=== PATIENT | female | born 1945 | race Caucasian/White ===

== ENCOUNTER 2024-05-01 13:55 | Emergency (ER) | payer MEDICARE, MEDICAID, SELFPAY ==
[2024-05-01 13:56] VITALS: BP 125/74; PULSE 81; RESP 20; TEMP 36.4; O2SAT 95; BMI 34.2
--- NOTE | 2024-05-01 14:13 | EDNOTE_ITS ---
ED SOB =RME/HPI General Chief Complaint: Shortness of Breath/Dyspnea Stated Complaint: SOB Time Seen by Provider: 05/01/24 14:13 Arrival date/time: 05/01/24 13:55 RME / HPI RME / HPI Narrative: This section includes all my notes and documentations, including HPI, PE, and ED course.? Leroy Robertson MD HPI: 79 year old female with history of CVA, VT, s/p aortic valve replacement, AFib, CKD, asthma presents to the ED BIBA from [facility] for evaluation of shortness of breath today. Per medics, [place] staff reported patient was saturating 76%. However, on their arrival patient was 93% on room air and described feeling it was hard to take a deep breath . Additionally reported she has had urinary frequency and dysuria for 4 days and started on antibiotics last night. Took her second dose this morning with no change in symptoms. Denies chest pain or palpitations. Denies fevers, chills, sweats, vomiting, diarrhea, leg pain or leg swelling. No other complaints. ROS: All negative except as documented in HPI. Physical Exam: General:? Alert and oriented.? No acute distress when remaining still.?? Eyes:? Conjunctivae and lids clear.? ENT:? No nasal congestion.? Neck:? Supple.? Heart:? RRR.? Lungs: No respiratory distress. Good air movement with no rhonchi or wheezing or rails. Legs:? No clubbing, cyanosis, edema.? Skin:? Warm and dry.?? Neuro:? Alert and oriented X 3.?? I reviewed all diagnostic test results. My interpretation of the EKG is?sinus rhythm with nonspecific ST?T changes. My interpretation of the chest x-ray is no acute findings. Blood tests remarkable for WBC 11.9. UA showed leukocyte esterase and RBC and WBC and bacteria. At this point, diagnoses include?UTI. Treatment here included?Rocephin and clonidine and Tylenol. She felt much better. Based on my best medical judgment, made decision no further evaluation or treatment indicated at this time.? Patient understands and agrees to the discharge instructions customized and printed, see below. Discharge instructions from Dr. Robertson: 1. After evaluation, you have severe UTI. Fortunately, there is no sepsis. 2. Ceftriaxone (Rocephin) 1 g 2X daily for 7 days to kill the germs causing the infection.? Increase oral fluid to flush it out.? Maintain clear urine.? If dark or yellow, increase oral fluid. 3. See a private doctor on 05/04/2024 for recheck.? Ask to check the final urine culture results from today to make sure Rocephin doesn't need to be changed due to resistance. 4. Seek immediate medical care with worsening, fever, or with any concerns. Leroy Robertson MD Related Data Home Medications ?Medication ?Instructions ?Recorded ?Confirmed lisinopril 10 mg tablet 20 mg PO QDAY HTN #0 tabs 04/02/16 11/18/23 aspirin 81 mg tablet,delayed 1 tab PO QDAY CVA PX 01/01/18 11/18/23 release amiodarone 200 mg tablet 200 mg PO QDAY AFIB 01/01/23 11/18/23 metoprolol succinate 50 mg capsule 25 mg PO QDAY HTN 01/01/23 11/18/23 sprinkle, ext. release 24 hr sucralfate 1 gram tablet 1 g PO BID ANTACID 10/07/23 11/18/23 coQ10 (ubiquinol) 200 mg capsule 400 mg PO QDAY SUPPLEMENT 10/08/23 11/18/23 ferrous sulfate 325 mg (65 mg 325 mg PO QDAY SUPPLEMENT 11/18/23 11/18/23 iron) tablet pantoprazole 40 mg tablet,delayed 40 mg PO QDAY GERD 11/18/23 11/18/23 release (Protonix) Previous Rx's ?Medication ?Instructions ?Recorded furosemide 20 mg tablet 20 mg PO QDAY leg swelling 1 month 11/21/23 #30 tabs ceftriaxone 1 gram solution for 1 g IV BID 7 days #14 ea 05/01/24 injection Allergies Allergy/AdvReac Type Severity Reaction Status Date / Time clindamycin Allergy Intermediate Hives Verified 10/07/23 09:59 latex Allergy Mild hives Verified 10/07/23 09:59 swelling shellfish derived Allergy Abdominal Verified 10/07/23 09:59 Pain codeine AdvReac Mild STOMACH Verified 10/07/23 09:59 UPSET Review of Systems Review of Systems Systems Reviewed: All systems reviewed, normal except as documented Past Medical History Past Medical History NEUROLOGIC: Positive Cerebrovascular Accident CARDIAC: Positive Cardiac Disorders, Cardiac Arrhythmia, Atrial Fibrillation, Coronary Artery Disease, Valvular Heart Disease and Hypertension RESPIRATORY: Positive Asthma and Pneumonia GASTROINTESTINAL: Positive Gastrointestinal Disorders, Hepatitis, Gall Bladder Disease and Gastroesophageal Reflux Disease GENITOURINARY: Positive Genitourinary Disorders and Renal Disease REPRODUCTIVE: Positive Previous Pregnancies MUSCULOSKELETAL: Positive Musculoskeletal Disorders, Arthritis and Degenerative Disk Disease ENT: Positive Cataracts HEMATOLOGIC: Positive Blood Disorders and Anemia OTHER HISTORY: Positive Falls, Chicken Pox, Measles and Mumps Family History FAMILY HISTORY: Positive Family Respiratory Disorders, Family Cardiac Disorders and Family Cancer Surgical History SURGICAL: Positive Valve Replacement, Angiogram, Ear Surgery, Tonsillectomy, Abdominal Surgery, Joint Replacement, Hysterectomy and Tubal Ligation Social History SMOKING STATUS: Never smoker SUBSTANCE USE: does not use ED Exam Narrative Physical exam: As noted in HPI Course Course Course Narrative: chest xray ordered to help determine etiology of shortness of breath. Quality Measures none Orders Category Date Time Status Bedside COVID-19 Antigen Test NOW Care 05/01/24 14:14 Completed Bedside Influenza A&B Antigen Test NOW Care 05/01/24 14:[address] Screening NOW Care 05/01/24 14:15 Completed EKG (ED ONLY) *Do not use* NOW Care 05/01/24 14:15 Completed Saline [Insert IV] NOW Care 05/01/24 14:15 Completed Straight [In and Out Catheter] X1 Care 05/01/24 14:15 Completed EKG (ED Only) Stat Exams 05/01/24 14:15 Draft XR chest 1V portable Stat Exams 05/01/24 14:15 Completed ABG [Arterial Blood Gas] Stat Lab 05/01/24 14:52 Completed BNP [B-Type Natriuretic Peptide] Stat Lab 05/01/24 14:31 Completed Blood Culture (Lab) Stat Lab 05/01/24 14:31 Received CBC Stat Lab 05/01/24 14:31 Completed CMP [Comprehensive Metabolic Panel] Stat Lab 05/01/24 14:31 Completed D-Dimer Stat Lab 05/01/24 14:31 Completed Lactate (Lactic Acid) Stat Lab 05/01/24 14:31 Completed Magnesium Stat Lab 05/01/24 14:31 Completed RSV [Respiratory Syncytial Virus Ag] Stat Lab 05/01/24 14:53 Completed TSH [Thyroid Stimulating Hormone] Stat Lab 05/01/24 14:31 Completed Troponin I Stat Lab 05/01/24 14:31 Completed UA [Urinalysis] Stat Lab 05/01/24 15:44 Completed Acetaminophen Ivpb [Ofirmev Inj] Med 05/01/24 16:25 Discontinued 1,000 mg in 100 ml IV NOW Morphine Inj Med 05/01/24 18:01 Discontinued 4 mg IVP X1 ONE cefTRIAXone/D5w 1gm IV premix [Rocephin/D5w 1gm IV Med 05/01/24 16:18 Discontinued premix] 50 ml IV X1 cloNIDine HCL [Catapres] Med 05/01/24 16:18 Discontinued 0.3 mg PO X1 ONE Vital Signs Vital signs: Vital Signs Temperature 97.5 F 05/01/24 13:56 Pulse Rate 81 05/01/24 13:56 Respiratory Rate 20 05/01/24 13:56 Blood Pressure 125/74 05/01/24 13:56 Pulse Oximetry (%) 95 05/01/24 13:56 Oxygen Delivery Method Room Air 05/01/24 13:56 Pulse ox is 95% on room air which is adequate. Shortness of Breath / Dyspnea MDM Narrative MDM Narrative:: Trish [place] am scribing for and in the presence of Dr. Robertson. Patient data External records reviewed:: [facility] previous records, EMS form and [facility] records (I reviewed [facility]ber[facility] bl[facility] from [facility]) Clinical information provided by:: patient and EMS Social determinants that could affect healthcare access:: housing ([place] resident ) Patient has the following chronic illnesses:: CVA, VT, s/p aortic valve replacement, AFib, CKD, asthma How is presenting disease/condition affected by chronic disease/condition?: exacerbated by Evaluation data The following diagnostics were reviewed and interpreted by me:: lab results, radiology exam(s) and EKG tracing(s) (My interpretation of the EKG is: Atrial fibrillation (90 bpm) with nonspecific ST-T changes. Leroy Robertson MD) Lab and/or radiology exams considered but not ordered:: None Interpretation Summary: UTI Medications / Prescriptions Medications or Prescriptions considered but not ordered:: None Medication administrations:: Medication Administration History Discontinued Medications Clonidine (Clonidine Hcl 0.1 Mg Tablet) 0.3 mg PO X1 ONE Stop: 05/01/24 16:19 Last Admin: 05/01/24 16:54 Dose: Not Given Documented By: OTIS Non-Admin Reason: Cancelled by Provider Ceftriaxone Sodium/Dextrose (Rocephin/D5w 1gm Iv Premix) 50 mls @ 100 mls/hr IV X1 ONE Stop: 05/01/24 16:47 Last Infusion: 05/01/24 17:57 Dose: Infused Documented By: Admin: 05/01/24 17:21 Dose: 100 mls/hr Documented By: OTIS Acetaminophen (Ofirmev Inj) 1,000 mg in 100 mls @ 250 mls/hr IV NOW ONE Stop: 05/01/24 16:48 Last Infusion: 05/01/24 17:20 Dose: Infused Documented By: Admin: 05/01/24 16:55 Dose: 250 mls/hr Documented By: OTIS Morphine Sulfate (Morphine Sulf Inj 10 Mg/Ml Vial) 4 mg IVP X1 ONE Stop: 05/01/24 18:02 Last Admin: 05/01/24 18:08 Dose: 4 mg Documented By: OTIS Rocephin and clonidine and Tylenol Consultations Consultation(s) initiated? (list below): No Diagnosis Shortness of Breath Differential Diagnosis: acute exacerbation of chronic obstructive airways disease, congestive heart failure, community acquired pneumonia, asthma with exacerbation, pulmonary embolism and other (UTI ) Most likely diagnosis given after review of the tests above:: UTI Admission Indicated Admission indicated?: not indicated Explain why admission is indicated or not indicated:: Admission criteria not met Admission Request Was there a request for admission?: No Disposition Plan Disposition Plan: Discharge Discharge Attestation Discharge Attestation: The patient and all family members were given an opportunity to ask questions and understood the discharge instructions. Discharge instructions specifically effects, indications for sooner follow up or return to the emergency department, and the expected course of current diagnosis. Patient condition: Stable Discharge Plan Plan Patient Disposition: Xfer Skilled Nsg Fac (SNF) Prescriptions/Referrals Prescriptions/Med Rec: New ceftriaxone 1 gram recon soln 1 g IV BID 7 Days Qty: 14 0RF No Action lisinopril 10 MG tablet 20 mg PO QDAY Qty: 0 Rx Instructions: HOLD IF SBP<100 OR DBP<60 aspirin 81 mg Tablet,Delayed Release (Dr/Ec) 1 tab PO QDAY Hold Instructions: Resume on 11/10/20. amiodarone 200 mg Tablet 200 mg PO QDAY metoprolol succinate 50 mg Capsule,Sprinkle,Er 24hr 25 mg PO QDAY Rx Instructions: HOLD IF SBP<100 OR DBP<60 sucralfate 1 gram Tablet 1 g PO BID coQ10 (ubiquinol) 200 mg Capsule 400 mg PO QDAY pantoprazole [Protonix] 40 mg tablet,delayed release (DR/EC) 40 mg PO QDAY ferrous sulfate 325 mg (65 mg iron) Tablet 325 mg PO QDAY furosemide 20 mg tablet 20 mg PO QDAY 30 Days Qty: 30 3RF Referrals: Shalom Sheikh MD [Primary Care Provider] - In 1 week Problem List Clinical Impression: UTI (urinary tract infection) Patient/Caregiver Discharge Instructions Discharge Activity: activity as tolerated Education Materials: ED CYSTITIS Female Adult Additional Instructions: Discharge instructions from Dr. Robertson: 1. After evaluation, you have severe UTI. Fortunately, there is no sepsis. 2. Ceftriaxone (Rocephin) 1 g 2X daily for 7 days to kill the germs causing the infection.? Increase oral fluid to flush it out.? Maintain clear urine.? If dark or yellow, increase oral fluid. 3. See a private doctor on 05/04/2024 for recheck.? Ask to check the final urine culture results from today to make sure Rocephin doesn't need to be changed due to resistance. 4. Seek immediate medical care with worsening, fever, or with any concerns. Print Language: [place] Island[place] Stand Alone Forms: [employer] Award Info., Patient Portal Info Letter
--- NOTE | 2024-05-01 14:15 | EKG_ITS ---
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
--- NOTE | 2024-05-01 14:15 | XR_ITS ---
Examination: AP chest single view TECHNIQUE: AP portable upright chest single view Exam date and time: May 01, 2024 1423 hours INDICATIONS: Shortness of breath today. FINDINGS: Normal heart size Aortic cage Mild vascular congestion No lobar pneumonia Suspicious for 8 mm pulmonary nodule right upper lobe IMPRESSION: No lobar pneumonia Recommend AP lordotic chest follow-up to exclude 8 mm pulmonary nodule right upper lobe
[2024-05-01 14:46] LABS: Lactate (Lactic Acid) 1.1 mMol/L (0.4-2.0)
[2024-05-01 14:47] LABS: Basophils % (Auto) 0 % (0-2.5); Eosinophils # (Auto) 0.6 Thou/mm3 (0.0-0.5); Eosinophils % (Auto) 5 % (0-10); Hemoglobin 12.1 g/dL (12.0-16.0); Immature Granulocytes % (Auto) 0 % (0-0); Immature Granulocytes Auto 0.05 Thou/mm3 (0.00-0.00); Lymphocytes # (Auto) 0.4 Thou/mm3 (1.0-4.8); Lymphocytes % (Auto) 4 % (10-50); Mean Corpuscular HGB Conc 31.8 g/dl (31.0-37.0); Mean Corpuscular Hemoglobin 31.8 pg (25.0-35.0); Mean Corpuscular Volume 100 fL (80-100); Monocytes # (Auto) 0.6 Thou/mm3 (0.0-0.8); Monocytes % (Auto) 5 % (0-12); Neutrophils # (Auto) 10.1 Thou/mm3 (1.8-7.7); Neutrophils % (Auto) 86 % (37-80); Nucleated Red Blood Cell % 0 /100 WBC (0); Platelet Count 251 Thou/mm3 (140-440); RDW Standard Deviation 52.9 fL (36.4-46.3); Red Blood Count 3.81 Miln/mm3 (4.00-5.20); White Blood Count 11.9 Thou/mm3 (3.6-11.0)
[2024-05-01 14:56] LABS: Base Excess 4 (-3-3); HCO3 30 mEq/L (20-26); Inspired Oxygen, FIO2 21 %; O2 Saturation 90 % (91-98); PCO2 49 mmHg (32.0-48.0)
[2024-05-01 15:01] LABS: Allen Test Performed/OK; PO2 56 mmHg (83-108); Puncture Site Left Radial
[2024-05-01 15:09] LABS: B-Type Natriuretic Peptide 272 pg/mL (0-100)
[2024-05-01 15:14] LABS: Alanine Aminotransferase 15 U/L (10-49); Albumin, Serum 4.5 gm/dL (3.4-4.8); Albumin/Globulin Ratio 1.6 (1.2-2.2); Alkaline Phosphatase 88 U/L (46-116); Anion Gap 4 (7-16); Aspartate Amino Transferase 19 U/L (0-34); BUN/Creatinine Ratio 22 Ratio (12-20); Bilirubin,Total 1.3 mg/dL (0.3-1.2); Blood Urea Nitrogen 29 mg/dL (9-23); Calcium 9.2 mg/dL (8.3-10.6); Calcium (Corrected) 9.2 mg/dL (8.5-10.1); Carbon Dioxide 31.2 mMol/L (20.0-31.0); Chloride 97 mMol/L (98-107); Creatinine (Component) 1.3 mg/dL (0.6-1.3); Globulin 2.8 gm/dL (2.3-3.5); Glucose 102 mg/dL (74-106); Osmolality,Calculated 270 (275-295); Potassium 4.5 mMol/L (3.4-5.1); Sodium 132 mMol/L (136-145); Thyroid Stimulating Hormone 7.32 uIU/mL (0.55-4.78); Total Protein 7.3 gm/dL (5.7-8.2); Troponin I < 0.020 ng/mL (0.0-0.045); eGFR 42 See Note
[2024-05-01 15:19] LABS: D-Dimer 605 ng/mL (<600)
[2024-05-01 15:49] LABS: Collection Type, Urine Clean Catch
[2024-05-01 15:51] LABS: Respiratory Syncytial Virus Ag Negative (Negative)
[2024-05-01 15:56] LABS: Amorphous Crystals,Urine Present (Absent); Bacteria,Urine 1+; Bilirubin,Urine Negative (Negative); Blood,Urine 2+ (Negative); Color,Urine Yellow (Lt Yel-Yel); Glucose, Urine Negative (Negative); Ketones,Urine Negative (Negative); Leukocyte Esterase,Urine Positive (Negative); Nitrite,Urine Negative (Negative); Protein,Urine 1+ (Neg - Trace); RBC,Urine 59 /hpf (0-3); Specific Gravity,Urine 1.018 (1.001-1.035); Squamous Epithelial Cell,Urine < 1 /hpf (0-5); Urobilinogen,Urine Negative mg/dL (0.0-1.0); WBC,Urine 205 /hpf (0-5)
[2024-05-01 16:08] LABS: Clarity,Urine Hazy (Clear/Hazy)
[2024-05-01 16:15] VITALS: BP 147/79; PULSE 101; RESP 15; TEMP 38.2; O2SAT 93
[2024-05-01] MEDS: ACETAMINOPHEN IVPB 1,000 MG/100 ML VIAL 250 MG IV (16:55)
[2024-05-01] MEDS: cefTRIAXone/D5w 1gm IV premix 50 ML IV (17:21)
--- NOTE | 2024-05-01 17:59 | PC.LAC ---
Patient states pain 8/10. Informed ER provider and received verbal order for 4mg morphine IV
[2024-05-01] MEDS: MORPHINE SULF INJ 10 MG/ML VIAL 4 MG IVP (18:08)
--- NOTE | 2024-05-01 18:16 | PC.CC ---
ASMeenu Alba was consulted by DANNY Del Toro for transportation back to facility-[facility]. ASW, arranged transportation via [employer] for transportation back to [facility]. ASW made contact with [facility] for transportation.
[2024-05-01 18:20] VITALS: BP 119/76; PULSE 98; RESP 20; TEMP 37; O2SAT 93
--- NOTE | 2024-05-01 20:02 | PC.NURSE ---
Contacted [facility] at [facility]. Informed nurse pt will have IV in place for continued IV antibiotics
== END 2024-05-01 20:00 | disposition skilled nursing facility (03) ==
PROVIDERS: Emergency Provider Emergency Medicine; PCP Family Medicine
DX: N39.0 Urinary tract infection, site not specified (principal); R06.02 Shortness of breath; I48.91 Unspecified atrial fibrillation; I25.2 Old myocardial infarction; I12.9 Hypertensive chronic kidney disease with stage 1 through stage 4 chronic kidney disease, or unspecified chronic kidney disease; I25.10 Atherosclerotic heart disease of native coronary artery without angina pectoris; N18.9 Chronic kidney disease, unspecified; Z95.2 Presence of prosthetic heart valve
CPT/HCPCS: 36415; 36600; 71045; 80053; 81001; 82803; 83605; 83735; 83880; 84443; 84484; 85025; 85379; 87040; 87086; 87400; 87634; 87811; 93005; 96365; 96367; 96375; 99284; J0131; J0696; J2270

== ENCOUNTER → 2024-05-15 | Outpatient (CLI) | payer MEDICARE, MEDICAID, SELFPAY ==
--- NOTE | 2024-05-15 13:07 | XR_ITS ---
Examination: Left knee 4 views TECHNIQUE: Standing AP oblique lateral axial left knee 4 views Exam date and time: May 15, 2024 1333 hours INDICATIONS: Knee pain years. FINDINGS: Severe osteopenia Advanced narrowing [id number] lateral joint space Significant osteoarthritis patellofemoral joint Small knee effusion No fracture IMPRESSION: Advanced narrowing [id number] lateral joint space left knee Significant osteoarthritis patellofemoral joint
== END | disposition home or self-care (01) ==
PROVIDERS: PCP Family Medicine; Referring Provider Orthopaedic Surgery; Visit Provider Orthopaedic Surgery
DX: M17.12 Unilateral primary osteoarthritis, left knee (principal); M25.862 Other specified joint disorders, left knee
CPT/HCPCS: 73564

== ENCOUNTER → 2024-06-08 | Outpatient (CLI) | payer MEDICARE, MEDICAID, SELFPAY ==
--- NOTE | 2024-06-08 10:30 | XR_ITS ---
MRI shoulder, left, without contrast. Date and time: June 08, 2024 1230 hours INDICATIONS: Patient fell 2 months ago with injury to the shoulder, shoulder pain Technique: Multiple axial, sagittal and coronal sections of the shoulder have been obtained. Siemens high-resolution 1.5 [place] MRI scanner is utilized. Axial fat-suppressed sections, TR 2350, TE 18 T2-weighted coronal fat-saturated images, TR 3500, TE 7100 T1-weighted coronal images, TR 500, TE 15 T2-weighted sagittal fat-saturated images, TR 3500, TE 57 T1-weighted sagittal sections, TR 504, TE 13. Findings: Suspicious for 15 mm full-thickness tear of the rotator cuff Subscapularis insertion is intact. Subscapularis bursa is small. Long head of the biceps is in the bicipital groove. No definite tear of the biceps superior labral anchor is seen. Retraction of the musculotendinous junction of the rotator cuff is mild. Tendinosis pattern is moderate. Distance between the acromium and humeral head is 6 mm Atrophy of the supraspinatus muscle is significant. Atrophy of the infraspinatus muscle is significant. Sagittal sections demonstrate a horizontal acromion. Acromioclavicular joint demonstrates mild osteoarthritis . Osacromiale is not identified. Labral margins appear intact. Bony glenoid fossa on the sagittal sections does not demonstrate osseous defect. Occult fracture or area of avascular necrosis is not seen. Acromioclavicular joint separation is not visible. Defect in the posterolateral margin of the humeral head is not seen Impression: Recommend this patient return for MR shoulder arthrography followed by post intra-articular contrast images of the shoulder to confirm 20 mm full-thickness rotator cuff tear
== END | disposition home or self-care (01) ==
PROVIDERS: PCP Family Medicine; Referring Provider Orthopaedic Surgery; Visit Provider Orthopaedic Surgery
DX: M75.122 Complete rotator cuff tear or rupture of left shoulder, not specified as traumatic (principal)
CPT/HCPCS: 73221

== ENCOUNTER 2024-06-11 12:39 | Emergency (ER) | payer MEDICARE, MEDICAID, SELFPAY ==
[2024-06-11 12:50] VITALS: BP 98/65; PULSE 97; RESP 18; TEMP 36.7; O2SAT 94
--- NOTE | 2024-06-11 13:02 | XR_ITS ---
Examination: AP chest single view Technique one AP portable upright chest single view Exam date and time: June 11, 2024 1503 hours Comparison May 01, 2024 INDICATIONS: Shortness of breath today. FINDINGS: Mild heart failure Mild enlargement cardiac contour Prosthetic aortic cage Prominent vascular congestion Early septal edema at the lung bases IMPRESSION: Early heart failure
--- NOTE | 2024-06-11 13:02 | EKG_ITS ---
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
[2024-06-11 13:34] LABS: Basophils # (Auto) 0.1 Thou/mm3 (0.0-0.2); Basophils % (Auto) 1 % (0-2.5); Eosinophils # (Auto) 0.1 Thou/mm3 (0.0-0.5); Eosinophils % (Auto) 1 % (0-10); Hematocrit 31.6 % (36.0-46.0); Hemoglobin 9.9 g/dL (12.0-16.0); Immature Granulocytes % (Auto) 0 % (0-0); Immature Granulocytes Auto 0.03 Thou/mm3 (0.00-0.00); Lymphocytes # (Auto) 0.3 Thou/mm3 (1.0-4.8); Lymphocytes % (Auto) 4 % (10-50); Mean Corpuscular HGB Conc 31.3 g/dl (31.0-37.0); Mean Corpuscular Hemoglobin 30.8 pg (25.0-35.0); Mean Corpuscular Volume 98 fL (80-100); Monocytes # (Auto) 0.3 Thou/mm3 (0.0-0.8); Monocytes % (Auto) 3 % (0-12); Neutrophils # (Auto) 7.9 Thou/mm3 (1.8-7.7); Neutrophils % (Auto) 91 % (37-80); Nucleated Red Blood Cell % 0 /100 WBC (0); Platelet Count 253 Thou/mm3 (140-440); RDW Standard Deviation 46.6 fL (36.4-46.3); Red Blood Count 3.21 Miln/mm3 (4.00-5.20); White Blood Count 8.7 Thou/mm3 (3.6-11.0)
[2024-06-11 13:54] LABS: Alanine Aminotransferase 9 U/L (10-49); Albumin, Serum 3.5 gm/dL (3.4-4.8); Albumin/Globulin Ratio 1.2 (1.2-2.2); Alkaline Phosphatase 72 U/L (46-116); Anion Gap 3 (7-16); Aspartate Amino Transferase 20 U/L (0-34); BUN/Creatinine Ratio 14 Ratio (12-20); Blood Urea Nitrogen 17 mg/dL (9-23); Calcium 9.6 mg/dL (8.3-10.6); Carbon Dioxide 33.2 mMol/L (20.0-31.0); Chloride 98 mMol/L (98-107); Creatinine (Component) 1.2 mg/dL (0.6-1.3); Glucose 135 mg/dL (74-106); Osmolality,Calculated 271 (275-295); Potassium 5.4 mMol/L (3.4-5.1); Sodium 134 mMol/L (136-145); Total Protein 6.5 gm/dL (5.7-8.2); Troponin I < 0.020 ng/mL (0.0-0.045); eGFR 46 See Note
[2024-06-11 14:50] VITALS: BP 103/62; PULSE 97; RESP 20; TEMP 37; O2SAT 96
--- NOTE | 2024-06-11 15:06 | PD.EDSOB ---
ED SOB =RME/HPI General Chief Complaint: Shortness of Breath/Dyspnea Stated Complaint: SOB Time Seen by Provider: 06/11/24 12:48 Arrival date/time: 06/11/24 12:39 RME / HPI RME / HPI Narrative: 79 year old female with history of CVA, AFib, s/p aortic valve replacement TAVR, MO, COPD, hypertension, CKD, iron deficient anemia presents to the ED BIBA from [facility] for evaluation of shortness of breath. Per medics, CT staff reported patient has had intermittent episodes of shortness of breath that occur mostly during the night. States she was recently diagnosed with pneumonia by CXR and completed a course of antibiotics. Started on Prednisone today. Per medics, on scene patient was saturating low 90's on 2L nasal cannula. Patient denies any fevers, chills, chest pain, abdominal pain, n/v/d, or urinary symptoms. Related Data Home Medications ?Medication ?Instructions ?Recorded ?Confirmed lisinopril 10 mg tablet 20 mg PO QDAY HTN #0 tabs 04/02/16 11/18/23 aspirin 81 mg tablet,delayed 1 tab PO QDAY CVA PX 01/01/18 11/18/23 release amiodarone 200 mg tablet 200 mg PO QDAY AFIB 01/01/23 11/18/23 metoprolol succinate 50 mg capsule 25 mg PO QDAY HTN 01/01/23 11/18/23 sprinkle, ext. release 24 hr sucralfate 1 gram tablet 1 g PO BID ANTACID 10/07/23 11/18/23 coQ10 (ubiquinol) 200 mg capsule 400 mg PO QDAY SUPPLEMENT 10/08/23 11/18/23 ferrous sulfate 325 mg (65 mg 325 mg PO QDAY SUPPLEMENT 11/18/23 11/18/23 iron) tablet pantoprazole 40 mg tablet,delayed 40 mg PO QDAY GERD 11/18/23 11/18/23 release (Protonix) Previous Rx's ?Medication ?Instructions ?Recorded furosemide 20 mg tablet 20 mg PO QDAY leg swelling 1 month 11/21/23 #30 tabs amoxicillin 875 mg-potassium 1 tab PO BID #14 tabs 06/11/24 clavulanate 125 mg tablet Allergies Allergy/AdvReac Type Severity Reaction Status Date / Time clindamycin Allergy Intermediate Hives Verified 10/07/23 09:59 latex Allergy Mild hives Verified 10/07/23 09:59 swelling shellfish derived Allergy Abdominal Verified 10/07/23 09:59 Pain codeine AdvReac Mild STOMACH Verified 10/07/23 09:59 UPSET Review of Systems Review of Systems Narrative Review of Systems: Gen: No fever, no chills, no weight loss EYES: No discharge, no visual changes, no pain HEENT: No ear pain, no congestion, no sore throat PULM: +shortness of breath, + cough, no congestion CV: No chest pain, no palpitations, no chest tightness GI: No nausea, no vomiting, no diarrhea, no pain, no constipation : No frequency, no urgency,? no dysuria Musc/skel: No joint pain, no back pain Skin: No rash, no ecchymosis, no lesions Psyc: No hallucinations, no depression Heme/Lymph: No easy bleeding or bruising tendencies Neuro: No weakness, no headache Past Medical History Past Medical History NEUROLOGIC: Positive Cerebrovascular Accident CARDIAC: Positive Cardiac Disorders, Cardiac Arrhythmia, Atrial Fibrillation, Coronary Artery Disease, Valvular Heart Disease and Hypertension RESPIRATORY: Positive Asthma, Bronchitis and Pneumonia GASTROINTESTINAL: Positive Gastrointestinal Disorders, Hepatitis, Gall Bladder Disease, Hemorrhoids and Gastroesophageal Reflux Disease GENITOURINARY: Positive Genitourinary Disorders and Renal Disease REPRODUCTIVE: Positive Previous Pregnancies MUSCULOSKELETAL: Positive Musculoskeletal Disorders, Arthritis and Degenerative Disk Disease ENT: Positive Cataracts HEMATOLOGIC: Positive Blood Disorders and Anemia OTHER HISTORY: Positive Falls, Chicken Pox, Measles and Mumps; Negative Organ Transplant Family History FAMILY HISTORY: Positive Family Respiratory Disorders, Family Cardiac Disorders and Family Cancer Surgical History SURGICAL: Positive Valve Replacement, Angiogram, Ear Surgery, Tonsillectomy, Abdominal Surgery, Joint Replacement, Hysterectomy and Tubal Ligation; Negative Organ Transplant Social History SMOKING STATUS: Former smoker SUBSTANCE USE: does not use ED Exam Narrative Physical exam: GENERAL APPEARANCE: AxOx4, no obvious distress, nontoxic appearing HEENT: NC, AT. MMM. EOMI, clear conjunctiva, oropharynx clear. NECK: Supple without lymphadenopathy. No stiffness or restricted ROM. HEART: Normal rate and regular rhythm, normal S1/S1, no m/r/g LUNGS: CTAB, moving air well. No crackles or wheezes are heard. ABDOMEN: Soft, nontender, nondistended with good bowel sounds heard. BACK: No midline C/T/L spine pain or deformity, No CVAT, no obvious deformity. EXTREMITIES: Without cyanosis, clubbing or edema. MUSCULOSKELETAL: FROM of all major joints, no chest tenderness NEUROLOGICAL: Grossly nonfocal. Alert and oriented, moving all 4 extremities. CN not formally tested but appear grossly intact. Skin: Warm and dry without any rash. Course Course Course Narrative: chest xray ordered to help determine etiology of shortness of breath. Quality Measures none Orders Category Date Time Status CT Screening NOW Care 06/11/24 15:57 Completed EKG (ED ONLY) *Do not use* NOW Care 06/11/24 13:[address] angio chest Stat Exams 06/11/24 15:57 Completed EKG (ED Only) Stat Exams 06/11/24 13:02 Draft XR chest 1V Stat Exams 06/11/24 13:02 Completed CBC Stat Lab 06/11/24 13:23 Completed CMP [Comprehensive Metabolic Panel] Stat Lab 06/11/24 13:23 Completed Troponin I Stat Lab 06/11/24 13:23 Completed Urinalysis Stat Lab 06/11/24 19:15 Completed Amoxicillin/Pot Clav 875 [Augmentin 875] Med 06/11/24 20:17 Discontinued 1 tab PO X1 ONE Vital Signs Vital signs: Vital Signs Temperature 98.1 F 06/11/24 12:50 Pulse Rate 97 06/11/24 12:50 Respiratory Rate 18 06/11/24 12:50 Blood Pressure 98/65 06/11/24 12:50 Pulse Oximetry (%) 94 L 06/11/24 12:50 Oxygen Delivery Method Nasal Cannula 06/11/24 12:50 Oxygen Flow Rate 2 06/11/24 12:50 Pulse ox is 94% on 2L nasal cannula which is adequate. Shortness of Breath / Dyspnea MDM Narrative MDM Narrative:: Trish Carolina am scribing for and in the presence of Dr. Melgar. Patient data External records reviewed:: [facility] previous records (I reviewed ED visit on 05/01/2024), EMS form and Group [facility] records (I reviewed medical hx and medication list from [facility] ) Clinical information provided by:: patient and EMS Social determinants that could affect healthcare access:: housing (NH patient ) Patient has the following chronic illnesses:: CVA, AFib, s/p aortic valve replacement TAVR, MO, COPD, hypertension, CKD, iron deficient anemia How is presenting disease/condition affected by chronic disease/condition?: exacerbated by Evaluation data The following diagnostics were reviewed and interpreted by me:: lab results, radiology exam(s) and EKG tracing(s) (Atrial tachycardia, rate 88, no STEMI. ) Lab and/or radiology exams considered but not ordered:: None Interpretation Summary: Ordering Physician: Luis Melgar MD Date of Service: 06/11/24 Procedure(s): XR chest 1V Accession Number(s): [id number] cc: Luis Melgar MD; Marquise Trujillo MD; Shalom Sheikh MD~ Examination: AP chest single view Technique one AP portable upright chest single view Exam date and time: June 11, 2024 1503 hours Comparison May 01, 2024 INDICATIONS: Shortness of breath today. FINDINGS: Mild heart failure Mild enlargement cardiac contour Prosthetic aortic cage Prominent vascular congestion Early septal edema at the lung bases IMPRESSION: Early heart failure Dictated By: Marquise Trujillo MD Signed By: <Electronically signed by Marquise Trujillo MD in OV> 06/11/24 1518 Medications / Prescriptions Medications or Prescriptions considered but not ordered:: None Medication administrations:: Medication Administration History Discontinued Medications Amoxicillin/Clavulanate Potassium (Amoxicillin/Pot Clav 875 Tablet) 1 tab PO X1 ONE Stop: 06/11/24 20:18 Last Admin: 06/11/24 20:53 Dose: 1 tab Documented By: EMILI None Consultations Consultation(s) initiated? (list below): Yes Consultation #1 (Physician, Specialty, Details): I spoke with patients guide Dr. Liz Arita. Time: 18:13 Diagnosis Shortness of Breath Differential Diagnosis: acute exacerbation of chronic obstructive airways disease, congestive heart failure, community acquired pneumonia and asthma with exacerbation Most likely diagnosis given after review of the tests above:: Shortness of breath Admission Indicated Admission indicated?: not indicated Explain why admission is indicated or not indicated:: Patient signed out to Dr. Hoover pending CT angio chest and UA. Admission Request Was there a request for admission?: No Disposition Plan Disposition Plan: other (specify) (Signed out to Dr. Hoover ) Discharge Plan Plan Patient Disposition: HOME (Self Care) Patient condition on transfer: Stable Prescriptions/Referrals Prescriptions/Med Rec: New amoxicillin-pot clavulanate 875-125 mg tablet 1 tab PO BID Qty: 14 0RF No Action lisinopril 10 MG tablet 20 mg PO QDAY Qty: 0 Rx Instructions: HOLD IF SBP<100 OR DBP<60 aspirin 81 mg Tablet,Delayed Release (Dr/Ec) 1 tab PO QDAY Hold Instructions: Resume on 11/10/20. amiodarone 200 mg Tablet 200 mg PO QDAY metoprolol succinate 50 mg Capsule,Sprinkle,Er 24hr 25 mg PO QDAY Rx Instructions: HOLD IF SBP<100 OR DBP<60 sucralfate 1 gram Tablet 1 g PO BID coQ10 (ubiquinol) 200 mg Capsule 400 mg PO QDAY pantoprazole [Protonix] 40 mg tablet,delayed release (DR/EC) 40 mg PO QDAY ferrous sulfate 325 mg (65 mg iron) Tablet 325 mg PO QDAY furosemide 20 mg tablet 20 mg PO QDAY 30 Days Qty: 30 3RF Referrals: Shalom Sheikh MD [Primary Care Provider] - In 1 week Problem List Clinical Impression: Pneumonia, Dysuria Patient/Caregiver Discharge Instructions Education Materials: Dysuria, COPD Meds Additional Instructions: Take the antibiotics as prescribed. Continue your COPD exacerbation medications as per your primary care physician. Please have your primary care physician follow the urine culture results in the next 72 hours. Return to the emergency department for any worsening symptoms, or any other concerns. Print Language: [place] Stand Alone Forms: [employer] Award Info., Patient Portal Info Letter
[2024-06-11 15:41] VITALS: PULSE 91; RESP 18; O2SAT 94; BMI 34.2
--- NOTE | 2024-06-11 15:57 | XR_ITS ---
Examination: CTA chest with intravenous contrast 2-D reconstructions 3-D reconstructions, vascular Date and time of exam: June 11, 2024 1742 hours Comparison November 18, 2023 INDICATIONS: Onset chest pain shortness of breath today CTDI: vol (mGy) 22.1 DLP: (mGycm) 532 Technique: Multiple axial sections of the thorax have been obtained. 3 mm slice thickness, from below the hemidiaphragms to above the apices of the lungs. Mediastinal and lung density settings have been obtained. 2-D sagittal and coronal reconstructions. 3-D angiographic renderings, 3-D volume renderings, 3D post processing, vascular maximum intensity projections obtained. Contrast administered is 100 cc Isovue-370 intravenous Low dose protocols, adjustment MA KV according to patient's size FINDINGS: There is no thoracic aortic aneurysmal dilatation or dissection No pulmonary artery emboli No paratracheal tracheobronchial or bronchopulmonary adenopathy Significant opacity throughout both lungs especially in the upper lobes with subcentimeter noncalcified pulmonary nodules Liver is irregular in contour no visualized liver lesions Absent gallbladder Spleen is not enlarged No pancreatic mass Small retrocardiac gastric hernia Kidneys partially visualized no hydronephrosis Prominent osteopenia. Impression: Negative for pulmonary artery emboli Significant bilateral pneumonia Recommend 6 month follow-up CT chest without contrast to document stability of multiple subcentimeter pulmonary nodules noticed on this study
[2024-06-11 16:54] VITALS: BP 112/72; PULSE 100; RESP 19; TEMP 36.8; O2SAT 92
[2024-06-11 18:19] VITALS: BP 102/83; PULSE 112; RESP 18; TEMP 37; O2SAT 93
[2024-06-11 19:21] LABS: Collection Type, Urine Catheter; Squamous Epithelial Cell,Urine 0 /hpf (0-5)
[2024-06-11 19:37] LABS: Bilirubin,Urine Negative (Negative); Blood,Urine Negative (Negative); Clarity,Urine Clear (Clear/Hazy); Color,Urine Lt-Yellow (Lt Yel-Yel); Glucose, Urine Negative (Negative); Ketones,Urine Negative (Negative); Leukocyte Esterase,Urine Negative (Negative); Nitrite,Urine Negative (Negative); PH,Urine 5.5 (5.0-7.0); Protein,Urine Negative (Neg - Trace); RBC,Urine 1 /hpf (0-3); Specific Gravity,Urine 1.013 (1.001-1.035); Urobilinogen,Urine Negative mg/dL (0.0-1.0); WBC,Urine 2 /hpf (0-5)
--- NOTE | 2024-06-11 19:40 | EDNOTE_ITS ---
Emergency Room Addendum <Shaila Finn - Last Filed: 06/11/24 21:18> Addendum Narrative: 1800: Care assumed from Dr. Melgar, the previous shift emergency physician. Past medical, surgical, social and family history reviewed. Vitals and home medications reviewed. I will assume the care of the patient at this time, pending CTA, U/A, and final disposition. Please refer to the emergency department record for history and examination from initial visit.? Physical exam by me shows patient under no acute distress at this time. Pt is on home o2 at home. 2041: Patient remains clinically stable throughout the emergency department visit. Re-assessment at the time of disposition demonstrates that the patient is in no acute distress. We reviewed all the results, analysis, and treatment plans. Patient is amenable to discharge. Strict return precautions were out lined. Patient was discharged in stable condition. RADIOLOGY Procedure(s): CT angio chest Accession Number(s): [id number] cc: Luis Melgar MD; Marquise Trujillo MD; Shalom Sheikh MD~ Examination: CTA chest with intravenous contrast 2-D reconstructions 3-D reconstructions, vascular Date and time of exam: June 11, 2024 1742 hours Comparison November 18, 2023 INDICATIONS: Onset chest pain shortness of breath today CTDI: vol (mGy) 22.1 DLP: (mGycm) 532 Technique: Multiple axial sections of the thorax have been obtained. 3 mm slice thickness, from below the hemidiaphragms to above the apices of the lungs. Mediastinal and lung density settings have been obtained. 2-D sagittal and coronal reconstructions. 3-D angiographic renderings, 3-D volume renderings, 3D post processing, vascular maximum intensity projections obtained. Contrast administered is 100 cc Isovue-370 intravenous Low dose protocols, adjustment MA KV according to patient's size FINDINGS: There is no thoracic aortic aneurysmal dilatation or dissection No pulmonary artery emboli No paratracheal tracheobronchial or bronchopulmonary adenopathy Significant opacity throughout both lungs especially in the upper lobes with subcentimeter noncalcified pulmonary nodules Liver is irregular in contour no visualized liver lesions Absent gallbladder Spleen is not enlarged No pancreatic mass Small retrocardiac gastric hernia Kidneys partially visualized no hydronephrosis Prominent osteopenia. Impression: Negative for pulmonary artery emboli Significant bilateral pneumonia Recommend 6 month follow-up CT chest without contrast to document stability of multiple subcentimeter pulmonary nodules noticed on this study Dictated By: Marqusie Trujillo MD <Chiquita Hoover MD - Last Filed: 06/11/24 20:08> Addendum Narrative: 1800: Care assumed from Dr. Melgar, the previous shift emergency physician. Past medical, surgical, social and family history reviewed. Vitals and home medications reviewed. I will assume the care of the patient at this time, pending CTA, U/A, and final disposition. Please refer to the emergency department record for history and examination from initial visit.? Physical exam by me shows patient under no acute distress at this time. Pt is on home o2 at home. RADIOLOGY Procedure(s): CT angio chest Accession Number(s): [id number] cc: Luis Melgar MD; Marquise Trujillo MD; Shalom Sheikh MD~ Examination: CTA chest with intravenous contrast 2-D reconstructions 3-D reconstructions, vascular Date and time of exam: June 11, 2024 1742 hours Comparison November 18, 2023 INDICATIONS: Onset chest pain shortness of breath today CTDI: vol (mGy) 22.1 DLP: (mGycm) 532 Technique: Multiple axial sections of the thorax have been obtained. 3 mm slice thickness, from below the hemidiaphragms to above the apices of the lungs. Mediastinal and lung density settings have been obtained. 2-D sagittal and coronal reconstructions. 3-D angiographic renderings, 3-D volume renderings, 3D post processing, vascular maximum intensity projections obtained. Contrast administered is 100 cc Isovue-370 intravenous Low dose protocols, adjustment MA KV according to patient's size FINDINGS: There is no thoracic aortic aneurysmal dilatation or dissection No pulmonary artery emboli No paratracheal tracheobronchial or bronchopulmonary adenopathy Significant opacity throughout both lungs especially in the upper lobes with subcentimeter noncalcified pulmonary nodules Liver is irregular in contour no visualized liver lesions Absent gallbladder Spleen is not enlarged No pancreatic mass Small retrocardiac gastric hernia Kidneys partially visualized no hydronephrosis Prominent osteopenia. Impression: Negative for pulmonary artery emboli Significant bilateral pneumonia Recommend 6 month follow-up CT chest without contrast to document stability of multiple subcentimeter pulmonary nodules noticed on this study Dictated By: Marquise Trujillo MD
[2024-06-11] MEDS: AMOXICILLIN/POT CLAV 875 TABLET 1 TAB PO (20:53)
== END 2024-06-11 21:10 | disposition home or self-care (01) ==
PROVIDERS: Emergency Medicine; Emergency Provider Emergency Medicine; PCP Family Medicine
DX: J44.0 Chronic obstructive pulmonary disease with (acute) lower respiratory infection (principal); J18.9 Pneumonia, unspecified organism; R91.8 Other nonspecific abnormal finding of lung field; I48.92 Unspecified atrial flutter; Z99.81 Dependence on supplemental oxygen; I50.9 Heart failure, unspecified; I13.0 Hypertensive heart and chronic kidney disease with heart failure and stage 1 through stage 4 chronic kidney disease, or unspecified chronic kidney disease; I48.91 Unspecified atrial fibrillation; Z95.2 Presence of prosthetic heart valve; I25.2 Old myocardial infarction; N18.9 Chronic kidney disease, unspecified; Z87.891 Personal history of nicotine dependence; I25.10 Atherosclerotic heart disease of native coronary artery without angina pectoris
CPT/HCPCS: 36415; 71045; 71275; 80053; 81001; 84484; 85025; 93005; 99285; A4649; Q9967; A9270

== ENCOUNTER 2024-07-07 13:22 | Outpatient (AMB) | payer MEDICARE, MEDICAID, SELFPAY ==
[2024-07-07 14:01] VITALS: BP 113/72; PULSE 99; RESP 18; TEMP 36.6; O2SAT 97; BMI 34.7
--- NOTE | 2024-07-07 14:01 | ORTHONT_ITS ---
Vital signs 07/07/24 14:01 Height 1.68 m Height Method Stated Weight 97.976 kg Weight Measurement Method Standing Scale BMI 34.7 BP 113/72 Blood Pressure Source Automatic Cuff Blood Pressure Location Left Upper Arm Position Sitting Respiration 18 Pulse 99 Pulse Source Monitor Temp 97.8 F Temp Source Temporal Artery Scan Pulse Oximetry (%) 97 Oxygen Delivery Method Room Air Nasal Cannula Med/Allergies Allergies & Medications Allergies clindamycin Allergy (Intermediate, Verified 07/07/24 14:02) Hives latex Allergy (Mild, Verified 07/07/24 14:02) hives swelling shellfish derived Allergy (Verified 07/07/24 14:02) Abdominal Pain codeine Adverse Reaction (Mild, Verified 07/07/24 14:02) STOMACH UPSET Medication Reconciliation lisinopril 10 mg tablet 20 mg PO QDAY HTN #0 tabs 04/02/16 [History Confirmed 07/07/24] aspirin 81 mg tablet,delayed release 1 tab PO QDAY CVA PX 01/01/18 [History Confirmed 07/07/24] amiodarone 200 mg tablet 200 mg PO QDAY AFIB 01/01/23 [History Confirmed 07/07/24] metoprolol succinate 50 mg capsule sprinkle, ext. release 24 hr 25 mg PO QDAY HTN 01/01/23 [History Confirmed 07/07/24] sucralfate 1 gram tablet 1 g PO BID ANTACID 10/07/23 [History Confirmed 07/07/24] coQ10 (ubiquinol) 200 mg capsule 400 mg PO QDAY SUPPLEMENT 10/08/23 [History Confirmed 07/07/24] ferrous sulfate 325 mg (65 mg iron) tablet 325 mg PO QDAY SUPPLEMENT 11/18/23 [History Confirmed 07/07/24] pantoprazole 40 mg tablet,delayed release (Protonix) 40 mg PO QDAY GERD 11/18/23 [History Confirmed 07/07/24] furosemide 20 mg tablet 20 mg PO QDAY leg swelling 1 month #30 tabs 11/21/23 [Rx Confirmed 07/07/24] amoxicillin 875 mg-potassium clavulanate 125 mg tablet 1 tab PO BID #14 tabs 06/11/24 [Rx Confirmed 07/07/24] Exam Exam Patient is in no acute distress and is cooperative with the examination today. Breathing is nonlabored. Patient has a normal mood and affect. The patient has a gait that is nonantalgic Bilateral extremities were evaluated and demonstrates sensation intact to light touch. Palpable pedal pulses are present. No significant edema is present. Bilateral hips were examined. The patient has no pain with log roll of the hips. Internal rotation to 30 degrees and external rotation to 30 degrees is painless. Negative FADIR. Right knee was examined today. The right knee is in reasonable alignment. Range of motion from 0-120 degrees. Knee is stable to varus and valgus as well as AP translation with <5mm. Patient has a negative McMurrays. There is no pain with patellofemoral compression and no crepitus noted. The knee is nontender to palpation. Left knee was examined today. The left knee is in Valgus alignment. Range of motion from 0-120 degrees. Knee is stable to varus and valgus as well as AP translation with <5mm. Patient has a negative McMurrays. There is no pain with patellofemoral compression and no crepitus noted. The knee is tender to palpation laterally X-rays demonstrate significant joint space narrowing laterally. There is valgus alignment. She has severe osteopenia. Assessment and Plan Problem List (1) Arthritis of left knee: Status: Acute Plan: Patient is a 71-year-old female with left knee pain and left knee arthritis. She is never any medical issues and is on home oxygen currently. She has a history of prior stroke and is on Eliquis. She is now wheelchair-bound since the stroke in September of last year. I discussed with her that she does have significant osteoporosis on the x-ray. I would get a DEXA scan to see if she needs a bone building medication. She is currently not a candidate but she Was recently hospitalized at her rehab. Will see how she is doing in 2 months. Advanced Care Planning Discussion Advance care planning discussed with:: patient Office Procedures GNS Level of Care Nursing/Assessment Patient Status: Initial/New Patient Nursing Assessment/Reassesment: Medication Reconciliation, Update PMH in EMR and Vital Signs Coordination of Care: Complex Care and Chronic Disease 1-5, Education Complex Pt/Fam, Consent,records obtained, informed consent, 1 Ins Authorization, Lab and Imaging orders, Results/Orders obtained and Staff clarify orders New Patient Charge New Patient Point Assignment: 1124 New Patient Point Charge: FIELD TECH Level 4 ([id number]) MA Intake Visit Data Collection New Patient or Established: New Patient (never been to [facility]) Reason for Visit:: LEFT KNEE OA Seen by Clinical Staff ONLY (RN/MA): No Loading Unit Tool Setter Required: No PCP or OBGYN visit in last 3 months: Yes Hx Now: No Do You Feel Safe at Home: Yes Authorities Contacted: N/A Questionairres Past Medical History Past Medical History Have you ever been diagnosed with any of the following: Neurological Problems Cerebrovascular Accident (CVA): Yes Seizures: No Migraine: No Cardiology Problems Cardiac Arrhythmia: Yes Atrial Fibrillation: Yes Coronary Artery Disease: Yes Hypercholesterolemia: No Congestive Heart Failure: No Valvular Heart Disease: Yes Edema: No Hypertension: Yes Respiratory Problems Chronic Obstructive Pulmonary Disease (COPD): No Asthma: Yes Bronchitis: Yes Pneumonia: Yes Stomache/Intestinal Problems Hepatitis: Yes Gall Bladder Disease: Yes Ulcer: No Colorectal Cancer: No Hemorrhoids: Yes Gastroesophageal Reflux Disease: Yes Genital/Urinary Problems Renal Disease: Yes Reproductive Problems Breast Cancer: No Previous Pregnancies: Yes Musculoskeletal Problems Bone Cancer: No Arthritis: Yes Degenerative Disk Disease: Yes Head,Eye,Nose,Throat Problems Cataracts: Yes Endocrine Problems Diabetes Mellitus Type 1: No Diabetes Mellitus Type 2: No Blood Problems Anemia: Yes Sickle Cell Disease: No Psychologic Problems Depression: No Anxiety: No Other Problems Shingles: No Falls: Yes Blood Transfusions: No Blood Transfusion Reaction: No Anesthesia Reactions: No Organ Transplant: No MRSA: No Chicken Pox: Yes Measles: Yes Mumps: Yes Clostridium Difficile: No Cancer: No Cervical Cancer: No Lung Cancer: No Ovarian Cancer: No Surgical History Valve Replacement: Yes Hysterectomy: Yes Pacemaker: No Subjective Visit Visit for: new patient and knee (LEFT) Immunization / Flu Flu Vaccine in the Last 12 Months: Yes Flu Vaccine Exclusion Criteria: Already Received History of Present Illness Chief complaint: Left knee pain Patient is a 64-year-old male who comes in with history of arthritis and venous ulcers coming to right knee evaluation. Patient has been currently been treated for various ulcers on his lower extremities particularly one that is currently present on his right lower leg. Patient currently has multiple non-healing skin all ulcers to his bilateral lower legs. He currently ambulates with a cane and takes 2 pain medications a day to help. He also elevates his legs for some relief. He denies any stiffness numbness or swelling to his right or left knee. Patient is looking to get knee surgery at some point to his right knee. He is currently retired. Patient has had 2 injections in the past Pain Pain level (0-10): 8 Pain duration: CONSTANT Pain location: inside (medial) Pain quality: dull and aching Associated signs & symptoms: none Ambulatory data Ambulatory device: other (specify) (WHEELCHAIR) Treatments Number of previous injections: 3 Improvement with previous injections: No Number of Physical Therapy sessions: 12 Improvement with PT: No Improvement with NSAIDS: no Review of Systems Review of Systems: All systems negative unless otherwise noted in HPI.
== END 2024-07-07 14:16 | disposition home or self-care (01) ==
PROVIDERS: PCP Family Medicine; Referring Provider Family Medicine; Supervising Provider Orthopaedic Surgery Adult Reconstructive Orthopaedic Surgery; Visit Provider Orthopaedic Surgery Adult Reconstructive Orthopaedic Surgery
DX: M17.12 Unilateral primary osteoarthritis, left knee (principal); M25.562 Pain in left knee; L97.929 Non-pressure chronic ulcer of unspecified part of left lower leg with unspecified severity; L97.919 Non-pressure chronic ulcer of unspecified part of right lower leg with unspecified severity; Z99.81 Dependence on supplemental oxygen; Z86.73 Personal history of transient ischemic attack (TIA), and cerebral infarction without residual deficits; Z99.3 Dependence on wheelchair; M81.0 Age-related osteoporosis without current pathological fracture; I10 Essential (primary) hypertension; I25.10 Atherosclerotic heart disease of native coronary artery without angina pectoris; I48.91 Unspecified atrial fibrillation; K21.9 Gastro-esophageal reflux disease without esophagitis
CPT/HCPCS: 99204; G0463

== ENCOUNTER 2024-07-13 17:12 | Inpatient (IN) | payer MEDICARE, MEDICAID, SELFPAY ==
--- NOTE | 2024-07-13 17:29 | EKG_ITS ---
[facility] Test Date: 2024-07-13 Pat Name: HERNANDO LI Department: Room: - Gender: Female Social Services Assistant: : 1945 Requested By: Mars Andrea Order Number: [id number] Reading MD: Mars Andrea Measurements Intervals [place] Rate: 95 P: TN: QRS: 48 QRSD: 87 T: 54 QT: 325 QTc: 410 Interpretive Statements ATRIAL FIBRILLATION ABNORMAL RHYTHM ECG Compared to ECG 06/11/2024 16:46:42 Atrial flutter no longer present /store/S0/[id number].pdf
--- NOTE | 2024-07-13 17:29 | XR_ITS ---
Examination: CT brain head without contrast. 2-D sagittal coronal reconstructions Date and time of exam:July 13, 2024 1732 hrs. Indications: Stroke alert, onset focal neurologic deficit today with generalized body weakness CTDI: vol (mGy):50.5 DLP: (mGycm):955 Technique: Multiple CT axial sections of the brain have been obtained, 5 mm slice thickness. Contrast has not been administered. 2-D sagittal, coronal reconstructions have been obtained Low dose protocols were performed. One or more of the following dose reduction techniques were used; automated exposure control, adjustment of the mA and/or KV according to patient size, use of iterative reconstruction technique. Findings: No significant ventricular enlargement. Intra-axial or extra-axial hemorrhage density is not seen. No mass effect or midline shift Basal cisterns are not remarkable. Fourth ventricle is midline. Cranial vault intact. Impression: Negative for acute hemorrhage, mass effect or midline shift
--- NOTE | 2024-07-13 17:29 | XR_ITS ---
Examination: CTA carotids with intravenous contrast CTA brain, head with intravenous contrast. 2-D sagittal, coronal reconstructions. 3-D reconstructions. Exam date and time: July 13, 2024 1739 hrs. Indications: Stroke alert today, onset focal neurologic deficit CTDI: vol (mGy) 16.7 DLP: (mGycm) 412 Technique: Multiple CTA axial brain, head carotid images post intravenous contrast injection 75 cc, [id number]. 2-D sagittal, coronal reconstructions. 3-D reconstructions, 3-D post processing including vascular maximum intensity projection images. Low dose protocols were performed. One or more of the following dose reduction techniques were used; automated exposure control, adjustment of the mA and/or KV according to patient size, use of iterative reconstruction technique. Findings: No significant right common carotid carotid bifurcation or internal carotid artery stenoses Heavy calcification left carotid bifurcation, 40-60% stenosis left carotid bifurcation origin left internal carotid artery Dominant left vertebral artery with no critical stenoses No cerebral large vessel arterial occlusions thrombus Impression: 46% stenosis left carotid bifurcation origin left internal carotid artery No cerebral large vessel arterial occlusions or thrombus Recommend PA lateral chest 2 assess significant parenchymal disease in the lung serna
--- NOTE | 2024-07-13 17:30 | EDNOTE_ITS ---
ED General RME/HPI General Chief complaint: Weakness Stated complaint: WEAKNESS Time Seen by Provider: 07/13/24 17:23 Arrival date/time: 07/13/24 17:12 CC: Worsening lower extremity weakness HPI noticed yesterday morning subtle onset the patient notes that she cannot transition herself from wheelchair to bed as she previously could. 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 Patient denies any chest pain shortness of breath difficulty breathing she has no other weaknesses in the upper body. Patient is awake and alert patient is already on Eliquis for A-fib. Patient denies fall since the onset of worsening lower extremity weakness. Related Data Home Medications ?Medication ?Instructions ?Recorded ?Confirmed lisinopril 10 mg tablet 20 mg PO QDAY HTN #0 tabs 07/07/24 aspirin 81 mg tablet,delayed 1 tab PO QDAY CVA PX 12/1807/07/24 release amiodarone 200 mg tablet 200 mg PO QDAY AFIB 01/01/23 07/07/24 metoprolol succinate 50 mg capsule 25 mg PO QDAY HTN 0 01/01/23 07/07/24 sprinkle, ext. release 24 hr sucralfate 1 gram tablet 1 g PO BID ANTACID 10/07/23 07/07/24 coQ10 (ubiquinol) 200 mg capsule 400 mg PO QDAY SUPPLE MENT 10/08/23 07/07/24 ferrous sulfate 325 mg (65 mg 325 mg PO QDAY SUPPLEMEN T 11/18/23 07/07/24 iron) tablet pantoprazole 40 mg tablet,delayed 40 mg PO QDAY GERD 0 11/18/23 07/07/24 release (Protonix) Previous Rx's ?Medication ?Instructions ?Recorded furosemide 20 mg tablet 20 mg PO QDAY leg swelling 1 month 11/21/23 #30 tabs amoxicillin 875 mg-potassium 1 tab PO BID #14 tabs clavulanate 125 mg tablet Allergies Allergy/AdvReac Type Severity Reaction Status Date / Time clindamycin Allergy Intermediate Hives Verified 07/13/24 18:51 latex Allergy Mild hives Verified 07/13/24 18:51 swelling clavulanic acid Allergy Verified 07/13/24 18:51 shellfish derived Allergy Abdominal Verified 07/13/24 18:51 Pain codeine AdvReac Mild STOMACH Verified 07/13/24 18:51 UPSET Review of Systems Review of Systems Narrative Review of Systems: GEN: No fever, no chills, no weight loss EYES: No discharge, no visual changes, no pain HEENT: No ear pain, no congestion, no sore throat PULM: No shortness of breath, no cough, no congestion CV: No chest pain, no dyspnea on exertion, no palpitations GI: No nausea, no vomiting, no diarrhea, no pain, no constipation : No frequency, no urgency, no dysuria MUSC/SKEL: No joint pain, no back pain SKIN: No rash PSYCH: No hallucinations, no depression HEME/LYMPH: No easy bleeding or bruising tendencies NEURO: + Bilateral lower extremity weakness, no headache Past Medical History Past Medical History NEUROLOGIC: Positive Cerebrovascular Accident; Negative Neurological Disorders, Seizures or Migraine CARDIAC: Positive Cardiac Arrhythmia, Atrial Fibrillation, Coronary Artery Disease, Valvular Heart Disease and Hypertension; Negative Cardiac Disorders, Hypercholesterolemia, Congestive Heart Failure or Edema RESPIRATORY: Positive Asthma, Bronchitis and Pneumonia; Negative Chronic Obstructive Pulmonary Disease (COPD) GASTROINTESTINAL: Positive Gastrointestinal Disorders, Hepatitis, Gall Bladder Disease, Hemorrhoids and Gastroesophageal Reflux Disease; Negative Ulcer or Colorectal Cancer GENITOURINARY: Positive Genitourinary Disorders and Renal Disease REPRODUCTIVE: Positive Previous Pregnancies; Negative Breast Cancer MUSCULOSKELETAL: Positive Musculoskeletal Disorders, Arthritis and Degenerative Disk Disease; Negative Bone Cancer ENT: Positive Cataracts ENDOCRINE: Negative Endocrine Disorders, Diabetes Mellitus Type 1 or Diabetes Mellitus Type 2 HEMATOLOGIC: Positive Blood Disorders and Anemia; Negative Sickle Cell Disease PSYCHO/SOCIAL: Negative Depression or Anxiety OTHER HISTORY: Positive Falls, Chicken Pox, Measles and Mumps; Negative Shingles, Blood Transfusions, Blood Transfusion Reaction, Anesthesia Reactions, Organ Transplant, MRSA, Clostridium Difficile, Cancer, Breast Cancer, Cervical Cancer, Colorectal Cancer, Lung Cancer or Ovarian Cancer Family History FAMILY HISTORY: Positive Family Respiratory Disorders, Family Cardiac Disorders and Family Cancer; Negative Family Surgery Surgical History SURGICAL: Positive Valve Replacement, Angiogram, Ear Surgery, Tonsillectomy, Abdominal Surgery, Joint Replacement, Hysterectomy and Tubal Ligation; Negative Cardiac Surgery, Pacemaker, Endocrine Surgery or Organ Transplant Social History SMOKING STATUS: Former smoker SUBSTANCE USE: does not use ED Exam Narrative Physical exam: [General: Obese not in any acute distress Head normocephalic HEENT: Within acceptable limits Neck is supple nontender Chest equal chest rise nontender to palpation Respiratory: Clear to auscultation no wheezes crackles or rubs CV: Rate rhythm is regular no murmurs rubs or clicks Abdomen is distended secondary to body habitus soft nontender no masses positive bowel sounds all 4 quadrants Back: No CVA tenderness no spinous process tenderness from cervical spine thoracic and lumbar spine Skin: Intact no petechiae rash induration ulceration or crepitus Extremities: Lower extremities the patient has increased weakness in the left lower extremity with baseline weakness in the right lower extremity. Able to perform right leg raise unable to perform left leg raise on the bed. Neuro: Awake alert oriented x3 Course Quality Measures none Orders Category Date Time Status Bedside Blood Glucose NOW Care 07/13/24 17:29 Active Broadcast Producer NOW Care 07/13/24 17:29 Active Continuous Pulse Oximetry NOW Care 07/13/24 17:29 Completed EKG (ED ONLY) *Do not use* NOW Care 07/13/24 17:29 Completed In and Out Catheter NEEDED Care 07/13/24 17:29 Active Insert IV NOW Care 07/13/24 17:29 Active NIH Stroke Scale now Care 07/13/24 17:29 Active NPO NOW Care 07/13/24 17:29 Active Nurse Swallow Screen x1 Care 07/13/24 17:29 Active Consult to Neurology / Tele-Neurology Routine Cons 07/13/24 17:[address] angio stroke protocol Stat Exams 07/13/24 17:[address] stroke protocol Stat Exams 07/13/24 17:29 Completed EKG (ED Only) Stat Exams 07/13/24 17:29 Draft CBC Stat Lab 07/13/24 17:40 Completed Comprehensive Metabolic Panel Stat Lab 07/13/24 17:40 Completed Drug Screen,Urine Stat Lab 07/13/24 17:29 Ordered HCG Titer if Positive Stat Lab 07/13/24 17:40 Completed Magnesium Stat Lab 07/13/24 17:40 Completed Partial Thromboplastin Time Stat Lab 07/13/24 17:40 Completed Prothrombin Time with INR Stat Lab 07/13/24 17:40 Completed Troponin I Stat Lab 07/13/24 17:40 Completed Urinalysis Stat Lab 07/13/24 17:29 Ordered Urine Culture Stat Lab 07/13/24 17:29 Ordered Ondansetron Inj [Zofran Inj] Med 07/13/24 17:29 Discontinued 4 mg IV Q4HR PRN Oxygen Delivery NOW RT 07/13/24 17:29 Active Vital Signs Vital signs: Vital Signs Pulse Rate 99 07/13/24 17:34 Respiratory Rate 17 07/13/24 17:34 Pulse Oximetry (%) 94 L 07/13/24 17:34 Oxygen Flow Rate 3 07/13/24 17:34 [facility] Patient data External records reviewed:: [facility] previous records and EMS form Clinical information provided by:: patient and EMS Social determinants that could affect healthcare access:: none Patient has the following chronic illnesses:: A-fib CVA arthritis How is presenting disease/condition affected by chronic disease/condition?: u neffected by Evaluation data The following diagnostics were reviewed and interpreted by me:: lab results, radiology exam(s) and EKG tracing(s) Lab and/or radiology exams considered but not ordered:: EKG performed at 1819 shows ventricular rate of 95 QRS of 87 QTc of 378 this is A-fib. CBC shows no leukocytosis there is an anemia of 8.1 and 27.1 respectively with platelets of 332. Coags within acceptable limits CMP shows an elevated sodium, potassium, chloride, carbon dioxide gap of 2. BUN and creatinine are within acceptable limits. Glucose of 165. No transaminitis or T. bili elevation Troponin is negative CT of the head is interpreted by me and read by radiology as negative for any acute finding CTA of the head shows no LVO as interpreted by the radiologist. Interpretation Summary: Patient's case discussed with the teleneurologist Dr. Frazier who is inclined to have this patient be admitted for stroke workup as the patient has a history of bilateral cerebellar infarcts in September 2023. Patient case discussed with resident for Dr. Jorge, who agrees to except the patient for admission. Medications Medications considered but not ordered:: None Medication administrations:: Medication Administration History Acetaminophen (Acetaminophen 325 Mg Tablet) 650 mg PO Q6H PRN PRN Reason: Pain (1-3) & Fever >101.5 Stop: 08/12/24 19:52 Al Hydrox/Mg Hydrox/Simethicone (Mg Hyd/Al Hyd/Kristofer (Maalox Reg) Susp 30 Ml Udc) 30 ml PO Q6H PRN PRN Reason: Indigestion Stop: 08/12/24 19:52 Albuterol/Ipratropium (Albuterol/Ipratropium (Duoneb) Rt Eva 3 Ml Nebu) 3 ml INH Q4HRRT PRN PRN Reason: SOB/Wheeze Stop: 08/12/24 22:59 Last Admin: 07/14/24 02:05 Dose: 3 ml Documented By: Admin: 07/13/24 20:37 Dose: 3 ml Documented By: ANA LAURA Apixaban (Apixaban 2.5 Mg Tablet) 5 mg PO BID [facility] Stop: 08/12/24 20:59 Last Admin: 07/14/24 10:14 Dose: 5 mg Documented By: Admin: 07/13/24 21:32 Dose: 5 mg Documented By: ELIZA Aspirin (Aspirin Ec 81 Mg Tabec) 81 mg PO QDAY [facility] Stop: 08/13/24 08:59 Last Admin: 07/14/24 10:15 Dose: 81 mg Documented By: UMANG Atorvastatin Calcium (Atorvastatin Calcium 20 Mg Tablet) 40 mg PO HS [facility] Stop: 08/13/24 20:59 Sodium Chloride (Ns) 500 mls @ 75 mls/hr IV .Q6H40M [facility] Stop: 08/12/24 19:59 Last Admin: 07/14/24 04:12 Dose: 75 mls/hr Documented By: Infusion: 07/14/24 04:12 Dose: Infused Documented By: Admin: 07/13/24 21:31 Dose: 75 mls/hr Documented By: ELIZA Metoprolol Succinate (Metoprolol Succinate Xl 25 Mg Tabcr) 25 mg PO QDAY [facility] Stop: 08/13/24 08:59 Last Admin: 07/14/24 10:15 Dose: Not Given Documented By: UMANG Non-Admin Reason: pt refused as bp 101/63 hr 106 Ondansetron HCl (Ondansetron Inj 2 Mg/Ml Inj 2 Ml) 4 mg IV Q6H PRN; Protocol PRN Reason: NAUSEA OR VOMITING Stop: 08/12/24 19:52 Pantoprazole Sodium (Pantoprazole 40 Mg Tablet) 40 mg PO QDAY [facility] Stop: 08/13/24 08:59 Last Admin: 07/14/24 10:15 Dose: 40 mg Documented By: UMANG Sennosides (Senna Tablet) 1 tab PO QDAY [facility]; Protocol Stop: 08/13/24 08:59 Last Admin: 07/14/24 10:14 Dose: 1 tab Documented By: BR Sucralfate (Sucralfate Susp 1 Gm/10 Ml Udc) 1 gm PO BID MONA Stop: 08/12/24 20:59 Last Admin: 07/13/24 22:46 Dose: 1 gm Documented By: [facility] Tramadol HCl (Tramadol Hcl 50 Mg Tablet) 50 mg PO Q6HR PRN PRN Reason: PAIN SCALE 4-10(Mod-Sev Stop: 07/18/24 19:52 Discontinued Medications Ondansetron HCl (Ondansetron Inj 2 Mg/Ml Inj 2 Ml) 4 mg IV Q4HR PRN PRN Reason: NAUSEA OR VOMITING Stop: 08/12/24 17:28 None Consultations Consultation(s) initiated? (list below): Yes Consultation #1 (Physician, Specialty, Details): Teleneurology Time: 18:40 Diagnosis Differential Diagnosis ED Complaint MDM: CVA TIA intracranial hemorrhage Most likely diagnosis given after review of the tests above:: CVA Admission Indicated Admission indicated?: indicated Explain why admission is indicated or not indicated:: Quires further medical Admission Request Was there a request for admission?: No Disposition Plan Disposition Plan: Admit Medical Decision Making Differential Diagnosis Differential Diagnosis: CVA TIA intracranial hemorrhage Lab Data 07/14/24 05:15 07/14/24 05:15 Labs: Lab Results 07/13/24 Range/Units 17:40 WBC 10.2 (3.6-11.0) Thou/mm3 RBC 2.67 L (4.00-5.20) Miln/mm3 Hgb 8.1 L (12.0-16.0) g/dL Hct 27.1 L (36.0-46.0) % MCV 102 H (80-100) fL MCH 30.3 (25.0-35.0) pg MCHC 29.9 L (31.0-37.0) g/dl RDW Std Deviation 54.3 H (36.4-46.3) fL Plt Count 332 D (140-440) Thou/mm3 Neut % (Auto) 86 H (37-80) % Lymph % (Auto) 5 L (10-50) % Dale % (Auto) 5 (0-12) % Eos % (Auto) 0 (0-10) % Baso % (Auto) 0 (0-2.5) % Neut # (Auto) 8.8 H (1.8-7.7) Thou/mm3 Lymph # (Auto) 0.5 L (1.0-4.8) Thou/mm3 Dale # (Auto) 0.5 (0.0-0.8) Thou/mm3 Eos # (Auto) 0.0 (0.0-0.5) Thou/mm3 Baso # (Auto) 0.0 (0.0-0.2) Thou/mm3 Immature Gran # (Auto) 0.41 H (0.00-0.00) Thou/mm3 Absolute Nucleated RBC 0.00 (0.00-0.00) Thou/mm3 Immature Gran % 4 H (0-0) % Nucleated RBC % 0 (0) /100 WBC PT 11.2 (9.0-12.2) Seconds INR 1.0 (0.9-1.3) APTT 24.2 (22.0-36.0) Seconds Sodium 135 L (136-145) mMol/L Potassium 5.4 H (3.4-5.1) mMol/L Chloride 94 L (98-107) mMol/L Carbon Dioxide 38.7 H (20.0-31.0) mMol/L Anion Gap 2 L (7-16) BUN 21 (9-23) mg/dL Creatinine 1.1 (0.6-1.3) mg/dL Estim Creat Clear Calc 54.0 L (>60) mL/min eGFR 51 L (60 - ) See Note BUN/Creatinine Ratio 19 (12-20) Ratio Glucose 165 H (74-106) mg/dL Calculated Osmolality 277 (275-295) Calcium 8.9 (8.3-10.6) mg/dL Corrected Calcium 9.5 (8.5-10.1) mg/dL Magnesium 2.0 (1.6-2.6) mg/dL Total Bilirubin 0.9 (0.3-1.2) mg/dL AST 26 (0-34) U/L ALT 22 (10-49) U/L Alkaline Phosphatase 59 (46-116) U/L Troponin I < 0.002 (0.0-0.045) ng/mL Total Protein 6.4 (5.7-8.2) gm/dL Albumin 3.3 L (3.4-4.8) gm/dL Globulin 3.1 (2.3-3.5) gm/dL Albumin/Globulin Ratio 1.1 L (1.2-2.2) HCG (Qual) Negative Discharge Plan Plan Patient Disposition: Admit Acute Care w/in Hospital Patient condition on transfer: Stable Problem List Clinical Impression: CVA (cerebral vascular accident) PA/BUTTON BROACHER Supervising Physician PA/[employer]TON BROACHER Supervising Physician: Mars Brown ENP
[2024-07-13 17:34] VITALS: PULSE 84; PULSE 99; RESP 17; O2SAT 94; O2SAT 96; BMI 35.9
--- NOTE | 2024-07-13 17:34 | PC.NURSE ---
Pt. here from [facility] seen by Mars WEINBERG in ambulance bay and taken straight to CT via ambulance [facility] for stroke alert. Pt. states she has weakness in her legs she noticed yesterday but states it's defiantly worse today. Pt. states she is usually able to stand and transfer to her wheel chair. Pt. states today she has jello legs. Pt. states she can't move left knee because it's painful. Pt. states she needs a left knee replacement. Pt. states she does have history of CVA. Pt. states she was talking to her PT lady today and would just fall asleep mid sentence. No s/s of distress noted at this time.
--- NOTE | 2024-07-13 17:39 | PC.NURSE ---
Dr. Yossi Frazier on tele monitor talking with pt. and assessing pt.
[2024-07-13 17:48] LABS: Basophils % (Auto) 0 % (0-2.5); Eosinophils % (Auto) 0 % (0-10); Hematocrit 27.1 % (36.0-46.0); Immature Granulocytes % (Auto) 4 % (0-0); Immature Granulocytes Auto 0.41 Thou/mm3 (0.00-0.00); Lymphocytes # (Auto) 0.5 Thou/mm3 (1.0-4.8); Lymphocytes % (Auto) 5 % (10-50); Mean Corpuscular HGB Conc 29.9 g/dl (31.0-37.0); Mean Corpuscular Hemoglobin 30.3 pg (25.0-35.0); Mean Corpuscular Volume 102 fL (80-100); Monocytes # (Auto) 0.5 Thou/mm3 (0.0-0.8); Monocytes % (Auto) 5 % (0-12); Neutrophils # (Auto) 8.8 Thou/mm3 (1.8-7.7); Neutrophils % (Auto) 86 % (37-80); Nucleated Red Blood Cell % 0 /100 WBC (0); Platelet Count 332 Thou/mm3 (140-440); RDW Standard Deviation 54.3 fL (36.4-46.3); Red Blood Count 2.67 Miln/mm3 (4.00-5.20); White Blood Count 10.2 Thou/mm3 (3.6-11.0)
[2024-07-13 17:50] VITALS: BP 118/80; PULSE 99; RESP 17; O2SAT 95
[2024-07-13 18:03] LABS: Partial Thromboplastin Time 24.2 Seconds (22.0-36.0); Prothrombin Time 11.2 Seconds (9.0-12.2)
--- NOTE | 2024-07-13 18:14 | PD.TNEURO ---
Tele Neuro Consultation Consultation Date 07/13/24 Laboratory-Coagulation Panel PT 11.2 Seconds (9.0-12.2) 07/13/24 17:40 INR 1.0 (0.9-1.3) 07/13/24 17:40 APTT 24.2 Seconds (22.0-36.0) 07/13/24 17:40 Consultation Narrative [facility] Tele[facility]urology Consult Services Patient Name:???An Vivar Date of :???1945 Identification Number:??? Date of Service:???07/13/2024 17:35:05 Diagnosis:?M62.81 - Generalized Muscle Weakness Impression: ?79 y/o F with history of prior strokes (bilateral cerebellar) with residual left-sided weakness, afib on Eliquis (last dose taken this morning), asthma, prior TAVR, now presenting to hospital with 48 hours of hypersomnolence and generalized weakness, yesterday and today with increased weakness in legs and difficulty transferring from bed to wheelchair, left leg weaker than right leg. On examination, NIHSS is 5 (incorrect month, inability to raise left leg antigravity although pain-related component as well, mildly reduced sensation over left leg). NCHCT did not show acute abnormalities. She is not thrombolytic candidate since LKN > 4.5 hours and also on Eliquis. CTA head/neck on my review does not show any critical vascular abnormalities, including absence of LVO. ? ?Possibilities may include recurrent stroke, although given some of the more diffuse nature of her symptoms, I also wonder if there could be metabolic or systemic etiology contributing to symptoms, and potentially triggering recrudescence of previous stroke symptoms. ? ?At this time, would recommend admission to hospital to rule out stroke, and further metabolic/infectious work-up. Our recommendations are outlined below. Recommendations: ? Stroke/Telemetry Floor ? Neuro Checks ? Bedside Swallow Eval ? DVT Prophylaxis ? IV Fluids, Normal Saline ? Head of Bed 30 Degrees ? Euglycemia and Avoid Hyperthermia (PRN Acetaminophen) ?-continue Eliquis ?-MRI brain w/o contrast ?-metabolic/infectious work-up Sign Out: ? Discussed with Emergency Department Provider Advanced Imaging:CTA Head and Neck Completed. LVO:No Patient in not a candidate for RANDY Metrics: Last Known Well: Unknown Dispatch Time: 07/13/2024 17:35:05 Arrival Time: 07/13/2024 17:12:00 Initial Response Time: 07/13/2024 17:38:27Symptoms: lethargy, leg weakness. Initial patient interaction: 07/13/2024 17:40:10 NIHSS Assessment Completed: 07/13/2024 17:50:00Patient is not a candidate for Thrombolytic. Thrombolytic Medical Decision: 07/13/2024 17:51:52Patient was not deemed candidate for Thrombolytic because of following reasons: LKW outside 4.5 hr window. . Use of NOAC in last [address] head showed no acute hemorrhage or acute core infarct. I personally Reviewed the CT Head and it Showed no acute intracranial abnormalities Primary Provider Notified of Diagnostic Impression and Management Plan on: 07/13/2024 18:11:05 History of Present Illness:Patient is a 79 year old Female. Patient was brought by EMS for symptoms of lethargy, leg weakness. Patient is able to provide history. She reports feeling weakness in her arms and legs, with shakiness over the past couple of days, and has been hypersomnolent as well. This continued into today, where her legs felt even weaker, particularly her left leg, and was unable to transfer herself from bed to her wheelchair. She has been at rehab center since having had previous stroke with residual left-sided weakness. Came to ER for further evaluation. She is on Eliquis due to history of afib, last dose was taken this morning. ? Past Medical History: ?Atrial Fibrillation ?Coronary Artery Disease ?Stroke ?There is no history of Diabetes Mellitus Other PMH:? prior TAVR; asthma; CKD Medications: Anticoagulant use:??Yes?Eliquis No Antiplatelet use Reviewed EMR for current medications Allergies:? Reviewed Social History: Current Employee : occasional alcohol intake; occasional [employer] Smoking: Former Alcohol Use: Yes Drug Use: Yes Family History: There is no family history of premature cerebrovascular disease pertinent to this consultation ROS : 14 Points Review of Systems was performed and was negative except mentioned in HPI. Past Surgical History: There Is No Surgical History Contributory To Today?s Visit ? Examination: BP(118/80),?Pulse(80), 1A: Level of Consciousness - Alert; keenly responsive?+ 0 1B: Ask Month and Age - 1 Question Right?+ 1 1C: Blink Eyes & Squeeze Hands - Performs Both Tasks?+ 0 2: Test Horizontal Extraocular Movements - Normal?+ 0 3: Test Visual Sadler - No Visual Loss?+ 0 4: Test Facial Palsy (Use Grimace if Obtunded) - Normal symmetry?+ 0 5A: Test Left Arm Motor Drift - No Drift for 10 Seconds?+ 0 5B: Test Right Arm Motor Drift - No Drift for 10 Seconds?+ 0 6A: Test Left Leg Motor Drift - No Effort Against [place]?+ 3 6B: Test Right Leg Motor Drift - No Drift for 5 Seconds?+ 0 7: Test Limb Ataxia (FNF/Heel-Quijano) - No Ataxia?+ 0 8: Test Sensation - Mild-Moderate Loss: Less Sharp/More Dull?+ 1 9: Test Language/Aphasia - Normal; No aphasia?+ 0 10: Test Dysarthria - Normal?+ 0 11: Test Extinction/Inattention - No abnormality?+ 0 NIHSS Score:?5 NIHSS Free Text :?states month is end of July ? ?reduced sensation over left arm compared to right (mild) ? ?weakness of left leg, although also appears pain-related (reports severe pain in her left knee when attempting to raise leg) Pre-Morbid Modified [place] Scale:4 Points = Moderately severe disability; unable to walk and attend to bodily needs without assistance Spoke with :?Mars Brown This consult was conducted in real time using interactive audio and video technology. Patient was informed of the technology being used for this visit and agreed to proceed. Patient located in hospital and provider located at home/office setting. Patient is being evaluated for possible acute neurologic impairment and high probability of imminent or life-threatening deterioration. I spent total of 38 minutes providing care to this patient, including time for face to face visit via telemedicine, review of medical records, imaging studies and discussion of findings with providers, the patient and/or family. Dr Yossi Frazier [facility] For Inpatient follow-up with [facility] physician please call [facility] at . As we are not an outpatient service for any post hospital discharge needs please contact the hospital for assistance. If you have any questions for the [facility] physicians or need to reconsult for clinical or diagnostic changes please contact us via [facility] at . ?
[2024-07-13 18:25] LABS: Hemoglobin 8.1 g/dL (12.0-16.0)
--- NOTE | 2024-07-13 18:35 | PC.NURSE ---
Pt. states 2 nights ago her O2 came off in the middle of the night, pt. states her sats went to 68%, pt. states since then she has just been sleepy. Pt. states she is on 3L NC of O2 at all times. Mars WEINBERG informed. No new orders given.
--- NOTE | 2024-07-13 18:35 | PC.NURSE ---
Pt.'s partner Tisha is bedside.
[2024-07-13 18:39] LABS: Alanine Aminotransferase 22 U/L (10-49); Albumin, Serum 3.3 gm/dL (3.4-4.8); Albumin/Globulin Ratio 1.1 (1.2-2.2); Anion Gap 2 (7-16); Aspartate Amino Transferase 26 U/L (0-34); BUN/Creatinine Ratio 19 Ratio (12-20); Bilirubin,Total 0.9 mg/dL (0.3-1.2); Blood Urea Nitrogen 21 mg/dL (9-23); Calcium 8.9 mg/dL (8.3-10.6); Calcium (Corrected) 9.5 mg/dL (8.5-10.1); Carbon Dioxide 38.7 mMol/L (20.0-31.0); Chloride 94 mMol/L (98-107); Creatinine (Component) 1.1 mg/dL (0.6-1.3); Globulin 3.1 gm/dL (2.3-3.5); Glucose 165 mg/dL (74-106); Osmolality,Calculated 277 (275-295); Potassium 5.4 mMol/L (3.4-5.1); Sodium 135 mMol/L (136-145); Total Protein 6.4 gm/dL (5.7-8.2); Troponin I < 0.002 ng/mL (0.0-0.045); eGFR 51 See Note
[2024-07-13 18:49] LABS: HCG Titer if Positive Negative
[2024-07-13 19:00] VITALS: BP 113/91; PULSE 97; RESP 18; TEMP 37.2; O2SAT 98
--- NOTE | 2024-07-13 19:59 | XR_ITS ---
Examination: AP chest single view Technique one AP portable upright chest single view Exam date and time: July 13, 20242013 hrs. Comparison June 11, 2024 Indications: Shortness of breath today. Findings: Mild heart failure Mild enlargement cardiac contour Prominent central vascular congestion with bilateral septal edema Consider superimposed pneumonia left base Impression: Mild heart failure Suspicious for superimposed pneumonia left base
[2024-07-13 20:12] LABS: Alkaline Phosphatase 59 U/L (46-116)
[2024-07-13] MEDS: ALBUTEROL/IPRATROPIUM (Duoneb) RT SOL 3 ML NEBU INH (20:37)
[2024-07-13 20:38] VITALS: PULSE 98; RESP 20; O2SAT 99
--- NOTE | 2024-07-13 20:39 | ESHP_ITS ---
Documentation for date of: 07/13/24 HPI History of Present Illness Chief complaint: Lower extremity weakness History of present illness: Ms. Vivar is a 79-year-old female with past medical history of asthma (on 3 L at baseline), CVA with left-sided weakness (bilateral cerebellar, September 2023), atrial fibrillation (on Eliquis), CKD stage IIIa and status post aortic valve replacement (2020) who presented to [facility] emergency department via EMS from nursing home facility on 07/13/2024 with a chief complaint of weakness. Patient's friend at bedside who contributed in procuring history, patient reported that since yesterday morning she has been having significant weakness in her lower legs, reported that she cannot transition herself from wheelchair to bed as she previously can, complains of hypersomnolence, generalized weakness and significant weakness in bilateral legs, left leg weakness more pronounced in the right leg. Patient reports being at rehab center since her previous stroke, reports she has been having difficulties participating with physical therapy as well. Patient also reports that she uses oxygen every night at the facility about 3 L, does report history of asthma, reports was recently diagnosed in May for pneumonia and completed therapy outpatient. Patient otherwise denies any chest pain, shortness of breath and headache. ED Course: ED Vitals: Emergency department vitals significant for blood pressure 118/80, pulse 99, respiratory rate 17, temp 99.0, O2 sat 94 on 3 L nasal cannula ED Labs: Emergency department labs significant for RBC 2.67, hemoglobin 8.1 hematocrit 27.1, MCV 102, MCHC 29.9, neutrophil 86%, neutrophil 8.8 sodium 135, potassium 5.4, chloride 94, venous CO2 38.7, GFR 51, glucose 165, albumin 3.3 ED Imaging: Emergency department imaging significant for Head CT significant negative for acute hemorrhage, mass effect or midline shift. Head/neck CTA shows 46% stenosis left carotid bifurcation origin left internal carotid artery disease EKG in ED showed. Atrial fibrillation, rate 95. ED Treatment: Teleneuro consult initiated in the emergency department, per teleneuro possibility of recurrent stroke, there is more diffuse symptoms possible metabolic or systemic etiology. Teleneuro recommended admission for stroke workup. Review of Systems Review of Systems Narrative Review of Systems: ROS: -CONSTITUTIONAL: Denies weight loss, fever and chills. -HEENT: Denies changes in vision and hearing. -RESPIRATORY: Denies SOB and positive for cough. Positive for supplemental oxygen use. -CV: Denies palpitations and Chest Pain. -GI: Denies abdominal pain, nausea, vomiting,constipation and diarrhea. -: Denies dysuria and urinary frequency. -MSK: Denies myalgia and joint pain. -SKIN: Denies rash and pruritus. -NEUROLOGICAL: Denies headache and syncope. Positive for bilateral lower extremity weakness. -PSYCHIATRIC: Denies recent changes in mood. Denies anxiety and depression. Past Medical History Past Medical History Comments PMH COMMENT: PMH: Positive for asthma (on 3 L at baseline), CVA with left-sided weakness (bilateral cerebellar, September 2023), atrial fibrillation (on Eliquis), CKD stage IIIa and status post aortic valve replacement (2020) PSHx: Post aortic valve replacement 2020, right knee joint replacement, angiogram, ear surgery, tonsillectomy, abdominal surgery, hysterectomy and tubal ligation Allergies: Clindamycin (hives) latex (hives, swelling), clavulanic acid, shellfish (abdominal pain) and codeine (upset stomach) Social history: -Smoking: Smoker 1 PPD till 1992 -Alcohol Use: Occasional alcohol use, last use about 3 months ago -Illicit Drug Use: Positive for THC Family History: Positive for COPD in mother, diabetes mellitus in father Exam Vital Signs Temp Pulse Resp BP Pulse Ox O2 Del Method O2 Flow Rate 99.0 F 97 18 113/91 H 98 Nasal Cannula 3 07/13/24 19:00 07/13/24 19:00 07/13/24 19:07/13/24 19:07/13/24 19:07/13/24 19:07/13/24 19:00 Narrative Exam Physical Exam General: Awake and in no acute distress. Conversational and non-toxic appearing. HEENT: Normocephalic, atraumatic, mucous membranes moist. Heart: Regular rate and rhythm, no murmurs. Lungs: Clear to auscultation with no wheezing or crackles. Abdomen: Soft, nondistended, nontender, positive bowel sounds. ?No guarding or rebound tenderness. Neurologic: Alert and oriented x3, unable to lift left leg from bed, able to lift right leg minimally, able to wiggle toes bilaterally, sensation intact in bilateral lower extremities. Strength intact bilateral upper extremities. Extremities: Trace edema bilaterally. Skin: No rash or ecchymoses. Results: Labs 07/13/24 17:40 07/13/24 17:40 Labs: Short CBC 07/13/24 Range/Units 17:40 WBC 10.2 (3.6-11.0) Thou/mm3 Hgb 8.1 L (12.0-16.0) g/dL Hct 27.1 L (36.0-46.0) % Plt Count 332 D (140-440) Thou/mm3 BMP 07/13/24 17:40 Sodium 135 L Potassium 5.4 H Chloride 94 L Carbon Dioxide 38.7 H BUN 21 Creatinine 1.1 Glucose 165 H Calcium 8.9 Cardiac Enzymes 07/13/24 Range/Units 17:40 Troponin I < 0.002 (0.0-0.045) ng/mL Liver Function 07/13/24 Range/Units 17:40 Total Bilirubin 0.9 (0.3-1.2) mg/dL AST 26 (0-34) U/L ALT 22 (10-49) U/L Alkaline Phosphatase 59 (46-116) U/L Albumin 3.3 L (3.4-4.8) gm/dL Quality Measures Quality Measures VTE prophylaxis and stroke Suspected type of Stroke: Unknown at this time Last known well (date): 07/11/24 Last known well (time): 11:00 Tenecteplase given: Reason(s) Tenecteplase not given: Outside the time window and Use of NOAC (eliquis, xarelto, or pradaxa) not given Rehab services: PT evaluation ordered and Speech Language Pathology eval ordered VTE Prophylaxis: pharmaceutical and mechanical Antithrombotic by day 2:: ordered Statin ordered: >75 y/o moderate or high intensity dose Anticoagulation ordered for A-fib or flutter (current or hx): ordered Advance care planning discussed with:: patient Medications Home Medications and Allergies Home Medications ?Medication ?Instructions ?Recorded ?Confirmed ?Type lisinopril 10 mg tablet 20 mg PO QDAY HTN #0 tabs 07/07/24 History aspirin 81 mg tablet,delayed 1 tab PO QDAY CVA PX 12/1807/07/24 History release amiodarone 200 mg tablet 200 mg PO QDAY AFIB 01/01/23 07/07/24 History metoprolol succinate 50 mg capsule 25 mg PO QDAY HTN 0 01/01/23 07/07/24 History sprinkle, ext. release 24 hr sucralfate 1 gram tablet 1 g PO BID ANTACID 10/07/23 07/07/24 History coQ10 (ubiquinol) 200 mg capsule 400 mg PO QDAY SUPPLE MENT 10/08/23 07/07/24 History ferrous sulfate 325 mg (65 mg 325 mg PO QDAY SUPPLEMEN T 11/18/23 07/07/24 History iron) tablet pantoprazole 40 mg tablet,delayed 40 mg PO QDAY GERD 0 11/18/23 07/07/24 History release (Protonix) Allergies Allergy/AdvReac Type Severity Reaction Status Date / Time clindamycin Allergy Intermediate Hives Verified 07/13/24 18:51 latex Allergy Mild hives Verified 07/13/24 18:51 swelling clavulanic acid Allergy Verified 07/13/24 18:51 shellfish derived Allergy Abdominal Verified 07/13/24 18:51 Pain codeine AdvReac Mild STOMACH Verified 07/13/24 18:51 UPSET Visit Medications Acetaminophen (Acetaminophen 325 Mg Tablet) 650 mg PO Q6H PRN PRN Reason: Pain (1-3) & Fever >101.5 Stop: 08/12/24 19:52 Al Hydrox/Mg Hydrox/Simethicone (Mg Hyd/Al Hyd/Kristofer (Maalox Reg) Susp 30 Ml Udc) 30 ml PO Q6H PRN PRN Reason: Indigestion Stop: 08/12/24 19:52 Albuterol/Ipratropium (Albuterol/Ipratropium (Duoneb) Rt Eva 3 Ml Nebu) 3 ml INH Q4HRRT PRN PRN Reason: SOB/Wheeze Stop: 08/12/24 22:59 Last Admin: 07/13/24 20:37 Dose: 3 ml Apixaban (Apixaban 2.5 Mg Tablet) 5 mg PO BID [facility] Stop: 08/12/24 20:59 Aspirin (Aspirin Ec 81 Mg Tabec) 81 mg PO QDAY MONA Stop: 08/13/24 08:59 Sodium Chloride (Ns) 500 mls @ 75 mls/hr IV .Q6H40M [facility] Stop: 08/12/24 19:59 Metoprolol Succinate (Metoprolol Succinate Xl 25 Mg Tabcr) 25 mg PO QDAY [facility] Stop: 08/13/24 08:59 Ondansetron HCl (Ondansetron Inj 2 Mg/Ml Inj 2 Ml) 4 mg IV Q6H PRN; Protocol PRN Reason: NAUSEA OR VOMITING Stop: 08/12/24 19:52 Pantoprazole Sodium (Pantoprazole 40 Mg Tablet) 40 mg PO QDAY [facility] Stop: 08/13/24 08:59 Sennosides (Senna Tablet) 1 tab PO QDAY [facility]; Protocol Stop: 08/13/24 08:59 Sucralfate (Sucralfate Susp 1 Gm/10 Ml Udc) 1 gm PO BID [facility] Stop: 08/12/24 20:59 Tramadol HCl (Tramadol Hcl 50 Mg Tablet) 50 mg PO Q6HR PRN PRN Reason: PAIN SCALE 4-10(Mod-Sev Stop: 07/18/24 19:52 Discontinued Medications Ondansetron HCl (Ondansetron Inj 2 Mg/Ml Inj 2 Ml) 4 mg IV Q4HR PRN PRN Reason: NAUSEA OR VOMITING Stop: 08/12/24 17:28 Assessment & Plan Plan Assessment and Plan: Summary: Ms. Vivar is a 79-year-old female with past medical history of asthma (on 3 L at baseline), CVA with left-sided weakness (bilateral cerebellar, September 2023), atrial fibrillation (on Eliquis), CKD stage IIIa and status post aortic valve replacement (2020) who presented to [facility] emergency department via EMS from nursing home facility on 07/13/2024 with a chief complaint of weakness. Patient admitted for CVA workup. #Bilateral lower extremity weakness, #CVA workup #History of bilateral cerebellar stroke with left-sided weakness Patient presented with 2-day worsening of lower extremity weakness, reports left sided weakness more than right, reports difficulty transitioning from bed to wheelchair, patient currently at nursing home facility reports unable to work with physical therapy. Stroke alert called in ED, teleneuro consulted recommended admission for CVA workup, last known well time more than 4.5 hours also on Eliquis, not a candidate for thrombolytic therapy. Head CT significant negative for acute hemorrhage, mass effect or midline shift. Head/neck CTA shows 46% stenosis left carotid bifurcation origin left internal carotid artery disease Plan: -Aspirin 81 mg daily -Follow MR stroke protocol -Follow echo with bubble study -Neurocheck every 4 hour -N.p.o., pending bedside swallow screen -Head of bed elevated 30 degrees -Neurology consulted, appreciate recommendations -Consider workup with MRI spine if negative for stroke -Resumed Eliquis, history of A-fib -Keep patient euglycemic and euthermic -Follow lipid panel, A1c, free T4, TSH, vitamin B12 and folate levels in a.m. -Referral to speech therapy, physical therapy #Hyperkalemia, mild #Hypochloremic hyponatremia #Chronic kidney disease stage IIIA Baseline GFR range 45-55 per chart review On presentation BUN 21, creatinine 1.1, GFR 51, potassium 5.4 on presentation, sodium 135, chloride 94, glucose 165, osmolality calculated 277 Plan: -500 cc NS, 75 cc/h -Repeat renal panel, will follow potassium. -Avoid nephrotoxic agents -Renally dose medications #Atrial fibrillation, rate controlled #CHF, by personal history #Status post TAVR, 2020 Patient currently reports taking metoprolol succinate 25 mg p.o. daily and Eliquis twice daily, follows with Dr. Trudi Arita outpatient, reported that patient stopped amiodarone on 05 July 2024. ECHO 09/2023: Negative bubble study. No evidence of PFO or ASD. Normal LV size and function. Estimated EF 65-70% ormal RV size and function The arotic valve bioprosthesis gradient 13mmHg, vmax 2m/s. There is trace arotic valve bioprosthesis regurgitiation. Mild MAC. Mild MR, Trace TR EKG 07/13 shows atrial fibrillation, rate 95 Plan: -Pending med reconciliation -Resumed metoprolol succinate -Resumed Eliquis -Denies taking any diuretics currently. -Strict intake and output, daily weight, fluid restriction 1500 cc #Macrocytic anemia Hemoglobin 8.1, hematocrit 27.1, MCV 102, RBC 2.67, MCH 30.3 Plan: -Follow CBC in a.m. -Follow vitamin B12 and folate levels in a.m. #GERD #Gastritis Patient had EGD on 11/20/2023, findings significant for esophagitis, gastritis. Biopsy results negative for H. pylori, benign mucosa with marked edema noted, cannot rule out early gland hyperplasia. Patient on Protonix, famotidine and Carafate Plan: -Protonix daily -Resumed Carafate -Maalox as needed #Asthma, by history Patient reports history of asthma, reports being on 3 L oxygen at baseline Plan: -Follow chest x-ray -Ordered DuoNebs as needed -Supplemental oxygen as needed DVT prophylaxis: Heparin every 12 hours GI prophylaxis: P.o. Protonix Diet: N.p.o., pending swallow eval Lines: Peripheral IV Code status: Full code Case discussed with Attending Dr. Jorge. Claudia Yi PGY1 Disclaimer: This note was dictated by speech recognition. Minor errors in interpreter deaf may be present due to voice recognition software. Attending Provider Attestation/Addendum I attest that I was physically present for the evaluation, physical examination, lab and imaging review of the patient with the residents. I discussed the case with the residents and agree with the findings and plans of care as documented above. Patient is a 79 years old female with past medical history of asthma, CVA with left-sided weakness, A-fib on Eliquis, CKD and status post aortic valve replacement who presented to the ED with complaint of weakness. Patient has been working with physical therapy for her left-sided weakness but since yesterday her weakness has been worsening and she was unable to transfer to her wheelchair and back which prompted her visit to the ED. In the ED, her vitals are stable, saturating well on 3 L nasal cannula. Lab results show hemoglobin 8.1, potassium 5.4, GFR 51. Head CT was obtained which was negative for acute hemorrhage, mass effect or midline shift. Head/neck CTA shows 46% stenosis of left carotid bifurcation. EKG shows A-fib with heart rate of 95. Teleneurology consult was obtained, who recommended admission to rule out CVA, also recommended to investigate for possible metabolic and systemic etiology. On exam, patient does have left-sided lower extremity weakness, rest of the neurological exams were within normal limits. We will admit the patient for management of possible CVA, we will resume her aspirin, statin. We will obtain brain MRI, echocardiography, physical therapy, in-house neurology consult. We will continue her Eliquis for A-fib. We will start gentle IV hydration and recheck her potassium level, if continues to increase or worsen we will treat accordingly. Kamilah Jorge MD
[2024-07-13 21:23] VITALS: PULSE 95; RESP 19; O2SAT 99; BMI 37.1
[2024-07-13] MEDS: SODIUM CHLORIDE 0.9% 1000 ML 500 ML 75 ML IV (21:31)
[2024-07-13] MEDS: APIXABAN 2.5 MG TABLET 5 MG PO (21:32)
[2024-07-13 22:11] VITALS: BP 94/61; PULSE 100; RESP 19; TEMP 36.4; O2SAT 91
[2024-07-13] MEDS: SUCRALFATE SUSP 1 GM/10 ML UDC PO (22:46)
[2024-07-14] VITALS (12 sets, daily range): BP systolic 95–128; BP diastolic 47–69; PULSE 84–108; RESP 15–22; TEMP 36.2–36.6; O2SAT 93–99; BMI 34.4; BMI 13.0
--- NOTE | 2024-07-14 | XR_ITS ---
Examinations: MRI Brain without intravenous contrast. MRA brain without intravenous contrast. MRA carotids without intravenous contrast 3-D vascular reconstructions Date and time of exam: July 14, 2024 0839 hrs. Indication: History stroke, CVA with left-sided body weakness September 2023, bilateral cerebellar infarcts, patient atrial fibrillation anticoagulated status post aortic valve replacement, chief complaint weakness, CT stroke alert July 13, 2024 onset focal neurologic deficit Technique: Multiple axial and sagittal images of the brain have been obtained MRA brain carotid images without contrast obtained, including 3-D postprocessing, vascular maximum intensity projection images Findings: Sellaturcica is not enlarged. The optic chiasm and infundibular stalk are not remarkable. Prepontine and interpeduncular cisterns are not enlarged. No localized enlargement of the medulla or ayesha. Fourth ventricle and cerebellar tonsils normal in position. Subacute hemorrhage is not seen. Fourth ventricle is midline. Mass in the cerebellopontine angle region is not evident. 7th and 8th nerve complexes exhibits symmetry. Globes are symmetrical with no retro-orbital mass. Increased white matter signal moderate Diffusion-weighted images demonstrate no focus restricted diffusion Mass-effect upon the ventricular system is not identified. MRA carotid images degraded by patient motion. MRA brain images no large vessel occlusions Impression: Negative for acute hemorrhage mass effect or midline shift No acute infarct Moderate chronic microvascular white matter change
[2024-07-14 00:44] LABS: Albumin, Serum 3.4 gm/dL (3.4-4.8); Anion Gap 2 (7-16); BUN/Creatinine Ratio 17 Ratio (12-20); Blood Urea Nitrogen 19 mg/dL (9-23); Calcium 9.1 mg/dL (8.3-10.6); Calcium (Corrected) 9.6 mg/dL (8.5-10.1); Carbon Dioxide 38.8 mMol/L (20.0-31.0); Chloride 95 mMol/L (98-107); Creatinine (Component) 1.1 mg/dL (0.6-1.3); Glucose 189 mg/dL (74-106); Osmolality,Calculated 279 (275-295); Phosphorous 2.6 mg/dL (2.4-5.1); Potassium 4.7 mMol/L (3.4-5.1); Sodium 136 mMol/L (136-145); eGFR 51 See Note
[2024-07-14] MEDS: ALBUTEROL/IPRATROPIUM (Duoneb) RT SOL 3 ML NEBU INH ×2 (02:05→15:57)
[2024-07-14] MEDS: SODIUM CHLORIDE 0.9% 1000 ML 500 ML 75 ML IV (04:12)
[2024-07-14 05:39] LABS: Basophils % (Auto) 0 % (0-2.5); Eosinophils # (Auto) 0.1 Thou/mm3 (0.0-0.5); Eosinophils % (Auto) 1 % (0-10); Hematocrit 25.9 % (36.0-46.0); Immature Granulocytes % (Auto) 3 % (0-0); Immature Granulocytes Auto 0.39 Thou/mm3 (0.00-0.00); Lymphocytes # (Auto) 1.4 Thou/mm3 (1.0-4.8); Lymphocytes % (Auto) 12 % (10-50); Mean Corpuscular HGB Conc 30.1 g/dl (31.0-37.0); Mean Corpuscular Hemoglobin 30.2 pg (25.0-35.0); Mean Corpuscular Volume 100 fL (80-100); Monocytes # (Auto) 1.2 Thou/mm3 (0.0-0.8); Monocytes % (Auto) 10 % (0-12); Neutrophils # (Auto) 8.4 Thou/mm3 (1.8-7.7); Neutrophils % (Auto) 73 % (37-80); Nucleated Red Blood Cell % 0 /100 WBC (0); Platelet Count 239 Thou/mm3 (140-440); RDW Standard Deviation 52.3 fL (36.4-46.3); Red Blood Count 2.58 Miln/mm3 (4.00-5.20); White Blood Count 11.6 Thou/mm3 (3.6-11.0)
[2024-07-14 05:46] LABS: Hemoglobin 7.8 g/dL (12.0-16.0)
[2024-07-14 06:07] LABS: Glucose Estimated Average 108 mg/dL (80-131); Hemoglobin A1C 5.4 % Hgb (4.8-6.0)
[2024-07-14 07:16] LABS: Alanine Aminotransferase 19 U/L (10-49); Albumin, Serum 3.1 gm/dL (3.4-4.8); Albumin/Globulin Ratio 1.1 (1.2-2.2); Alkaline Phosphatase 54 U/L (46-116); Anion Gap 3 (7-16); Aspartate Amino Transferase 20 U/L (0-34); BUN/Creatinine Ratio 18 Ratio (12-20); Blood Urea Nitrogen 18 mg/dL (9-23); Calcium 8.8 mg/dL (8.3-10.6); Calcium (Corrected) 9.5 mg/dL (8.5-10.1); Carbon Dioxide > 40.0 mMol/L (20.0-31.0); Cardiac Risk Estimate 2.4 RATIO (3.7-5.6); Chloride 95 mMol/L (98-107); Cholesterol 137 mg/dL (132-200); Estimated Creatinine Clearance 58.2 mL/min (>60); Free T4 (Free Thyroxine) 0.96 ng/dL (0.89-1.76); Globulin 2.8 gm/dL (2.3-3.5); Glucose 108 mg/dL (74-106); HDL Cholesterol 56 mg/dL (40-60); LDL Cholesterol,Calculated 67 mg/dL (0-130); Osmolality,Calculated 278 (275-295); Phosphorous 2.9 mg/dL (2.4-5.1); Potassium 4.4 mMol/L (3.4-5.1); Sodium 138 mMol/L (136-145); Thyroid Stimulating Hormone 3.57 uIU/mL (0.55-4.78); Total Protein 5.9 gm/dL (5.7-8.2); Triglycerides 72 mg/dL (30-150); eGFR 58 See Note
[2024-07-14 07:41] LABS: Folate 9.31 ng/mL (>5.38); Vitamin B12 303 pg/mL (211-911)
--- NOTE | 2024-07-14 07:56 | XR_ITS ---
Examination: Carotid arterial duplex scan, ultrasound. Date and time of exam: July 14, 2024 1227 hrs. Indications: Onset left-sided body weakness beginning 3 days ago, history 2 strokes in September 2023 Technique: Multiple sonographic images have been obtained of the carotid arteries and vertebral arteries, B-mode/grayscale imaging and Doppler spectral analysis and color flow Peak systolic and diastolic velocities have been recorded. Systolic diastolic ratios have been calculated. Findings: Right peak systolic velocities: Distal internal carotid artery peak systolic velocity is 1.5 M/sec Proximal internal carotid artery peak systolic velocity is 1.1 M/sec Carotid bifurcation peak systolic velocity is 1.2 M/sec External carotid artery peak systolic velocity is 0.7 M/sec Vertebral artery flow is antegrade. Left peak systolic velocities: Distal internal carotid artery peak systolic velocity is 1.5 M/sec Proximal internal carotid artery peak systolic velocity is 1.6 M/sec Carotid bifurcation peak systolic velocity is 0.9 M/sec External carotid artery peak systolic velocity is 1.4 M/sec Vertebral artery flow is antegrade Doppler waveform analysis demonstrates no spectral broadening Impression: Right internal carotid artery demonstrates 10-30% stenosis. Left internal carotid artery demonstrates 10-30% stenosis.
--- NOTE | 2024-07-14 08:13 | PC.SS ---
DIRECTOR OF REVENUE conducted bedside contact with the patient conduct initial assessment and to discuss discharge planning.? Patient confirmed demographic information.? Patient is a resident of [facility].? Patient has been residing at facility since .? Patient is bedbound.? Patient utilizes oxygen at the facility.? Patient requires assistance with the completion of ADL?s.? Patient identified partner, Elsy Lewis ; as medical surrogate decision maker.? Patient?s PCP is Dr. Shalom Sheikh.? Patient?s nuclear medicine chief technologist is Dr. Valencia.? Patient does not participate with dialysis.? Discharge plan is for the patient to return to [facility].? Patient will require ambulance transport to [facility].? member services coordinator to assist with securing transportation for the patient.? No discharge needs identified by the patient.? No further intervention required at this time, psychotherapist social worker will be available to address any further concerns.? Next of Kin: Elsy Debbie D/C Plan: SNF
[2024-07-14] MEDS: SENNA TABLET 1 TAB PO (10:14)
[2024-07-14] MEDS: APIXABAN 2.5 MG TABLET 5 MG PO ×2 (10:14→20:30)
[2024-07-14] MEDS: PANTOPRAZOLE 40 MG TABLET PO (10:15)
[2024-07-14] MEDS: ASPIRIN EC 81 MG TABEC PO (10:15)
--- NOTE | 2024-07-14 11:17 | PC.SS ---
Update: MRI and Echo are pending.
[2024-07-14] MEDS: SUCRALFATE SUSP 1 GM/10 ML UDC PO ×2 (12:23→20:30)
--- NOTE | 2024-07-14 14:01 | PD.RESCONSUL ---
HPI Data of Consult Requesting Physician: Washington Trevino MD Admitting Provider: Kamilah Jorge MD Attending Provider: Washington Trevino MD Primary Care Provider: Shalom Sheikh MD Consult Narrative History of present illness: This is a 79-year-old female with past medical history of asthma (on 3 L at baseline), CVA with left-sided weakness (bilateral cerebellar, September 2023), atrial fibrillation (on Eliquis), CKD stage IIIa and status post aortic valve replacement (2020) who presented to the emergency department via EMS from [facility] on 07/13/2024 with a chief complaint of weakness. Patient reported that since two mornings ago she has been having significant weakness in her lower legs, reported that she cannot transition herself from wheelchair to bed as she previously can, complains of sleepyness, generalized weakness and significant weakness in bilateral legs, left leg weakness more pronounced in the right leg. Patient reports being at rehab center since her previous stroke, reports she has been having difficulties participating with physical therapy as well. Neurology consulted for BLE weakness. cc:: cc: Washington Trevino MD Review of Systems Review of Systems Systems Reviewed: All systems reviewed, normal except as documented Exam Vital Signs Temp Pulse Resp BP Pulse Ox O2 Del Method O2 Flow Rate 97.2 F 84 18 108/47 L 99 Nasal Cannula 3 07/14/24 12:00 07/14/24 12:00 07/14/24 12:07/14/24 12:00 07/14/24 12:00 07/14/24 12:00 07/14/24 12:00 Narrative Exam General: A/O x3, no acute distress Eyes: PERRL, EOMI. Anicteric, vision grossly intact. Ears: No ear pain, no ear discharge, Hearing grossly intact. Nose: No nasal discharge. Mouth/Throat: Moist mucous membranes, no redness, no lesions. Neck: Neck supple, non-tender, no cervical lymphadenopathy. Lungs: Clear GRISEL to auscultation and percussion, No accessory muscle use. Cardio: Normal S1/S2, regular rhythm, no murmurs, no JVD Abdomen: Soft, non-tender, no palpable masses, peristalsis present, no guarding or rebound. Extremities: Symmetrical, no significant deformities, no peripheral edema , non-tender, peripheral pulses presents. Skin: No rashes, no lesions, warm to touch. NEURO:? ? MENTAL STATUS:?AAOx3 ? LANG/SPEECH: Fluent, intact naming, repetition & comprehension ? CRANIAL NERVES: ? II: Pupils equal and reactive, no RAPD,?normal visual field and fundus ? III, IV, : EOM intact, no gaze preference or deviation ? V: normal ? VII: no facial asymmetry ? VIII: normal hearing to speech ? MOTOR: 4/5 in LLE, 5/5 RLE ? REFLEXES: 2/4 throughout,?bilateral flexor plantars ? SENSORY: Normal to touch, temperature & pin prick in all extremiteis ? COORD: Normal finger to nose and heel to mace, no tremor, no dysmetria Results Labs 07/14/24 05:15 07/14/24 05:15 Labs: Short CBC 07/13/24 07/14/24 Range/Units 17:40 05:15 WBC 10.2 11.6 H (3.6-11.0) Thou/mm3 Hgb 8.1 L 7.8 L (12.0-16.0) g/dL Hct 27.1 L 25.9 L (36.0-46.0) % Plt Count 332 D 239 D (140-440) Thou/mm3 BMP 07/13/24 07/14/24 07/14/24 17:40 00:15 05:15 Sodium 135 L 136 138 Potassium 5.4 H 4.7 D 4.4 Chloride 94 L 95 L 95 L Carbon Dioxide 38.7 H 38.8 H > 40.0 H BUN 21 19 18 Creatinine 1.1 1.1 1.0 Glucose 165 H 189 H 108 H D Calcium 8.9 9.1 8.8 Cardiac Enzymes 07/13/24 Range/Units 17:40 Troponin I < 0.002 (0.0-0.045) ng/mL Liver Function 07/13/24 07/14/24 07/14/24 Range/Units 17:40 00:15 05:15 Total Bilirubin 0.9 1.0 (0.3-1.2) mg/dL AST 26 20 (0-34) U/L ALT 22 19 (10-49) U/L Alkaline Phosphatase 59 54 (46-116) U/L Albumin 3.3 L 3.4 3.1 L (3.4-4.8) gm/dL Quality Measures Quality Measures none Advance care planning discussed with:: other Medications Home Medications and Allergies Home Medications ?Medication ?Instructions ?Recorded ?Confirmed ?Type lisinopril 10 mg tablet 20 mg PO QDAY HTN #0 tabs 04/02/16 07/07/24 History aspirin 81 mg tablet,delayed 1 tab PO QDAY CVA PX 01/01/18 07/07/24 History release amiodarone 200 mg tablet 200 mg PO QDAY AFIB 01/01/23 07/07/24 History metoprolol succinate 50 mg capsule 25 mg PO QDAY HTN 01/01/23 07/07/24 History sprinkle, ext. release 24 hr sucralfate 1 gram tablet 1 g PO BID ANTACID 10/07/23 07/07/24 History coQ10 (ubiquinol) 200 mg capsule 400 mg PO QDAY SUPPLEMENT 10/08/23 07/07/24 History ferrous sulfate 325 mg (65 mg 325 mg PO QDAY SUPPLEMENT 11/18/23 07/07/24 History iron) tablet pantoprazole 40 mg tablet,delayed 40 mg PO QDAY GERD 11/18/23 07/07/24 History release (Protonix) Allergies Allergy/AdvReac Type Severity Reaction Status Date / Time clindamycin Allergy Intermediate Hives Verified 07/13/24 18:51 latex Allergy Mild hives Verified 07/13/24 18:51 swelling clavulanic acid Allergy Verified 07/13/24 18:51 shellfish derived Allergy Abdominal Verified 07/13/24 18:51 Pain codeine AdvReac Mild STOMACH Verified 07/13/24 18:51 UPSET Visit Medications Acetaminophen (Acetaminophen 325 Mg Tablet) 650 mg PO Q6H PRN PRN Reason: Pain (1-3) & Fever >101.5 Stop: 08/12/24 19:52 Al Hydrox/Mg Hydrox/Simethicone (Mg Hyd/Al Hyd/Kristofer (Maalox Reg) Susp 30 Ml Udc) 30 ml PO Q6H PRN PRN Reason: Indigestion Stop: 08/12/24 19:52 Albuterol/Ipratropium (Albuterol/Ipratropium (Duoneb) Rt Eva 3 Ml Nebu) 3 ml INH Q4HRRT PRN PRN Reason: SOB/Wheeze Stop: 08/12/24 22:59 Last Admin: 07/14/24 02:05 Dose: 3 ml Apixaban (Apixaban 2.5 Mg Tablet) 5 mg PO BID [facility] Stop: 08/12/24 20:59 Last Admin: 07/14/24 10:14 Dose: 5 mg Aspirin (Aspirin Ec 81 Mg Tabec) 81 mg PO QDAY [facility] Stop: 08/13/24 08:59 Last Admin: 07/14/24 10:15 Dose: 81 mg Atorvastatin Calcium (Atorvastatin Calcium 20 Mg Tablet) 40 mg PO HS [facility], [facility]1983 Stop: 08/13/24 20:59 Sodium Chloride (Ns) 500 mls @ 75 mls/hr IV .Q6H40M [facility], [facility] Stop: 08/12/24 19:59 Last Admin: 07/14/24 04:12 Dose: 75 mls/hr Metoprolol Succinate (Metoprolol Succinate Xl 25 Mg Tabcr) 25 mg PO QDAY [facility] Stop: 08/13/24 08:59 Last Admin: 07/14/24 10:15 Dose: Not Given Ondansetron HCl (Ondansetron Inj 2 Mg/Ml Inj 2 Ml) 4 mg IV Q6H PRN; Protocol PRN Reason: NAUSEA OR VOMITING Stop: 08/12/24 19:52 Pantoprazole Sodium (Pantoprazole 40 Mg Tablet) 40 mg PO QDAY [facility] Stop: 08/13/24 08:59 Last Admin: 07/14/24 10:15 Dose: 40 mg Sennosides (Senna Tablet) 1 tab PO QDAY [facility]; Protocol Stop: 08/13/24 08:59 Last Admin: 07/14/24 10:14 Dose: 1 tab Sucralfate (Sucralfate Susp 1 Gm/10 Ml Udc) 1 gm PO BID [facility] Stop: 08/12/24 20:59 Last Admin: 07/14/24 12:23 Dose: 1 gm Tramadol HCl (Tramadol Hcl 50 Mg Tablet) 50 mg PO Q6HR PRN PRN Reason: PAIN SCALE 4-10(Mod-Sev Stop: 07/18/24 19:52 Discontinued Medications Ondansetron HCl (Ondansetron Inj 2 Mg/Ml Inj 2 Ml) 4 mg IV Q4HR PRN PRN Reason: NAUSEA OR VOMITING Stop: 08/12/24 17:28 Assessment & Plan Plan #Bilateral lower extremity weakness #History of bilateral cerebellar stroke with left-sided weakness Assessment: Patient presented with 2-day worsening of lower extremity weakness, reports left sided weakness more than right, reports difficulty transitioning from bed to wheelchair, patient currently at residential facility reports unable to work with physical therapy. Stroke alert called in ED, teleneuro consulted recommended admission for CVA workup, last known well time more than 4.5 hours also on Eliquis, not a candidate for thrombolytic therapy. Head CT significant negative for acute hemorrhage, mass effect or midline shift. Head/neck CTA shows 46% stenosis left carotid bifurcation origin left internal carotid artery disease MR brain w w/o con was negative. B12 was low. Recommendations: -Cont Aspirin 81 mg daily -start B12 1000 mcg daily -pending echo with bubble study -N.p.o., pending bedside swallow screen -Resumed Eliquis, history of A-fib - Patient's care was discussed with my attending physician, Dr. Robby Zarco MD Internal Medicine PGY-3 Attending Provider Attestation/Addendum I have reviewed the patient's chart and agreed with resident's findings, assessment and plan of care. Noted that the MRI brain is negative for acute infarction but showed an old infarction in both cerebellar hemisphere. Advised her to take vitamin B12 daily. If the weakness persists, she would need EMG nerve conduction study as an outpatient.
[2024-07-14] MEDS: SODIUM CHLORIDE 0.9% 500 ML 500 ML 75 ML IV ×2 (14:11→20:31)
--- NOTE | 2024-07-14 14:48 | ESPR_ITS ---
<Statement entered by Silvia Felix MD - 07/14/24 15:12> I discussed with and supervised my co-resident involved in the care of this patient. I agree with the assessment and plan as documented above. Patient seen and examined at bedside. Patient admitted for bilateral lower extremity weakness and acute stroke rule out. MRI did not show stroke. Per patient and partner at bedside, patient had episode of hypoxia and almost falling asleep at SNF. Patient may benefit from outpatient sleep study. Will continue aspirin, statin, eliquis, and follow up neuro reccs. Anticipate discharge back to SNF within 24-48 hours. Silvia Felix MD PGY-3 Documentation for date of: 07/14/24 Subjective Subjective Interval history: Patient was seen at bedside this morning. No overnight events. Patient stated that she had been having more somnolence throughout the day and that she was having more respiratory issues during the night where she desaturated into the low 70s and high 60s. Patient stated that she is also a little bit weaker than she was before, but there is no focal neurological deficit and she has bilateral lower weakness. She did mention that she dozed off even when speaking to somebody in the middle of the conversation and she fell asleep for a few minutes. She also mention that she did notice some more significant tremors in her upper extremities, but that she has not had loss of conscious at all. She also denied having any chest pain prior to the episodes of somnolence or having any irregular heartbeat prior to these episodes. Patient's imaging was negative for stroke including the brain MRI and head CT and head CTA. Will keep patient overnight. No other complaints at this time. Exam Vital Signs Temp Pulse Resp BP Pulse Ox O2 Del Method O2 Flow Rate 97.2 F 84 18 108/47 L 99 Nasal Cannula 3 07/14/24 12:00 07/14/24 12:00 07/14/24 12:00 07/14/24 12:00 07/14/24 12:00 07/14/24 12:07/14/24 12:00 Narrative Exam General: A/O x3, no acute distress Eyes: PERRL, EOMI. Anicteric, vision grossly intact. Ears: No ear pain, no ear discharge, Hearing grossly intact. Nose: No nasal discharge. Mouth/Throat: Moist mucous membranes, no redness, no lesions. Neck: Neck supple, non-tender, no cervical lymphadenopathy. Lungs: Clear GRISEL to auscultation and percussion, No accessory muscle use. Cardio: Normal S1/S2, regular rhythm, no murmurs, no JVD Abdomen: Soft, non-tender, no palpable masses, peristalsis present, no guarding or rebound. Extremities: Symmetrical, no significant deformities, no peripheral edema , non-tender, peripheral pulses presents. Skin: No rashes, no lesions, warm to touch. Neuro: Some decreased strength in L UE and L LE compared to the right. No other focal neurological deficit appreciated. Psych: Cooperative, appropriate mood and effect. Objective Labs 07/14/24 05:15 07/14/24 05:15 Labs: Laboratory Results - last 24 hr 07/13/24 07/14/24 07/14/24 17:40 00:15 05:15 WBC 10.2 11.6 H RBC 2.67 L 2.58 L Hgb 8.1 L 7.8 L Hct 27.1 L 25.9 L MCV 102 H 100 MCH 30.3 30.2 MCHC 29.9 L 30.1 L RDW Std Deviation 54.3 H 52.3 H Plt Count 332 D 239 D Neut % (Auto) 86 H 73 Lymph % (Auto) 5 L 12 [place] % (Auto) 5 10 Eos % (Auto) 0 1 Baso % (Auto) 0 0 Neut # (Auto) 8.8 H 8.4 H Lymph # (Auto) 0.5 L 1.4 [place] # (Auto) 0.5 1.2 H Eos # (Auto) 0.0 0.1 Baso # (Auto) 0.0 0.0 Immature Gran # (Auto) 0.41 H 0.39 H Absolute Nucleated RBC 0.00 0.00 Immature Gran % 4 H 3 H Nucleated RBC % 0 0 PT 11.2 INR 1.0 APTT 24.2 Sodium 135 L 136 138 Potassium 5.4 H 4.7 D 4.4 Chloride 94 L 95 L 95 L Carbon Dioxide 38.7 H 38.8 H > 40.0 H Anion Gap 2 L 2 L 3 L BUN 21 19 18 Creatinine 1.1 1.1 1.0 Estim Creat Clear Calc 54.0 L 55.0 L 58.2 L eGFR 51 L 51 L 58 L BUN/Creatinine Ratio 19 17 18 Glucose 165 H [address] H [address] Glu mg/dL 108 Hemoglobin A1c 5.4 Calculated Osmolality 277 279 278 Calcium 8.9 9.1 8.8 Corrected Calcium 9.5 9.6 9.5 Phosphorus 2.6 2.9 Magnesium 2.0 2.0 Total Bilirubin 0.9 1.0 AST 26 20 ALT 22 19 Alkaline Phosphatase 59 54 Troponin I < 0.002 Total Protein 6.4 5.9 Albumin 3.3 L 3.4 3.1 L Globulin 3.1 2.8 Albumin/Globulin Ratio 1.1 L 1.1 L Triglycerides 72 Cholesterol 137 LDL Cholesterol, Calc 67 HDL Cholesterol 56 Cholesterol/HDL Ratio 2.4 L Vitamin B12 303 Folate 9.31 TSH 3.57 Free T4 0.96 HCG (Qual) Negative Quality Measures Quality Measures none Advance care planning discussed with:: patient and significant other Assessment & Plan Assessment Current Active Medications: Generic Name Dose Route Start Last Admin Trade Name Freq PRN Reason Stop Dose Admin Acetaminophen 650 mg 07/13/24 19:53 Acetaminophen 325 Mg Tablet PO 08/12/24 19:52 Q6H PRN Pain (1-3) & Fever >101.5 Al Hydrox/Mg Hydrox/Simethicone 30 ml 07/13/24 19:53 Mg Hyd/Al Hyd/Kristofer (Maalox Reg) Susp 30 Ml Udc PO 08/12/24 19:52 Q6H PRN Indigestion Albuterol/Ipratropium 3 ml 07/13/24 19:53 07/14/24 02:05 Albuterol/Ipratropium (Duoneb) Rt Eva 3 Ml Nebu INH 08/12/24 22:59 3 ml Q4HRRT PRN Administration SOB/Wheeze Apixaban 5 mg 07/13/24 21:00 07/14/24 10:14 Apixaban 2.5 Mg Tablet PO 08/12/24 20:59 5 mg BID MONA Administration Aspirin 81 mg 07/14/24 09:00 07/14/24 10:15 Aspirin Ec 81 Mg Tabec PO 08/13/24 08:59 81 mg QDAY MONA Administration Atorvastatin Calcium 40 mg 07/14/24 21:00 Atorvastatin Calcium 20 Mg Tablet PO 08/13/24 20:59 HS MONA Sodium Chloride 500 mls @ 75 mls/hr 07/14/24 14:08 07/14/24 14:11 Ns IV 08/12/24 19:59 75 mls/hr .Q6H40M MONA Administration Metoprolol Succinate 25 mg 07/14/24 09:00 07/14/24 10:15 Metoprolol Succinate Xl 25 Mg Tabcr PO 08/13/24 08:59 Not Given QDAY MONA Ondansetron HCl 4 mg 07/13/24 19:53 Ondansetron Inj 2 Mg/Ml Inj 2 Ml IV 08/12/24 19:52 Q6H PRN NAUSEA OR VOMITING Protocol Pantoprazole Sodium 40 mg 07/14/24 09:00 07/14/24 10:15 Pantoprazole 40 Mg Tablet PO 08/13/24 08:59 40 mg QDAY MONA Administration Sennosides 1 tab 07/14/24 09:00 07/14/24 10:14 Senna Tablet PO 08/13/24 08:59 1 tab QDAY MONA Administration Protocol Sucralfate 1 gm 07/13/24 21:00 07/14/24 12:23 Sucralfate Susp 1 Gm/10 Ml Udc PO 08/12/24 20:59 1 gm BID MONA Administration Tramadol HCl 50 mg 07/13/24 19:53 Tramadol Hcl 50 Mg Tablet PO 07/18/24 19:52 Q6HR PRN PAIN SCALE 4-10(Mod-Sev Plan 79-year-old female with past medical history of asthma (on 3 L at baseline on at night), 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 #Acute encephalopathy #Hypersomnolence #Bilateral lower extremity weakness #CVA ruled out #Hx of bilateral cerebellar stroke with residual left-sided weakness ?Patient came in with complaints of bilateral lower extremity weakness. ? On further history taking patient stated that she has been more somnolent and has been falling asleep while maintaining conversation with her significant other. ? Patient states that she has been having episodes where she had desaturation to the low 70s high 60s during the night. ? DDx could include hypercapnia versus hypoxia causing patient's hypersomnolence and acute encephalopathy versus possible sleep apnea causing the patient to be hypersomnolent ? Head CT unremarkable ? Head/neck CTA only showed stenosis of left internal carotid artery ? Brain MRI with MRA did not show any acute infarct or hemorrhage. Plan: ?Will continue with aspirin and statin for now ?Pending echo ? Will continue with neurochecks for now ?Patient may benefit from outpatient sleep study ? Neurology consulted, pursue recommendations #Hx of atrial fibrillation #Hx of aortic stenosis s/p TAVR, 2020 ?[id number] score of 6 points indicating 9.7% risk of stroke per year ?HAS-BLED score of 4 points indicating high risk for major bleeding ? Will continue patient on Eliquis and metoprolol for now #Metabolic alkalosis ? Patient's bicarb was more than 40 ? Patient's bicarb has been chronically elevated since 09/2023 ? Patient could be compensating for some respiratory acidosis Plan: ? Will recommend outpatient sleep study for possible sleep apnea causing respiratory acidosis #Leukocytosis ? Most likely reactive as patient has not had any fevers #Hyperkalemia, resolved ?Patient's potassium initially was 5.4 ? Potassium today was 4.4 #Hx of GERD #Hx of gastritis #Hx of asthma Will continue Protonix as well as Carafate and DuoNebs. Disposition: Patient admitted to telemetry. Diet: Cardiac GI prophylaxis: Protonix DVT prophylaxis: Eliquis Code: Full code Case disclosed with Attending Dr. Begum and My senior Dr. Felix PGY3. Demetris Gan PGY1
--- NOTE | 2024-07-14 17:09 | PC.SS ---
Rounding Note: Neurology consult pending. Plan is to d/c patient tomorrow to SNF.
--- NOTE | 2024-07-14 20:04 | ECHO_ITS ---
Transthoracic Echo Report Ht (in): 68 Wt (lb): 227 Exam Location: Echo Lab Status: Inpatient [place] Weaver: MARCIA Johnson^^^^ Indications: Procedure Performed: BP: 108 / 47 HR: 94 Technical Quality: Technically difficult study MEASUREMENTS (Male / Female) Normal Values 2D ECHO LV Diastolic Diameter PLAX 4.5 cm 4.2 - 5.9 / 3.9 - 5.3 cm LV Systolic Diameter PLAX 3.1 cm IVS Diastolic Thickness 1.3 cm 0.6 - 1.0 / 0.6 - 0.9 cm LVPW Diastolic Thickness 1.0 cm 0.6 - 1.0 / 0.6 - 0.9 cm LV Relative Wall Thickness 0.5 LVOT Diameter 1.9 cm Aortic Root Diameter 2.7 cm LA Systolic Diameter LX 5.3 cm 3.0 - 4.0 / 2.7 - 3.8 cm LV Ejection Fraction MOD 4C 58.8 % LV Cardiac Index MOD 4C 3346.9 cm?/min?m? LV Ejection Fraction 4C AL 58.4 % LV Cardiac Index 4C AL 3353.3 cm?/min?m? DOPPLER AV Peak Velocity 125.0 cm/s AV Peak Gradient 6.3 mmHg AV Mean Gradient 4.0 mmHg AV Velocity Time Integral 23.3 cm LVOT Peak Velocity 97.9 cm/s LVOT Peak Gradient 3.8 mmHg LVOT Velocity Time Integral 23.6 cm LVOT Cardiac Index 2782.0 cm?/min?m? AV Area Cont Eq vti 2.9 cm? AV Area Cont Eq pk 2.2 cm? MV Peak Velocity 162.5 cm/s MV Peak Gradient 10.6 mmHg MV Mean Velocity 104.4 cm/s MV Mean Gradient 5.0 mmHg MV Area PHT 2.4 cm? MR Peak Velocity 495.0 cm/s MR Peak Gradient 98.0 mmHg Mitral E Point Velocity 138.0 cm/s Mitral A Point Velocity 96.7 cm/s Mitral E to A Ratio 1.4 LV E' Lateral Velocity 6.9 cm/s Mitral E to LV E' Lateral Ratio 20.1 LV E' Septal Velocity 7.6 cm/s Mitral E to LV E' Septal Ratio 18.1 TR Peak Velocity 253.7 cm/s TR Peak Gradient 25.7 mmHg PV Peak Velocity 68.9 cm/s PV Peak Gradient 1.9 mmHg RVOT Peak Velocity 48.8 cm/s FINDINGS Left Ventricle Normal left ventricular size, wall thickness, systolic function with no obvious regional wall motion abnormalities. There is grade III diastolic dysfunction of the left ventricle (restrictive filling pattern). The left ventricular ejection fraction is normal, estimated at 55-60%. Right Ventricle The right ventricle is normal in size and systolic function. The estimated right ventricular systolic pressure, 30 mmHg. Left Atrium The left atrium is normal by two-dimensional, color flow and Doppler imaging with no structural abnormalities, no thrombus formation present. Right Atrium The right atrium is normal by two-dimensional imaging, color flow and Doppler imaging with no structural abnormalities, no thrombus formation present. Atrial Septum The interatrial septum is normal to color flow Doppler and agitated saline imaging. Aorta The aorta is normal by two-dimensional, color flow and Doppler interrogation. Mitral Valve Severe mitral annular calcification. Calcification of the mitral valve leaflets. Mild mitral regurgitation. Aortic Valve Aortic valve sclerosis. Tricuspid Valve There is mild tricuspid valve regurgitation. Pulmonic Valve Trivial pulmonic valve regurgitation. Vessels The pulmonary artery appears normal. The inferior vena cava pulmonary and hepatic veins appear normal. Pericardium The pericardium is normal by two-dimensional imaging. There is no significant pericardial effusion. CONCLUSIONS indication: CVA workup w bubble study Normal LV size and function. Estimated EF around 60 to 65%. Mild LVH. Diastolic dysfunction present but cannot grade because of the atrial fibrillation. RV and RA not visualized well. Probable normal RV function. Bubble study nondiagnostic and consider MARBIN if high index of clinical suspicion. Normally functioning bioprosthetic arctic valve. IAS is normal to color flow Doppler and agitated saline imaging. Moderate to severe MAC with thickening, calcification of the mitral leaflets and mild MR Rosendo Kilgore (Electronically Signed) Final Date: 14 July 2024 17:24
[2024-07-14] MEDS: ATORVASTATIN CALCIUM 20 MG TABLET 40 MG PO (20:31)
[2024-07-15] VITALS (10 sets, daily range): BP systolic 106–129; BP diastolic 49–74; PULSE 82–104; RESP 16–22; TEMP 36.1–36.6; O2SAT 94–100; BMI 36.1; BMI 13.0
[2024-07-15] MEDS: MELATONIN 3 MG TABLET 6 MG PO (00:02)
[2024-07-15] MEDS: ALPRazoLAM 0.25 MG TABLET PO (00:02)
[2024-07-15] MEDS: ALBUTEROL/IPRATROPIUM (Duoneb) RT SOL 3 ML NEBU INH ×2 (00:32→11:29)
[2024-07-15] MEDS: SODIUM CHLORIDE 0.9% 500 ML 500 ML 75 ML IV (04:03)
[2024-07-15 05:55] LABS: Basophils # (Auto) 0.1 Thou/mm3 (0.0-0.2); Basophils % (Auto) 1 % (0-2.5); Eosinophils # (Auto) 0.8 Thou/mm3 (0.0-0.5); Eosinophils % (Auto) 7 % (0-10); Hematocrit 24.5 % (36.0-46.0); Immature Granulocytes % (Auto) 4 % (0-0); Immature Granulocytes Auto 0.51 Thou/mm3 (0.00-0.00); Lymphocytes % (Auto) 16 % (10-50); Mean Corpuscular HGB Conc 29.8 g/dl (31.0-37.0); Mean Corpuscular Hemoglobin 31.1 pg (25.0-35.0); Mean Corpuscular Volume 104 fL (80-100); Monocytes # (Auto) 1.2 Thou/mm3 (0.0-0.8); Monocytes % (Auto) 10 % (0-12); Neutrophils % (Auto) 63 % (37-80); Nucleated Red Blood Cell % 0 /100 WBC (0); Platelet Count 252 Thou/mm3 (140-440); RDW Standard Deviation 57.8 fL (36.4-46.3); Red Blood Count 2.35 Miln/mm3 (4.00-5.20); White Blood Count 12.6 Thou/mm3 (3.6-11.0)
[2024-07-15 06:04] LABS: Hemoglobin 7.3 g/dL (12.0-16.0)
[2024-07-15 06:23] LABS: Alanine Aminotransferase 21 U/L (10-49); Albumin, Serum 2.9 gm/dL (3.4-4.8); Alkaline Phosphatase 51 U/L (46-116); Anion Gap 2 (7-16); Aspartate Amino Transferase 22 U/L (0-34); BUN/Creatinine Ratio 17 Ratio (12-20); Bilirubin,Total 0.9 mg/dL (0.3-1.2); Blood Urea Nitrogen 17 mg/dL (9-23); Calcium 8.7 mg/dL (8.3-10.6); Calcium (Corrected) 9.6 mg/dL (8.5-10.1); Carbon Dioxide 39.1 mMol/L (20.0-31.0); Chloride 99 mMol/L (98-107); Estimated Creatinine Clearance 59.6 mL/min (>60); Globulin 2.8 gm/dL (2.3-3.5); Glucose 98 mg/dL (74-106); Magnesium 1.9 mg/dL (1.6-2.6); Osmolality,Calculated 280 (275-295); Phosphorous 3.5 mg/dL (2.4-5.1); Potassium 4.8 mMol/L (3.4-5.1); Sodium 140 mMol/L (136-145); Total Protein 5.7 gm/dL (5.7-8.2); eGFR 58 See Note
[2024-07-15] MEDS: APIXABAN 2.5 MG TABLET 5 MG PO (09:09)
[2024-07-15] MEDS: SUCRALFATE SUSP 1 GM/10 ML UDC PO (09:09)
[2024-07-15] MEDS: METOPROLOL SUCCINATE XL 25 MG TABCR PO (09:09)
[2024-07-15] MEDS: SENNA TABLET 1 TAB PO (09:12)
[2024-07-15] MEDS: ASPIRIN EC 81 MG TABEC PO (09:12)
[2024-07-15] MEDS: PANTOPRAZOLE 40 MG TABLET PO (09:13)
--- NOTE | 2024-07-15 11:28 | PD.RESDS ---
Planned Discharge Date 07/15/24 DS: Providers Provider Date of admission: 07/13/24 19:53 Primary care physician: Shalom Sheikh MD Admitting Provider: Kamilah Jorge MD Attending Provider on Admission: Callum Begum MD Consults: 07/13/24 17:29 Consult to Neurology / Tele-Neurology Routine Comment: Consulting Provider: [facility] 07/13/24 19:59 Consult to Neurology / Tele-Neurology Routine Comment: CVA Workup Consulting Provider: Franklyn Bustamante Referral Physical Therapy Routine Comment: Physician Instructions: Referral Speech Therapy Routine Comment: Attending Provider on DC: Callum Begum MD Discharging Provider: Callum Begum MD DS: Diagnosis Problem List Completed Was Problem List Reviewed/Reconciled?: Yes Hospital Course Hospital Course Hospital course: 79-year-old female with past medical history of asthma (on 3 L at baseline on at night), 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 In the ER patient came in with complaints of weakness. Stroke alert was called patient had a head CT which was unremarkable, had an neck CTA which showed some left carotid stenosis, but upon ultrasound of the carotid there was only 10 to 30% stenosis of bilateral carotid arteries. Patient's brain MRI did not show any acute infarct and only showed chronic microvascular changes. Teleneurology was consulted initially in the ED and stated the patient should be admitted and worked up for possible metabolic versus infectious disease and to follow-up with her MRI/MRA. Further history was taken on the next day after admission patient stated that she had been falling asleep during conversations, but she denied having any loss of consciousness. She mentioned that she also had low oxygen throughout the 90s when she sometimes woke up and she was found to have low oxygen in the low 70s to high 60s. Throughout the hospital stay patient continued to saturate well at her baseline with more energy and not somnolent. Neurology in house saw the patient and stated the patient needed an outpatient EMG. At this time patient did not have any new infarct and was stable enough to be discharged back to a fdc facility. Discharge plan: Please follow-up with your primary care physician within 1 week upon discharge Please follow-up with neurologist Dr Bustamante in 1 to 2 weeks after discharge Please follow-up with your catering administrative assistant within 1 to 2 weeks after discharge to discuss medications for A-fib as well as blood pressure medications Recommend following up with your primary care physician for the possibility of sleep study as an outpatient to look for sleep apnea or other sleep disorders Recommend getting an outpatient EMG with neurologist. We have restart your Eliquis 5 mg twice daily We have held your Lasix and lisinopril at this time given that your blood pressure has been under control, please follow-up with your catering administrative assistant and primary care physician for the possibility of continuing or discontinuing these. Please continue taking all home medications as prescribed Please come back to the ER if symptoms persist or worsen Problem List: #Acute encephalopathy #Hypersomnolence #Bilateral lower extremity weakness #CVA ruled out #Hx of bilateral cerebellar stroke with residual left-sided weakness #Hx of atrial fibrillation #Hx of aortic stenosis s/p TAVR, 2020 #Metabolic alkalosis #Leukocytosis #Hyperkalemia, resolved #Hx of GERD #Hx of gastritis #Hx of asthma Case disclosed with Attending Dr. Begum and My senior Dr. Felix PGY3. Demetris Gan PGY1 Status at Discharge Overall status at discharge: patient is progressing back to baseline Time Spent with Patient Time attestation: Total time spent providing and/or coordinating discharge services:>35 min Exam Vital Signs Temp Pulse Resp BP Pulse Ox O2 Del Method O2 Flow Rate 97.1 F 82 17 116/63 99 Nasal Cannula 3 07/15/24 07:57 07/15/24 09:09 07/15/24 07:57 07/15/24 09:09 07/15/24 07:57 07/15/24 07:57 07/15/24 07:57 Narrative Exam General: A/O x3, no acute distress Eyes: PERRL, EOMI. Anicteric, vision grossly intact. Ears: No ear pain, no ear discharge, Hearing grossly intact. Nose: No nasal discharge. Mouth/Throat: Moist mucous membranes, no redness, no lesions. Neck: Neck supple, non-tender, no cervical lymphadenopathy. Lungs: Clear GRISEL to auscultation and percussion, No accessory muscle use. Cardio: Normal S1/S2, irregular rhythm, no murmurs, no JVD Abdomen: Soft, non-tender, no palpable masses, peristalsis present, no guarding or rebound. Extremities: Symmetrical, no significant deformities, no peripheral edema , non-tender, peripheral pulses presents. Skin: No rashes, no lesions, warm to touch. Neuro: Some decreased strength in L UE and L LE compared to the right. No other focal neurological deficit appreciated. Psych: Cooperative, appropriate mood and effect. Discharge Plan Plan Patient Disposition: Xfer Skilled Nsg Fac (SNF) Patient condition on transfer: Stable Care Plan Goals: Please follow-up with your primary care physician within 1 week upon discharge Please follow-up with neurologist Dr Bustamante in 1 to 2 weeks after discharge Please follow-up with your catering administrative assistant within 1 to 2 weeks after discharge to discuss medications for A-fib as well as blood pressure medications Recommend following up with your primary care physician for the possibility of sleep study as an outpatient to look for sleep apnea or other sleep disorders Recommend getting an outpatient EMG with neurologist. We have restart your Eliquis 5 mg twice daily We have held your Lasix and lisinopril at this time given that your blood pressure has been under control, please follow-up with your catering administrative assistant and primary care physician for the possibility of continuing or discontinuing these. Please continue taking all home medications as prescribed Please come back to the ER if symptoms persist or worsen Prescriptions/Referrals Prescriptions/Med Rec: New apixaban 5 mg tablet 5 mg PO BID 30 Days Qty: 60 0RF Continued aspirin 81 mg Tablet,Delayed Release (Dr/Ec) 1 tab PO QDAY amiodarone 200 mg Tablet 200 mg PO QDAY metoprolol succinate 50 mg Capsule,Sprinkle,Er 24hr 25 mg PO QDAY Rx Instructions: HOLD IF SBP<100 OR DBP<60 sucralfate 1 gram Tablet 1 g PO BID coQ10 (ubiquinol) 200 mg Capsule 400 mg PO QDAY pantoprazole [Protonix] 40 mg tablet,delayed release (DR/EC) 40 mg PO QDAY ferrous sulfate 325 mg (65 mg iron) Tablet 325 mg PO QDAY Held lisinopril 10 MG tablet 20 mg PO QDAY Qty: 0 Hold Instructions: Resume on 07/22/24. Hold until you see your primary care physician to discuss the need for this medication since your blood pressure has been well under control Rx Instructions: HOLD IF SBP<100 OR DBP<60 furosemide 20 mg tablet 20 mg PO QDAY 30 Days Qty: 30 3RF Hold Instructions: Resume on 07/22/24. Hold until you see your primary care physician to discuss the need for this medication since your blood pressure has been well under control and you do not seem fluid overloaded Discontinued amoxicillin-pot clavulanate 875-125 mg tablet 1 tab PO BID Qty: 14 0RF Referrals: Shalom Sheikh MD [Primary Care Provider] - Patient/Caregiver Discharge Instructions Other Discharge Activity Instructions:: Please follow-up with your primary care physician within 1 week upon discharge Please follow-up with neurologist Dr Bustamante in 1 to 2 weeks after discharge Please follow-up with your catering administrative assistant within 1 to 2 weeks after discharge to discuss medications for A-fib as well as blood pressure medications Recommend following up with your primary care physician for the possibility of sleep study as an outpatient to look for sleep apnea or other sleep disorders Recommend getting an outpatient EMG with neurologist. We have restart your Eliquis 5 mg twice daily We have held your Lasix and lisinopril at this time given that your blood pressure has been under control, please follow-up with your catering administrative assistant and primary care physician for the possibility of continuing or discontinuing these. Please continue taking all home medications as prescribed Please come back to the ER if symptoms persist or worsen Education Materials: AFL/Afib, What Is a TIA? Print Language: [place] Stand Alone Forms: [facility] Award Info., Patient Portal Info Letter Discharge Order Discharge Orders: Discharge (Routine); Ordered 07/15/24 Ordered By: Demetris Gan Quality Discharge Quality Measures VTE prophylaxis
--- NOTE | 2024-07-15 12:08 | PC.SS ---
Ambulance transport scheduled for 02:00 pm today with [facility] Confirmation #[id number]. Preferred transport [facility]. Awaiting response. Bedside nurse notified.
--- NOTE | 2024-07-15 12:09 | PC.SS ---
Updated clinicals submitted to [facility] via [facility].
--- NOTE | 2024-07-15 13:18 | PC.SS ---
Ambulance transport scheduled for 05:00 pm today. SNF, bedside nurse and patient updated.
[2024-07-15] MEDS: guaiFENesin/DM TABLET 1 EACH PO (14:35)
--- NOTE | 2024-07-15 14:36 | PC.SS ---
Rounding Note: Plan is to discharge patient to SNF today.
--- NOTE | 2024-07-15 15:02 | PC.SS ---
Ambulance transport has been moved back to 06:30 pm. SNF, bedside nurse and patient notified.
--- NOTE | 2024-07-15 16:09 | PD.RESPRO ---
Documentation for date of: 07/15/24 Subjective Subjective Interval history: Patient seen and examined in tele. Patient is doing well, continues to have LLE weakness. Will de DC to SNF. Exam Vital Signs Temp Pulse Resp BP Pulse Ox O2 Del Method O2 Flow Rate 97.4 F 86 17 107/62 99 Nasal Cannula 2 07/15/24 12:00 07/15/24 12:00 07/15/24 12:00 07/15/24 12:00 07/15/24 12:00 07/15/24 12:00 07/15/24 12:00 Narrative Exam Constitutional: AOx3, able to speak full sentences HEENT: NC/AT, PERRLA, oral mucosa moist, neck supple CVS: RRR, S1-S2 present, no murmurs RESP: CTAB GI: non distended, non tender to palpation, NBS MSK: decrease ROM of LLE, no peripheral edema, peripheral pulses present Skin: warm and dry, no rashes Neuro: second watch sergeant II-XII grossly intact. Sensation grossly intact. LLE 2/5 strength, RLE 5/5 Objective Labs 07/15/24 04:59 07/15/24 04:59 Labs: Laboratory Results - last 24 hr 07/15/24 04:59 WBC 12.6 H RBC 2.35 L Hgb 7.3 L Hct 24.5 L MCV 104 H MCH 31.1 MCHC 29.8 L RDW Std Deviation 57.8 H Plt Count 252 Neut % (Auto) 63 Lymph % (Auto) 16 [place] % (Auto) 10 Eos % (Auto) 7 Baso % (Auto) 1 Neut # (Auto) 8.0 H Lymph # (Auto) 2.0 [place] # (Auto) 1.2 H Eos # (Auto) 0.8 H Baso # (Auto) 0.1 Immature Gran # (Auto) 0.51 H Absolute Nucleated RBC 0.00 Immature Gran % 4 H Nucleated RBC % 0 Sodium 140 Potassium 4.8 Chloride 99 Carbon Dioxide 39.1 H Anion Gap 2 L BUN 17 Creatinine 1.0 Estim Creat Clear Calc 59.6 L eGFR 58 L BUN/Creatinine Ratio 17 Glucose 98 Calculated Osmolality 280 Calcium 8.7 Corrected Calcium 9.6 Phosphorus 3.5 Magnesium 1.9 Total Bilirubin 0.9 AST 22 ALT 21 Alkaline Phosphatase 51 Total Protein 5.7 Albumin 2.9 L Globulin 2.8 Albumin/Globulin Ratio 1.0 L Quality Measures Quality Measures VTE prophylaxis Advance care planning discussed with:: other Assessment & Plan Assessment Current Active Medications: Generic Name Dose Route Start Last Admin Trade Name Freq PRN Reason Stop Dose Admin Acetaminophen 650 mg 07/13/24 19:53 Acetaminophen 325 Mg Tablet PO 08/12/24 19:52 Q6H PRN Pain (1-3) & Fever >101.5 Al Hydrox/Mg Hydrox/Simethicone 30 ml 07/13/24 19:53 Mg Hyd/Al Hyd/Kristofer (Maalox Reg) Susp 30 Ml Udc PO 08/12/24 19:52 Q6H PRN Indigestion Albuterol/Ipratropium 3 ml 07/13/24 19:53 07/15/24 11:29 Albuterol/Ipratropium (Duoneb) Rt Eva 3 Ml Nebu INH 08/12/24 22:59 3 ml Q4HRRT PRN Administration SOB/Wheeze Apixaban 5 mg 07/13/24 21:00 07/15/24 09:09 Apixaban 2.5 Mg Tablet PO 08/12/24 20:59 5 mg BID MONA Administration Aspirin 81 mg 07/14/24 09:00 07/15/24 09:12 Aspirin Ec 81 Mg Tabec PO 08/13/24 08:59 81 mg QDAY MONA Administration Atorvastatin Calcium 40 mg 07/14/24 21:00 07/14/24 20:31 Atorvastatin Calcium 20 Mg Tablet PO 08/13/24 20:59 40 mg HS MONA Administration Sodium Chloride 500 mls @ 75 mls/hr 07/14/24 14:08 07/15/24 04:03 Ns IV 08/12/24 19:59 75 mls/hr .[id number] MONA Administration Metoprolol Succinate 25 mg 07/14/24 09:00 07/15/24 09:09 Metoprolol Succinate Xl 25 Mg Tabcr PO 08/13/24 08:59 25 mg QDAY MONA Administration Ondansetron HCl 4 mg 07/13/24 19:53 Ondansetron Inj 2 Mg/Ml Inj 2 Ml IV 08/12/24 19:52 Q6H PRN NAUSEA OR VOMITING Protocol Pantoprazole Sodium 40 mg 07/14/24 09:00 07/15/24 09:13 Pantoprazole 40 Mg Tablet PO 08/13/24 08:59 40 mg QDAY MONA Administration Sennosides 1 tab 07/14/24 09:00 07/15/24 09:12 Senna Tablet PO 08/13/24 08:59 1 tab QDAY MONA Administration Protocol Sucralfate 1 gm 07/15/24 17:00 Sucralfate Susp 1 Gm/10 Ml Udc PO 08/12/24 20:59 BIDAC MONA Tramadol HCl 50 mg 07/15/24 13:16 Tramadol Hcl 50 Mg Tablet PO 07/18/24 19:52 Q6HR PRN PAIN SCALE 4-10(Mod-Sev Plan #Bilateral lower extremity weakness #History of bilateral cerebellar stroke with left-sided weakness Assessment: Patient presented with 2-day worsening of lower extremity weakness, reports left sided weakness more than right, reports difficulty transitioning from bed to wheelchair, patient currently at senior living facility reports unable to work with physical therapy. Stroke alert called in ED, teleneuro consulted recommended admission for CVA workup, last known well time more than 4.5 hours also on Eliquis, not a candidate for thrombolytic therapy. Head CT significant negative for acute hemorrhage, mass effect or midline shift. Head/neck CTA shows 46% stenosis left carotid bifurcation origin left internal carotid artery disease MR brain w w/o con was negative. B12 was low. Echo was reviewed, showed EF 60% negative bubble study Recommendations: -Cont Aspirin 81 mg daily -start B12 1000 mcg daily -Resumed Eliquis, history of A-fib -EMG in the outpatient setting. - Patient's care was discussed with my attending physician, Dr. Robby Zarco MD Internal Medicine PGY-3
== END 2024-07-15 18:11 | disposition skilled nursing facility (03) | DRG 948 ==
LOC: SERX 19:44 → SERHOLD 20:13 → S2NX 22:03
PROVIDERS: Registered Nurse General Practice; Admitting Provider Student in an Organized Health Care Education/Training Program; Emergency Provider Emergency Medicine; PCP Family Medicine; Visit Provider Internal Medicine
DX: R53.1 Weakness (principal); I69.354 Hemiplegia and hemiparesis following cerebral infarction affecting left non-dominant side; G93.40 Encephalopathy, unspecified; E87.1 Hypo-osmolality and hyponatremia; I13.0 Hypertensive heart and chronic kidney disease with heart failure and stage 1 through stage 4 chronic kidney disease, or unspecified chronic kidney disease; E87.3 Alkalosis; I48.91 Unspecified atrial fibrillation; J45.909 Unspecified asthma, uncomplicated; N18.31 Chronic kidney disease, stage 3a; E87.5 Hyperkalemia; D53.9 Nutritional anemia, unspecified; I50.9 Heart failure, unspecified; K21.00 Gastro-esophageal reflux disease with esophagitis, without bleeding; K29.70 Gastritis, unspecified, without bleeding; R09.02 Hypoxemia; E87.8 Other disorders of electrolyte and fluid balance, not elsewhere classified; D72.829 Elevated white blood cell count, unspecified; I65.23 Occlusion and stenosis of bilateral carotid arteries; G47.10 Hypersomnia, unspecified; Z79.01 Long term (current) use of anticoagulants; Z95.2 Presence of prosthetic heart valve; Z99.81 Dependence on supplemental oxygen; Z90.710 Acquired absence of both cervix and uterus; Z96.651 Presence of right artificial knee joint; Z87.891 Personal history of nicotine dependence; Z88.1 Allergy status to other antibiotic agents; Z79.82 Long term (current) use of aspirin; Z79.899 Other long term (current) drug therapy
CPT/HCPCS: 36415; 70450; 70496; 70498; 70544; 71045; 80053; 80061; 80069; 80307; 81001; 82607; 82746; 83036; 83735; 84100; 84439; 84443; 84484; 84703; 85025; 85610; 85730; 87081; 87086; 92610; 93306; 93880; 94640; 94664; 97162; A4649; A9270; J7030; J7040; Q9967

== ENCOUNTER 2024-07-20 07:16 | Inpatient (IN) | payer MEDICARE, MEDICAID, SELFPAY ==
[2024-07-20] VITALS (14 sets, daily range): BP systolic 92–135; BP diastolic 55–80; PULSE 87–114; RESP 16–85; TEMP 36.3–37; O2SAT 93–100; BMI 33.4
--- NOTE | 2024-07-20 07:33 | XR_ITS ---
Examination: AP chest single view Technique one AP portable upright chest single view Exam date and time: July 20, 2024 0804 hours Comparison July 13, 2024 INDICATIONS: Shortness of breath today. FINDINGS: Mild heart failure Mild enlargement cardiac contour prominent vascular congestion including central vascular engorgement Extensive bilateral lung opacity IMPRESSION: Mild heart failure Extensive bilateral lung opacity, differential would include pneumonia, please see the CT chest report June 11, 2024
--- NOTE | 2024-07-20 07:39 | EKG_ITS ---
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
--- NOTE | 2024-07-20 07:39 | PD.EDADULT ---
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 She reports her breathing started worsening yesterday, she received breathing treatment at [facility] with mild improvement. Today morning she woke up short of breath, her oxygen saturation was low and EMS was called. She denies any chest pain, fever, chills, runny nose. She reports she has worsening thick mucus secretion over the last 1-2 years. The mucus is green-massey, non-smelly, denies any blood. She report history of asthma and needs home oxygen only at night when she sleeps. Related Data Home Medications ?Medication ?Instructions ?Recorded ?Confirmed lisinopril 10 mg tablet 20 mg PO QDAY HTN #0 tabs 04/02/16 07/20/24 Held on 07/15/24. Instructions: Resume on 07/22/24. Hold until you see your primary care physician to discuss the need for this medication since your blood pressure has been well under control metoprolol succinate 50 mg capsule 25 mg PO QDAY HTN 01/01/23 07/20/24 sprinkle, ext. release 24 hr sucralfate 1 gram tablet 1 g PO BID ANTACID 10/07/23 07/20/24 coQ10 (ubiquinol) 200 mg capsule 400 mg PO QDAY SUPPLEMENT 10/08/23 07/20/24 ferrous sulfate 325 mg (65 mg 325 mg PO BID SUPPLEMENT 11/18/23 07/20/24 iron) tablet pantoprazole 40 mg tablet,delayed 40 mg PO QDAY GERD 11/18/23 07/20/24 release (Protonix) acetaminophen 325 mg tablet 650 mg PO Q6H PRN mild pain (scale 07/20/24 07/20/24 score 1-4) bisacodyl 10 mg rectal suppository 10 mg VA .Every 72 hrs PRN 07/20/24 07/20/24 (Laxative (bisacodyl)) constipation calcium carbonate 1,000 mg PO QID PRN Acid Reflux 07/20/24 07/20/24 fexofenadine 180 mg tablet 180 mg PO Q24H PRN allergies 07/20/24 07/20/24 ipratropium 0.5 mg-albuterol 3 mg 3 ml inhalation TID SOB 07/20/24 07/20/24 (2.5 mg base)/3 mL nebulization soln magnesium hydroxide 400 mg/5 mL 30 ml PO .Every 72 Hrs PRN 07/20/24 07/20/24 oral suspension (Milk of Magnesia) constipation melatonin 3 mg tablet 3 mg PO HS PRN insomnia 07/20/24 07/20/24 midodrine 10 mg tablet 10 mg PO BID 07/20/24 07/20/24 sodium phosphates 19 gram-7 118 ml VA .Every 72 HRS PRN 07/20/24 07/20/24 gram/118 mL enema (Fleet Enema) constipation tramadol 50 mg tablet 50 mg PO Q6H PRN pain 07/20/24 07/20/24 Previous Rx's ?Medication ?Instructions ?Recorded furosemide 20 mg tablet 20 mg PO QDAY leg swelling 1 month 11/21/23 Held on 07/15/24. #30 tabs Instructions: Resume on 07/22/24. Hold until you see your primary care physician to discuss the need for this medication since your blood pressure has been well under control and you do not seem fluid overloaded apixaban 5 mg tablet 5 mg PO BID 30 days #60 tabs 07/15/24 Allergies Allergy/AdvReac Type Severity Reaction Status Date / Time clindamycin Allergy Intermediate Hives Verified 07/13/24 18:51 latex Allergy Mild hives Verified 07/13/24 18:51 swelling clavulanic acid Allergy Verified 07/13/24 18:51 shellfish derived Allergy Abdominal Verified 07/13/24 18:51 Pain codeine AdvReac Mild STOMACH Verified 07/13/24 18:51 UPSET Review of Systems Review of Systems Systems Reviewed: All systems reviewed, normal except as documented ED Exam Narrative Physical exam: Gen: Well-developed and well-nourished female. HEENT: NCAT, PERRLA, EOMI, MMM, anicteric conjunctivae. CVS: normal S1 and S2. RRR. Systolic murmur over mitral area. Resp: expiratory wheezing B/L. No rhonchi, rales, crackles. Abd: soft, obese, non-tender, non-distended. BS+ in all 4 quadrants. MSK: Good ROM in BUE & BLE. No rash. Non-pitting edema BLE. Neuro: CN II-XII grossly intact. Strength 5/5 in BUE & BLE. Alert and oriented x3. Psych: appropriate mood and affect. Course Quality Measures none Orders Category Date Time Status Bedside COVID-19 Antigen Test NOW Care 07/20/24 10:11 Completed Bedside Influenza A&B Antigen Test NOW Care 07/20/24 10:11 Completed COVID-19 Screening Questionnaire NOW Care 07/20/24 11:23 Completed Decision to Admit X1 Care 07/20/24 11:23 Completed Insert IV NOW Care 07/20/24 08:54 Completed CXRP [XR chest 1V portable] Stat Exams 07/20/24 07:33 Completed Blood Culture (Lab) Stat Lab 07/20/24 08:40 Completed CBC Stat Lab 07/20/24 08:19 Completed CMP [Comprehensive Metabolic Panel] Stat Lab 07/20/24 08:19 Completed Lactic Acid [Lactate (Lactic Acid)] Stat Lab 07/20/24 08:40 Completed Magnesium Stat Lab 07/20/24 08:19 Completed Phosphorous Stat Lab 07/20/24 08:19 Completed Procalcitonin Stat Lab 07/20/24 08:19 Completed RSV [Respiratory Syncytial Virus Ag] Stat Lab 07/20/24 11:08 Completed Urinalysis Stat Lab 07/20/24 16:00 Completed ALBUTEROL RT 0.5ml [Proventil Rt 0.5ml] Med 07/20/24 07:50 Discontinued 10 mg INH X1 ONE ALBUTEROL RT 0.5ml [Proventil Rt 0.5ml] Med 07/20/24 07:32 Discontinued 2.5 mg INH X1 ONE Azithromycin Inj [Zithromax Inj] 500 mg Med 07/20/24 08:21 Discontinued Sodium Chloride 0.9% 250 ml [Ns] 250 ml IV X1 Cefepime Inj [Maxipime Inj] 2 gm Med 07/20/24 08:26 Discontinued SODIUM CHLORIDE 0.9% (Popper) [Ns 0.9% (P)] 50 ml IV X1 Ipratropium [place] Rt Eva [Atrovent Rt Eva] Med 07/20/24 07:50 Discontinued 1 mg INH X1 ONE Sodium Chloride 0.9% 250 ml [Ns] 250 ml Med 07/20/24 09:10 Discontinued IV 999 mls/hr Sodium Chloride Rt Eva 0.9% [NS Rt Eva 0.9%] Med 07/20/24 07:32 Discontinued 3 ml INH PRN PRN Sodium Chloride Rt Eva 0.9% [NS Rt Eva 0.9%] Med 07/20/24 07:50 Discontinued 3 ml INH PRN PRN cefTRIAXone [Rocephin] 2 gm Med 07/20/24 08:21 Discontinued SODIUM CHLORIDE 0.9% (Popper) [Ns 0.9% (P)] 50 ml IV X1 predniSONE Med 07/20/24 07:50 Discontinued 40 mg PO X1 ONE EKG (RT) Stat RT 07/20/24 07:39 Draft Oxygen Delivery NOW RT 07/20/24 10:14 Completed Vital Signs Vital signs: Vital Signs Temperature 98.6 F 07/20/24 07:29 Pulse Rate 106 H 07/20/24 07:29 Respiratory Rate 19 07/20/24 07:29 Blood Pressure 135/68 H 07/20/24 07:29 Pulse Oximetry (%) 100 07/20/24 07:29 Oxygen Delivery Method Oxy Mask 07/20/24 07:29 Oxygen Flow Rate 15 07/20/24 07:[address] [facility] Patient data External records reviewed:: [facility] previous records and EMS form Clinical information provided by:: patient Social determinants that could affect healthcare access:: none Patient has the following chronic illnesses:: asthma How is presenting disease/condition affected by chronic disease/condition?: exacerbated by Evaluation data The following diagnostics were reviewed and interpreted by me:: lab results, radiology exam(s) and EKG tracing(s) Lab and/or radiology exams considered but not ordered:: CT chest Interpretation Summary: Findings consistent with pneumonia, might be HAP. Afib. Medications Medications considered but not ordered:: none Medication administrations:: Medication Administration History Discontinued Medications Acetaminophen (Acetaminophen 325 Mg Tablet) 650 mg PO Q6H PRN PRN Reason: Pain 1-3 and/or Fever >100.1 Stop: 08/19/24 11:57 Acetaminophen (Acetaminophen Eva 325 Mg/10 Ml Udc) 650 mg NG Q6H PRN PRN Reason: Pain 1-3 and/or Fever >100.1 Stop: 08/19/24 11:57 Albuterol (Albuterol Rt 2.5 Mg/0.5 Ml Nebu) 2.5 mg INH X1 ONE Stop: 07/20/24 07:33 Last Admin: 07/20/24 07:43 Dose: Not Given Documented By: TEJINDER Non-Admin Reason: Cancelled by Provider Albuterol (Albuterol Rt 2.5 Mg/0.5 Ml Nebu) 10 mg INH X1 ONE Stop: 07/20/24 07:51 Last Admin: 07/20/24 08:11 Dose: 10 mg Documented By: BERNARD Albuterol (Albuterol Rt 2.5 Mg/0.5 Ml Nebu) 15 mg INH X1 ONE Stop: 07/23/24 13:12 Last Admin: 07/23/24 13:28 Dose: 15 mg Documented By: BERNARD Apixaban (Apixaban 2.5 Mg Tablet) 5 mg PO BID [facility] Stop: 08/19/24 20:59 Last Admin: 07/22/24 08:45 Dose: 5 mg Documented By: Admin: 07/21/24 20:51 Dose: 5 mg Documented By: Admin: 07/21/24 09:54 Dose: 5 mg Documented By: Admin: 07/20/24 21:14 Dose: 5 mg Documented By: TERESA Apixaban (Apixaban 2.5 Mg Tablet) 5 mg NG BID [facility] Stop: 08/21/24 20:59 Last Admin: 07/26/24 09:34 Dose: Not Given Documented By: LAURO Non-Admin Reason: Held per MD Giron Admin: 07/25/24 21:30 Dose: 5 mg Documented By: Admin: 07/25/24 08:46 Dose: 5 mg Documented By: Admin: 07/24/24 21:23 Dose: 5 mg Documented By: Admin: 07/24/24 09:20 Dose: 5 mg Documented By: Admin: 07/23/24 21:00 Dose: 5 mg Documented By: Admin: 07/23/24 09:41 Dose: 5 mg Documented By: Admin: 07/22/24 21:35 Dose: 5 mg Documented By: AC Artificial Tears (Artificial Tears 225 Drop/15 Ml Btl) 1 drop BOTH EYES Q4HR PRN PRN Reason: Dry eyes Stop: 08/29/24 14:32 Benzonatate (Benzonatate 100 Mg Capsule) 100 mg PO BID PRN; Protocol PRN Reason: COUGH Stop: 08/19/24 20:59 Last Admin: 07/20/24 21:14 Dose: 100 mg Documented By: TERESA Benzonatate (Benzonatate 100 Mg Capsule) 100 mg NG BID PRN; Protocol PRN Reason: COUGH Stop: 08/19/24 20:59 Dextrose (Dextrose 50%-Water Inj 50 Ml Syringe) 50 ml IV X1 ONE Stop: 07/21/24 17:03 Last Admin: 07/21/24 17:34 Dose: 50 ml Documented By: CYNTHIA Dextrose (Dextrose 50%-Water Inj 50 Ml Syringe) 25 ml IV Q15MIN PRN PRN Reason: BG 50-70 responsive npo pt Stop: 08/23/24 09:02 Dextrose (Dextrose 50%-Water Inj 50 Ml Syringe) 50 ml IV Q15MIN PRN PRN Reason: BG <50 OR BG <70 & pt unresponsive Stop: 08/23/24 09:02 Etomidate (Etomidate Inj 2 Mg/Ml Vial 10 Ml) 20 mg IVP X1 ONE Stop: 07/22/24 16:54 Last Admin: 07/22/24 17:09 Dose: 20 mg Documented By: KYRA Furosemide (Furosemide Inj 10 Mg/Ml 4ml Vial) 40 mg IVP QDAY MONA Stop: 08/21/24 10:44 Last Admin: 07/26/24 09:36 Dose: Not Given Documented By: LAURO Non-Admin Reason: Cancelled by Provider Admin: 07/23/24 09:42 Dose: 40 mg Documented By: Admin: 07/22/24 10:59 Dose: 40 mg Documented By: MEREDITH Furosemide (Furosemide Inj 10 Mg/Ml 4ml Vial) 40 mg IVP X1 ONE Stop: 07/28/24 08:42 Last Admin: 07/28/24 12:08 Dose: Not Given Documented By: LAURO Non-Admin Reason: Cancelled by Provider Furosemide (Furosemide Inj 10 Mg/Ml 4ml Vial) 80 mg IVP X1 ONE Stop: 07/28/24 08:47 Last Admin: 07/28/24 08:53 Dose: 80 mg Documented By: KR Furosemide (Furosemide Inj 10 Mg/Ml 4ml Vial) 80 mg IVP X1 ONE Stop: 07/29/24 09:42 Last Admin: 07/29/24 09:55 Dose: 80 mg Documented By: ER Furosemide (Furosemide Inj 10 Mg/Ml 4ml Vial) 80 mg IVP X1 ONE Stop: 07/30/24 09:45 Last Admin: 07/30/24 10:22 Dose: 80 mg Documented By: GE Glucagon (Glucagon Inj 1 Mg Vial) 1 mg IM Q15MIN PRN PRN Reason: BG <70, and no IV access Heparin Sodium (Porcine) (Heparin Sod Inj 5000 Unit/Ml Vial) 5,000 unit SC Q12HR MONA Stop: 08/03/24 20:59 Ceftriaxone Sodium 2 gm/ (Sodium Chloride) 50 mls @ 100 mls/hr IV X1 ONE Stop: 07/20/24 08:50 Last Admin: 07/20/24 08:29 Dose: Not Given Documented By: TEJINDER Non-Admin Reason: Cancelled by Provider Azithromycin 500 mg/ Sodium (Chloride) 250 mls @ 250 mls/hr IV X1 ONE Stop: 07/20/24 09:20 Last Admin: 07/20/24 08:28 Dose: Not Given Documented By: TEJINDER Non-Admin Reason: Cancelled by Provider Cefepime HCl 2 gm/ Sodium (Chloride) 50 mls @ 100 mls/hr IV X1 ONE Stop: 07/20/24 08:55 Last Infusion: 07/20/24 09:31 Dose: Infused Documented By: Admin: 07/20/24 08:56 Dose: 100 mls/hr Documented By: TEJINDER Sodium Chloride (Ns) 250 mls @ 999 mls/hr IV .Q16M ONE Stop: 07/20/24 09:25 Last Infusion: 07/20/24 10:01 Dose: Infused Documented By: Admin: 07/20/24 09:36 Dose: 999 mls/hr Documented By: TEJINDER Cefepime HCl 2 gm/ Sodium (Chloride) 50 mls @ 100 mls/hr IV Q12HR MONA Stop: 07/27/24 20:59 Last Admin: 07/26/24 20:13 Dose: 100 mls/hr Documented By: Infusion: 07/26/24 10:22 Dose: Infused Documented By: Admin: 07/26/24 09:52 Dose: 100 mls/hr Documented By: Infusion: 07/25/24 22:00 Dose: Infused Documented By: Admin: 07/25/24 21:30 Dose: 100 mls/hr Documented By: Infusion: 07/25/24 09:16 Dose: Infused Documented By: Admin: 07/25/24 08:46 Dose: 100 mls/hr Documented By: Infusion: 07/25/24 08:46 Dose: Infused Documented By: Admin: 07/24/24 21:22 Dose: 100 mls/hr Documented By: Infusion: 07/24/24 09:50 Dose: Infused Documented By: Admin: 07/24/24 09:20 Dose: 100 mls/hr Documented By: Infusion: 07/23/24 21:30 Dose: Infused Documented By: Admin: 07/23/24 21:00 Dose: 100 mls/hr Documented By: Infusion: 07/23/24 10:11 Dose: Infused Documented By: Admin: 07/23/24 09:41 Dose: 100 mls/hr Documented By: Infusion: 07/22/24 22:00 Dose: Infused Documented By: Admin: 07/22/24 21:30 Dose: 100 mls/hr Documented By: Infusion: 07/22/24 09:15 Dose: Infused Documented By: Admin: 07/22/24 08:45 Dose: 100 mls/hr Documented By: Infusion: 07/21/24 21:21 Dose: Infused Documented By: Admin: 07/21/24 20:51 Dose: 100 mls/hr Documented By: Infusion: 07/21/24 10:28 Dose: Infused Documented By: Admin: 07/21/24 09:58 Dose: 100 mls/hr Documented By: Infusion: 07/20/24 21:45 Dose: Infused Documented By: Admin: 07/20/24 21:15 Dose: 100 mls/hr Documented By: CTF Magnesium Sulfate (Magnesium Sulfate Ivpb) 50 mls @ 150 mls/hr IV X1 ONE Stop: 07/21/24 19:49 Last Admin: 07/21/24 19:35 Dose: 150 mls/hr Documented By: [facility] Norepinephrine/Dextrose (Levophed In D5w 8mg/250ml) 8 mg in 250 mls @ 10.418 mls/hr IV .Q24H PRN; Protocol PRN Reason: PER PROTOCOL Stop: 08/21/24 16:55 Last Titration: 07/30/24 14:59 Dose: 0 mcg/kg/min, 0 mls/hr Documented By: Titration: 07/30/24 14:30 Dose: 0.09 mcg/kg/min, 18.753 mls/hr Documented By: Titration: 07/30/24 14:21 Dose: 0.11 mcg/kg/min, 22.921 mls/hr Documented By: Titration: 07/30/24 14:15 Dose: 0.13 mcg/kg/min, 27.088 mls/hr Documented By: Titration: 07/30/24 14:05 Dose: 0.15 mcg/kg/min, 31.255 mls/hr Documented By: Titration: 07/30/24 14:00 Dose: 0.17 mcg/kg/min, 35.423 mls/hr Documented By: Titration: 07/30/24 13:00 Dose: 0.17 mcg/kg/min, 35.423 mls/hr Documented By: Titration: 07/30/24 12:00 Dose: 0.17 mcg/kg/min, 35.423 mls/hr Documented By: Admin: 07/30/24 11:02 Dose: 0.17 mcg/kg/min, 35.423 mls/hr Documented By: Titration: 07/30/24 11:00 Dose: Infused Documented By: Titration: 07/30/24 10:00 Dose: 0.17 mcg/kg/min, 35.423 mls/hr Documented By: Titration: 07/30/24 09:41 Dose: 0.17 mcg/kg/min, 35.423 mls/hr Documented By: Titration: 07/30/24 09:00 Dose: 0.19 mcg/kg/min, 39.59 mls/hr Documented By: Titration: 07/30/24 08:48 Dose: 0.19 mcg/kg/min, 39.59 mls/hr Documented By: Titration: 07/30/24 08:30 Dose: 0.17 mcg/kg/min, 35.423 mls/hr Documented By: Titration: 07/30/24 08:00 Dose: 0.15 mcg/kg/min, 31.255 mls/hr Documented By: Titration: 07/30/24 07:00 Dose: 0.15 mcg/kg/min, 31.255 mls/hr Documented By: Titration: 07/30/24 06:00 Dose: 0.15 mcg/kg/min, 31.255 mls/hr Documented By: Titration: 07/30/24 05:10 Dose: 0.15 mcg/kg/min, 31.255 mls/hr Documented By: Titration: 07/30/24 05:00 Dose: 0.13 mcg/kg/min, 27.088 mls/hr Documented By: Titration: 07/30/24 04:55 Dose: 0.11 mcg/kg/min, 22.921 mls/hr Documented By: Titration: 07/30/24 04:50 Dose: 0.09 mcg/kg/min, 18.753 mls/hr Documented By: Titration: 07/30/24 04:45 Dose: 0.07 mcg/kg/min, 14.586 mls/hr Documented By: Titration: 07/30/24 04:00 Dose: 0.05 mcg/kg/min, 10.418 mls/hr Documented By: Titration: 07/30/24 03:00 Dose: 0.05 mcg/kg/min, 10.418 mls/hr Documented By: Titration: 07/30/24 02:30 Dose: 0.03 mcg/kg/min, 6.251 mls/hr Documented By: Titration: 07/30/24 02:00 Dose: 0.05 mcg/kg/min, 10.418 mls/hr Documented By: Titration: 07/30/24 01:00 Dose: 0.05 mcg/kg/min, 10.418 mls/hr Documented By: Titration: 07/30/24 00:45 Dose: 0.03 mcg/kg/min, 6.251 mls/hr Documented By: Titration: 07/30/24 00:00 Dose: 0.01 mcg/kg/min, 2.084 mls/hr Documented By: Titration: 07/29/24 23:00 Dose: 0.01 mcg/kg/min, 2.084 mls/hr Documented By: Titration: 07/29/24 22:00 Dose: 0.01 mcg/kg/min, 2.084 mls/hr Documented By: Titration: 07/29/24 21:00 Dose: 0.01 mcg/kg/min, 2.084 mls/hr Documented By: Titration: 07/29/24 20:00 Dose: 0.01 mcg/kg/min, 2.084 mls/hr Documented By: Titration: 07/29/24 19:00 Dose: 0.01 mcg/kg/min, 2.084 mls/hr Documented By: Titration: 07/29/24 18:00 Dose: 0.01 mcg/kg/min, 2.084 mls/hr Documented By: Titration: 07/29/24 17:00 Dose: 0.03 mcg/kg/min, 6.251 mls/hr Documented By: Titration: 07/29/24 16:00 Dose: 0.03 mcg/kg/min, 6.251 mls/hr Documented By: Admin: 07/29/24 15:10 Dose: 0.05 mcg/kg/min, 10.418 mls/hr Documented By: Titration: 07/29/24 15:10 Dose: Infused Documented By: Titration: 07/29/24 15:00 Dose: 0.05 mcg/kg/min, 10.418 mls/hr Documented By: Titration: 07/29/24 14:00 Dose: 0.05 mcg/kg/min, 10.418 mls/hr Documented By: Titration: 07/29/24 13:55 Dose: 0.05 mcg/kg/min, 10.418 mls/hr Documented By: Titration: 07/29/24 13:45 Dose: 0 mcg/kg/min, 0 mls/hr Documented By: Titration: 07/29/24 13:15 Dose: 0.01 mcg/kg/min, 2.084 mls/hr Documented By: Titration: 07/29/24 13:01 Dose: 0.03 mcg/kg/min, 6.251 mls/hr Documented By: Titration: 07/29/24 12:00 Dose: 0.03 mcg/kg/min, 6.251 mls/hr Documented By: Titration: 07/29/24 11:00 Dose: 0.05 mcg/kg/min, 10.418 mls/hr Documented By: Titration: 07/29/24 10:00 Dose: 0.03 mcg/kg/min, 6.251 mls/hr Documented By: Titration: 07/29/24 09:00 Dose: 0.05 mcg/kg/min, 10.418 mls/hr Documented By: Titration: 07/29/24 08:00 Dose: 0.05 mcg/kg/min, 10.418 mls/hr Documented By: Titration: 07/29/24 07:00 Dose: 0.05 mcg/kg/min, 10.418 mls/hr Documented By: Titration: 07/29/24 06:00 Dose: 0.05 mcg/kg/min, 10.418 mls/hr Documented By: Titration: 07/29/24 05:00 Dose: 0.05 mcg/kg/min, 10.418 mls/hr Documented By: Titration: 07/29/24 04:00 Dose: 0.05 mcg/kg/min, 10.418 mls/hr Documented By: Titration: 07/29/24 03:00 Dose: 0.05 mcg/kg/min, 10.418 mls/hr Documented By: Titration: 07/29/24 02:30 Dose: 0.05 mcg/kg/min, 10.418 mls/hr Documented By: Titration: 07/28/24 07:00 Dose: 0 mcg/kg/min, 0 mls/hr Documented By: Titration: 07/28/24 06:00 Dose: 0.01 mcg/kg/min, 2.084 mls/hr Documented By: Titration: 07/28/24 05:00 Dose: 0.01 mcg/kg/min, 2.084 mls/hr Documented By: Titration: 07/28/24 04:00 Dose: 0.01 mcg/kg/min, 2.084 mls/hr Documented By: Titration: 07/28/24 03:00 Dose: 0.01 mcg/kg/min, 2.084 mls/hr Documented By: Titration: 07/28/24 02:00 Dose: 0.01 mcg/kg/min, 2.084 mls/hr Documented By: Titration: 07/28/24 01:30 Dose: 0.01 mcg/kg/min, 2.084 mls/hr Documented By: Titration: 07/28/24 00:45 Dose: 0 mcg/kg/min, 0 mls/hr Documented By: Titration: 07/28/24 00:00 Dose: 0.01 mcg/kg/min, 2.084 mls/hr Documented By: Titration: 07/27/24 23:45 Dose: 0.01 mcg/kg/min, 2.084 mls/hr Documented By: Titration: 07/27/24 23:00 Dose: 0.03 mcg/kg/min, 6.251 mls/hr Documented By: Titration: 07/27/24 22:00 Dose: 0.03 mcg/kg/min, 6.251 mls/hr Documented By: Titration: 07/27/24 21:00 Dose: 0.03 mcg/kg/min, 6.251 mls/hr Documented By: Titration: 07/27/24 20:00 Dose: 0.03 mcg/kg/min, 6.251 mls/hr Documented By: Titration: 07/27/24 19:15 Dose: 0.03 mcg/kg/min, 6.251 mls/hr Documented By: Titration: 07/27/24 19:00 Dose: 0.05 mcg/kg/min, 10.418 mls/hr Documented By: Titration: 07/27/24 18:32 Dose: 0.05 mcg/kg/min, 10.418 mls/hr Documented By: Titration: 07/27/24 17:00 Dose: 0.07 mcg/kg/min, 14.586 mls/hr Documented By: Titration: 07/27/24 16:00 Dose: 0.07 mcg/kg/min, 14.586 mls/hr Documented By: Titration: 07/27/24 15:00 Dose: 0.07 mcg/kg/min, 14.586 mls/hr Documented By: Admin: 07/27/24 14:02 Dose: 0.07 mcg/kg/min, 14.586 mls/hr Documented By: Titration: 07/27/24 14:02 Dose: Infused Documented By: Titration: 07/27/24 14:00 Dose: 0.07 mcg/kg/min, 14.586 mls/hr Documented By: Titration: 07/27/24 13:00 Dose: 0.07 mcg/kg/min, 14.586 mls/hr Documented By: Titration: 07/27/24 12:00 Dose: 0.07 mcg/kg/min, 14.586 mls/hr Documented By: Titration: 07/27/24 11:00 Dose: 0.07 mcg/kg/min, 14.586 mls/hr Documented By: Titration: 07/27/24 10:00 Dose: 0.07 mcg/kg/min, 14.586 mls/hr Documented By: Titration: 07/27/24 09:00 Dose: 0.07 mcg/kg/min, 14.586 mls/hr Documented By: Titration: 07/27/24 08:00 Dose: 0.09 mcg/kg/min, 18.753 mls/hr Documented By: Titration: 07/27/24 07:00 Dose: 0.09 mcg/kg/min, 18.753 mls/hr Documented By: Titration: 07/27/24 06:00 Dose: 0.09 mcg/kg/min, 18.753 mls/hr Documented By: Titration: 07/27/24 05:00 Dose: 0.09 mcg/kg/min, 18.753 mls/hr Documented By: Titration: 07/27/24 04:30 Dose: 0.09 mcg/kg/min, 18.753 mls/hr Documented By: Titration: 07/27/24 04:00 Dose: 0.07 mcg/kg/min, 14.586 mls/hr Documented By: Titration: 07/27/24 03:45 Dose: 0.09 mcg/kg/min, 18.753 mls/hr Documented By: Titration: 07/27/24 03:00 Dose: 0.07 mcg/kg/min, 14.586 mls/hr Documented By: Titration: 07/27/24 02:00 Dose: 0.07 mcg/kg/min, 14.586 mls/hr Documented By: Titration: 07/27/24 01:15 Dose: 0.07 mcg/kg/min, 14.586 mls/hr Documented By: Titration: 07/27/24 01:00 Dose: 0.09 mcg/kg/min, 18.753 mls/hr Documented By: Titration: 07/27/24 00:30 Dose: 0.09 mcg/kg/min, 18.753 mls/hr Documented By: Titration: 07/27/24 00:00 Dose: 0.11 mcg/kg/min, 22.921 mls/hr Documented By: Admin: 07/26/24 23:36 Dose: 0.11 mcg/kg/min, 22.921 mls/hr Documented By: Titration: 07/26/24 23:36 Dose: Infused Documented By: Titration: 07/26/24 23:00 Dose: Infused Documented By: Titration: 07/26/24 22:00 Dose: 0.11 mcg/kg/min, 22.921 mls/hr Documented By: Titration: 07/26/24 21:45 Dose: 0.11 mcg/kg/min, 22.921 mls/hr Documented By: Titration: 07/26/24 21:30 Dose: 0.09 mcg/kg/min, 18.753 mls/hr Documented By: Titration: 07/26/24 21:00 Dose: 0.07 mcg/kg/min, 14.586 mls/hr Documented By: Titration: 07/26/24 20:30 Dose: 0.07 mcg/kg/min, 14.586 mls/hr Documented By: Titration: 07/26/24 20:00 Dose: 0.05 mcg/kg/min, 10.418 mls/hr Documented By: Titration: 07/26/24 19:00 Dose: 0.05 mcg/kg/min, 10.418 mls/hr Documented By: Titration: 07/26/24 18:30 Dose: 0.05 mcg/kg/min, 10.418 mls/hr Documented By: Titration: 07/26/24 18:15 Dose: 0.03 mcg/kg/min, 6.251 mls/hr Documented By: Titration: 07/26/24 18:00 Dose: 0.01 mcg/kg/min, 2.084 mls/hr Documented By: Titration: 07/26/24 17:00 Dose: 0.01 mcg/kg/min, 2.084 mls/hr Documented By: Titration: 07/26/24 16:00 Dose: 0.01 mcg/kg/min, 2.084 mls/hr Documented By: Titration: 07/26/24 15:00 Dose: 0.01 mcg/kg/min, 2.084 mls/hr Documented By: Titration: 07/26/24 14:00 Dose: 0.03 mcg/kg/min, 6.251 mls/hr Documented By: Titration: 07/26/24 13:00 Dose: 0.05 mcg/kg/min, 10.418 mls/hr Documented By: Titration: 07/26/24 12:00 Dose: 0.05 mcg/kg/min, 10.418 mls/hr Documented By: Titration: 07/26/24 11:00 Dose: 0.07 mcg/kg/min, 14.586 mls/hr Documented By: Titration: 07/26/24 10:00 Dose: 0.09 mcg/kg/min, 18.753 mls/hr Documented By: Titration: 07/26/24 09:00 Dose: 0.09 mcg/kg/min, 18.753 mls/hr Documented By: Titration: 07/26/24 08:00 Dose: 0.09 mcg/kg/min, 18.753 mls/hr Documented By: Titration: 07/26/24 07:00 Dose: 0.09 mcg/kg/min, 18.753 mls/hr Documented By: Titration: 07/26/24 06:00 Dose: 0.09 mcg/kg/min, 18.753 mls/hr Documented By: Titration: 07/26/24 05:35 Dose: 0.09 mcg/kg/min, 18.753 mls/hr Documented By: BB Co-signed By: WB Titration: 07/26/24 05:00 Dose: 0.11 mcg/kg/min, 22.921 mls/hr Documented By: BB Co-signed By: WB Titration: 07/26/24 04:00 Dose: 0.11 mcg/kg/min, 22.921 mls/hr Documented By: BB Co-signed By: WB Admin: 07/26/24 03:29 Dose: 0.11 mcg/kg/min, 22.921 mls/hr Documented By: Titration: 07/26/24 03:29 Dose: Infused Documented By: Titration: 07/26/24 03:00 Dose: 0.13 mcg/kg/min, 27.088 mls/hr Documented By: Titration: 07/26/24 01:00 Dose: 0.13 mcg/kg/min, 27.088 mls/hr Documented By: Titration: 07/26/24 00:00 Dose: 0.13 mcg/kg/min, 27.088 mls/hr Documented By: Titration: 07/25/24 23:00 Dose: 0.13 mcg/kg/min, 27.088 mls/hr Documented By: Titration: 07/25/24 22:00 Dose: 0.13 mcg/kg/min, 27.088 mls/hr Documented By: Titration: 07/25/24 21:00 Dose: 0.13 mcg/kg/min, 27.088 mls/hr Documented By: Titration: 07/25/24 20:00 Dose: 0.13 mcg/kg/min, 27.088 mls/hr Documented By: Titration: 07/25/24 19:00 Dose: 0.13 mcg/kg/min, 27.088 mls/hr Documented By: Titration: 07/25/24 18:00 Dose: 0.13 mcg/kg/min, 27.088 mls/hr Documented By: Admin: 07/25/24 17:50 Dose: 0.13 mcg/kg/min, 27.088 mls/hr Documented By: Titration: 07/25/24 17:50 Dose: Infused Documented By: Titration: 07/25/24 17:00 Dose: 0.15 mcg/kg/min, 31.255 mls/hr Documented By: Titration: 07/25/24 16:00 Dose: 0.15 mcg/kg/min, 31.255 mls/hr Documented By: Titration: 07/25/24 15:00 Dose: 0.15 mcg/kg/min, 31.255 mls/hr Documented By: Titration: 07/25/24 14:00 Dose: 0.15 mcg/kg/min, 31.255 mls/hr Documented By: Titration: 07/25/24 13:02 Dose: 0.13 mcg/kg/min, 27.088 mls/hr Documented By: Titration: 07/25/24 13:00 Dose: 0.11 mcg/kg/min, 22.921 mls/hr Documented By: Titration: 07/25/24 12:25 Dose: 0.11 mcg/kg/min, 22.921 mls/hr Documented By: Titration: 07/25/24 12:00 Dose: 0.09 mcg/kg/min, 18.753 mls/hr Documented By: Titration: 07/25/24 11:00 Dose: 0.09 mcg/kg/min, 18.753 mls/hr Documented By: Titration: 07/25/24 10:00 Dose: 0.09 mcg/kg/min, 18.753 mls/hr Documented By: Titration: 07/25/24 09:00 Dose: 0.09 mcg/kg/min, 18.753 mls/hr Documented By: Titration: 07/25/24 08:00 Dose: 0.09 mcg/kg/min, 18.753 mls/hr Documented By: Titration: 07/25/24 07:00 Dose: 0.09 mcg/kg/min, 18.753 mls/hr Documented By: Admin: 07/25/24 06:58 Dose: 0.09 mcg/kg/min, 18.753 mls/hr Documented By: Titration: 07/25/24 06:58 Dose: Infused Documented By: Titration: 07/25/24 06:00 Dose: Infused Documented By: Titration: 07/25/24 05:00 Dose: 0.09 mcg/kg/min, 18.753 mls/hr Documented By: Titration: 07/25/24 04:00 Dose: 0.09 mcg/kg/min, 18.753 mls/hr Documented By: Titration: 07/25/24 03:00 Dose: 0.11 mcg/kg/min, 22.921 mls/hr Documented By: Titration: 07/25/24 02:00 Dose: 0.11 mcg/kg/min, 22.921 mls/hr Documented By: Titration: 07/25/24 01:00 Dose: 0.11 mcg/kg/min, 22.921 mls/hr Documented By: Titration: 07/25/24 00:00 Dose: 0.11 mcg/kg/min, 22.921 mls/hr Documented By: Titration: 07/24/24 23:00 Dose: 0.11 mcg/kg/min, 22.921 mls/hr Documented By: Titration: 07/24/24 22:00 Dose: 0.11 mcg/kg/min, 22.921 mls/hr Documented By: Titration: 07/24/24 21:00 Dose: 0.11 mcg/kg/min, 22.921 mls/hr Documented By: Titration: 07/24/24 20:00 Dose: 0.11 mcg/kg/min, 22.921 mls/hr Documented By: Titration: 07/24/24 19:00 Dose: 0.11 mcg/kg/min, 22.921 mls/hr Documented By: Admin: 07/24/24 18:35 Dose: 0.11 mcg/kg/min, 22.921 mls/hr Documented By: Titration: 07/24/24 18:35 Dose: Infused Documented By: Titration: 07/24/24 18:00 Dose: 0.11 mcg/kg/min, 22.921 mls/hr Documented By: Titration: 07/24/24 17:00 Dose: 0.11 mcg/kg/min, 22.921 mls/hr Documented By: Titration: 07/24/24 16:00 Dose: 0.11 mcg/kg/min, 22.921 mls/hr Documented By: Titration: 07/24/24 15:30 Dose: 0.11 mcg/kg/min, 22.921 mls/hr Documented By: Titration: 07/24/24 15:00 Dose: 0.09 mcg/kg/min, 18.753 mls/hr Documented By: Titration: 07/24/24 14:00 Dose: 0.11 mcg/kg/min, 22.921 mls/hr Documented By: Titration: 07/24/24 13:00 Dose: 0.11 mcg/kg/min, 22.921 mls/hr Documented By: Titration: 07/24/24 12:00 Dose: 0.11 mcg/kg/min, 22.921 mls/hr Documented By: Titration: 07/24/24 11:45 Dose: 0.11 mcg/kg/min, 22.921 mls/hr Documented By: Titration: 07/24/24 11:00 Dose: 0.13 mcg/kg/min, 27.088 mls/hr Documented By: Titration: 07/24/24 10:48 Dose: 0.13 mcg/kg/min, 27.088 mls/hr Documented By: Admin: 07/24/24 10:37 Dose: 0.15 mcg/kg/min, 31.255 mls/hr Documented By: Titration: 07/24/24 10:30 Dose: Infused Documented By: Titration: 07/24/24 10:15 Dose: 0.19 mcg/kg/min, 39.59 mls/hr Documented By: Titration: 07/24/24 10:00 Dose: 0.21 mcg/kg/min, 43.757 mls/hr Documented By: Titration: 07/24/24 09:16 Dose: 0.23 mcg/kg/min, 47.925 mls/hr Documented By: Titration: 07/24/24 09:00 Dose: 0.21 mcg/kg/min, 43.757 mls/hr Documented By: Titration: 07/24/24 08:00 Dose: 0.21 mcg/kg/min, 43.757 mls/hr Documented By: Titration: 07/24/24 07:00 Dose: 0.21 mcg/kg/min, 43.757 mls/hr Documented By: Titration: 07/24/24 06:50 Dose: 0.21 mcg/kg/min, 43.757 mls/hr Documented By: Titration: 07/24/24 06:45 Dose: 0.19 mcg/kg/min, 39.59 mls/hr Documented By: Titration: 07/24/24 06:00 Dose: 0.17 mcg/kg/min, 35.423 mls/hr Documented By: Titration: 07/24/24 05:00 Dose: 0.15 mcg/kg/min, 31.255 mls/hr Documented By: Admin: 07/24/24 04:00 Dose: 0.13 mcg/kg/min, 27.088 mls/hr Documented By: Titration: 07/24/24 04:00 Dose: Infused Documented By: Titration: 07/24/24 03:00 Dose: 0.15 mcg/kg/min, 31.255 mls/hr Documented By: Titration: 07/24/24 02:00 Dose: 0.15 mcg/kg/min, 31.255 mls/hr Documented By: Titration: 07/24/24 01:00 Dose: 0.15 mcg/kg/min, 31.255 mls/hr Documented By: Titration: 07/24/24 00:00 Dose: 0.15 mcg/kg/min, 31.255 mls/hr Documented By: Titration: 07/23/24 23:00 Dose: 0.15 mcg/kg/min, 31.255 mls/hr Documented By: Titration: 07/23/24 22:00 Dose: 0.15 mcg/kg/min, 31.255 mls/hr Documented By: Titration: 07/23/24 21:00 Dose: 0.15 mcg/kg/min, 31.255 mls/hr Documented By: Titration: 07/23/24 20:00 Dose: 0.15 mcg/kg/min, 31.255 mls/hr Documented By: Admin: 07/23/24 19:15 Dose: 0.15 mcg/kg/min, 31.255 mls/hr Documented By: Titration: 07/23/24 19:00 Dose: Infused Documented By: Titration: 07/23/24 18:00 Dose: 0.15 mcg/kg/min, 31.255 mls/hr Documented By: Titration: 07/23/24 17:00 Dose: 0.15 mcg/kg/min, 31.255 mls/hr Documented By: Titration: 07/23/24 16:00 Dose: 0.15 mcg/kg/min, 31.255 mls/hr Documented By: Titration: 07/23/24 15:00 Dose: 0.15 mcg/kg/min, 31.255 mls/hr Documented By: Titration: 07/23/24 14:00 Dose: 0.15 mcg/kg/min, 31.255 mls/hr Documented By: Titration: 07/23/24 13:00 Dose: 0.15 mcg/kg/min, 31.255 mls/hr Documented By: Titration: 07/23/24 12:09 Dose: 0.15 mcg/kg/min, 31.255 mls/hr Documented By: Titration: 07/23/24 12:00 Dose: 0.09 mcg/kg/min, 18.753 mls/hr Documented By: Titration: 07/23/24 11:50 Dose: 0.09 mcg/kg/min, 18.753 mls/hr Documented By: Titration: 07/23/24 11:00 Dose: 0.07 mcg/kg/min, 14.586 mls/hr Documented By: Titration: 07/23/24 10:00 Dose: 0.07 mcg/kg/min, 14.586 mls/hr Documented By: Titration: 07/23/24 09:55 Dose: 0.07 mcg/kg/min, 14.586 mls/hr Documented By: Admin: 07/23/24 09:36 Dose: 0.05 mcg/kg/min, 10.418 mls/hr Documented By: Titration: 07/23/24 09:36 Dose: Infused Documented By: Titration: 07/23/24 09:26 Dose: 0.05 mcg/kg/min, 10.418 mls/hr Documented By: Titration: 07/23/24 09:00 Dose: 0.07 mcg/kg/min, 14.586 mls/hr Documented By: Titration: 07/23/24 08:00 Dose: 0.07 mcg/kg/min, 14.586 mls/hr Documented By: Titration: 07/23/24 07:00 Dose: 0.07 mcg/kg/min, 14.586 mls/hr Documented By: Titration: 07/23/24 06:45 Dose: 0.07 mcg/kg/min, 14.586 mls/hr Documented By: Titration: 07/23/24 06:00 Dose: 0.07 mcg/kg/min, 14.586 mls/hr Documented By: Titration: 07/23/24 05:00 Dose: 0.07 mcg/kg/min, 14.586 mls/hr Documented By: Titration: 07/23/24 04:00 Dose: 0.07 mcg/kg/min, 14.586 mls/hr Documented By: Titration: 07/23/24 03:00 Dose: 0.07 mcg/kg/min, 14.586 mls/hr Documented By: Titration: 07/23/24 02:00 Dose: 0.07 mcg/kg/min, 14.586 mls/hr Documented By: Titration: 07/23/24 01:00 Dose: 0.07 mcg/kg/min, 14.586 mls/hr Documented By: Titration: 07/23/24 00:00 Dose: 0.07 mcg/kg/min, 14.586 mls/hr Documented By: Titration: 07/22/24 23:00 Dose: 0.07 mcg/kg/min, 14.586 mls/hr Documented By: Titration: 07/22/24 22:00 Dose: 0.07 mcg/kg/min, 14.586 mls/hr Documented By: Titration: 07/22/24 21:15 Dose: 0.07 mcg/kg/min, 14.586 mls/hr Documented By: Titration: 07/22/24 21:00 Dose: 0.09 mcg/kg/min, 18.753 mls/hr Documented By: Titration: 07/22/24 20:00 Dose: 0.09 mcg/kg/min, 18.753 mls/hr Documented By: Titration: 07/22/24 19:39 Dose: 0.09 mcg/kg/min, 18.753 mls/hr Documented By: Titration: 07/22/24 19:31 Dose: 0.07 mcg/kg/min, 14.586 mls/hr Documented By: Titration: 07/22/24 19:15 Dose: 0.05 mcg/kg/min, 10.418 mls/hr Documented By: Titration: 07/22/24 19:00 Dose: 0 mcg/kg/min, 0 mls/hr Documented By: Titration: 07/22/24 18:30 Dose: 0 mcg/kg/min, 0 mls/hr Documented By: Titration: 07/22/24 18:00 Dose: 0.01 mcg/kg/min, 2.084 mls/hr Documented By: Titration: 07/22/24 17:33 Dose: 0.03 mcg/kg/min, 6.251 mls/hr Documented By: Admin: 07/22/24 17:16 Dose: 0.05 mcg/kg/min, 10.418 mls/hr Documented By: ZP Fentanyl Citrate (Sublimaze Inj 2,500 Mcg/250 Ml Bag) 2,500 mcg in 250 mls @ 2.5 mls/hr IV .Q24H PRN; Protocol PRN Reason: PER PROTOCOL Stop: 07/27/24 16:55 Last Titration: 07/25/24 11:40 Dose: 0 mcg/hr, 0 mls/hr Documented By: Titration: 07/25/24 11:00 Dose: 100 mcg/hr, 10 mls/hr Documented By: Titration: 07/25/24 10:00 Dose: 150 mcg/hr, 15 mls/hr Documented By: Titration: 07/25/24 09:00 Dose: 200 mcg/hr, 20 mls/hr Documented By: Admin: 07/25/24 08:58 Dose: 250 mcg/hr, 25 mls/hr Documented By: KR Co-signed By: ER Titration: 07/25/24 08:58 Dose: Infused Documented By: LAURO Co-signed By: ER Titration: 07/25/24 08:00 Dose: 250 mcg/hr, 25 mls/hr Documented By: Titration: 07/25/24 07:00 Dose: 250 mcg/hr, 25 mls/hr Documented By: Titration: 07/25/24 05:00 Dose: 250 mcg/hr, 25 mls/hr Documented By: Titration: 07/25/24 04:00 Dose: 250 mcg/hr, 25 mls/hr Documented By: Titration: 07/25/24 03:00 Dose: 250 mcg/hr, 25 mls/hr Documented By: Titration: 07/25/24 02:00 Dose: 250 mcg/hr, 25 mls/hr Documented By: Titration: 07/25/24 01:00 Dose: 250 mcg/hr, 25 mls/hr Documented By: Titration: 07/25/24 00:00 Dose: 250 mcg/hr, 25 mls/hr Documented By: Titration: 07/24/24 23:00 Dose: 250 mcg/hr, 25 mls/hr Documented By: Admin: 07/24/24 22:50 Dose: 250 mcg/hr, 25 mls/hr Documented By: BB Co-signed By: WB Titration: 07/24/24 22:50 Dose: Infused Documented By: BB Co-signed By: WB Titration: 07/24/24 22:00 Dose: 250 mcg/hr, 25 mls/hr Documented By: KEVIN Co-signed By: WB Titration: 07/24/24 21:00 Dose: 250 mcg/hr, 25 mls/hr Documented By: BB Co-signed By: WB Titration: 07/24/24 20:00 Dose: 250 mcg/hr, 25 mls/hr Documented By: BB Co-signed By: WB Titration: 07/24/24 19:00 Dose: 250 mcg/hr, 25 mls/hr Documented By: BB Co-signed By: WB Titration: 07/24/24 18:00 Dose: 250 mcg/hr, 25 mls/hr Documented By: Titration: 07/24/24 17:00 Dose: 250 mcg/hr, 25 mls/hr Documented By: Titration: 07/24/24 16:00 Dose: 250 mcg/hr, 25 mls/hr Documented By: Titration: 07/24/24 15:00 Dose: 250 mcg/hr, 25 mls/hr Documented By: Titration: 07/24/24 14:00 Dose: 250 mcg/hr, 25 mls/hr Documented By: Titration: 07/24/24 13:00 Dose: 250 mcg/hr, 25 mls/hr Documented By: Admin: 07/24/24 12:43 Dose: 250 mcg/hr, 25 mls/hr Documented By: MR Co-signed By: HR Titration: 07/24/24 11:00 Dose: Infused Documented By: Titration: 07/24/24 10:00 Dose: 250 mcg/hr, 25 mls/hr Documented By: Titration: 07/24/24 09:00 Dose: 250 mcg/hr, 25 mls/hr Documented By: Titration: 07/24/24 08:00 Dose: 250 mcg/hr, 25 mls/hr Documented By: Titration: 07/24/24 07:00 Dose: 250 mcg/hr, 25 mls/hr Documented By: Titration: 07/24/24 06:45 Dose: 250 mcg/hr, 25 mls/hr Documented By: Titration: 07/24/24 06:30 Dose: 250 mcg/hr, 25 mls/hr Documented By: Titration: 07/24/24 06:00 Dose: 200 mcg/hr, 20 mls/hr Documented By: Titration: 07/24/24 05:00 Dose: 200 mcg/hr, 20 mls/hr Documented By: Titration: 07/24/24 04:00 Dose: 200 mcg/hr, 20 mls/hr Documented By: Titration: 07/24/24 03:00 Dose: 200 mcg/hr, 20 mls/hr Documented By: Titration: 07/24/24 02:00 Dose: 200 mcg/hr, 20 mls/hr Documented By: Titration: 07/24/24 01:00 Dose: 250 mcg/hr, 25 mls/hr Documented By: Titration: 07/24/24 00:00 Dose: 250 mcg/hr, 25 mls/hr Documented By: Admin: 07/23/24 23:54 Dose: 250 mcg/hr, 25 mls/hr Documented By: CLT Co-signed By: AC Titration: 07/23/24 23:54 Dose: Infused Documented By: CLT Co-signed By: AC Titration: 07/23/24 23:00 Dose: Infused Documented By: CLT Co-signed By: AC Titration: 07/23/24 22:00 Dose: 250 mcg/hr, 25 mls/hr Documented By: CLT Co-signed By: AC Titration: 07/23/24 21:00 Dose: 250 mcg/hr, 25 mls/hr Documented By: CLT Co-signed By: AC Titration: 07/23/24 20:00 Dose: 250 mcg/hr, 25 mls/hr Documented By: CLT Co-signed By: AC Titration: 07/23/24 19:00 Dose: 250 mcg/hr, 25 mls/hr Documented By: Titration: 07/23/24 18:00 Dose: 250 mcg/hr, 25 mls/hr Documented By: Titration: 07/23/24 17:00 Dose: 250 mcg/hr, 25 mls/hr Documented By: Titration: 07/23/24 16:00 Dose: 250 mcg/hr, 25 mls/hr Documented By: Titration: 07/23/24 15:00 Dose: 250 mcg/hr, 25 mls/hr Documented By: Titration: 07/23/24 14:00 Dose: 250 mcg/hr, 25 mls/hr Documented By: Titration: 07/23/24 13:00 Dose: 250 mcg/hr, 25 mls/hr Documented By: Admin: 07/23/24 12:55 Dose: 250 mcg/hr, 25 mls/hr Documented By: BM Co-signed By: MR Titration: 07/23/24 12:55 Dose: Infused Documented By: BM Co-signed By: MR Titration: 07/23/24 12:09 Dose: 250 mcg/hr, 25 mls/hr Documented By: Titration: 07/23/24 12:00 Dose: 125 mcg/hr, 12.5 mls/hr Documented By: Titration: 07/23/24 11:00 Dose: 125 mcg/hr, 12.5 mls/hr Documented By: Titration: 07/23/24 10:00 Dose: 125 mcg/hr, 12.5 mls/hr Documented By: Titration: 07/23/24 09:00 Dose: 125 mcg/hr, 12.5 mls/hr Documented By: Titration: 07/23/24 08:00 Dose: 125 mcg/hr, 12.5 mls/hr Documented By: Titration: 07/23/24 07:00 Dose: 125 mcg/hr, 12.5 mls/hr Documented By: Titration: 07/23/24 06:45 Dose: 125 mcg/hr, 12.5 mls/hr Documented By: Titration: 07/23/24 06:30 Dose: 125 mcg/hr, 12.5 mls/hr Documented By: Titration: 07/23/24 06:00 Dose: 75 mcg/hr, 7.5 mls/hr Documented By: Titration: 07/23/24 05:00 Dose: 125 mcg/hr, 12.5 mls/hr Documented By: Titration: 07/23/24 04:00 Dose: 125 mcg/hr, 12.5 mls/hr Documented By: Titration: 07/23/24 03:00 Dose: 125 mcg/hr, 12.5 mls/hr Documented By: Titration: 07/23/24 02:00 Dose: 125 mcg/hr, 12.5 mls/hr Documented By: Titration: 07/23/24 01:00 Dose: 175 mcg/hr, 17.5 mls/hr Documented By: Titration: 07/23/24 00:00 Dose: 225 mcg/hr, 22.5 mls/hr Documented By: Titration: 07/22/24 23:00 Dose: 175 mcg/hr, 17.5 mls/hr Documented By: Titration: 07/22/24 22:00 Dose: 125 mcg/hr, 12.5 mls/hr Documented By: Titration: 07/22/24 21:00 Dose: 75 mcg/hr, 7.5 mls/hr Documented By: Titration: 07/22/24 20:00 Dose: 75 mcg/hr, 7.5 mls/hr Documented By: Titration: 07/22/24 18:00 Dose: 75 mcg/hr, 7.5 mls/hr Documented By: Admin: 07/22/24 17:13 Dose: 25 mcg/hr, 2.5 mls/hr Documented By: KYRA Co-signed By: AG Propofol (Diprivan Ivpb) Confirm Administered Dose 1,000 mg in 100 mls @ ud IV .STK-MED ONE Stop: 07/22/24 17:49 Last Admin: 07/22/24 18:39 Dose: Not Given Documented By: THEODORE Non-Admin Reason: Override Medication Propofol (Diprivan Ivpb) 1,000 mg in 100 mls @ 3.334 mls/hr IV .Q24H PRN; Protocol PRN Reason: PER PROTOCOL Stop: 08/21/24 18:14 Last Titration: 07/25/24 11:40 Dose: Infused Documented By: Titration: 07/25/24 11:30 Dose: Infused Documented By: Titration: 07/25/24 11:00 Dose: Infused Documented By: Titration: 07/25/24 10:30 Dose: 15 mcg/kg/min, 10.002 mls/hr Documented By: Titration: 07/25/24 10:10 Dose: 20 mcg/kg/min, 13.336 mls/hr Documented By: Titration: 07/25/24 10:05 Dose: 25 mcg/kg/min, 16.67 mls/hr Documented By: Titration: 07/25/24 10:00 Dose: 30 mcg/kg/min, 20.003 mls/hr Documented By: Titration: 07/25/24 09:00 Dose: 30 mcg/kg/min, 20.003 mls/hr Documented By: Titration: 07/25/24 08:00 Dose: 30 mcg/kg/min, 20.003 mls/hr Documented By: Titration: 07/25/24 07:00 Dose: 30 mcg/kg/min, 20.003 mls/hr Documented By: Admin: 07/25/24 05:24 Dose: 30 mcg/kg/min, 20.003 mls/hr Documented By: KEVIN Co-signed By: Titration: 07/25/24 05:24 Dose: Infused Documented By: KEVIN Co-signed By: Titration: 07/25/24 05:00 Dose: 30 mcg/kg/min, 20.003 mls/hr Documented By: KEVIN Co-signed By: Titration: 07/25/24 04:00 Dose: 30 mcg/kg/min, 20.003 mls/hr Documented By: KEVIN Co-signed By: Titration: 07/25/24 03:00 Dose: 30 mcg/kg/min, 20.003 mls/hr Documented By: KEVIN Co-signed By: Titration: 07/25/24 02:00 Dose: 30 mcg/kg/min, 20.003 mls/hr Documented By: Titration: 07/25/24 01:00 Dose: 30 mcg/kg/min, 20.003 mls/hr Documented By: Admin: 07/25/24 00:09 Dose: 30 mcg/kg/min, 20.003 mls/hr Documented By: BB Co-signed By: AD Titration: 07/25/24 00:09 Dose: Infused Documented By: BB Co-signed By: AD Titration: 07/24/24 23:00 Dose: 30 mcg/kg/min, 20.003 mls/hr Documented By: BB Co-signed By: AD Titration: 07/24/24 22:00 Dose: 30 mcg/kg/min, 20.003 mls/hr Documented By: BB Co-signed By: AD Titration: 07/24/24 21:00 Dose: 30 mcg/kg/min, 20.003 mls/hr Documented By: BB Co-signed By: AD Titration: 07/24/24 20:00 Dose: 30 mcg/kg/min, 20.003 mls/hr Documented By: KEVIN Co-signed By: AD Titration: 07/24/24 19:00 Dose: 30 mcg/kg/min, 20.003 mls/hr Documented By: BB Co-signed By: AD Admin: 07/24/24 18:37 Dose: 30 mcg/kg/min, 20.003 mls/hr Documented By: MR Co-signed By: DA Titration: 07/24/24 18:34 Dose: Infused Documented By: MR Co-signed By: DA Titration: 07/24/24 18:00 Dose: 30 mcg/kg/min, 20.003 mls/hr Documented By: Titration: 07/24/24 17:00 Dose: 30 mcg/kg/min, 20.003 mls/hr Documented By: Titration: 07/24/24 16:00 Dose: 30 mcg/kg/min, 20.003 mls/hr Documented By: Titration: 07/24/24 15:00 Dose: 30 mcg/kg/min, 20.003 mls/hr Documented By: Titration: 07/24/24 14:00 Dose: 30 mcg/kg/min, 20.003 mls/hr Documented By: Admin: 07/24/24 13:34 Dose: 30 mcg/kg/min, 20.003 mls/hr Documented By: MR Co-signed By: HR Titration: 07/24/24 13:34 Dose: Infused Documented By: MR Co-signed By: HR Titration: 07/24/24 13:00 Dose: 30 mcg/kg/min, 20.003 mls/hr Documented By: Titration: 07/24/24 12:00 Dose: 30 mcg/kg/min, 20.003 mls/hr Documented By: Titration: 07/24/24 11:00 Dose: 30 mcg/kg/min, 20.003 mls/hr Documented By: Titration: 07/24/24 10:00 Dose: 30 mcg/kg/min, 20.003 mls/hr Documented By: Titration: 07/24/24 09:00 Dose: 30 mcg/kg/min, 20.003 mls/hr Documented By: Admin: 07/24/24 08:44 Dose: 30 mcg/kg/min, 20.003 mls/hr Documented By: MR Co-signed By: kirill Titration: 07/24/24 08:44 Dose: Infused Documented By: MR Co-signed By: kirill Titration: 07/24/24 08:00 Dose: 30 mcg/kg/min, 20.003 mls/hr Documented By: Titration: 07/24/24 07:00 Dose: 30 mcg/kg/min, 20.003 mls/hr Documented By: Titration: 07/24/24 06:50 Dose: 25 mcg/kg/min, 16.67 mls/hr Documented By: Titration: 07/24/24 06:45 Dose: 20 mcg/kg/min, 13.336 mls/hr Documented By: Titration: 07/24/24 06:30 Dose: 15 mcg/kg/min, 10.002 mls/hr Documented By: Titration: 07/24/24 06:00 Dose: 10 mcg/kg/min, 6.668 mls/hr Documented By: Titration: 07/24/24 05:00 Dose: 10 mcg/kg/min, 6.668 mls/hr Documented By: Titration: 07/24/24 04:00 Dose: 15 mcg/kg/min, 10.002 mls/hr Documented By: Titration: 07/24/24 03:00 Dose: 15 mcg/kg/min, 10.002 mls/hr Documented By: Titration: 07/24/24 02:00 Dose: 15 mcg/kg/min, 10.002 mls/hr Documented By: Admin: 07/24/24 01:00 Dose: 20 mcg/kg/min, 13.336 mls/hr Documented By: AC Co-signed By: TEIXEIRA Titration: 07/24/24 01:00 Dose: Infused Documented By: AC Co-signed By: TEIXEIRA Titration: 07/24/24 00:00 Dose: 20 mcg/kg/min, 13.336 mls/hr Documented By: Titration: 07/23/24 23:00 Dose: 20 mcg/kg/min, 13.336 mls/hr Documented By: Titration: 07/23/24 22:00 Dose: 20 mcg/kg/min, 13.336 mls/hr Documented By: Titration: 07/23/24 21:00 Dose: 30 mcg/kg/min, 20.003 mls/hr Documented By: Titration: 07/23/24 20:00 Dose: 30 mcg/kg/min, 20.003 mls/hr Documented By: Admin: 07/23/24 19:00 Dose: 30 mcg/kg/min, 20.003 mls/hr Documented By: MR Co-signed By: AC Titration: 07/23/24 18:00 Dose: Infused Documented By: Titration: 07/23/24 17:00 Dose: 30 mcg/kg/min, 20.003 mls/hr Documented By: Titration: 07/23/24 16:00 Dose: 30 mcg/kg/min, 20.003 mls/hr Documented By: Titration: 07/23/24 15:00 Dose: 30 mcg/kg/min, 20.003 mls/hr Documented By: Titration: 07/23/24 14:00 Dose: 30 mcg/kg/min, 20.003 mls/hr Documented By: Titration: 07/23/24 13:00 Dose: 30 mcg/kg/min, 20.003 mls/hr Documented By: Admin: 07/23/24 12:54 Dose: 30 mcg/kg/min, 20.003 mls/hr Documented By: BM Co-signed By: MR Titration: 07/23/24 12:54 Dose: Infused Documented By: BM Co-signed By: MR Titration: 07/23/24 12:09 Dose: 30 mcg/kg/min, 20.003 mls/hr Documented By: Titration: 07/23/24 12:00 Dose: 20 mcg/kg/min, 13.336 mls/hr Documented By: Titration: 07/23/24 11:00 Dose: 20 mcg/kg/min, 13.336 mls/hr Documented By: Titration: 07/23/24 10:00 Dose: 20 mcg/kg/min, 13.336 mls/hr Documented By: Titration: 07/23/24 09:00 Dose: 20 mcg/kg/min, 13.336 mls/hr Documented By: Titration: 07/23/24 08:00 Dose: 20 mcg/kg/min, 13.336 mls/hr Documented By: Titration: 07/23/24 07:00 Dose: 20 mcg/kg/min, 13.336 mls/hr Documented By: Titration: 07/23/24 06:45 Dose: 20 mcg/kg/min, 13.336 mls/hr Documented By: Titration: 07/23/24 06:30 Dose: 20 mcg/kg/min, 13.336 mls/hr Documented By: Admin: 07/23/24 06:30 Dose: 15 mcg/kg/min, 10.002 mls/hr Documented By: AC Co-signed By: MR Titration: 07/23/24 06:30 Dose: Infused Documented By: AC Co-signed By: MR Titration: 07/23/24 06:00 Dose: 15 mcg/kg/min, 10.002 mls/hr Documented By: Titration: 07/23/24 05:00 Dose: 20 mcg/kg/min, 13.336 mls/hr Documented By: Titration: 07/23/24 04:00 Dose: 25 mcg/kg/min, 16.67 mls/hr Documented By: Titration: 07/23/24 03:00 Dose: 20 mcg/kg/min, 13.336 mls/hr Documented By: Titration: 07/23/24 02:30 Dose: 25 mcg/kg/min, 16.67 mls/hr Documented By: Titration: 07/23/24 02:00 Dose: 30 mcg/kg/min, 20.003 mls/hr Documented By: Admin: 07/23/24 01:10 Dose: 35 mcg/kg/min, 23.337 mls/hr Documented By: JUAQUIN Co-signed By: ANDREY Titration: 07/23/24 01:00 Dose: Infused Documented By: JUAQUIN Co-signed By: ANDREY Titration: 07/23/24 01:00 Dose: 40 mcg/kg/min, 26.671 mls/hr Documented By: Titration: 07/23/24 00:00 Dose: 40 mcg/kg/min, 26.671 mls/hr Documented By: Titration: 07/22/24 23:00 Dose: 20 mcg/kg/min, 13.336 mls/hr Documented By: Titration: 07/22/24 22:00 Dose: 20 mcg/kg/min, 13.336 mls/hr Documented By: Titration: 07/22/24 20:00 Dose: 15 mcg/kg/min, 10.002 mls/hr Documented By: Titration: 07/22/24 19:39 Dose: 15 mcg/kg/min, 10.002 mls/hr Documented By: Titration: 07/22/24 19:00 Dose: 10 mcg/kg/min, 6.668 mls/hr Documented By: Admin: 07/22/24 18:00 Dose: 5 mcg/kg/min, 3.334 mls/hr Documented By: KYRA Co-signed By: HUNTER Azithromycin 500 mg/ Sodium (Chloride) 250 mls @ 250 mls/hr IV X1 ONE Stop: 07/22/24 19:24 Last Admin: 07/22/24 19:15 Dose: 250 mls/hr Documented By: JUAQUIN Azithromycin 250 mg/ Sodium (Chloride) 250 mls @ 250 mls/hr IV QDAY MONA Stop: 07/27/24 08:59 Last Admin: 07/23/24 10:09 Dose: 250 mls/hr Documented By: MEREDITH Comments: late, pharmacy just brought med Magnesium Sulfate (Magnesium Sulfate Ivpb) 2 gm in 50 mls @ 25 mls/hr IV X1 ONE Stop: 07/23/24 15:02 Last Admin: 07/23/24 13:41 Dose: 25 mls/hr Documented By: MEREDITH Azithromycin 500 mg/ Sodium (Chloride) 250 mls @ 250 mls/hr IV QDAY MONA Stop: 07/31/24 08:59 Last Admin: 07/27/24 08:58 Dose: 250 mls/hr Documented By: Infusion: 07/26/24 10:52 Dose: Infused Documented By: Admin: 07/26/24 09:52 Dose: 250 mls/hr Documented By: Infusion: 07/25/24 11:21 Dose: Infused Documented By: Admin: 07/25/24 10:21 Dose: 250 mls/hr Documented By: Infusion: 07/24/24 10:01 Dose: Infused Documented By: Admin: 07/24/24 09:01 Dose: 250 mls/hr Documented By: Vasopressin/Sodium Chloride (Vasostrict/Ns Ivpb) 20 unit in 100 mls @ 9 mls/hr IV .Q11H7M PRN; Protocol PRN Reason: PER PROTOCOL Stop: 08/23/24 09:04 Last Titration: 07/26/24 18:00 Dose: Infused Documented By: Admin: 07/26/24 06:33 Dose: 0.03 unit/min, 9 mls/hr Documented By: Titration: 07/26/24 06:33 Dose: Infused Documented By: Admin: 07/25/24 17:50 Dose: 0.03 unit/min, 9 mls/hr Documented By: Titration: 07/25/24 17:50 Dose: Infused Documented By: Admin: 07/25/24 05:50 Dose: 0.03 unit/min, 9 mls/hr Documented By: Titration: 07/25/24 05:43 Dose: Infused Documented By: Admin: 07/24/24 18:36 Dose: 0.03 unit/min, 9 mls/hr Documented By: Titration: 07/24/24 18:36 Dose: Infused Documented By: Admin: 07/24/24 09:20 Dose: 0.03 unit/min, 9 mls/hr Documented By: MR Dexmedetomidine/Sodium Chloride (Precedex Ivpb) Confirm Administered Dose 200 mcg in 50 mls @ ud IV .STK-MED ONE Stop: 07/25/24 11:45 Last Admin: 07/25/24 12:56 Dose: Not Given Documented By: LAURO Non-Admin Reason: Override Medication Dexmedetomidine/Sodium Chloride (Precedex Ivpb) 200 mcg in 50 mls @ 11.213 mls/hr IV .Q4H28M PRN; Protocol PRN Reason: Per PROTOCOL Stop: 08/24/24 11:54 Last Titration: 07/27/24 05:00 Dose: 0 mcg/kg/hr, 0 mls/hr Documented By: Titration: 07/27/24 04:00 Dose: 0.2 mcg/kg/hr, 5.607 mls/hr Documented By: Titration: 07/27/24 03:00 Dose: 0.2 mcg/kg/hr, 5.607 mls/hr Documented By: Admin: 07/27/24 02:29 Dose: 0.2 mcg/kg/hr, 5.607 mls/hr Documented By: CLT Co-signed By: AC Titration: 07/27/24 02:29 Dose: Infused Documented By: CLT Co-signed By: AC Titration: 07/27/24 02:00 Dose: 0.2 mcg/kg/hr, 5.607 mls/hr Documented By: CLT Co-signed By: AC Titration: 07/27/24 01:00 Dose: 0.2 mcg/kg/hr, 5.607 mls/hr Documented By: CLT Co-signed By: AC Titration: 07/27/24 00:00 Dose: 0.2 mcg/kg/hr, 5.607 mls/hr Documented By: CLT Co-signed By: AC Titration: 07/26/24 23:00 Dose: 0.2 mcg/kg/hr, 5.607 mls/hr Documented By: CLT Co-signed By: AC Titration: 07/26/24 22:00 Dose: 0.2 mcg/kg/hr, 5.607 mls/hr Documented By: CLT Co-signed By: AC Admin: 07/26/24 21:33 Dose: 0.2 mcg/kg/hr, 5.607 mls/hr Documented By: CLT Co-signed By: ANDREY Titration: 07/26/24 21:33 Dose: Infused Documented By: CLT Co-signed By: ANDREY Titration: 07/26/24 10:00 Dose: 0 mcg/kg/hr, 0 mls/hr Documented By: Titration: 07/26/24 09:00 Dose: 0.2 mcg/kg/hr, 5.607 mls/hr Documented By: Admin: 07/26/24 08:30 Dose: 0.4 mcg/kg/hr, 11.213 mls/hr Documented By: Titration: 07/26/24 08:00 Dose: Infused Documented By: Titration: 07/26/24 07:00 Dose: 0.8 mcg/kg/hr, 22.426 mls/hr Documented By: Titration: 07/26/24 06:00 Dose: 0.8 mcg/kg/hr, 22.426 mls/hr Documented By: Admin: 07/26/24 05:34 Dose: 0.8 mcg/kg/hr, 22.426 mls/hr Documented By: Titration: 07/26/24 05:34 Dose: Infused Documented By: Titration: 07/26/24 05:00 Dose: 0.6 mcg/kg/hr, 16.82 mls/hr Documented By: Titration: 07/26/24 04:00 Dose: 0.6 mcg/kg/hr, 16.82 mls/hr Documented By: Admin: 07/26/24 03:15 Dose: 0.6 mcg/kg/hr, 16.82 mls/hr Documented By: KEVIN Co-signed By: TRELL Titration: 07/26/24 03:15 Dose: Infused Documented By: KEVIN Co-signed By: TRELL Titration: 07/26/24 03:00 Dose: 0.6 mcg/kg/hr, 16.82 mls/hr Documented By: Titration: 07/26/24 01:00 Dose: 0.6 mcg/kg/hr, 16.82 mls/hr Documented By: Titration: 07/26/24 00:00 Dose: 0.6 mcg/kg/hr, 16.82 mls/hr Documented By: Admin: 07/25/24 23:34 Dose: 0.6 mcg/kg/hr, 16.82 mls/hr Documented By: KEVIN Co-signed By: Titration: 07/25/24 23:34 Dose: Infused Documented By: KEVIN Co-signed By: Titration: 07/25/24 23:00 Dose: 0.6 mcg/kg/hr, 16.82 mls/hr Documented By: KEVIN Co-signed By: Titration: 07/25/24 22:00 Dose: 0.6 mcg/kg/hr, 16.82 mls/hr Documented By: KEVIN Co-signed By: Admin: 07/25/24 21:05 Dose: 0.6 mcg/kg/hr, 16.82 mls/hr Documented By: KEVIN Co-signed By: AD Titration: 07/25/24 21:05 Dose: Infused Documented By: KEVIN Co-signed By: AD Titration: 07/25/24 21:00 Dose: Infused Documented By: KEVIN Co-signed By: AD Titration: 07/25/24 20:00 Dose: 0.6 mcg/kg/hr, 16.82 mls/hr Documented By: BB Co-signed By: AD Titration: 07/25/24 19:00 Dose: 0.6 mcg/kg/hr, 16.82 mls/hr Documented By: KEVIN Co-signed By: AD Titration: 07/25/24 18:00 Dose: 0.4 mcg/kg/hr, 11.213 mls/hr Documented By: Titration: 07/25/24 17:15 Dose: 0.4 mcg/kg/hr, 11.213 mls/hr Documented By: Titration: 07/25/24 15:40 Dose: 0 mcg/kg/hr, 0 mls/hr Documented By: Titration: 07/25/24 15:00 Dose: 0.4 mcg/kg/hr, 11.213 mls/hr Documented By: Admin: 07/25/24 14:28 Dose: 0.4 mcg/kg/hr, 11.213 mls/hr Documented By: LAURO Co-signed By: ER Titration: 07/25/24 14:28 Dose: Infused Documented By: LAURO Co-signed By: ER Titration: 07/25/24 14:00 Dose: 0.4 mcg/kg/hr, 11.213 mls/hr Documented By: Titration: 07/25/24 13:00 Dose: 0.4 mcg/kg/hr, 11.213 mls/hr Documented By: Titration: 07/25/24 12:00 Dose: 0.4 mcg/kg/hr, 11.213 mls/hr Documented By: Admin: 07/25/24 11:54 Dose: 0.4 mcg/kg/hr, 11.213 mls/hr Documented By: LAURO Co-signed By: MEIR Acetazolamide Sodium 500 mg/ (Sodium Chloride) 50 mls @ 100 mls/hr IV X1 ONE Stop: 07/25/24 13:28 Last Admin: 07/25/24 13:04 Dose: 100 mls/hr Documented By: LAURO Acetazolamide Sodium 500 mg/ (Sodium Chloride) 50 mls @ 100 mls/hr IV X1 ONE Stop: 07/25/24 20:29 Acetazolamide Sodium 500 mg/ (Sodium Chloride) 50 mls @ 100 mls/hr IV X1 ONE Stop: 07/25/24 17:59 Last Admin: 07/25/24 18:14 Dose: 100 mls/hr Documented By: LAURO Potassium Phosphate (Pot Phos 15 Mmol In Ns 250 Ml) 15 mmol in 250 mls @ 62.5 mls/hr IV X1 ONE Stop: 07/27/24 13:08 Last Admin: 07/27/24 09:59 Dose: 62.5 mls/hr Documented By: LAURO Potassium Phosphate 22.5 mmol/ (Sodium Chloride) 507.5 mls @ 82.778 mls/hr IV X1 ONE Stop: 07/29/24 15:07 Last Admin: 07/29/24 09:51 Dose: 82.778 mls/hr Documented By: ER Potassium Chloride (Kcl Ivpb) 20 meq in 100 mls @ 50 mls/hr IV Q2H MONA Stop: 07/29/24 13:35 Last Admin: 07/29/24 12:15 Dose: 50 mls/hr Documented By: Infusion: 07/29/24 11:56 Dose: Infused Documented By: Admin: 07/29/24 09:56 Dose: 50 mls/hr Documented By: ER Albumin Human (Albuminar-25 Ivpb) 12.5 gm in 50 mls @ 50 mls/hr IV X1 ONE Stop: 07/29/24 10:40 Last Admin: 07/29/24 09:55 Dose: 50 mls/hr Documented By: ER Albumin Human (Albuminar-25 Ivpb) 12.5 gm in 50 mls @ 50 mls/hr IV X1 ONE Stop: 07/30/24 10:43 Last Admin: 07/30/24 10:10 Dose: 50 mls/hr Documented By: GE Acetazolamide Sodium 500 mg/ (Sodium Chloride) 50 mls @ 100 mls/hr IV X1 ONE Stop: 07/30/24 10:16 Last Admin: 07/30/24 10:11 Dose: 100 mls/hr Documented By: GE Potassium Chloride (Kcl Ivpb) 20 meq in 100 mls @ 50 mls/hr IV Q2H [facility]A Stop: 07/30/24 17:08 Morphine Sulfate (Morphine Sulfate Iv Drip 100mg/100ml) 100 mls @ 1 mls/hr IV .Q24H PRN; Protocol PRN Reason: PAIN (COMFORT CARE) Stop: 08/04/24 14:32 Last Titration: 07/30/24 15:42 Dose: 0 mg/hr, 0 mls/hr Documented By: GUNNAR Co-signed By: KYRA Admin: 07/30/24 14:59 Dose: 1 mg/hr, 1 mls/hr Documented By: GUNNAR Co-signed By: HUNTER Insulin Glargine (Insulin Glargine (Lantus) 5 Unit/0.05 Ml (Per 5 Units)) 5 unit SC X1 ONE Stop: 07/24/24 09:03 Last Admin: 07/24/24 09:41 Dose: 5 unit Documented By: MR Co-signed By: kirill Insulin Glargine (Insulin Glargine (Lantus) 5 Unit/0.05 Ml (Per 5 Units)) 5 unit SC HS MONA Stop: 08/23/24 20:59 Last Admin: 07/29/24 21:45 Dose: 5 unit Documented By: ANDREY Co-signed By: JOSE Admin: 07/28/24 20:57 Dose: 5 unit Documented By: SVEN Co-signed By: ANTHONY Admin: 07/27/24 20:10 Dose: 5 unit Documented By: CLCyndi Co-signed By: AD Admin: 07/26/24 20:14 Dose: 5 unit Documented By: CLT Co-signed By: JUAQUIN Admin: 07/25/24 21:30 Dose: 5 unit Documented By: KEVIN Co-signed By: Admin: 07/24/24 21:30 Dose: 5 unit Documented By: KEVIN Co-signed By: Insulin Human Lispro (Insulin Lispro (Admelog) 1 Unit/0.01 Ml Unit) 0 unit SC Q6HR MONA; Protocol Stop: 08/23/24 11:59 Last Admin: 07/30/24 05:59 Dose: Not Given Documented By: GG Non-Admin Reason: Per Protocol Admin: 07/30/24 00:00 Dose: Not Given Documented By: RH Non-Admin Reason: Per Protocol Admin: 07/29/24 17:33 Dose: Not Given Documented By: ER Non-Admin Reason: bs 136 Admin: 07/29/24 13:55 Dose: Not Given Documented By: ER Non-Admin Reason: bs 130 Admin: 07/29/24 05:52 Dose: 1 unit Documented By: CLT Co-signed By: MILIND Admin: 07/29/24 00:00 Dose: Not Given Documented By: CLT Non-Admin Reason: Per Protocol Admin: 07/28/24 18:34 Dose: Not Given Documented By: KR Non-Admin Reason: Per Protocol Admin: 07/28/24 12:08 Dose: Not Given Documented By: KR Non-Admin Reason: Per Protocol Admin: 07/28/24 06:52 Dose: Not Given Documented By: CLT Non-Admin Reason: Per Protocol Admin: 07/27/24 23:13 Dose: Not Given Documented By: CLT Non-Admin Reason: Per Protocol Admin: 07/27/24 18:32 Dose: Not Given Documented By: KR Non-Admin Reason: Per Protocol Admin: 07/27/24 13:18 Dose: Not Given Documented By: KR Non-Admin Reason: Per Protocol Admin: 07/27/24 06:29 Dose: Not Given Documented By: CLT Non-Admin Reason: Per Protocol Admin: 07/27/24 00:27 Dose: Not Given Documented By: CLT Non-Admin Reason: Per Protocol Admin: 07/26/24 17:58 Dose: Not Given Documented By: KR Non-Admin Reason: Per Protocol Admin: 07/26/24 11:55 Dose: Not Given Documented By: KR Non-Admin Reason: Per Protocol Admin: 07/26/24 06:37 Dose: Not Given Documented By: KEVIN Non-Admin Reason: Glucose, LOW Admin: 07/26/24 00:30 Dose: Not Given Documented By: KEVIN Non-Admin Reason: Glucose, LOW Admin: 07/25/24 18:13 Dose: 1 unit Documented By: LAURO Co-signed By: kirill Admin: 07/25/24 12:56 Dose: Not Given Documented By: LAURO Non-Admin Reason: NPO Admin: 07/25/24 05:07 Dose: Not Given Documented By: KEVIN Non-Admin Reason: Glucose, LOW Admin: 07/25/24 00:30 Dose: Not Given Documented By: KEVIN Non-Admin Reason: NPO Admin: 07/24/24 17:38 Dose: 1 unit Documented By: Co-signed By: THEODORE(2) Admin: 07/24/24 12:32 Dose: 1 unit Documented By: LIZ Co-signed By: ER Insulin Human Regular (Insulin Hum Regular 1 Unit/0.01 Ml (Per Unit)) 5 unit IV X1 ONE Stop: 07/21/24 17:03 Last Admin: 07/21/24 17:33 Dose: 5 unit Documented By: CYNTHIA Co-signed By: MISAEL Comments: Hyperkalemia protocol Ipratropium [place] (Ipratropium Rt 0.5 Mg/ 2.5 Ml Nebu) 1 mg INH X1 ONE Stop: 07/20/24 07:51 Last Admin: 07/20/24 08:11 Dose: 1 mg Documented By: BERNARD Ipratropium [place] (Ipratropium Rt 0.5 Mg/ 2.5 Ml Nebu) 1 mg INH X1 ONE Stop: 07/21/24 03:37 Last Admin: 07/21/24 03:55 Dose: 1 mg Documented By: CARLI Ipratropium [place] (Ipratropium [place] Hfa 12.9 Gm Inh) 2 puff INH Q8HRRT [facility] Stop: 08/20/24 10:44 Ipratropium [place] (Ipratropium Rt 0.5 Mg/ 2.5 Ml Nebu) 0.5 mg INH Q8HRRT [facility] Stop: 08/20/24 14:59 Ipratropium [place] (Ipratropium Rt 0.5 Mg/ 2.5 Ml Nebu) 0.5 mg INH Q2HR PRN PRN Reason: SHORTNESS OF BREATH Stop: 08/20/24 10:38 Ipratropium [place] (Ipratropium Rt 0.5 Mg/ 2.5 Ml Nebu) 0.5 mg INH BIDRT PRN; Protocol PRN Reason: Shortness of breath and wheezing Stop: 08/20/24 18:59 Last Admin: 07/23/24 13:10 Dose: 0.5 mg Documented By: Admin: 07/21/24 11:29 Dose: 0.5 mg Documented By: ANEL Ipratropium [place] (Ipratropium Rt 0.5 Mg/ 2.5 Ml Nebu) 0.5 mg INH Q4HRRT [facility] Stop: 08/20/24 14:59 Last Admin: 07/30/24 10:55 Dose: 0.5 mg Documented By: Admin: 07/30/24 06:44 Dose: 0.5 mg Documented By: Admin: 07/30/24 02:33 Dose: 0.5 mg Documented By: CARLI(2) Admin: 07/29/24 22:58 Dose: 0.5 mg Documented By: CARLI(2) Admin: 07/29/24 18:48 Dose: 0.5 mg Documented By: CARLI(2) Admin: 07/29/24 14:29 Dose: 0.5 mg Documented By: Admin: 07/29/24 10:44 Dose: 0.5 mg Documented By: Admin: 07/29/24 06:17 Dose: 0.5 mg Documented By: Admin: 07/29/24 02:48 Dose: 0.5 mg Documented By: CARLI(2) Admin: 07/28/24 23:01 Dose: 0.5 mg Documented By: CARLI(2) Admin: 07/28/24 19:03 Dose: 0.5 mg Documented By: CARLI(2) Admin: 07/28/24 14:27 Dose: 0.5 mg Documented By: Admin: 07/28/24 10:23 Dose: 0.5 mg Documented By: Admin: 07/28/24 06:40 Dose: 0.5 mg Documented By: Admin: 07/28/24 02:26 Dose: 0.5 mg Documented By: Admin: 07/27/24 22:36 Dose: 0.5 mg Documented By: Admin: 07/27/24 18:51 Dose: 0.5 mg Documented By: Admin: 07/27/24 14:54 Dose: 0.5 mg Documented By: Admin: 07/27/24 10:25 Dose: 0.5 mg Documented By: Admin: 07/27/24 06:23 Dose: 0.5 mg Documented By: Admin: 07/27/24 02:41 Dose: 0.5 mg Documented By: Admin: 07/26/24 22:55 Dose: 0.5 mg Documented By: Admin: 07/26/24 18:45 Dose: 0.5 mg Documented By: Admin: 07/26/24 14:19 Dose: 0.5 mg Documented By: Admin: 07/26/24 10:07 Dose: 0.5 mg Documented By: Admin: 07/26/24 06:22 Dose: 0.5 mg Documented By: Admin: 07/26/24 03:18 Dose: 0.5 mg Documented By: Admin: 07/25/24 22:15 Dose: 0.5 mg Documented By: Admin: 07/25/24 18:28 Dose: 0.5 mg Documented By: Admin: 07/25/24 14:36 Dose: 0.5 mg Documented By: Admin: 07/25/24 11:19 Dose: Not Given Documented By: LAURO Non-Admin Reason: previous shift Admin: 07/25/24 10:40 Dose: 0.5 mg Documented By: Admin: 07/25/24 06:26 Dose: 0.5 mg Documented By: Admin: 07/24/24 22:50 Dose: 0.5 mg Documented By: Admin: 07/24/24 18:10 Dose: 0.5 mg Documented By: Admin: 07/24/24 15:06 Dose: 0.5 mg Documented By: Admin: 07/24/24 10:05 Dose: 0.5 mg Documented By: Admin: 07/24/24 06:26 Dose: 0.5 mg Documented By: Admin: 07/24/24 03:30 Dose: 0.5 mg Documented By: Admin: 07/23/24 23:20 Dose: 0.5 mg Documented By: Admin: 07/23/24 18:45 Dose: 0.5 mg Documented By: Admin: 07/23/24 14:40 Dose: Not Given Documented By: BERNARD Non-Admin Reason: Other, see note Admin: 07/23/24 14:27 Dose: Not Given Documented By: BERNARD Non-Admin Reason: Duplicate Medication on eMAR Admin: 07/23/24 06:55 Dose: 0.5 mg Documented By: Admin: 07/23/24 02:38 Dose: 0.5 mg Documented By: Admin: 07/22/24 23:26 Dose: Not Given Documented By: DB Non-Admin Reason: Other, see note Comments: Pt in procedure Admin: 07/22/24 19:46 Dose: 0.5 mg Documented By: Admin: 07/22/24 14:47 Dose: 0.5 mg Documented By: Admin: 07/22/24 10:05 Dose: 0.5 mg Documented By: Admin: 07/22/24 06:17 Dose: 0.5 mg Documented By: Admin: 07/22/24 03:05 Dose: 0.5 mg Documented By: Admin: 07/21/24 22:11 Dose: 0.5 mg Documented By: Admin: 07/21/24 18:38 Dose: 0.5 mg Documented By: Admin: 07/21/24 15:13 Dose: 0.5 mg Documented By: ANEL Levalbuterol HCl (Levalbuterol Rt 0.63 Mg/3 Ml Nebu) 0.63 mg INH Q8HR PRN PRN Reason: WHEEZING Stop: 08/19/24 11:57 Last Admin: 07/21/24 07:13 Dose: 0.63 mg Documented By: Admin: 07/20/24 21:02 Dose: 0.63 mg Documented By: CARLI Levalbuterol HCl (Levalbuterol Rt 1.25 Mg/0.5 Ml Nebu) 1.25 mg INH X1 ONE Stop: 07/21/24 03:37 Last Admin: 07/21/24 03:55 Dose: 1.25 mg Documented By: CARLI Levalbuterol HCl (Levalbuterol Rt 0.63 Mg/3 Ml Nebu) 0.63 mg INH Q8HR [facility] Stop: 08/20/24 13:59 Levalbuterol HCl (Levalbuterol Rt 1.25 Mg/0.5 Ml Nebu) 1.25 mg INH BIDRT PRN; Protocol PRN Reason: Shortness of breath or wheezing Stop: 08/20/24 18:59 Last Admin: 07/23/24 13:10 Dose: 1.25 mg Documented By: Admin: 07/21/24 11:30 Dose: 1.25 mg Documented By: ANEL Levalbuterol HCl (Levalbuterol Rt 0.63 Mg/3 Ml Nebu) 0.63 mg INH Q4HRRT [facility] Stop: 08/20/24 14:59 Last Admin: 07/30/24 10:55 Dose: 0.63 mg Documented By: Admin: 07/30/24 06:43 Dose: 0.63 mg Documented By: Admin: 07/30/24 02:33 Dose: 0.63 mg Documented By: CARLI(2) Admin: 07/29/24 22:58 Dose: 0.63 mg Documented By: CARLI(2) Admin: 07/29/24 18:48 Dose: 0.63 mg Documented By: CARLI(2) Admin: 07/29/24 14:29 Dose: 0.63 mg Documented By: Admin: 07/29/24 10:44 Dose: 0.63 mg Documented By: Admin: 07/29/24 06:16 Dose: 0.63 mg Documented By: Admin: 07/29/24 02:48 Dose: 0.63 mg Documented By: CARLI(2) Admin: 07/28/24 23:01 Dose: 0.63 mg Documented By: CARLI(2) Admin: 07/28/24 19:04 Dose: 0.63 mg Documented By: CARLI(2) Admin: 07/28/24 14:26 Dose: 0.63 mg Documented By: Admin: 07/28/24 10:23 Dose: 0.63 mg Documented By: Admin: 07/28/24 06:40 Dose: 0.63 mg Documented By: Admin: 07/28/24 02:25 Dose: 0.63 mg Documented By: Admin: 07/27/24 22:36 Dose: 0.63 mg Documented By: Admin: 07/27/24 18:51 Dose: 0.63 mg Documented By: Admin: 07/27/24 14:54 Dose: 0.63 mg Documented By: Admin: 07/27/24 10:25 Dose: 0.63 mg Documented By: Admin: 07/27/24 06:23 Dose: 0.63 mg Documented By: Admin: 07/27/24 02:41 Dose: 0.63 mg Documented By: Admin: 07/26/24 22:54 Dose: 0.63 mg Documented By: Admin: 07/26/24 18:45 Dose: 0.63 mg Documented By: Admin: 07/26/24 14:19 Dose: 0.63 mg Documented By: Admin: 07/26/24 10:06 Dose: 0.63 mg Documented By: Admin: 07/26/24 06:22 Dose: 0.63 mg Documented By: Admin: 07/26/24 03:18 Dose: 0.63 mg Documented By: Admin: 07/25/24 22:15 Dose: 0.63 mg Documented By: Admin: 07/25/24 18:28 Dose: 0.63 mg Documented By: Admin: 07/25/24 14:36 Dose: 0.63 mg Documented By: Admin: 07/25/24 11:18 Dose: Not Given Documented By: KR Non-Admin Reason: Previous shift Admin: 07/25/24 10:40 Dose: 0.63 mg Documented By: Admin: 07/25/24 06:27 Dose: 0.63 mg Documented By: Admin: 07/24/24 22:50 Dose: 0.63 mg Documented By: Admin: 07/24/24 18:10 Dose: 0.63 mg Documented By: Admin: 07/24/24 15:06 Dose: 0.63 mg Documented By: Admin: 07/24/24 10:05 Dose: 0.63 mg Documented By: Admin: 07/24/24 06:26 Dose: 0.63 mg Documented By: Admin: 07/24/24 03:30 Dose: 0.63 mg Documented By: Admin: 07/23/24 23:20 Dose: 0.63 mg Documented By: Admin: 07/23/24 18:45 Dose: 0.63 mg Documented By: Admin: 07/23/24 14:27 Dose: Not Given Documented By: JV Non-Admin Reason: Duplicate Medication on eMAR Admin: 07/23/24 11:19 Dose: 0.63 mg Documented By: Admin: 07/23/24 06:52 Dose: 0.63 mg Documented By: Admin: 07/23/24 02:38 Dose: 0.63 mg Documented By: Admin: 07/22/24 23:26 Dose: Not Given Documented By: DB Non-Admin Reason: Other, see note Comments: Pt in procedure Admin: 07/22/24 19:46 Dose: 0.63 mg Documented By: Admin: 07/22/24 14:47 Dose: 0.63 mg Documented By: Admin: 07/22/24 10:05 Dose: 0.63 mg Documented By: Admin: 07/22/24 06:17 Dose: 0.63 mg Documented By: Admin: 07/22/24 03:05 Dose: 0.63 mg Documented By: Admin: 07/21/24 22:12 Dose: 0.63 mg Documented By: Admin: 07/21/24 18:38 Dose: 0.63 mg Documented By: Admin: 07/21/24 15:12 Dose: 0.63 mg Documented By: ANEL Lorazepam (Lorazepam 2 Mg/Ml Vial) 2 mg IVP X1 PRN PRN Reason: ANXIETY Stop: 08/04/24 14:32 Last Admin: 07/30/24 15:08 Dose: 2 mg Documented By: GUNNAR Lorazepam (Lorazepam 2 Mg/Ml Vial) 1 mg IVP Q6HR PRN PRN Reason: ANXIETY Stop: 08/04/24 14:32 Lorazepam (Lorazepam 2 Mg/Ml Vial) 1 mg IVP Q30MIN PRN PRN Reason: ANXIETY Stop: 08/04/24 14:32 Magnesium Hydroxide (Milk Of Magnesia Susp 30 Ml Udc) 30 ml PO X1 ONE; Protocol Stop: 07/29/24 09:36 Last Admin: 07/29/24 09:55 Dose: 30 ml Documented By: ER Methylprednisolone Sodium Succinate (Methylprednisolone Sod Succ 40 Mg Vial) 40 mg IVP Q8HR [facility] Stop: 07/28/24 15:29 Last Admin: 07/21/24 15:50 Dose: 40 mg Documented By: XIONM Methylprednisolone Sodium Succinate (Methylprednisolone Sod Succ 40 Mg Vial) 60 mg IVP Q8HR [facility] Stop: 07/28/24 21:59 Last Admin: 07/22/24 05:18 Dose: 60 mg Documented By: Admin: 07/21/24 21:04 Dose: 60 mg Documented By: ANDRE Methylprednisolone Sodium Succinate (Methylprednisolone Sod Succ 40 Mg Vial) 40 mg IVP Q8HR [facility] Stop: 07/29/24 13:59 Last Admin: 07/22/24 13:33 Dose: 40 mg Documented By: MEREDITH Metoprolol Succinate (Metoprolol Succinate Xl 25 Mg Tabcr) 25 mg PO QDAY [facility] Stop: 08/20/24 08:59 Last Admin: 07/22/24 08:44 Dose: 25 mg Documented By: Admin: 07/21/24 10:00 Dose: 25 mg Documented By: MISAEL Metoprolol Succinate (Metoprolol Succinate Xl 25 Mg Tabcr) 25 mg NG QDAY [facility] Stop: 08/20/24 08:59 Last Admin: 07/23/24 09:43 Dose: Not Given Documented By: MEREDITH Non-Admin Reason: Cancelled by Provider Metoprolol Tartrate (Metoprolol Tartrate Inj 1 Mg/Ml Amp 5 Ml) 5 mg IVP X1 ONE Stop: 07/28/24 13:21 Last Admin: 07/28/24 18:34 Dose: Not Given Documented By: LAURO Non-Admin Reason: Pt heart rate back down Metoprolol Tartrate (Metoprolol Tartrate Inj 1 Mg/Ml Amp 5 Ml) 5 mg IVP X1 ONE Stop: 07/30/24 09:44 Last Admin: 07/30/24 10:20 Dose: 5 mg Documented By: GUNNAR Midazolam HCl (Midazolam Inj 1 Mg/Ml Vial 2 Ml) 2 mg IV X1 ONE Stop: 07/22/24 16:57 Last Admin: 07/22/24 17:09 Dose: 2 mg Documented By: KYRA Midazolam HCl (Midazolam Inj 1 Mg/Ml Vial 2 Ml) Confirm Administered Dose 2 mg .ROUTE .STK-MED ONE Stop: 07/22/24 16:54 Last Admin: 07/22/24 18:14 Dose: Not Given Documented By: ZJhonny Non-Admin Reason: STOCK MED. Midazolam HCl (Midazolam Inj 1 Mg/Ml Vial 2 Ml) Confirm Administered Dose 2 mg .ROUTE .STK-MED ONE Stop: 07/22/24 17:33 Last Admin: 07/22/24 18:14 Dose: Not Given Documented By: ZP Non-Admin Reason: STOCK MED. Midazolam HCl (Midazolam Inj 1 Mg/Ml Vial 2 Ml) 2 mg IV X1 ONE Stop: 07/22/24 17:43 Last Admin: 07/22/24 17:42 Dose: 2 mg Documented By: KYRA Morphine Sulfate (Morphine Sulf Inj 10 Mg/Ml Vial) 4 mg IVP Q4H PRN PRN Reason: PAIN SCALE 4-10(Mod-Sev Stop: 08/04/24 14:32 Last Admin: 07/30/24 14:59 Dose: 4 mg Documented By: GUNNAR Morphine Sulfate (Morphine Sulf Inj 10 Mg/Ml Vial) 4 mg IVP Q15MIN PRN PRN Reason: PAIN SCALE 4-10(Mod-Sev Stop: 08/04/24 15:05 Last Admin: 07/30/24 15:37 Dose: 4 mg Documented By: Admin: 07/30/24 15:21 Dose: 4 mg Documented By: GUNNAR Ondansetron HCl (Ondansetron Inj 2 Mg/Ml Inj 2 Ml) 4 mg IV Q6H PRN; Protocol PRN Reason: NAUSEA OR VOMITING Stop: 08/19/24 11:57 Last Admin: 07/30/24 10:58 Dose: 4 mg Documented By: Admin: 07/30/24 03:58 Dose: 4 mg Documented By: JOSE Ondansetron HCl (Ondansetron Odt 4 Mg Tabrap) 4 mg PO Q6HR PRN PRN Reason: nausea Stop: 08/29/24 14:32 Pantoprazole Sodium (Pantoprazole Inj 40 Mg Vial) 40 mg IVP QDAY [facility] Stop: 08/22/24 09:44 Last Admin: 07/30/24 08:43 Dose: 40 mg Documented By: Admin: 07/29/24 09:52 Dose: 40 mg Documented By: Admin: 07/28/24 08:53 Dose: 40 mg Documented By: Admin: 07/27/24 08:57 Dose: 40 mg Documented By: Admin: 07/26/24 09:52 Dose: 40 mg Documented By: Admin: 07/25/24 08:46 Dose: 40 mg Documented By: Admin: 07/24/24 09:20 Dose: 40 mg Documented By: Admin: 07/23/24 09:45 Dose: 40 mg Documented By: MEREDITH Potassium Chloride (Potassium Chloride 10% 20 Meq/15 Ml Udc) 40 meq GT X1 ONE Stop: 07/27/24 07:35 Last Admin: 07/27/24 08:57 Dose: 40 meq Documented By: LAURO Potassium Chloride (Potassium Chloride 10% 20 Meq/15 Ml Udc) 20 meq GT X1 ONE Stop: 07/27/24 09:46 Last Admin: 07/27/24 09:59 Dose: 20 meq Documented By: LAURO Prednisone (Prednisone 20 Mg Tablet) 40 mg PO X1 ONE Stop: 07/20/24 07:51 Last Admin: 07/20/24 07:58 Dose: 40 mg Documented By: TEJINDER Prednisone (Prednisone 20 Mg Tablet) 20 mg PO QDAY MONA Stop: 08/20/24 12:14 Last Admin: 07/21/24 14:25 Dose: 20 mg Documented By: CYNTHIA Rocuronium [place] (Rocuronium Inj 10 Mg/Ml Vial 10 Ml) 100 mg IVP X1 ONE Stop: 07/22/24 16:54 Last Admin: 07/22/24 17:10 Dose: 100 mg Documented By: KYRA Co-signed By: HUNTER Rocuronium [place] (Rocuronium Inj 10 Mg/Ml Vial 10 Ml) Confirm Administered Dose 100 mg .ROUTE .STK-MED ONE Stop: 07/23/24 12:06 Last Admin: 07/23/24 13:13 Dose: Not Given Documented By: MEREDITH Non-Admin Reason: stk med Rocuronium [place] (Rocuronium Inj 10 Mg/Ml Vial 10 Ml) 100 mg IVP X1 ONE Stop: 07/23/24 12:06 Last Admin: 07/23/24 12:15 Dose: 100 mg Documented By: MEREDITH Co-signed By: Comments: Per MD Giron at bedside, pt fighting ventilator Rocuronium [place] (Rocuronium Inj 10 Mg/Ml Vial 10 Ml) 50 mg IVP X1 ONE Stop: 07/23/24 14:58 Last Admin: 07/23/24 15:25 Dose: 50 mg Documented By: MEREDITH Co-signed By: Fluticasone/Salmeterol (Fluticasone/Salmeterol 100/50 14 Dose Inh) 1 puff INH BID MONA Stop: 08/21/24 20:59 Last Admin: 07/24/24 09:51 Dose: Not Given Documented By: NONA Non-Admin Reason: Other, see note Comments: pt intubated/sedated Admin: 07/24/24 04:22 Dose: Not Given Documented By: JUAQUIN Non-Admin Reason: Discontinued Admin: 07/23/24 09:49 Dose: Not Given Documented By: MEREDITH Non-Admin Reason: Pt intubated and sedated Admin: 07/22/24 23:24 Dose: Not Given Documented By: MM Non-Admin Reason: Other, see note Comments: pt intubated, unable to actuate DPI Scopolamine (Scopolamine 1 Mg Tdsy) 1 mg TOP Q3D MONA Stop: 08/29/24 14:44 Last Admin: 07/30/24 14:59 Dose: 1 mg Documented By: GUNNAR Sennosides (Senna Tablet) 1 tab PO QDAY MONA; Protocol Stop: 08/20/24 08:59 Last Admin: 07/30/24 09:44 Dose: Not Given Documented By: GUNNAR Non-Admin Reason: NPO Admin: 07/29/24 09:52 Dose: 1 tab Documented By: Admin: 07/28/24 08:52 Dose: 1 tab Documented By: Admin: 07/27/24 08:57 Dose: 1 tab Documented By: Admin: 07/26/24 09:52 Dose: 1 tab Documented By: Admin: 07/25/24 08:46 Dose: 1 tab Documented By: Admin: 07/24/24 09:53 Dose: 1 tab Documented By: Admin: 07/23/24 09:42 Dose: 1 tab Documented By: Admin: 07/22/24 08:45 Dose: 1 tab Documented By: Admin: 07/21/24 09:56 Dose: 1 tab Documented By: TM Sodium Chloride (Sodium Chloride Rt Eva 0.9% 3 Ml Nebu) 3 ml INH PRN PRN PRN Reason: SOLN Stop: 08/19/24 07:31 Sodium Chloride (Sodium Chloride Rt Eva 0.9% 3 Ml Nebu) 3 ml INH PRN PRN PRN Reason: SOLN Stop: 08/19/24 07:49 Last Admin: 07/21/24 07:13 Dose: 3 ml Documented By: Admin: 07/20/24 08:12 Dose: 3 ml Documented By: BERNARD Sodium Chloride (Sodium Chloride Rt 10% 15 Ml Nebu) 5 ml INH PRN PRN PRN Reason: sputum Stop: 08/19/24 12:02 Sodium Chloride (Sodium Chloride Rt Eva 0.9% 3 Ml Nebu) 3 ml INH PRN PRN PRN Reason: SOLN Stop: 08/20/24 03:35 Sodium Chloride (Sodium Chloride Rt 10% 15 Ml Nebu) 5 ml INH X1 ONE Stop: 07/22/24 18:14 Last Admin: 07/22/24 18:15 Dose: Not Given Documented By: ZP Non-Admin Reason: Contraindicated Sodium Chloride (Sodium Chloride Rt 10% 15 Ml Nebu) 5 ml INH X1 ONE Stop: 07/22/24 18:23 Last Admin: 07/22/24 21:16 Dose: Not Given Documented By: AC Non-Admin Reason: Discontinued Sodium Chloride (Sodium Chloride Rt Eva 0.9% 3 Ml Nebu) 3 ml INH PRN PRN PRN Reason: SOLN Stop: 08/22/24 13:10 Sucralfate (Sucralfate 1 Gm Tablet) 1 gm PO BID [facility] Stop: 08/19/24 20:59 Last Admin: 07/23/24 00:25 Dose: 1 gm Documented By: Admin: 07/22/24 08:44 Dose: 1 gm Documented By: Admin: 07/21/24 20:51 Dose: 1 gm Documented By: Admin: 07/21/24 09:55 Dose: 1 gm Documented By: Admin: 07/20/24 21:14 Dose: 1 gm Documented By: CTF Sucralfate (Sucralfate Susp 1 Gm/10 Ml Udc) 1 gm NG BID [facility] Stop: 08/19/24 20:59 Last Admin: 07/30/24 09:44 Dose: Not Given Documented By: GE Non-Admin Reason: NPO Admin: 07/30/24 02:13 Dose: Not Given Documented By: RH Non-Admin Reason: NPO Comments: Admin: 07/29/24 09:51 Dose: 1 gm Documented By: Admin: 07/28/24 20:57 Dose: 1 gm Documented By: Admin: 07/28/24 08:52 Dose: 1 gm Documented By: Admin: 07/27/24 20:05 Dose: 1 gm Documented By: Admin: 07/27/24 08:57 Dose: 1 gm Documented By: Admin: 07/26/24 20:13 Dose: 1 gm Documented By: Admin: 07/26/24 09:52 Dose: 1 gm Documented By: Admin: 07/25/24 21:30 Dose: 1 gm Documented By: Admin: 07/25/24 08:46 Dose: 1 gm Documented By: Admin: 07/24/24 21:23 Dose: 1 gm Documented By: Admin: 07/24/24 09:37 Dose: 1 gm Documented By: Admin: 07/23/24 21:15 Dose: 1 gm Documented By: Admin: 07/23/24 09:42 Dose: 1 gm Documented By: MEREDITH Cefepime 2 g IV. Albuterol and ipratropium breathing treatment. Prednisone 40 mg PO. NS 250cc. Consultations Consultation(s) initiated? (list below): No Diagnosis Differential Diagnosis ED Complaint MDM: CAP, HAP, aspiration PNA, asthma exacerbation, bronchiectasis Most likely diagnosis given after review of the tests above:: Pneumonia, possibly HAP. Admission Indicated Admission indicated?: indicated Explain why admission is indicated or not indicated:: Patient meets criteria for admission per CURB-65. Admission Request Was there a request for admission?: Yes Admission Attestation Admission request attestation: Discussed case with [] from Hospitalist service regarding admission. Discussed patients ED course, exam findings, labs, and radiology results. The Hospitalist [agrees,declines] to accept the patient for admission. Disposition Plan Disposition Plan: Admit Medical Decision Making MDM Narrative MDM Narrative: Patient was recently treated for pneumonia and completed course of antibiotics. Her oxygen demand was normal at that time. She is now back with worsened bilateral infiltrates infiltrates and worsened oxygen demand, now on 4L NC. Her normal oxygen regimen is 3L NC overnight only. Differential Diagnosis Differential Diagnosis: CAP, HAP, aspiration PNA, asthma exacerbation, bronchiectasis Lab Data 07/30/24 04:50 07/30/24 04:50 Labs: Lab Results 07/20/24 07/20/24 07/20/24 Range/Units 08:19 08:40 11:08 WBC 15.7 H (3.6-11.0) Thou/mm3 RBC 2.46 L (4.00-5.20) Miln/mm3 Hgb 7.5 L (12.0-16.0) g/dL Hct 26.0 L (36.0-46.0) % MCV 106 H (80-100) fL MCH 30.5 (25.0-35.0) pg MCHC 28.8 L (31.0-37.0) g/dl RDW Std Deviation 59.4 H (36.4-46.3) fL Plt Count 229 (140-440) Thou/mm3 Neut % (Auto) 82 H (37-80) % Lymph % (Auto) 4 L (10-50) % [place] % (Auto) 8 (0-12) % Eos % (Auto) 4 (0-10) % Baso % (Auto) 0 (0-2.5) % Neut # (Auto) 12.9 H (1.8-7.7) Thou/mm3 Lymph # (Auto) 0.6 L (1.0-4.8) Thou/mm3 [place] # (Auto) 1.3 H (0.0-0.8) Thou/mm3 Eos # (Auto) 0.7 H (0.0-0.5) Thou/mm3 Baso # (Auto) 0.1 (0.0-0.2) Thou/mm3 Immature Gran # (Auto) 0.21 H (0.00-0.00) Thou/mm3 Absolute Nucleated RBC 0.00 (0.00-0.00) Thou/mm3 Immature Gran % 1 H (0-0) % Nucleated RBC % 0 (0) /100 WBC Sodium 136 (136-145) mMol/L Potassium 4.8 (3.4-5.1) mMol/L Chloride 94 L (98-107) mMol/L Carbon Dioxide 39.7 H (20.0-31.0) mMol/L Anion Gap 2 L (7-16) BUN 21 (9-23) mg/dL Creatinine 1.1 (0.6-1.3) mg/dL Estim Creat Clear Calc 52.1 L (>60) mL/min eGFR 51 L (60 - ) See Note BUN/Creatinine Ratio 19 (12-20) Ratio Glucose 148 H (74-106) mg/dL Calculated Osmolality 277 (275-295) Lactic Acid 0.6 (0.4-2.0) mMol/L Calcium 9.1 (8.3-10.6) mg/dL Corrected Calcium 9.4 (8.5-10.1) mg/dL Phosphorus 4.9 (2.4-5.1) mg/dL Magnesium 2.0 (1.6-2.6) mg/dL Total Bilirubin 1.4 H (0.3-1.2) mg/dL AST 26 (0-34) U/L ALT 20 (10-49) U/L Alkaline Phosphatase 60 (46-116) U/L Total Protein 6.4 (5.7-8.2) gm/dL Albumin 3.6 (3.4-4.8) gm/dL Globulin 2.8 (2.3-3.5) gm/dL Albumin/Globulin Ratio 1.3 (1.2-2.2) Procalcitonin 0.22 (0.0-0.49) ng/ml RSV Rapid Negative (Negative) Discharge Plan Plan Patient Disposition: Admit Acute Care w/in Hospital Problem List Clinical Impression: Pneumonia MD Attestation MD Attestation The patient was seen by the PGY-2. I, the supervising physician, also encountered and examined the patient while remaining present during the entire ER visit, available for consultation as needed. I agree with the plan and documentation.
[2024-07-20] MEDS: predniSONE 20 MG TABLET 40 MG PO (07:58)
[2024-07-20] MEDS: IPRATROPIUM RT 0.5 MG/ 2.5 ML NEBU 1 MG INH (08:11)
[2024-07-20] MEDS: ALBUTEROL RT 2.5 MG/0.5 ML NEBU 10 MG INH (08:11)
[2024-07-20] MEDS: SODIUM CHLORIDE RT SOL 0.9% 3 ML NEBU INH (08:12)
[2024-07-20 08:30] LABS: Basophils # (Auto) 0.1 Thou/mm3 (0.0-0.2); Basophils % (Auto) 0 % (0-2.5); Eosinophils # (Auto) 0.7 Thou/mm3 (0.0-0.5); Eosinophils % (Auto) 4 % (0-10); Immature Granulocytes % (Auto) 1 % (0-0); Immature Granulocytes Auto 0.21 Thou/mm3 (0.00-0.00); Lymphocytes # (Auto) 0.6 Thou/mm3 (1.0-4.8); Lymphocytes % (Auto) 4 % (10-50); Mean Corpuscular HGB Conc 28.8 g/dl (31.0-37.0); Mean Corpuscular Hemoglobin 30.5 pg (25.0-35.0); Mean Corpuscular Volume 106 fL (80-100); Monocytes # (Auto) 1.3 Thou/mm3 (0.0-0.8); Monocytes % (Auto) 8 % (0-12); Neutrophils # (Auto) 12.9 Thou/mm3 (1.8-7.7); Neutrophils % (Auto) 82 % (37-80); Nucleated Red Blood Cell % 0 /100 WBC (0); Platelet Count 229 Thou/mm3 (140-440); RDW Standard Deviation 59.4 fL (36.4-46.3); Red Blood Count 2.46 Miln/mm3 (4.00-5.20); White Blood Count 15.7 Thou/mm3 (3.6-11.0)
[2024-07-20 08:38] LABS: Hemoglobin 7.5 g/dL (12.0-16.0)
[2024-07-20 08:56] LABS: Carbon Dioxide 39.7 mMol/L (20.0-31.0); Chloride 94 mMol/L (98-107); Potassium 4.8 mMol/L (3.4-5.1); Sodium 136 mMol/L (136-145)
[2024-07-20] MEDS: CEFEPIME INJ 2 GM in SODIUM CHLORIDE 0.9% (Popper) 50 ML IV ×2 (08:56→21:15)
[2024-07-20 08:57] LABS: Alanine Aminotransferase 20 U/L (10-49); Albumin, Serum 3.6 gm/dL (3.4-4.8); Albumin/Globulin Ratio 1.3 (1.2-2.2); Alkaline Phosphatase 60 U/L (46-116); Anion Gap 2 (7-16); Aspartate Amino Transferase 26 U/L (0-34); BUN/Creatinine Ratio 19 Ratio (12-20); Bilirubin,Total 1.4 mg/dL (0.3-1.2); Blood Urea Nitrogen 21 mg/dL (9-23); Calcium 9.1 mg/dL (8.3-10.6); Calcium (Corrected) 9.4 mg/dL (8.5-10.1); Creatinine (Component) 1.1 mg/dL (0.6-1.3); Estimated Creatinine Clearance 52.1 mL/min (>60); Globulin 2.8 gm/dL (2.3-3.5); Glucose 148 mg/dL (74-106); Osmolality,Calculated 277 (275-295); Phosphorous 4.9 mg/dL (2.4-5.1); Procalcitonin 0.22 ng/ml (0.0-0.49); Total Protein 6.4 gm/dL (5.7-8.2); eGFR 51 See Note
[2024-07-20 09:00] LABS: Lactate (Lactic Acid) 0.6 mMol/L (0.4-2.0)
[2024-07-20] MEDS: SODIUM CHLORIDE 0.9% 250 ML 250 ML 999 ML IV (09:36)
[2024-07-20 12:07] LABS: Respiratory Syncytial Virus Ag Negative (Negative)
--- NOTE | 2024-07-20 13:37 | ESHP_ITS ---
<Statement entered by Otilia Pradhna MD - 07/20/24 17:01> Patient was seen and examined by me personally. I have directly supervised and reviewed the above documentation by the team resident and agree with its findings with any exceptions or additional findings as below. Plan of care was discussed with the attending, Dr. Trevino. 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 Patient states that she was told she had asthma years ago and remembers completing pulmonary testing but was not told of any diagnosis of COPD in the past. She reports remote smoking history but quit 30 years ago. Patient denied fevers. On ED evaluation was found to have leukocytosis of 15.7, tachycardia to 100s, and chest x-ray showed mild heart failure pattern with extensive bilateral lung opacities that are new since X-ray from previous admission. She was saturating 93% on 4L O2 which is above her baseline. Patient will be admitted for acute hypoxic respiratory failure secondary to community acquired versus healthcare associated pneumonia, will start IV cefepime for Pseudomonal coverage and nebulizing treatments. On reviewing the patient's past X-rays and chest CTs, it appears the patient has some level of chronic interstitial lung disease, however patient reports she has not been to see a refractory technician yet and was currently trying to obtain a referral with her PCP. Otilia Pradhan, PGY-2 Documentation for date of: 07/20/24 HPI History of Present Illness Chief complaint: Shortness of breath History of present illness: 79-year-old female with past medical history of asthma (on 3 L at baseline), CVA with left-sided weakness (bilateral cerebellar, September 2023), atrial fibrillation (on Eliquis), CKD stage IIIa and status post aortic valve replacement (2020) who presented to the emergency department via EMS from long term facility on 07/20/2024 with a chief complaint of worsening shortness of breath. Patient's partner at bedside who contributed in procuring history, patient reported that for about 3 days she has been having worsening shortness of breath and difficulty breathing. Patient reports being at rehab center since her previous stroke, reports she has been having difficulties participating with physical therapy as well. Patient also reports that she uses oxygen every night at the facility about 3 L, but that she has required increased oxygenation needs especially during the day. Patient was recently discharged from the hospital on 07/15 for stroke rule out; moreover, MRI brain did not show any acute infarct at that time. Patient's Augmentin was stopped at that time as she was saturating within her baseline and was not symptomatic. Past medical history: asthma (on 3 L at baseline), CVA with left-sided weakness (bilateral cerebellar, September 2023), atrial fibrillation (on Eliquis), CKD stage IIIa and status post aortic valve replacement (2020) Past surgical history: Post aortic valve replacement 2020, right knee joint replacement, angiogram, ear surgery, tonsillectomy, abdominal surgery, hysterectomy and tubal ligation Allergies: Clindamycin (hives) latex (hives, swelling), clavulanic acid, shellfish (abdominal pain) and codeine (upset stomach) Medications: Pending med rec Family History: Positive for COPD in mother, diabetes mellitus in father Social history: Smoking: Smoker 1 PPD till 1992, occasional alcohol use, positive THC use in the past. ROS: All 12 systems assessed and the patient denies unless otherwise stated in HPI In the ED, patient presented with blood pressure 135/68, heart rate 106, respiratory rate 19, afebrile but in acute hypoxic respiratory failure requiring 15 L of oxy mask. Pertinent lab findings include WBC of 15.7, hemoglobin 7.5 with MCV of 106, platelet 229, sodium 136, potassium 4.8, creatinine 1.1, lactic acid 0.6, magnesium 2.0, Pro-Ajay 0.22, COVID and influenza negative, RSV negative. Chest x-ray showed mild heart failure pattern with extensive bilateral lung opacities, EKG showed atrial fibrillation. Patient will be admitted for treatment of community-acquired pneumonia with IV antibiotics we will monitor for any acute changes. Exam Vital Signs Temp Pulse Resp BP Pulse Ox O2 Del Method O2 Flow Rate 98.0 F 96 16 103/56 L 97 Nasal Cannula 4 07/20/24 11:07/20/24 11:07/20/24 11:07/20/24 11:00 07/20/24 11:00 07/20/24 11:00 07/20/24 11:00 Narrative Exam Physical Exam: GENERAL: Awake, answering questions appropriately, appears stated age, obese HEENT: NC/AT. Moist mucosa. PERRLA/EOMI. CARDIO: Heart RRR, no obvious murmurs, no JVD. PULM: No coughing but appears visibly short of breath with 4-5 L of nasal cannula oxygen. Reduced respiratory effort, no wheeze/rales/rhonchi auscultated GI: Abdomen soft, NT/ND, +BS. SKIN/MSK/EXT: Nonpitting edema noted on bilateral lower extremities up to ankles. No wounds/discoloration/rashes/amputations. +Pedal pulses present B/L. NEURO: Oriented x3, no focal neurologic deficits noted. Results: Labs 07/21/24 04:50 07/21/24 04:50 Labs: Short CBC 07/20/24 Range/Units 08:19 WBC 15.7 H (3.6-11.0) Thou/mm3 Hgb 7.5 L (12.0-16.0) g/dL Hct 26.0 L (36.0-46.0) % Plt Count 229 (140-440) Thou/mm3 BMP 07/20/24 08:19 Sodium 136 Potassium 4.8 Chloride 94 L Carbon Dioxide 39.7 H BUN 21 Creatinine 1.1 Glucose 148 H Calcium 9.1 Liver Function 07/20/24 Range/Units 08:19 Total Bilirubin 1.4 H (0.3-1.2) mg/dL AST 26 (0-34) U/L ALT 20 (10-49) U/L Alkaline Phosphatase 60 (46-116) U/L Albumin 3.6 (3.4-4.8) gm/dL Quality Measures Quality Measures VTE prophylaxis Advance care planning discussed with:: patient and spouse Medications Home Medications and Allergies Home Medications ?Medication ?Instructions ?Recorded ?Confirmed ?Type lisinopril 10 mg tablet 20 mg PO QDAY HTN #0 tabs 07/20/24 History Held on 07/15/24. Instructions: Resume on 07/22/24. Hold until you see your primary care physician to discuss the need for this medication since your blood pressure has been well under control metoprolol succinate 50 mg capsule 25 mg PO QDAY HTN 0 01/01/23 07/20/24 History sprinkle, ext. release 24 hr sucralfate 1 gram tablet 1 g PO BID ANTACID 10/07/23 07/20/24 History coQ10 (ubiquinol) 200 mg capsule 400 mg PO QDAY SUPPLE MENT 10/08/23 07/20/24 History ferrous sulfate 325 mg (65 mg 325 mg PO BID SUPPLEMENT 11/18/23 07/20/24 History iron) tablet pantoprazole 40 mg tablet,delayed 40 mg PO QDAY GERD 0 11/18/23 07/20/24 History release (Protonix) acetaminophen 325 mg tablet 650 mg PO Q6H PRN mild arnel n (scale 07/20/24 07/20/24 History score 1-4) bisacodyl 10 mg rectal suppository 10 mg OH .Every 72 hrs PRN 07/20/24 07/20/24 History (Laxative (bisacodyl)) constipation calcium carbonate 1,000 mg PO QID PRN Acid Ref lux 07/20/24 07/20/24 History fexofenadine 180 mg tablet 180 mg PO Q24H PRN allergie s 07/20/24 07/20/24 History ipratropium 0.5 mg-albuterol 3 mg 3 ml inhalation TID SOB 07/20/24 07/20/24 History (2.5 mg base)/3 mL nebulization soln magnesium hydroxide 400 mg/5 mL 30 ml PO .Every 72 Hrs PRN 07/20/24 07/20/24 History oral suspension (Milk of Magnesia) constipation melatonin 3 mg tablet 3 mg PO HS PRN insomnia 0308/1107/20/24 History midodrine 10 mg tablet 10 mg PO BID 07/20/24 History sodium phosphates 19 gram-7 118 ml OH .Every 72 HRS OH N 07/20/24 07/20/24 History gram/118 mL enema (Fleet Enema) constipation tramadol 50 mg tablet 50 mg PO Q6H PRN pain 07/20/24 History Allergies Allergy/AdvReac Type Severity Reaction Status Date / Time clindamycin Allergy Intermediate Hives Verified 07/13/24 18:51 latex Allergy Mild hives Verified 07/13/24 18:51 swelling clavulanic acid Allergy Verified 07/13/24 18:51 shellfish derived Allergy Abdominal Verified 07/13/24 18:51 Pain codeine AdvReac Mild STOMACH Verified 07/13/24 18:51 UPSET Visit Medications Acetaminophen (Acetaminophen 325 Mg Tablet) 650 mg PO Q6H PRN PRN Reason: Pain 1-3 and/or Fever >100.1 Stop: 08/19/24 11:57 Heparin Sodium (Porcine) (Heparin Sod Inj 5000 Unit/Ml Vial) 5,000 unit SC Q12HR MONA Stop: 08/03/24 20:59 Cefepime HCl 2 gm/ Sodium (Chloride) 50 mls @ 100 mls/hr IV Q12HR MONA Stop: 07/27/24 20:59 Levalbuterol HCl (Levalbuterol Rt 0.63 Mg/3 Ml Nebu) 0.63 mg INH Q8HR PRN PRN Reason: WHEEZING Stop: 08/19/24 11:57 Ondansetron HCl (Ondansetron Inj 2 Mg/Ml Inj 2 Ml) 4 mg IV Q6H PRN; Protocol PRN Reason: NAUSEA OR VOMITING Stop: 08/19/24 11:57 Sennosides (Senna Tablet) 1 tab PO QDAY MONA; Protocol Stop: 08/20/24 08:59 Sodium Chloride (Sodium Chloride Rt Eva 0.9% 3 Ml Nebu) 3 ml INH PRN PRN PRN Reason: SOLN Stop: 08/19/24 07:49 Last Admin: 07/20/24 08:12 Dose: 3 ml Sodium Chloride (Sodium Chloride Rt 10% 15 Ml Nebu) 5 ml INH PRN PRN PRN Reason: sputum Stop: 08/19/24 12:02 Discontinued Medications Albuterol (Albuterol Rt 2.5 Mg/0.5 Ml Nebu) 2.5 mg INH X1 ONE Stop: 07/20/24 07:33 Last Admin: 07/20/24 07:43 Dose: Not Given Albuterol (Albuterol Rt 2.5 Mg/0.5 Ml Nebu) 10 mg INH X1 ONE Stop: 07/20/24 07:51 Last Admin: 07/20/24 08:11 Dose: 10 mg Ceftriaxone Sodium 2 gm/ (Sodium Chloride) 50 mls @ 100 mls/hr IV X1 ONE Stop: 07/20/24 08:50 Last Admin: 07/20/24 08:29 Dose: Not Given Azithromycin 500 mg/ Sodium (Chloride) 250 mls @ 250 mls/hr IV X1 ONE Stop: 07/20/24 09:20 Last Admin: 07/20/24 08:28 Dose: Not Given Cefepime HCl 2 gm/ Sodium (Chloride) 50 mls @ 100 mls/hr IV X1 ONE Stop: 07/20/24 08:55 Last Infusion: 07/20/24 09:31 Dose: Infused Sodium Chloride (Ns) 250 mls @ 999 mls/hr IV .Q16M ONE Stop: 07/20/24 09:25 Last Infusion: 07/20/24 10:01 Dose: Infused Ipratropium [place] (Ipratropium Rt 0.5 Mg/ 2.5 Ml Nebu) 1 mg INH X1 ONE Stop: 07/20/24 07:51 Last Admin: 07/20/24 08:11 Dose: 1 mg Prednisone (Prednisone 20 Mg Tablet) 40 mg PO X1 ONE Stop: 07/20/24 07:51 Last Admin: 07/20/24 07:58 Dose: 40 mg Sodium Chloride (Sodium Chloride Rt Eva 0.9% 3 Ml Nebu) 3 ml INH PRN PRN PRN Reason: SOLN Stop: 08/19/24 07:31 Assessment & Plan Plan 79-year-old female with past medical history of asthma (on 3 L at baseline), CVA with left-sided weakness (bilateral cerebellar, September 2023), atrial fibrillation (on Eliquis), CKD stage IIIa and status post aortic valve replacement (2020) who presented to the emergency department via EMS from long term facility on 07/20/2024 with a chief complaint of worsening shortness of breath will be admitted for treatment of community-acquired pneumonia with IV antibiotics we will monitor for any acute changes. #Community-acquired pneumonia #Asthma #Leukocytosis Patient is presenting with worsening shortness of breath, dyspnea. Patient uses 2 L of oxygen at night, but is unsure exactly why she does. She has not been able to follow-up with the refractory technician outpatient but states that she has been on oxygen for several years now. In the ED, patient required 10 L of oxy mask oxygen supplementation but was eventually weaned down to 4 to 5 L Patient also received albuterol and ipratropium breathing treatments in the ED which helped symptomatically Was admitted to the hospital few weeks ago for stroke r/o; which was ruled out Plan: Will cover for pseudomonas and start Cefepime 2g q12h Sputum cultures pending Blood cultures pending Levalbuterol breathing treatment as needed Oxygen supplementation Refer to pulmonology outpatient for PFTs Spoke with Dr. Lizarraga (patient's physician at the SNF) - requesting workup for increased oxygen needs #Atrial fibrillation, rate controlled #CHF, by personal history #Status post TAVR, 2020 EKG today shows atrial fibrillation but rate controlled Plan: Daily weight Strict I/Os Fluid restriction of 1800ml daily Tele admit Continue home Eliquis dose and metoprolol succinate 25mg daily #Chronic kidney disease stage IIIA Baseline Cr ranging from 1.0 to 1.2 Currently presenting with Cr of 1.1 Plan: Avoid nephrotoxic agents Renally dose medications Renal diet Monitor electrolytes with morning labs #Macrocytic anemia No signs of acute bleeding, MCV is elevated at 106 Patient has low B12 last time it was checked; 303 on 07/14/24 Given 1000mg of B12 on last admission Plan: B12 stores take months to improve and reflect with increase in Hgb levels Will monitor with morning labs #GERD #Gastritis #Bilateral lower extremity weakness #History of bilateral cerebellar stroke with left-sided weakness Chronic medical conditions not pertinent to current admission PT ordered for re-entry to SNF when ready for discharge Hospital Management: Lines: PIV Diet: Cardiac Bowel: Senna GI prophylaxis: Not needed DVT prophylaxis: Subq heparin Dispo: IV abx for CAP, pending sputum cultures and monitoring morning labs for response Code: Full Patient seen and examined with attending Dr. Trevino and senior resident Dr. Carolynn Peng, PGY-1 Attending Provider Attestation/Addendum I have examined the patient, reviewed labs and imaging findings, discussed the case with the resident(s), and reviewed entered orders. I agree with the plan of care as outlined in this note. Dr. Belinda MD
[2024-07-20 16:41] LABS: Collection Type, Urine Clean Catch; RBC,Urine 0 /hpf (0-3); Squamous Epithelial Cell,Urine 0 /hpf (0-5); WBC,Urine 0 /hpf (0-5)
--- NOTE | 2024-07-20 16:53 | PC.NURSE ---
Pt states she has spoken to [facility] facility Doctor and would like our Hospitalist to give the MD a call so that they may coordinate care. Dr. Peng made aware of patient message and was provided with contact information for [facility]/Dr. Lizarraga .
[2024-07-20 17:26] LABS: Bilirubin,Urine Negative (Negative); Blood,Urine Negative (Negative); Clarity,Urine Turbid (Clear/Hazy); Color,Urine Yellow (Lt Yel-Yel); Glucose, Urine Negative (Negative); Ketones,Urine Negative (Negative); Leukocyte Esterase,Urine Positive (Negative); Nitrite,Urine Positive (Negative); PH,Urine 5.5 (5.0-7.0); Protein,Urine 1+ (Neg - Trace); Specific Gravity,Urine 1.039 (1.001-1.035); Urobilinogen,Urine Negative mg/dL (0.0-1.0)
[2024-07-20] MEDS: LEVALBUTEROL RT 0.63 MG/3 ML NEBU INH (21:02)
[2024-07-20] MEDS: APIXABAN 2.5 MG TABLET 5 MG PO (21:14)
[2024-07-20] MEDS: SUCRALFATE 1 GM TABLET PO (21:14)
[2024-07-20] MEDS: BENZONATATE 100 MG CAPSULE PO (21:14)
[2024-07-21] VITALS (17 sets, daily range): BP systolic 100–142; BP diastolic 64–94; PULSE 89–119; RESP 16–33; TEMP 36.1–37.4; O2SAT 90–100; BMI 38.0
--- NOTE | 2024-07-21 03:35 | PC.NURSE ---
seen and examined by Dr. Mora.
[2024-07-21] MEDS: LEVALBUTEROL RT 1.25 MG/0.5 ML NEBU INH ×2 (03:55→11:30)
[2024-07-21] MEDS: IPRATROPIUM RT 0.5 MG/ 2.5 ML NEBU 1 MG INH (03:55)
--- NOTE | 2024-07-21 04:36 | PC.NURSE ---
88% O2 sat on 3L/min/nc, pt asleep- Increased to 4L/min/nc.
[2024-07-21 05:44] LABS: Basophils % (Auto) 0 % (0-2.5); Eosinophils % (Auto) 0 % (0-10); Hematocrit 25.1 % (36.0-46.0); Immature Granulocytes % (Auto) 1 % (0-0); Immature Granulocytes Auto 0.15 Thou/mm3 (0.00-0.00); Lymphocytes # (Auto) 0.4 Thou/mm3 (1.0-4.8); Lymphocytes % (Auto) 3 % (10-50); Mean Corpuscular HGB Conc 29.5 g/dl (31.0-37.0); Mean Corpuscular Hemoglobin 30.7 pg (25.0-35.0); Mean Corpuscular Volume 104 fL (80-100); Monocytes # (Auto) 0.9 Thou/mm3 (0.0-0.8); Monocytes % (Auto) 7 % (0-12); Neutrophils # (Auto) 11.8 Thou/mm3 (1.8-7.7); Neutrophils % (Auto) 88 % (37-80); Nucleated Red Blood Cell % 0 /100 WBC (0); Platelet Count 221 Thou/mm3 (140-440); RDW Standard Deviation 59.7 fL (36.4-46.3); Red Blood Count 2.41 Miln/mm3 (4.00-5.20); White Blood Count 13.3 Thou/mm3 (3.6-11.0)
[2024-07-21 06:12] LABS: Hemoglobin 7.4 g/dL (12.0-16.0)
[2024-07-21 06:28] LABS: Alanine Aminotransferase 20 U/L (10-49); Albumin, Serum 3.5 gm/dL (3.4-4.8); Albumin/Globulin Ratio 1.3 (1.2-2.2); Alkaline Phosphatase 56 U/L (46-116); Anion Gap 4 (7-16); Aspartate Amino Transferase 28 U/L (0-34); BUN/Creatinine Ratio 20 Ratio (12-20); Bilirubin,Total 1.2 mg/dL (0.3-1.2); Blood Urea Nitrogen 22 mg/dL (9-23); Calcium 8.9 mg/dL (8.3-10.6); Calcium (Corrected) 9.3 mg/dL (8.5-10.1); Carbon Dioxide 38.2 mMol/L (20.0-31.0); Chloride 95 mMol/L (98-107); Creatinine (Component) 1.1 mg/dL (0.6-1.3); Estimated Creatinine Clearance 55.7 mL/min (>60); Globulin 2.8 gm/dL (2.3-3.5); Glucose 145 mg/dL (74-106); Magnesium 2.2 mg/dL (1.6-2.6); Osmolality,Calculated 280 (275-295); Phosphorous 4.7 mg/dL (2.4-5.1); Potassium 5.3 mMol/L (3.4-5.1); Sodium 137 mMol/L (136-145); Total Protein 6.3 gm/dL (5.7-8.2); eGFR 51 See Note
[2024-07-21] MEDS: LEVALBUTEROL RT 0.63 MG/3 ML NEBU INH ×4 (07:13→22:12)
[2024-07-21] MEDS: SODIUM CHLORIDE RT SOL 0.9% 3 ML NEBU INH (07:13)
[2024-07-21] MEDS: APIXABAN 2.5 MG TABLET 5 MG PO ×2 (09:54→20:51)
[2024-07-21] MEDS: SUCRALFATE 1 GM TABLET PO ×2 (09:55→20:51)
[2024-07-21] MEDS: SENNA TABLET 1 TAB PO (09:56)
[2024-07-21] MEDS: CEFEPIME INJ 2 GM in SODIUM CHLORIDE 0.9% (Popper) 50 ML IV ×2 (09:58→20:51)
[2024-07-21] MEDS: METOPROLOL SUCCINATE XL 25 MG TABCR PO (10:00)
--- NOTE | 2024-07-21 10:00 | PC.NURSE ---
Contacted Dr. Peng regarding Metoprolol order, BP 101/67, HR 104. Per MD quinonez to administer medication. Medication administered.
[2024-07-21] MEDS: IPRATROPIUM RT 0.5 MG/ 2.5 ML NEBU INH ×4 (11:29→22:11)
--- NOTE | 2024-07-21 12:27 | ESPR_ITS ---
<Statement entered by Otilia Pradhan MD - 07/21/24 22:58> Patient was seen and examined by me personally. I have directly supervised and reviewed documentation by the team resident and agree with its findings with any exceptions or additional findings as below. Plan of care was discussed with the attending, Dr. Trevino. Overnight, it was reported that the patient had significant wheezing and shortness of breath requiring additional nebulizing treatments. She was seen this morning saturating in the 90s on 4-5L O2, but with tachypnea and mild wheezing. Levalbuterol and ipratropium were changed to q4h scheduled. Patient was given 40 mg PO prednisone. We consulted pulmonology given the patient's past chest CT findings (most recently in May 2024) showing significant interstitial density and bilateral pulmonary nodules and the setting of acute on chronic respiratory failure requiring supplemental oxygen. Blood cultures are negative at 24 hours, sputum gram stain shows 1+ gram positive cocci, culture pending, and MRSA screen was negative. Cocci IgM is negative this admission. Patient developed increased O2 requirements and appeared more drowsy toward the afternoon, ABG was ordered and showed respiratory acidosis with hypercapnia, CO2 of 102. Therefore decision was made to start the patient on BiPAP. Steroids were changed to Solu-Medrol 60 mg q8h. IV cefepime 2 g q12h will be continued. Repeat ABGs ordered. Night team updated on the patient's status and will continue to follow closely, low threshold for intubation should the patient decompensate. Otilia Pradhan, PGY-2 Documentation for date of: 07/21/24 Subjective Subjective Interval history: 07/21/2024: No acute overnight events to report. Patient seen and assessed in hospital bed continues to be on supplemental oxygenation with 5 L nasal cannula but saturating well above 90. Patient's blood cultures show no growth within 24 hours; however, sputum cultures and cocci IgM are still pending. Continuing to treat the patient with breathing treatments, IV solumedrol and broad-spectrum antibiotics with Pseudomonas coverage; moreover, will acquire recommendations and expertise from coding coordinator regarding the patient's prior CT chest findings. Patient will require repeat CT imaging to assess for the subcentimeter pulmonary nodules which were seen in May 2024. Patient was also hyperkalemic on morning labs; moreover, will follow-up with afternoon labs to assess. Exam Vital Signs Temp Pulse Resp BP Pulse Ox O2 Del Method O2 Flow Rate 97.0 F 102 H 25 H 101/67 99 Nasal Cannula 5 07/21/24 08:00 07/21/24 11:32 07/21/24 11:32 07/21/24 10:00 07/21/24 11:32 07/21/24 08:00 07/21/24 11:32 Narrative Exam Physical Exam: GENERAL: Awake, answering questions appropriately, appears stated age, obese HEENT: NC/AT. Moist mucosa. PERRLA/EOMI. CARDIO: Heart RRR, no obvious murmurs, no JVD. PULM: No coughing but appears visibly short of breath with 4-5 L of nasal cannula oxygen. Reduced respiratory effort, no wheeze/rales/rhonchi auscultated GI: Abdomen soft, NT/ND, +BS. SKIN/MSK/EXT: Nonpitting edema noted on bilateral lower extremities up to ankles. No wounds/discoloration/rashes/amputations. +Pedal pulses present B/L. NEURO: Oriented x3, no focal neurologic deficits noted. Objective Labs 07/21/24 04:50 07/21/24 15:30 Labs: Laboratory Results - last 24 hr 07/20/24 07/21/24 16:00 04:50 WBC 13.3 H RBC 2.41 L Hgb 7.4 L Hct 25.1 L MCV 104 H MCH 30.7 MCHC 29.5 L RDW Std Deviation 59.7 H Plt Count 221 Neut % (Auto) 88 H Lymph % (Auto) 3 L Kent % (Auto) 7 Eos % (Auto) 0 Baso % (Auto) 0 Neut # (Auto) 11.8 H Lymph # (Auto) 0.4 L Kent # (Auto) 0.9 H Eos # (Auto) 0.0 Baso # (Auto) 0.0 Immature Gran # (Auto) 0.15 H Absolute Nucleated RBC 0.00 Immature Gran % 1 H Nucleated RBC % 0 Sodium 137 Potassium 5.3 H D Chloride 95 L Carbon Dioxide 38.2 H Anion Gap 4 L BUN 22 Creatinine 1.1 Estim Creat Clear Calc 55.7 L eGFR 51 L BUN/Creatinine Ratio 20 Glucose 145 H Calculated Osmolality 280 Calcium 8.9 Corrected Calcium 9.3 Phosphorus 4.7 Magnesium 2.2 Total Bilirubin 1.2 AST 28 ALT 20 Alkaline Phosphatase 56 Total Protein 6.3 Albumin 3.5 Globulin 2.8 Albumin/Globulin Ratio 1.3 Ur Collection Type Clean Catch Urine Color Yellow Urine Clarity Turbid A Urine pH 5.5 Ur Specific Guy 1.039 H Urine Protein 1+ A Urine Glucose (UA) Negative Urine Ketones Negative Urine Blood Negative Urine Nitrite Positive Urine Bilirubin Negative Urine Urobilinogen (Auto) Negative Ur Leukocyte Esterase Positive Urine RBC 0 Urine WBC 0 Ur Squamous Epith Cells 0 Urine Bacteria None Quality Measures Quality Measures VTE prophylaxis Advance care planning discussed with:: patient and spouse Assessment & Plan Assessment Current Active Medications: Generic Name Dose Route Start Last Admin Trade Name Freq PRN Reason Stop Dose Admin Acetaminophen 650 mg 07/20/24 11:58 Acetaminophen 325 Mg Tablet PO 08/19/24 11:57 Q6H PRN Pain 1-3 and/or Fever >100.1 Apixaban 5 mg 07/20/24 21:00 07/21/24 09:54 Apixaban 2.5 Mg Tablet PO 08/19/24 20:59 5 mg BID MONA Administration Benzonatate 100 mg 07/20/24 20:52 07/20/24 21:14 Benzonatate 100 Mg Capsule PO 08/19/24 20:59 100 mg BID PRN Administration COUGH Protocol Cefepime HCl 2 gm/ Sodium 50 mls @ 100 mls/hr 07/20/24 21:00 07/21/24 09:58 Chloride IV 07/27/24 20:59 100 mls/hr Q12HR MONA Administration Ipratropium Elgin 0.5 mg 07/21/24 10:43 07/21/24 11:29 Ipratropium Rt 0.5 Mg/ 2.5 Ml Nebu INH 08/20/24 18:59 0.5 mg BIDRT PRN Administration Shortness of breath and wheezing Protocol Ipratropium Elgin 0.5 mg 07/21/24 15:00 Ipratropium Rt 0.5 Mg/ 2.5 Ml Nebu INH 08/20/24 14:59 Q4HRRT MONA Levalbuterol HCl 1.25 mg 07/21/24 10:39 07/21/24 11:30 Levalbuterol Rt 1.25 Mg/0.5 Ml Nebu INH 08/20/24 18:59 1.25 mg BIDRT PRN Administration Shortness of breath or wheezing Protocol Levalbuterol HCl 0.63 mg 07/21/24 15:00 Levalbuterol Rt 0.63 Mg/3 Ml Nebu INH 08/20/24 14:59 Q4HRRT MONA Metoprolol Succinate 25 mg 07/21/24 09:00 07/21/24 10:00 Metoprolol Succinate Xl 25 Mg Tabcr PO 08/20/24 08:59 25 mg QDAY MONA Administration Ondansetron HCl 4 mg 07/20/24 11:58 Ondansetron Inj 2 Mg/Ml Inj 2 Ml IV 08/19/24 11:57 Q6H PRN NAUSEA OR VOMITING Protocol Prednisone 20 mg 07/21/24 12:15 Prednisone 20 Mg Tablet PO 08/20/24 12:14 QDAY MONA Sennosides 1 tab 07/21/24 09:00 07/21/24 09:56 Senna Tablet PO 08/20/24 08:59 1 tab QDAY MONA Administration Protocol Sodium Chloride 5 ml 07/20/24 12:03 Sodium Chloride Rt 10% 15 Ml Nebu INH 08/19/24 12:02 PRN PRN sputum Sodium Chloride 3 ml 07/21/24 10:39 Sodium Chloride Rt Eav 0.9% 3 Ml Nebu INH 08/20/24 10:38 PRN PRN SOLN Sucralfate 1 gm 07/20/24 21:00 07/21/24 09:55 Sucralfate 1 Gm Tablet PO 08/19/24 20:59 1 gm BID MONA Administration Plan 79-year-old female with past medical history of asthma (on 3 L at baseline), CVA with left-sided weakness (bilateral cerebellar, September 2023), atrial fibrillation (on Eliquis), CKD stage IIIa and status post aortic valve replacement (2020) who presented to the emergency department [facility] on 07[facility]24 with a chief complaint of worsening shortness of breath will be admitted for treatment of community-acquired pneumonia with IV antibiotics we will monitor for any acute changes. #Community-acquired pneumonia #Asthma #Leukocytosis Patient is presenting with worsening shortness of breath, dyspnea. Patient uses 2 L of oxygen at night, but is unsure exactly why she does. She has not been able to follow-up with the coding coordinator outpatient but states that she has been on oxygen for several years now. In the ED, patient required 10 L of oxy mask oxygen supplementation but was eventually weaned down to 4 to 5 L Patient also received albuterol and ipratropium breathing treatments in the ED which helped symptomatically Spoke with Dr. Lizarraga (patient's physician at the SNF) - requesting workup for increased oxygen needs Was admitted to the hospital few weeks ago for stroke r/o; which was ruled out Blood cultures no growth within 24 hours Plan: ICU wet process miller head/coding coordinator will follow the patient; appreciate recommendations Continue cefepime 2g q12h Sputum cultures pending Levalbuterol breathing treatment as needed IV solumedrol 40mg q8h Oxygen supplementation Refer to pulmonology outpatient for PFTs #Atrial fibrillation, rate controlled #CHF, by personal history #Status post TAVR, 2020 EKG today shows atrial fibrillation but rate controlled Plan: Daily weight Strict I/Os Fluid restriction of 1800ml daily Tele admit Continue home Eliquis dose and metoprolol succinate 25mg daily #Chronic kidney disease stage IIIA #Hyperkalemia Baseline Cr ranging from 1.0 to 1.2 Currently presenting with Cr of 1.1 Potassium of 5.3, increased from 4.8 Plan: Repeat potassium level at 3 PM Avoid nephrotoxic agents Renally dose medications Renal diet Monitor electrolytes with morning labs #Macrocytic anemia No signs of acute bleeding, MCV is elevated at 106 Patient has low B12 last time it was checked; 303 on 07/14/24 Given 1000mg of B12 on last admission Plan: B12 stores take months to improve and reflect with increase in Hgb levels Will monitor with morning labs #GERD #Gastritis #Bilateral lower extremity weakness #History of bilateral cerebellar stroke with left-sided weakness Chronic medical conditions not pertinent to current admission PT ordered for re-entry to SNF when ready for discharge Hospital Management: Lines: PIV Diet: Cardiac, fluid restriction 1800 mL Bowel: Senna GI prophylaxis: Not needed DVT prophylaxis: Subq heparin Dispo: IV abx for CAP, pending sputum cultures and monitoring morning labs for response Code: Full Patient seen and examined with attending Dr. Trevino and senior resident Dr. Carolynn Peng, PGY-1 Attending Provider Attestation/Addendum I have examined the patient, reviewed labs and imaging findings, discussed the case with the resident(s), and reviewed entered orders. I agree with the plan of care as outlined in this note, with these additional summaries/recommendations: Patient seen at bedside. No acute overnight events. Today patient continues to endorse shortness of breath, productive cough, and significant sputum production. Patient has acute on chronic hypoxic respiratory failure. Chest x- ray on admission showed extensive bilateral lung opacities suggestive of pneumonia. We will continue IV antibiotics. Sputum culture pending. Blood cultures on admission show no growth at 24. Patient also receiving treatment for asthma/COPD exacerbation. She has never completed formal pulmonary lung function test although significant wheezing present. Will continue breathing treatments, steroids, and antibiotics. In-house pulmonology to evaluate. Previous imaging on 06/11/2024 revealed multiple subcentimeter pulmonary nodules and patient will need repeat imaging in an additional 2 months and if increased in size would benefit from biopsy. Patient has chronic atrial fibrillation and we will continue home Eliquis and metoprolol. Patient and partner updated on the plan and in agreement. Repeat hematology and chemistry panel in AM. Dr. Belinda MD
--- NOTE | 2024-07-21 12:42 | PC.SS ---
Addendum entered by Yduy Blue 07/21/24 12:46: Brandy at [facility] states they will accept pt back with or without PT. Original Note: spoke to Brandy at [facility] who states pt does not require PT evaluation to return to their facility. Brandy from [facility] explained pt participated in PT at their facility.
[2024-07-21 13:15] LABS: Cocci Serology, IgM Negative (Negative)
--- NOTE | 2024-07-21 14:21 | PC.PT ---
PT eval only. Patient has not stood or ambulated in multiple weeks. Patient appears to be at her baseline. RN made aware.
[2024-07-21] MEDS: predniSONE 20 MG TABLET PO (14:25)
--- NOTE | 2024-07-21 15:41 | PC.NURSE ---
Verified with [facility] pharmacist administration of solumedrol related to administration of prednisone at 1430. Per pharmacist okay to administer solumedrol close in duration to prednisone.
[2024-07-21 15:53] LABS: Base Excess 12 (-3-3); HCO3 42 mEq/L (20-26); Inspired O2, VO2 Liters 5 L/min; Inspired Oxygen, FIO2 21 %; O2 Saturation 91 % (91-98); PCO2 102 mmHg (32.0-48.0); PO2 66 mmHg (83-108); pH, Arterial 7.22 (7.35-7.45)
[2024-07-21 15:56] LABS: Allen Test Performed/OK; Puncture Site Right Radial
[2024-07-21 16:03] LABS: Potassium 5.3 mMol/L (3.4-5.1)
[2024-07-21] MEDS: INSULIN HUM REGULAR 1 UNIT/0.01 ML (PER UNIT) 5 UNIT IV (17:33)
[2024-07-21] MEDS: DEXTROSE 50%-WATER INJ 50 ML SYRINGE IV (17:34)
[2024-07-21 19:02] LABS: Base Excess 10 (-3-3); HCO3 41 mEq/L (20-26); Inspired Oxygen, FIO2 50 %; O2 Saturation 89 % (91-98); PCO2 106 mmHg (32.0-48.0); PO2 63 mmHg (83-108)
[2024-07-21 19:03] LABS: Allen Test Performed/OK; Puncture Site Left Radial
[2024-07-21 19:05] LABS: pH, Arterial 7.19 (7.35-7.45)
[2024-07-21] MEDS: Magnesium Sulfate 2 GM Ivpb 50 ML IV (19:35)
[2024-07-21 21:13] LABS: Base Excess 12 (-3-3); HCO3 40 mEq/L (20-26); Inspired Oxygen, FIO2 40 %; O2 Saturation 97 % (91-98); PCO2 85 mmHg (32.0-48.0); PO2 80 mmHg (83-108); pH, Arterial 7.29 (7.35-7.45)
[2024-07-21 21:15] LABS: Allen Test Performed/OK; Puncture Site Left Radial
--- NOTE | 2024-07-21 22:28 | PD.PUCONS ---
HPI Pulmonology Consult Data of Consult Requesting Physician: Washington Trevino MD Primary Care Provider: Shalom Sheikh MD Consult Narrative History of present illness: Patient is a 79 year old female with PMH significant for atrial fibrillation, asthma, TAVR, and multiple CVAs who presented from SNF with increased dyspnea and wheezing. Patient with remote pulmonary function testing though no childhood history of asthma. Worked originally for [employer] in [place] before moving to [facility] where she worked in the [employer] industry prior to halfway. Now in halfway lives in [facility]. No known mold exposure, relatively newer home. 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 No drug use, supplement use. No chronic medications in past, now on amiodarone. No significant history of autoimmune disease. Patient with no family history of lung disease except COPD, smoker parents. Patient with remote history of smoking, bu 30 pack years. Patient with increasing respiratory issues after strokes. No swallowing issues and no speech therapy of note. Patient's friend however does report a voice change as well. Patient with no recent sick contacts. Prior pneumonia in November 2023 and May 2024. NO prior pseudomonas history , MRSA positive in the past, now negative. Patient started on BD therapy and antibiotics now. Consulted for concern for ILD at this time. cc:: cc: Washington Trevino MD Review of Systems Review of Systems Narrative Review of Systems: Review of symptoms completed. Pertinent findings included in HPI above. Past Medical History Past Medical History Comments PMH COMMENT: PMHx, PSHx, SocHx, and Family Hx completed with pertinent findings included in HPI above. Meds Home Medications and Allergies Home Medications ?Medication ?Instructions ?Recorded ?Confirmed ?Type lisinopril 10 mg tablet 20 mg PO QDAY HTN #0 tabs 04/02/16 07/20/24 History Held on 07/15/24. Instructions: Resume on 07/22/24. Hold until you see your primary care physician to discuss the need for this medication since your blood pressure has been well under control metoprolol succinate 50 mg capsule 25 mg PO QDAY HTN 01/01/23 07/20/24 History sprinkle, ext. release 24 hr sucralfate 1 gram tablet 1 g PO BID ANTACID 10/07/23 07/20/24 History coQ10 (ubiquinol) 200 mg capsule 400 mg PO QDAY SUPPLEMENT 10/08/23 07/20/24 History ferrous sulfate 325 mg (65 mg 325 mg PO BID SUPPLEMENT 11/18/23 07/20/24 History iron) tablet pantoprazole 40 mg tablet,delayed 40 mg PO QDAY GERD 11/18/23 07/20/24 History release (Protonix) acetaminophen 325 mg tablet 650 mg PO Q6H PRN mild pain (scale 07/20/24 07/20/24 History score 1-4) bisacodyl 10 mg rectal suppository 10 mg IN .Every 72 hrs PRN 07/20/24 07/20/24 History (Laxative (bisacodyl)) constipation calcium carbonate 1,000 mg PO QID PRN Acid Reflux 07/20/24 07/20/24 History fexofenadine 180 mg tablet 180 mg PO Q24H PRN allergies 07/20/24 07/20/24 History ipratropium 0.5 mg-albuterol 3 mg 3 ml inhalation TID SOB 07/20/24 07/20/24 History (2.5 mg base)/3 mL nebulization soln magnesium hydroxide 400 mg/5 mL 30 ml PO .Every 72 Hrs PRN 07/20/24 07/20/24 History oral suspension (Milk of Magnesia) constipation melatonin 3 mg tablet 3 mg PO HS PRN insomnia 07/20/24 07/20/24 History midodrine 10 mg tablet 10 mg PO BID 07/20/24 07/20/24 History sodium phosphates 19 gram-7 118 ml IN .Every 72 HRS PRN 07/20/24 07/20/24 History gram/118 mL enema (Fleet Enema) constipation tramadol 50 mg tablet 50 mg PO Q6H PRN pain 07/20/24 07/20/24 History Allergies Allergy/AdvReac Type Severity Reaction Status Date / Time clindamycin Allergy Intermediate Hives Verified 07/13/24 18:51 latex Allergy Mild hives Verified 07/13/24 18:51 swelling clavulanic acid Allergy Verified 07/13/24 18:51 shellfish derived Allergy Abdominal Verified 07/13/24 18:51 Pain codeine AdvReac Mild STOMACH Verified 07/13/24 18:51 UPSET Exam Vital Signs Temp Pulse Resp BP Pulse Ox O2 Del Method O2 Flow Rate 99.3 F 106 H 28 H 110/80 100 BiPAP 5 07/21/24 20:00 07/21/24 22:12 07/21/24 22:12 07/21/24 20:00 07/21/24 22:12 07/21/24 20:00 07/21/24 20:00 FiO2 40 07/21/24 22:12 Narrative Exam GEN: Increased work of breathing HEENT: moist mucus membranes Neck: No JVD or HJR Chest: normal excursion bilaterally CVS: S1/S2+ RRR Pulm: extensive wheezing, no stridor Abd: soft, NT, ND, BS+ Ext: mild tremor while on albuterol Neuro: left sided known deficits Psych: appropriate mood and affect Physical Exam Completion Physical Exam Complete?: Yes Results - Sales Service Representative Labs 07/22/24 04:57 07/22/24 04:57 Labs: Short CBC 07/21/24 Range/Units 04:50 WBC 13.3 H (3.6-11.0) Thou/mm3 Hgb 7.4 L (12.0-16.0) g/dL Hct 25.1 L (36.0-46.0) % Plt Count 221 (140-440) Thou/mm3 BMP 07/21/24 07/21/24 04:50 15:30 Sodium 137 Potassium 5.3 H D 5.3 H Chloride 95 L Carbon Dioxide 38.2 H BUN 22 Creatinine 1.1 Glucose 145 H Calcium 8.9 Liver Function 07/21/24 Range/Units 04:50 Total Bilirubin 1.2 (0.3-1.2) mg/dL AST 28 (0-34) U/L ALT 20 (10-49) U/L Alkaline Phosphatase 56 (46-116) U/L Albumin 3.5 (3.4-4.8) gm/dL ABG Interpretation ABG results: 07/21/24 07/21/24 07/21/24 15:47 18:41 21:07 ABG pH 7.22 L 7.19 L* 7.29 L D ABG pCO2 102 H* 106 H* 85 H* D ABG pO2 66 L 63 L 80 L ABG HCO3 42 H 41 H 40 H ABG O2 Saturation 91 89 L 97 ABG Base Excess 12 H 10 H 12 H Assessment & Plan Additional Plan Additional Plan: Patient is a 79 year old female with significant history of cardiovascular disease including CVA, atrial fibrillation, and TAVR. She has had course further complicated by diagnosis of asthma and recurrent pulmonary infection requiring ED visit or hospitalization. Now with chest xray consistent with multifocal pneumonia or fluid overload. She has significant wheezing with airway disease. This could be related to asthma but need for chronic oxygen seems very unlikely. COPD also possible given smoking history but no exacerbation history and infiltrate son CT not consistent with this. Favor combination of diastolic heart failure and potential excessive dynamic airway collapse. Would also exclude presence of vocal cord dysfunction as alternate etiology. She bush shave an enlarged PA on CT but no evidence of of RV dysfunction on most recent Echo. ABG done today shows significant acute on chronic C2 retention, HCO3 on admission significantly elevated to 38.2, consistent with pCO2 in mid 70s. Also unlikely to occur in asthma. We should try to obtain prior PFT results. Patient with obesity and this could present with the mosaicism seen on her CT, notably the PM of trachea is bowing in suggesting air trapping with expiration. This an be seen as well with tracheomalacia/ excessive dynamic airway collapse though this will need to be diagnosed by bronchoscpy with >50% collapse during spontaneous ventilation. She is not a candidate for bronchoscopy at this time given superimposed acute process such as infection. Treatment course with antibiotics and optimize fluid status. I will continue to follow along with you. Provider Notation Provider Notation: Although this document has been carefully reviewed, there may still be some phonetic and other typographical errors. These errors are purely grammatical due to imperfections in the software program and should not be construed in any way to compromise the substance of the patient's medical care during this visit. Thank you for the opportunity and privilege in assisting you with this patient's care and management.
[2024-07-22] VITALS (67 sets, daily range): BP systolic 58–150; BP diastolic 34–91; PULSE 62–130; RESP 0–34; TEMP 35.8–36.7; O2SAT 88–100; BMI 37.2; BMI 37.1
[2024-07-22] MEDS: IPRATROPIUM RT 0.5 MG/ 2.5 ML NEBU INH ×5 (03:05→19:46)
[2024-07-22] MEDS: LEVALBUTEROL RT 0.63 MG/3 ML NEBU INH ×5 (03:05→19:46)
--- NOTE | 2024-07-22 03:09 | PC.NURSE ---
[facility] downtime started from 0200 till 0303.
[2024-07-22 05:16] LABS: Base Excess 13 (-3-3); HCO3 42 mEq/L (20-26); Inspired Oxygen, FIO2 40 %; O2 Saturation 94 % (91-98); PCO2 90 mmHg (32.0-48.0); PO2 70 mmHg (83-108); pH, Arterial 7.28 (7.35-7.45)
[2024-07-22 05:19] LABS: Allen Test Performed/OK; Puncture Site Right Radial
[2024-07-22 05:25] LABS: Basophils % (Auto) 0 % (0-2.5); Eosinophils % (Auto) 0 % (0-10); Hematocrit 24.5 % (36.0-46.0); Immature Granulocytes % (Auto) 1 % (0-0); Lymphocytes # (Auto) 0.2 Thou/mm3 (1.0-4.8); Lymphocytes % (Auto) 1 % (10-50); Mean Corpuscular HGB Conc 29.4 g/dl (31.0-37.0); Mean Corpuscular Hemoglobin 30.3 pg (25.0-35.0); Mean Corpuscular Volume 103 fL (80-100); Monocytes # (Auto) 0.4 Thou/mm3 (0.0-0.8); Monocytes % (Auto) 2 % (0-12); Neutrophils # (Auto) 15.5 Thou/mm3 (1.8-7.7); Neutrophils % (Auto) 96 % (37-80); Nucleated Red Blood Cell % 0 /100 WBC (0); Platelet Count 205 Thou/mm3 (140-440); RDW Standard Deviation 59.2 fL (36.4-46.3); Red Blood Count 2.38 Miln/mm3 (4.00-5.20); White Blood Count 16.1 Thou/mm3 (3.6-11.0)
[2024-07-22 05:30] LABS: Hemoglobin 7.2 g/dL (12.0-16.0)
[2024-07-22 06:00] LABS: Alanine Aminotransferase 22 U/L (10-49); Albumin, Serum 3.4 gm/dL (3.4-4.8); Albumin/Globulin Ratio 1.2 (1.2-2.2); Alkaline Phosphatase 55 U/L (46-116); Anion Gap 5 (7-16); Aspartate Amino Transferase 34 U/L (0-34); BUN/Creatinine Ratio 23 Ratio (12-20); Bilirubin,Total 1.4 mg/dL (0.3-1.2); Blood Urea Nitrogen 21 mg/dL (9-23); Calcium 8.9 mg/dL (8.3-10.6); Calcium (Corrected) 9.4 mg/dL (8.5-10.1); Carbon Dioxide 36.1 mMol/L (20.0-31.0); Chloride 94 mMol/L (98-107); Creatinine (Component) 0.9 mg/dL (0.6-1.3); Estimated Creatinine Clearance 67.3 mL/min (>60); Globulin 2.8 gm/dL (2.3-3.5); Glucose 145 mg/dL (74-106); Osmolality,Calculated 276 (275-295); Sodium 135 mMol/L (136-145); Total Protein 6.2 gm/dL (5.7-8.2); eGFR > 60 See Note
[2024-07-22] MEDS: SUCRALFATE 1 GM TABLET PO (08:44)
[2024-07-22] MEDS: METOPROLOL SUCCINATE XL 25 MG TABCR PO (08:44)
[2024-07-22] MEDS: CEFEPIME INJ 2 GM in SODIUM CHLORIDE 0.9% (Popper) 50 ML IV ×2 (08:45→21:30)
[2024-07-22] MEDS: APIXABAN 2.5 MG TABLET 5 MG PO (08:45)
[2024-07-22] MEDS: SENNA TABLET 1 TAB PO (08:45)
--- NOTE | 2024-07-22 09:01 | PC.SS ---
Late note 07-22-24: SS met with patient and her significant other regarding patient's d/c plan.? Pt is alert/oriented.? Pt was admitted for Pneumonia CAP SX HCAP.? ?Pt confirmed demographic and contact information is correct on facesheet.? Pt is from [facility].? Pt transfers with assistance from bed to wheelchair.? Pt requires assistance with all ADLs.? Pt named her significant other, Elsy Lewis medical decision maker if she is unable.? SS provided pt with d/c options to home or return to [facility].? Patient?s choice is to return to [facility].? Pt states not diabetic and is not on dialysis.? Pt is on 5 liters of O2.? Pt states she utilizes 3 liters of O2 at [facility].?? D/C plan:? Return to [facility] Next of Kin:? ?Elsy Lewis, significant other, phone# [phone] PCP:? Dr. Shalom Sheikh Address:? Correct on facesheet
--- NOTE | 2024-07-22 09:48 | ESPR_ITS ---
<Statement entered by Otilia Pradhan MD - 07/22/24 23:05> Patient was seen and examined by me personally. I have directly supervised and reviewed documentation by the team resident and agree with its findings with any exceptions or additional findings as below. Plan of care was discussed with the attending, Dr. Trevino. Patient seen at bedside this AM, appeared improved as compared with yesterday in alertness and mentation. She has remained on BiPAP although had breaks for breakfast and lunch during which she was switched to nasal cannula 5L saturating 95%. Solu-Medrol dose was changed from 60 to 40 mg q8h. Advair was added to regimen. Added Lasix 40 mg qday given possible superimposed diastolic heart failure. Discussed patient with commercial intelligence manager Dr. Giron who felt that patient likely has obesity-related air trapping, dynamic airway collapse. Upon improvement and discharge she should eventually follow up with a high-resolution expiratory CT. Patient had a rapid response called around 4:15 pm during which she was found lethargic and barely responsive to sternal rub. Patient had been fidgeting with mask earlier, and about 5 minutes prior patient had a desaturation event during which the hosing disconnected from the BiPAP mask and she desaturated to the 50s. She was awake at that time, but declined in mentation later therefore rapid was called. Dr. Giron assessed patient at bedside and decision was made to upgrade to ICU level care and intubate the patient. Patient's partner was updated via phone by Dr. Peng. Otilia Pradhan, PGY-2 Documentation for date of: 07/22/24 Subjective Subjective Interval history: 07/22/2024: Overnight, the patient's ABGs did slightly improve with pCO2 downtrending initially but then going back up. Night team initiated 2 g of IV magnesium but the patient was not always on the BiPAP overnight. This morning, patient seen and assessed in hospital bed appears to be in less respiratory distress states that at this time; moreover, she is transitioning to nasal cannula while consuming diet. Per pulmonology consultation, the patient has dynamic airway collapse and/or tracheomalacia as noted based on prior CT findings. Patient can benefit greatly from CPAP/BiPAP at night, LABA/LAMA inhaler and ultimately improving BMI. As result, started the patient on Advair (inhaler available at this time) and will do serial ABGs while the patient wears BiPAP overnight. Exam Vital Signs Temp Pulse Resp BP Pulse Ox O2 Del Method O2 Flow Rate 96.9 F 101 H 20 118/71 98 BiPAP 5 07/22/24 08:00 07/22/24 08:44 07/22/24 08:00 07/22/24 08:44 07/22/24 08:00 07/22/24 08:00 07/22/24 08:00 FiO2 45 07/22/24 08:00 Narrative Exam Physical Exam: GENERAL: Awake, answering questions appropriately, appears stated age, obese HEENT: NC/AT. Moist mucosa. PERRLA/EOMI. CARDIO: Heart RRR, no obvious murmurs, no JVD. PULM: No coughing but appears mildly short of breath with BiPAP. Reduced respiratory effort, no wheeze/rales/rhonchi auscultated GI: Abdomen soft, NT/ND, +BS. SKIN/MSK/EXT: Nonpitting edema noted on bilateral lower extremities up to ankles. No wounds/discoloration/rashes/amputations. +Pedal pulses present B/L. NEURO: Oriented x3, no focal neurologic deficits noted. Objective Labs 07/23/24 04:35 07/23/24 04:35 Labs: Laboratory Results - last 24 hr 07/21/24 07/21/24 07/21/24 04:50 15:30 15:47 WBC RBC Hgb Hct MCV MCH MCHC RDW Std Deviation Plt Count Neut % (Auto) Lymph % (Auto) [place] % (Auto) Eos % (Auto) Baso % (Auto) Neut # (Auto) Lymph # (Auto) [place] # (Auto) Eos # (Auto) Baso # (Auto) Immature Gran # (Auto) Absolute Nucleated RBC Immature Gran % Nucleated RBC % Puncture Site Right Radial ABG pH 7.22 L ABG pCO2 102 H* ABG pO2 66 L ABG HCO3 42 H ABG O2 Saturation 91 ABG Base Excess 12 H Oxygen Liter Flow 5 FiO2 21 Sodium Potassium 5.3 H Chloride Carbon Dioxide Anion Gap BUN Creatinine Estim Creat Clear Calc eGFR BUN/Creatinine Ratio Glucose Calculated Osmolality Calcium Corrected Calcium Total Bilirubin AST ALT Alkaline Phosphatase Total Protein Albumin Globulin Albumin/Globulin Ratio Coccidioides IgM Ab Negative 07/21/24 07/21/2425 18:41 21:07 04:57 WBC 16.1 H RBC 2.38 L Hgb 7.2 L Hct 24.5 L MCV 103 H MCH 30.3 MCHC 29.4 L RDW Std Deviation 59.2 H Plt Count 205 Neut % (Auto) 96 H Lymph % (Auto) 1 L [place] % (Auto) 2 Eos % (Auto) 0 Baso % (Auto) 0 Neut # (Auto) 15.5 H Lymph # (Auto) 0.2 L [place] # (Auto) 0.4 Eos # (Auto) 0.0 Baso # (Auto) 0.0 Immature Gran # (Auto) 0.10 H Absolute Nucleated RBC 0.00 Immature Gran % 1 H Nucleated RBC % 0 Puncture Site Left Radial Left Radial ABG pH 7.19 L* 7.29 L D ABG pCO2 106 H* 85 H* D ABG pO2 63 L 80 L ABG HCO3 41 H 40 H ABG O2 Saturation 89 L 97 ABG Base Excess 10 H 12 H Oxygen Liter Flow FiO2 50 40 Sodium 135 L Potassium 5.0 Chloride 94 L Carbon Dioxide 36.1 H Anion Gap 5 L BUN 21 Creatinine 0.9 Estim Creat Clear Calc 67.3 eGFR > 60 BUN/Creatinine Ratio 23 H Glucose 145 H Calculated Osmolality 276 Calcium 8.9 Corrected Calcium 9.4 Total Bilirubin 1.4 H AST 34 ALT 22 Alkaline Phosphatase 55 Total Protein 6.2 Albumin 3.4 Globulin 2.8 Albumin/Globulin Ratio 1.2 Coccidioides IgM Ab 07/22/24 05:17 WBC RBC Hgb Hct MCV MCH MCHC RDW Std Deviation Plt Count Neut % (Auto) Lymph % (Auto) [place] % (Auto) Eos % (Auto) Baso % (Auto) Neut # (Auto) Lymph # (Auto) [place] # (Auto) Eos # (Auto) Baso # (Auto) Immature Gran # (Auto) Absolute Nucleated RBC Immature Gran % Nucleated RBC % Puncture Site Right Radial ABG pH 7.28 L ABG pCO2 90 H* ABG pO2 70 L ABG HCO3 42 H ABG O2 Saturation 94 ABG Base Excess 13 H Oxygen Liter Flow FiO2 40 Sodium Potassium Chloride Carbon Dioxide Anion Gap BUN Creatinine Estim Creat Clear Calc eGFR BUN/Creatinine Ratio Glucose Calculated Osmolality Calcium Corrected Calcium Total Bilirubin AST ALT Alkaline Phosphatase Total Protein Albumin Globulin Albumin/Globulin Ratio Coccidioides IgM Ab ABG Interpretation ABG results: 07/21/24 07/21/24 07/21/24 15:47 18:41 21:07 ABG pH 7.22 L 7.19 L* 7.29 L D ABG pCO2 102 H* 106 H* 85 H* D ABG pO2 66 L 63 L 80 L ABG HCO3 42 H 41 H 40 H ABG O2 Saturation 91 89 L 97 ABG Base Excess 12 H 10 H 12 H 07/22/24 05:17 ABG pH 7.28 L ABG pCO2 90 H* ABG pO2 70 L ABG HCO3 42 H ABG O2 Saturation 94 ABG Base Excess 13 H Quality Measures Quality Measures VTE prophylaxis Advance care planning discussed with:: patient and spouse Assessment & Plan Assessment Current Active Medications: Generic Name Dose Route Start Last Admin Trade Name Freq PRN Reason Stop Dose Admin Acetaminophen 650 mg 07/20/24 11:58 Acetaminophen 325 Mg Tablet PO 08/19/24 11:57 Q6H PRN Pain 1-3 and/or Fever >100.1 Apixaban 5 mg 07/20/24 21:00 07/22/24 08:45 Apixaban 2.5 Mg Tablet PO 08/19/24 20:59 5 mg BID MONA Administration Benzonatate 100 mg 07/20/24 20:52 07/20/24 21:14 Benzonatate 100 Mg Capsule PO 08/19/24 20:59 100 mg BID PRN Administration COUGH Protocol Cefepime HCl 2 gm/ Sodium 50 mls @ 100 mls/hr 07/20/24 21:00 07/22/24 08:45 Chloride IV 07/27/24 20:59 100 mls/hr Q12HR MONA Administration Ipratropium [place] 0.5 mg 07/21/24 10:43 07/21/24 11:29 Ipratropium Rt 0.5 Mg/ 2.5 Ml Nebu INH 08/20/24 18:59 0.5 mg BIDRT PRN Administration Shortness of breath and wheezing Protocol Ipratropium [place] 0.5 mg 07/21/24 15:00 07/22/24 06:17 Ipratropium Rt 0.5 Mg/ 2.5 Ml Nebu INH 08/20/24 14:59 0.5 mg Q4HRRT MONA Administration Levalbuterol HCl 1.25 mg 07/21/24 10:39 07/21/24 11:30 Levalbuterol Rt 1.25 Mg/0.5 Ml Nebu INH 08/20/24 18:59 1.25 mg BIDRT PRN Administration Shortness of breath or wheezing Protocol Levalbuterol HCl 0.63 mg 07/21/24 15:00 07/22/24 06:17 Levalbuterol Rt 0.63 Mg/3 Ml Nebu INH 08/20/24 14:59 0.63 mg Q4HRRT MONA Administration Methylprednisolone Sodium Succinate 60 mg 07/21/24 22:00 07/22/24 05:18 Methylprednisolone Sod Succ 40 Mg Vial IVP 07/28/24 21:59 60 mg Q8HR MONA Administration Metoprolol Succinate 25 mg 07/21/24 09:00 07/22/24 08:44 Metoprolol Succinate Xl 25 Mg Tabcr PO 08/20/24 08:59 25 mg QDAY MONA Administration Ondansetron HCl 4 mg 07/20/24 11:58 Ondansetron Inj 2 Mg/Ml Inj 2 Ml IV 08/19/24 11:57 Q6H PRN NAUSEA OR VOMITING Protocol Sennosides 1 tab 07/21/24 09:00 07/22/24 08:45 Senna Tablet PO 08/20/24 08:59 1 tab QDAY MONA Administration Protocol Sodium Chloride 5 ml 07/20/24 12:03 Sodium Chloride Rt 10% 15 Ml [facility] INH 08/19/24 12:02 PRN PRN sputum Sodium Chloride 3 ml 07/21/24 10:39 Sodium Chloride Rt Eva 0.9% 3 Ml [facility] INH 08/20/24 10:38 PRN PRN SOLN Sucralfate 1 gm 07/20/24 21:00 07/22/24 08:44 Sucralfate 1 Gm Tablet PO 08/19/24 20:59 1 gm BID MONA Administration Plan 79-year-old female with past medical history of asthma (on 3 L at baseline), CVA with left-sided weakness (bilateral cerebellar, September 2023), atrial fibrillation (on Eliquis), CKD stage IIIa and status post aortic valve replacement (2020) who [facility] to the emergency department [facility] with a chief complaint of worsening shortness of breath will be admitted for treatment of community-acquired pneumonia with IV antibiotics we will monitor for any acute changes. #Acute on chronic hypercapnic respiratory failure #Community-acquired pneumonia #Pulmonary Collapse #Possible tracheomalacia #Leukocytosis Patient is presenting with worsening shortness of breath, dyspnea. Patient uses 2 L of oxygen at night, but is unsure exactly why she does. She has not been able to follow-up with the commercial intelligence manager outpatient but states that she has been on oxygen for several years now. In the ED, patient required 10 L of oxy mask oxygen supplementation but was eventually weaned down to 4 to 5 L Patient also received albuterol and ipratropium breathing treatments in the ED which helped symptomatically Spoke with Dr. Lizarraga (patient's physician at the SNF) - requesting workup for increased oxygen needs Was admitted to the hospital few weeks ago for stroke r/o; which was ruled out Blood cultures no growth within 24 hours ICU software quality test engineer/commercial intelligence manager will follow the patient; appreciate recommendations Blood culture negative over 48 hours Patient likely has dynamic airway collapse in the setting of obesity and a degree of tracheomalacia as noted from past CT Chest findings Plan: Advair inhaler initiated; patient could benefit from LAMA/LABA inhaler (Trelegy) on discharge BIPAP on overnight ABG q6h Continue cefepime 2g q12h Sputum cultures pending Levalbuterol breathing treatment as needed Continue IV solumedrol 40mg q8h Oxygen supplementation Refer to pulmonology outpatient for PFTs and repeat CT Chest outpatient Weight loss management outpatient #Atrial fibrillation, rate controlled #CHF, by personal history #Status post TAVR, 2020 EKG today shows atrial fibrillation but rate controlled Plan: Lasix 40mg IV qday Daily weight Strict I/Os Fluid restriction of 1800ml daily Tele admit Continue home Eliquis dose and metoprolol succinate 25mg daily #Chronic kidney disease stage IIIA #Hyperkalemia, improving Baseline Cr ranging from 1.0 to 1.2 Currently presenting with Cr of 1.1 Potassium of 5.3, increased from 4.8 Plan: Avoid nephrotoxic agents Renally dose medications Renal diet Monitor electrolytes with morning labs #Macrocytic anemia No signs of acute bleeding, MCV is elevated at 106 Patient has low B12 last time it was checked; 303 on 07/14/24 Given 1000mg of B12 on last admission Plan: B12 stores take months to improve and reflect with increase in Hgb levels Will monitor with morning labs #GERD #Gastritis #Bilateral lower extremity weakness #History of bilateral cerebellar stroke with left-sided weakness Chronic medical conditions not pertinent to current admission PT ordered for re-entry to SNF when ready for discharge Hospital Management: Lines: PIV Diet: Cardiac, fluid restriction 1800 mL Bowel: Senna GI prophylaxis: Not needed DVT prophylaxis: Subq heparin Dispo: IV abx for CAP, pending sputum cultures and monitoring morning labs for response Code: Full Patient seen and examined with attending Dr. Trevino and senior resident Dr. Carolynn Peng, PGY-1 Attending Provider Attestation/Addendum I have examined the patient, reviewed labs and imaging findings, discussed the case with the resident(s), and reviewed entered orders. I agree with the plan of care as outlined in this note, with these additional summaries/recommendations: Patient seen at bedside. No acute overnight events. Today patient seen wearing BiPAP and appears much more alert compared to yesterday. Patient was seen by pulmonology yesterday and reports pulmonary symptoms may be related to diastolic heart failure versus dynamic airway collapse versus COPD. Patient also receiving treatment for bacterial pneumonia. For now we will continue steroids and breathing treatments for possible component of COPD. Patient reports positive response to breathing treatments. We will continue IV antibiotics for pneumonia. Will continue BiPAP for acute hypoxic and hypercapnic respiratory failure. ABG in morning still shows significant hypercapnia and we will continue BiPAP for now with repeat ABG this afternoon. Appears patient is a chronic CO2 retainer dating back to 10/15/2023. We will avoid overcorrection. Hyperkalemia resolved. Hypophosphatemia present and replacement given. Blood cultures show no growth at 48 hours and sputum culture still pending. Previous echo 07/14/2024 showed EF 60 to 65%, mild LVH, diastolic dysfunction, and normal functioning bioprosthetic aortic valve. Continue home Eliquis and metoprolol for chronic atrial fibrillation. Dr. Belinda MD
[2024-07-22] MEDS: FUROSEMIDE INJ 10 MG/ML 4ML VIAL 40 MG IVP (10:59)
[2024-07-22 12:20] LABS: Cocci Serology, IgG Negative (Negative)
[2024-07-22 15:36] LABS: Base Excess 14 (-3-3); HCO3 43 mEq/L (20-26); Inspired Oxygen, FIO2 40 %; O2 Saturation 84 % (91-98); PCO2 102 mmHg (32.0-48.0); pH, Arterial 7.23 (7.35-7.45)
[2024-07-22 15:38] LABS: Allen Test Performed/OK; PO2 53 mmHg (83-108); Puncture Site Left Radial
--- NOTE | 2024-07-22 16:26 | PD.RESEVENT ---
Documentation for date of: 07/22/24 Event Note Event Note: Rapid Response Room: 275 Time: 16:19 Reason for Call: Altered mental status, lethargic Patient presentation: On telemonitor about 5 minutes before rapid was called, patient was noted to have desaturated to the 50s. RN responded immediately to the room and found BiPAP tubing dislodged from the mask. Patient was awake and alert at that time, however, BiPAP successfully reconnected. Patient was then visited by resident Dr. Leach and at that point patient was found to be very lethargic not responding to sternal rub. Vitals included BP 147/88, HR 107, RR 24, Temp 96.4. Breath sounds notable for poor air movement. She has been on BiPAP all day today with the exceptions of 1-hour break for breakfast and 2-hour break for lunch and a phone call. ABG this afternoon at 15:30 showed pH 7.23, pCO2 102, pO2 53, HCO3 43. Patient had been placed back on BiPAP at approximately 14:30. Events: Patient assessed at bedside. Within a few minutes mental status improved, patient became arousable again to prior baseline. Labs ordered. Dr. Giron called to bedside. BiPAP settings adjusted, patient saturating 98% on 55% FiO2. Patient mental status still was waxing and waning. Assessment: Acute decompensated hypoxic respiratory failure New orders: CMP, CBC, troponin, lactic acid, magnesium. Transfer to the ICU for intubation. Patient was discussed with the attending, Dr. Trevino, and team residents Dr. Kza Peng, PGY-1, Dr. Wilda Brambila, PGY-1, and Dr. Yang Leach, PGY-3. Otilia Pradhan, PGY-2
[2024-07-22 16:42] LABS: Lactate (Lactic Acid) 0.9 mMol/L (0.4-2.0)
[2024-07-22 16:47] LABS: Basophils % (Auto) 0 % (0-2.5); Eosinophils % (Auto) 0 % (0-10); Hematocrit 25.9 % (36.0-46.0); Immature Granulocytes % (Auto) 1 % (0-0); Immature Granulocytes Auto 0.21 Thou/mm3 (0.00-0.00); Lymphocytes # (Auto) 0.2 Thou/mm3 (1.0-4.8); Lymphocytes % (Auto) 1 % (10-50); Mean Corpuscular HGB Conc 30.1 g/dl (31.0-37.0); Mean Corpuscular Hemoglobin 31.1 pg (25.0-35.0); Mean Corpuscular Volume 103 fL (80-100); Monocytes # (Auto) 0.6 Thou/mm3 (0.0-0.8); Monocytes % (Auto) 3 % (0-12); Neutrophils # (Auto) 15.4 Thou/mm3 (1.8-7.7); Neutrophils % (Auto) 94 % (37-80); Nucleated Red Blood Cell # 0.03 Thou/mm3 (0.00-0.00); Nucleated Red Blood Cell % 0 /100 WBC (0); Platelet Count 285 Thou/mm3 (140-440); Red Blood Count 2.51 Miln/mm3 (4.00-5.20); White Blood Count 16.3 Thou/mm3 (3.6-11.0)
--- NOTE | 2024-07-22 16:55 | PC.SS ---
Rapid response initiated on the patient due to decrease level of consciousness. Resident provided verbal update to the patient's partner, Elsy.
--- NOTE | 2024-07-22 16:57 | PC.SS ---
Update: Patient upgraded to ICU. Plan is to intubate patient.
[2024-07-22 16:59] LABS: Hemoglobin 7.8 g/dL (12.0-16.0)
[2024-07-22 17:07] LABS: Alanine Aminotransferase 32 U/L (10-49); Albumin, Serum 3.8 gm/dL (3.4-4.8); Albumin/Globulin Ratio 1.3 (1.2-2.2); Alkaline Phosphatase 58 U/L (46-116); Anion Gap 3 (7-16); Aspartate Amino Transferase 34 U/L (0-34); BUN/Creatinine Ratio 22 Ratio (12-20); Bilirubin,Total 1.5 mg/dL (0.3-1.2); Blood Urea Nitrogen 26 mg/dL (9-23); Calcium 9.1 mg/dL (8.3-10.6); Calcium (Corrected) 9.3 mg/dL (8.5-10.1); Carbon Dioxide 39.2 mMol/L (20.0-31.0); Chloride 92 mMol/L (98-107); Creatinine (Component) 1.2 mg/dL (0.6-1.3); Estimated Creatinine Clearance 50.5 mL/min (>60); Glucose 186 mg/dL (74-106); Magnesium 2.4 mg/dL (1.6-2.6); Osmolality,Calculated 277 (275-295); Potassium 4.7 mMol/L (3.4-5.1); Sodium 134 mMol/L (136-145); Total Protein 6.8 gm/dL (5.7-8.2); Troponin I < 0.020 ng/mL (0.0-0.045); eGFR 46 See Note
[2024-07-22] MEDS: ETOMIDATE INJ 2 MG/ML VIAL 10 ML 20 MG IVP (17:09)
[2024-07-22] MEDS: MIDAZOLAM INJ 1 MG/ML VIAL 2 ML 2 MG IV ×2 (17:09→17:42)
[2024-07-22] MEDS: ROCURONIUM INJ 10 MG/ML VIAL 10 ML 100 MG IVP (17:10)
[2024-07-22] MEDS: fentaNYL 2,500 MCG/250 ML BAG 2,500 MCG/250 ML BAG IV (17:13)
[2024-07-22] MEDS: Norepinephrine/D5W 8mg/250ml 8 MG/250 ML BAG 10.418 MG IV (17:16)
--- NOTE | 2024-07-22 17:21 | PD.RESPROC ---
Procedures Procedure Date / Time 07/22/24 1721 Procedure Narrative Procedure Narrative: Attending Attestation: I was present for entire procedure. No immediate complications. ETT confirmed in adequate position by bronchoscopy and follow up chest xray. Intubation Indication(s): acute Resp Failure and inability to protect airway Informed consent obtained: from patient Time out done, and the following verified: correct patient, side and site, procedure, patient position and implants and/or equipment Sedative: versed Sedative #2: etomidate Paralytic: rocuronium Laryngoscope: other (Glidescope) ET tube size: 7.5 Tube secured location: lips Tube placement confirmation: visualized tube passing through cords, equal breath sounds bilaterally, no breath sounds over epigastrium and confirmation by capnometry Patient tolerated procedure: well Intubation complications: none
--- NOTE | 2024-07-22 17:56 | PD.RESPROC ---
Procedures Procedure Date / Time 07/22/24 1128 Procedure Narrative Procedure Narrative: Attending Attestation: I was present for the entire procedure. Patient post intubation with ETT in adequate position above the darling. Secretions limited and no significant mucosal edema. On PEEP without airway collapse, though paralytics remained on board from RSI. BAL done from the RML with good sample sent to exclude presenc oef infection including atypical organisms. Patient tolerated procedure well with no immediate complications. Bronchoscopy Bronscopy indication(s): removal of secretions and diagnostic BAL Informed consent obtained from: proc. done emergently Time out done and the following verified: correct patient and procedure Oxygen delivery: 100% FIO2 Bronchoalveolar lavage: BAL sample taken EBL: 0 Patient tolerated procedure: well Complications: Yes
[2024-07-22] MEDS: PROPOFOL 1,000 MG IVPB 1,000 MG/100 ML VIAL 3.334 MG IV (18:00)
--- NOTE | 2024-07-22 18:05 | ESPR_ITS ---
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 Patient had allegedly reported that she did a pulmonary testing a couple years ago and was told she had asthma but has no official diagnosis of COPD. On admission, show he denied chest pain, cough or any swelling in bilateral lower extremities. According to the facility, she had also been requiring more oxygen than her baseline and her oxygenation requirements have been increasing especially during the day. ED course: In the ED, the patient was noted to be hypoxic and was requiring about 15 L of oxygen via oxymask, she was also tachycardic but otherwise stable. Significant labs initially showed a WBC of 15.7, hemoglobin of 7.5. COVID, influenza and RSV were negative. Chest x-ray showed mild heart failure pattern with extensive bilateral lung opacities suggestive of pneumonia. EKG showed A-fib. The patient was admitted for management of acute on hhronic hypoxic respiratory failure secondary to community-acquired pneumonia and started on IV cefepime, breathing treatments and Solu-Medrol. On 07/22/2024, rapid response was called as patient was desaturating in the 50s. The RN went to the room and found out that the BiPAP tubing has been dislodged from the mask, patient was awake and alert at the time and oriented. ICU was consulted for further evaluation and recommendations, BiPAP settings were adjusted and patient is saturating 98% on 55% FiO2. She was upgraded to the ICU for intubation and further management. Exam Vital Signs Temp Pulse Resp BP Pulse Ox O2 Del Method O2 Flow Rate 96.4 F L 115 H 24 H 107/71 100 BiPAP 5 07/22/24 16:42 07/22/24 17:24 07/22/24 16:42 07/22/24 17:24 07/22/24 17:24 07/22/24 16:00 07/22/24 16:00 FiO2 100 07/22/24 17:24 Narrative Exam GENERAL: GCS-3, sedated and intubated, mechanical ventilation NEURO: GCS-3, intubated HEENT: Dry mucosa. Pupils equal bilaterally CARDIO: Heart RRR, no obvious murmurs PULM: Crackles and rhonchi heard bilaterally. Intubated and sedated, mechanical ventilation GI: Abdomen soft, nondistended. 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 SKIN/MSK/EXT: No wounds/rashes/edema/amputations, no pain on palpation. Pedal pulses present B/L Objective Labs 07/30/24 04:50 07/30/24 04:50 Labs: Laboratory Results - last 24 hr 07/21/24 07/21/24 07/21/24 04:50 18:41 21:07 WBC RBC Hgb Hct MCV MCH MCHC RDW Std Deviation Plt Count Neut % (Auto) Lymph % (Auto) [place] % (Auto) Eos % (Auto) Baso % (Auto) Neut # (Auto) Lymph # (Auto) [place] # (Auto) Eos # (Auto) Baso # (Auto) Immature Gran # (Auto) Absolute Nucleated RBC Immature Gran % Nucleated RBC % Puncture Site Left Radial Left Radial ABG pH 7.19 L* 7.29 L D ABG pCO2 106 H* 85 H* D ABG pO2 63 L 80 L ABG HCO3 41 H 40 H ABG O2 Saturation 89 L 97 ABG Base Excess 10 H 12 H FiO2 50 40 Sodium Potassium Chloride Carbon Dioxide Anion Gap BUN Creatinine Estim Creat Clear Calc eGFR BUN/Creatinine Ratio Glucose Calculated Osmolality Lactic Acid Calcium Corrected Calcium Magnesium Total Bilirubin AST ALT Alkaline Phosphatase Troponin I Total Protein Albumin Globulin Albumin/Globulin Ratio Coccidioides IgG Ab Negative 07/22/24 07/22/24 07/22/24 04:57 05:17 15:30 WBC 16.1 H RBC 2.38 L Hgb 7.2 L Hct 24.5 L MCV 103 H MCH 30.3 MCHC 29.4 L RDW Std Deviation 59.2 H Plt Count 205 Neut % (Auto) 96 H Lymph % (Auto) 1 L [place] % (Auto) 2 Eos % (Auto) 0 Baso % (Auto) 0 Neut # (Auto) 15.5 H Lymph # (Auto) 0.2 L [place] # (Auto) 0.4 Eos # (Auto) 0.0 Baso # (Auto) 0.0 Immature Gran # (Auto) 0.10 H Absolute Nucleated RBC 0.00 Immature Gran % 1 H Nucleated RBC % 0 Puncture Site Right Radial Left Radial ABG pH 7.28 L 7.23 L ABG pCO2 90 H* 102 H* D ABG pO2 70 L 53 L* ABG HCO3 42 H 43 H ABG O2 Saturation 94 84 L ABG Base Excess 13 H 14 H FiO2 40 40 Sodium 135 L Potassium 5.0 Chloride 94 L Carbon Dioxide 36.1 H Anion Gap 5 L BUN 21 Creatinine 0.9 Estim Creat Clear Calc 67.3 eGFR > 60 BUN/Creatinine Ratio 23 H Glucose 145 H Calculated Osmolality 276 Lactic Acid Calcium 8.9 Corrected Calcium 9.4 Magnesium Total Bilirubin 1.4 H AST 34 ALT 22 Alkaline Phosphatase 55 Troponin I Total Protein 6.2 Albumin 3.4 Globulin 2.8 Albumin/Globulin Ratio 1.2 Coccidioides IgG Ab 07/22/24 16:28 WBC 16.3 H RBC 2.51 L Hgb 7.8 L Hct 25.9 L MCV 103 H MCH 31.1 MCHC 30.1 L RDW Std Deviation 61.0 H Plt Count 285 D Neut % (Auto) 94 H Lymph % (Auto) 1 L [place] % (Auto) 3 Eos % (Auto) 0 Baso % (Auto) 0 Neut # (Auto) 15.4 H Lymph # (Auto) 0.2 L [place] # (Auto) 0.6 Eos # (Auto) 0.0 Baso # (Auto) 0.0 Immature Gran # (Auto) 0.21 H Absolute Nucleated RBC 0.03 H Immature Gran % 1 H Nucleated RBC % 0 Puncture Site ABG pH ABG pCO2 ABG pO2 ABG HCO3 ABG O2 Saturation ABG Base Excess FiO2 Sodium 134 L Potassium 4.7 Chloride 92 L Carbon Dioxide 39.2 H Anion Gap 3 L BUN 26 H Creatinine 1.2 Estim Creat Clear Calc 50.5 L eGFR 46 L BUN/Creatinine Ratio 22 H Glucose 186 H Calculated Osmolality 277 Lactic Acid 0.9 Calcium 9.1 Corrected Calcium 9.3 Magnesium 2.4 Total Bilirubin 1.5 H AST 34 ALT 32 Alkaline Phosphatase 58 Troponin I < 0.020 Total Protein 6.8 Albumin 3.8 Globulin 3.0 Albumin/Globulin Ratio 1.3 Coccidioides IgG Ab ABG Interpretation ABG results: 07/21/24 07/21/24 07/21/24 15:47 18:41 21:07 ABG pH 7.22 L 7.19 L* 7.29 L D ABG pCO2 102 H* 106 H* 85 H* D ABG pO2 66 L 63 L 80 L ABG HCO3 42 H 41 H 40 H ABG O2 Saturation 91 89 L 97 ABG Base Excess 12 H 10 H 12 H 07/22/24 07/22/24 05:17 15:30 ABG pH 7.28 L 7.23 L ABG pCO2 90 H* 102 H* D ABG pO2 70 L 53 L* ABG HCO3 42 H 43 H ABG O2 Saturation 94 84 L ABG Base Excess 13 H 14 H Quality Measures Quality Measures VTE prophylaxis Advance care planning discussed with:: other Assessment & Plan Assessment Current Active Medications: Generic Name Dose Route Start Last Admin Trade Name Freq PRN Reason Stop Dose Admin Acetaminophen 650 mg 07/20/24 11:58 Acetaminophen 325 Mg Tablet PO 08/19/24 11:57 Q6H PRN Pain 1-3 and/or Fever >100.1 Apixaban 5 mg 07/20/24 21:00 07/22/24 08:45 Apixaban 2.5 Mg Tablet PO 08/19/24 20:59 5 mg BID MONA Administration Benzonatate 100 mg 07/20/24 20:52 07/20/24 21:14 Benzonatate 100 Mg Capsule PO 08/19/24 20:59 100 mg BID PRN Administration COUGH Protocol Furosemide 40 mg 07/22/24 10:45 07/22/24 10:59 Furosemide Inj 10 Mg/Ml 4ml Vial IVP 08/21/24 10:44 40 mg QDAY MONA Administration Cefepime HCl 2 gm/ Sodium 50 mls @ 100 mls/hr 07/20/24 21:00 07/22/24 08:45 Chloride IV 07/27/24 20:59 100 mls/hr Q12HR MONA Administration Norepinephrine/Dextrose 8 mg in 250 mls @ 10.418 mls/hr 07/22/24 16:56 Levophed In D5w 8mg/250ml IV 08/21/24 16:55 .Q24H PRN PER PROTOCOL Protocol 0.05 MCG/KG/MIN Fentanyl Citrate 2,500 mcg in 250 mls @ 2.5 mls/hr 07/22/24 16:56 Sublimaze Inj 2,500 Mcg/250 Ml Bag IV 07/27/24 16:55 .Q24H PRN PER PROTOCOL Protocol 25 MCG/HR Ipratropium [place] 0.5 mg 07/21/24 10:43 07/21/24 11:29 Ipratropium Rt 0.5 Mg/ 2.5 Ml Nebu INH 08/20/24 18:59 0.5 mg BIDRT PRN Administration Shortness of breath and wheezing Protocol Ipratropium [place] 0.5 mg 07/21/24 15:00 07/22/24 14:47 Ipratropium Rt 0.5 Mg/ 2.5 Ml Nebu INH 08/20/24 14:59 0.5 mg Q4HRRT MONA Administration Levalbuterol HCl 1.25 mg 07/21/24 10:39 07/21/24 11:30 Levalbuterol Rt 1.25 Mg/0.5 Ml Nebu INH 08/20/24 18:59 1.25 mg BIDRT PRN Administration Shortness of breath or wheezing Protocol Levalbuterol HCl 0.63 mg 07/21/24 15:00 07/22/24 14:47 Levalbuterol Rt 0.63 Mg/3 Ml Nebu INH 08/20/24 14:59 0.63 mg Q4HRRT MONA Administration Methylprednisolone Sodium Succinate 40 mg 07/22/24 14:00 07/22/24 13:33 Methylprednisolone Sod Succ 40 Mg Vial IVP 07/29/24 13:59 40 mg Q8HR MONA Administration Metoprolol Succinate 25 mg 07/21/24 09:00 07/22/24 08:44 Metoprolol Succinate Xl 25 Mg Tabcr PO 08/20/24 08:59 25 mg QDAY MONA Administration Ondansetron HCl 4 mg 07/20/24 11:58 Ondansetron Inj 2 Mg/Ml Inj 2 Ml IV 08/19/24 11:57 Q6H PRN NAUSEA OR VOMITING Protocol Fluticasone/Salmeterol 1 puff 07/22/24 21:00 Fluticasone/Salmeterol 100/50 14 Dose Inh INH 08/21/24 20:59 BID MONA Sennosides 1 tab 07/21/24 09:00 07/22/24 08:45 Senna Tablet PO 08/20/24 08:59 1 tab QDAY MONA Administration Protocol Sodium Chloride 5 ml 07/20/24 12:03 Sodium Chloride Rt 10% 15 Ml Nebu INH 08/19/24 12:02 PRN PRN sputum Sodium Chloride 3 ml 07/21/24 10:39 Sodium Chloride Rt Eva 0.9% 3 Ml Nebu INH 08/20/24 10:38 PRN PRN SOLN Sucralfate 1 gm 07/20/24 21:00 07/22/24 08:44 Sucralfate 1 Gm Tablet PO 08/19/24 20:59 1 gm BID MONA Administration Plan Summary: The patient is a 79-year-old female with a past medical history of asthma on 3 L of oxygen at baseline, 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 Neuro No active conditions #History of CVA Patient has a history of CVA, the last time being in September 2023 with bilateral cerebellar infarcts. Supposedly, patient has left-sided deficits (weakness) Cardiovascular #History of HFpEF The patient has a history of HFpEF with ejection fraction 60 to 65% on echocardiogram done about a week ago also showing diastolic dysfunction. On admission, patient presented with hypoxia She was started on Lasix 40 mg daily. Cardiology was curb sided on this admission, believes that hypoxia is more pulmonary than cardiac cause. Plan: -Continue IV furosemide 40 mg -Strict I&O's #History of aortic stenosis status post TAVR The patient has a history of aortic stenosis which she had a TAVR done about 4 years ago. She has been followed by make up editor Dr. Arita. #History of A-fib She has a history of A-fib and is on Eliquis 5 mg twice daily. EKG on admission showed A-fib, rate controlled Plan: -Continue Eliquis #History of hypertension Patient has a history of hypertension and is on lisinopril. Admission, blood pressures have been soft. Will hold off on antihypertensives for now. Resp #Acute on chronic hypoxic respiratory failure #Possible excessive dynamic airway collapse #?Tracheomalacia #CAP versus HAP The patient presented with shortness of breath and was admitted for acute hypoxic respiratory failure. Allegedly, she had been previously diagnosed with asthma and has had recurrent pulmonary infections. On initial admission, she had significant wheezing consistent with airway disease. Chest x-ray showed bilateral opacities consistent with multifocal pneumonia/fluid overload. She is a chronic CO2 retainer based on bicarb levels and history. On 07/22/2024, rapid response was called as patient was desaturating in the 50s. The RN went to the room and found out that the BiPAP tubing has been dislodged from the mask, patient was awake and alert at the time and oriented. ICU was consulted for further evaluation and recommendations, BiPAP settings were adjusted and patient is saturating 98% on 55% FiO2. She was upgraded to the ICU for intubation and further management. ABG during rapid response and a pH of 7.23 with pCO2 of 102. However, bronchoscopy was done on admission to the ICU, does not appear patient has airway disease as she has patent airways. Plan: -Patient intubated and on mechanical ventilation -Continue IV cefepime -Commence IV azithromycin -ET secretions for culture and stain, AFB, fungal -Pending initial cultures -DC Solumedrol GI #Hyperbilirubinemia The patient has isolated hyperbilirubinemia with T. bili of 1.5. AST and ALT within normal limits. Patient has not complained of abdominal pain. This is likely a consequence of congestive hepatitis from heart failure. Renal #CKD stage III Patient has a history of CKD stage III with creatinine baseline of about 1. BUN and creatinine normal this admission. Will continue to monitor renal panel. #Isotonic hyponatremia Sodium on admission, 137. Today, sodium is 134. Osmolality normal Albumin and protein within normal limits. Will continue to monitor sodium levels Health maintenance: Dispo: ICU, sedated and intubated on mechanical ventilation (goal pH-7.25) Diet: N.p.o. GI: Pantoprazole DVT: Eliquis Silver: None Lines: Peripheral Med Rec: Pending, f/u Code: Full Case was discussed with Dr Seymour PGY-3 and attending physician, Dr Bree Shaw MD PGY-1 Disclaimer: This note was dictated by speech recognition. Minor errors in rn staff may be present due to voice recognition software. Attending Provider Attestation/Addendum Patient seen and examined with the above resident, Chi Shaw MD. I agree with the findings, assessment, and plan of care as documented. Patient with significant airway disease leading to acute on chronic hypercapnic respiratory failure. Failed NIPPV with rising CO2 and worsening mentation. Intubated in the ICU given input form patient and significant other. Patient with no evidence of infection though adequately covered. She notably had significant air trapping with iPEEP of 15. We were able to match this and reduce RR with conservative tidal volumes to adequately ventilate and deflate hyperinflation with tolerance of pCO2 for now. Patient will continue on BDs and magnesium. No role of steroids at this time, taper off. Reinforced by bedside bronchoscopy with no significant airway edema. Minimal secretions easily removed. Unable to exclude component of EDAC as well. Will need to optimize underlying parenchymal disease first before attempting weaning now. Total critical care time: I personally spent 45 minutes for review of physiologic parameters, directing plan of care, coordination of care and counseling patient/ friend at bedside. This is exclusive of time spent teaching housestaff or performing any separate billable procedures. Patient requires critical care services for acute on chronic hypercapnic respiratory failure, acute encephalopathy, healthcare associated pneumonia. She remains at significant risk for further morbidity and mortality warranting close monitoring and care only available in the ICU.
--- NOTE | 2024-07-22 18:45 | XR_ITS ---
Examination: Abdomen AP single view Technique: AP portable supine abdomen, single view Exam date and time: July 22, 2024 1837 hours INDICATIONS: Post orogastric tube placement FINDINGS: Orogastric tube tip distal stomach satisfactory position Air distended bowel loops noted IMPRESSION: Orogastric tube tip distal stomach
[2024-07-22 18:47] LABS: Cult AFB Sendout- Sputum* See Sep Rpt
[2024-07-22] MEDS: AZITHROMYCIN INJ 500 MG in SODIUM CHLORIDE 0.9% 250 ML 250 ML 250 MG IV (19:15)
--- NOTE | 2024-07-22 20:05 | PC.NURSE ---
Patient accidentally disconnected Bipap tubing, when entering room found patient at 55 O2. Reconnected bipap and boosted fio O2 to 100%. Patient able to catch breath and oxygen went back to 96%. When returning to check patient, after sternal rubbing no response so rapid called. Dr. Pradhan and team at bedside. Level of care changed to ICU.
[2024-07-22 20:48] LABS: Base Excess 13 (-3-3); HCO3 43 mEq/L (20-26); Inspired Oxygen, FIO2 100 %; O2 Saturation 101 % (91-98); PCO2 115 mmHg (32.0-48.0); PO2 376 mmHg (83-108); pH, Arterial 7.18 (7.35-7.45)
[2024-07-22 20:49] LABS: Allen Test Performed/OK; Puncture Site Left Radial
[2024-07-22] MEDS: APIXABAN 2.5 MG TABLET 5 MG NG (21:35)
[2024-07-22 22:25] LABS: Base Excess 14 (-3-3); HCO3 42 mEq/L (20-26); Inspired Oxygen, FIO2 70 %; O2 Saturation 101 % (91-98); PCO2 84 mmHg (32.0-48.0); PO2 170 mmHg (83-108); pH, Arterial 7.31 (7.35-7.45)
[2024-07-22 22:31] LABS: Allen Test Performed/OK; Puncture Site Left Radial
[2024-07-23] VITALS (112 sets, daily range): BP systolic 82–231; BP diastolic 1–89; PULSE 72–109; RESP 0–16; TEMP 35.9–37.2; O2SAT 64–100
--- NOTE | 2024-07-23 00:02 | XR_ITS ---
Examination: AP chest single view TECHNIQUE: AP portable semiupright chest single view Exam date and time: 2024 0010 hours Comparison July 20, 2024 INDICATIONS: Post central line placement. FINDINGS: Right internal jugular central line tip SVC satisfactory position, no pneumothorax Extensive bilateral pneumonia Endotracheal tube tip 4.7 cm above darling Aortic valve replacement Prominent vascular congestion IMPRESSION: Interval right internal jugular central line, tip SVC satisfactory position No pneumothorax
--- NOTE | 2024-07-23 00:03 | PD.RESPROC ---
Procedures Procedure Date / Time 07/23/24 4990 Central Line Placement Right IJ: Indication(s): poor, or inadequate peripheral venous access Informed consent obtained: obtained from surrogate decision maker Time out done, and the following verified: correct patient, side and site, procedure, patient position and implants and/or equipment Patient placed on monitor/pulse ox: Yes Hand Hygiene: soap & water Max Sterile Barrier Techniques used: cap, mask, sterile gown, sterile gloves and sterile full body drape Central line prep: Chlorhexidine scrub Local anesthesia used: lidocaine 1% Amount of anesthesia used (mL): 5 Ultrasound used for placement: Yes Sterile Technique if Ultrasound used, including sterile gel: yes Central line lumen inserted: triple Post procedure: sutured in place, good blood return, all ports aspirated, flushed, capped and sterile dressing applied Post procedure x-ray: tip of catheter in good position and no pneumothorax seen Patient tolerated procedure: well EBL(ml): 5 Complications: none
[2024-07-23] MEDS: SUCRALFATE 1 GM TABLET PO (00:25)
[2024-07-23] MEDS: PROPOFOL 1,000 MG IVPB 1,000 MG/100 ML VIAL 23.337 MG IV (01:10)
[2024-07-23] MEDS: LEVALBUTEROL RT 0.63 MG/3 ML NEBU INH ×5 (02:38→23:20)
[2024-07-23] MEDS: IPRATROPIUM RT 0.5 MG/ 2.5 ML NEBU INH ×5 (02:38→23:20)
[2024-07-23 05:14] LABS: Basophils % (Auto) 0 % (0-2.5); Eosinophils % (Auto) 0 % (0-10); Hematocrit 23.8 % (36.0-46.0); Immature Granulocytes % (Auto) 1 % (0-0); Immature Granulocytes Auto 0.19 Thou/mm3 (0.00-0.00); Lymphocytes # (Auto) 0.3 Thou/mm3 (1.0-4.8); Lymphocytes % (Auto) 2 % (10-50); Mean Corpuscular HGB Conc 29.8 g/dl (31.0-37.0); Mean Corpuscular Hemoglobin 30.7 pg (25.0-35.0); Mean Corpuscular Volume 103 fL (80-100); Monocytes # (Auto) 1.3 Thou/mm3 (0.0-0.8); Monocytes % (Auto) 8 % (0-12); Neutrophils # (Auto) 15.6 Thou/mm3 (1.8-7.7); Neutrophils % (Auto) 90 % (37-80); Nucleated Red Blood Cell # 0.02 Thou/mm3 (0.00-0.00); Nucleated Red Blood Cell % 0 /100 WBC (0); Platelet Count 231 Thou/mm3 (140-440); Red Blood Count 2.31 Miln/mm3 (4.00-5.20); White Blood Count 17.5 Thou/mm3 (3.6-11.0)
[2024-07-23 05:19] LABS: Hemoglobin 7.1 g/dL (12.0-16.0)
[2024-07-23 05:47] LABS: Alanine Aminotransferase 43 U/L (10-49); Albumin, Serum 3.3 gm/dL (3.4-4.8); Albumin/Globulin Ratio 1.2 (1.2-2.2); Alkaline Phosphatase 55 U/L (46-116); Anion Gap 4 (7-16); Aspartate Amino Transferase 53 U/L (0-34); BUN/Creatinine Ratio 25 Ratio (12-20); Bilirubin,Total 1.6 mg/dL (0.3-1.2); Blood Urea Nitrogen 30 mg/dL (9-23); Calcium 8.9 mg/dL (8.3-10.6); Calcium (Corrected) 9.5 mg/dL (8.5-10.1); Carbon Dioxide > 40.0 mMol/L (20.0-31.0); Chloride 92 mMol/L (98-107); Creatinine (Component) 1.2 mg/dL (0.6-1.3); Estimated Creatinine Clearance 50.5 mL/min (>60); Globulin 2.8 gm/dL (2.3-3.5); Glucose 147 mg/dL (74-106); Osmolality,Calculated 281 (275-295); Potassium 4.6 mMol/L (3.4-5.1); Sodium 136 mMol/L (136-145); Total Protein 6.1 gm/dL (5.7-8.2); eGFR 46 See Note
[2024-07-23] MEDS: PROPOFOL 1,000 MG IVPB 1,000 MG/100 ML VIAL 10.002 MG IV (06:30)
[2024-07-23 08:09] LABS: Base Excess 16 (-3-3); HCO3 43 mEq/L (20-26); Inspired Oxygen, FIO2 50 %; O2 Saturation 101 % (91-98); PCO2 74 mmHg (32.0-48.0); PO2 143 mmHg (83-108); pH, Arterial 7.37 (7.35-7.45)
[2024-07-23 08:14] LABS: Allen Test Not Performed; Puncture Site Left Radial
[2024-07-23] MEDS: Norepinephrine/D5W 8mg/250ml 8 MG/250 ML BAG 10.418 MG IV (09:36)
[2024-07-23] MEDS: CEFEPIME INJ 2 GM in SODIUM CHLORIDE 0.9% (Popper) 50 ML IV ×2 (09:41→21:00)
[2024-07-23] MEDS: APIXABAN 2.5 MG TABLET 5 MG NG ×2 (09:41→21:00)
[2024-07-23] MEDS: SENNA TABLET 1 TAB PO (09:42)
[2024-07-23] MEDS: FUROSEMIDE INJ 10 MG/ML 4ML VIAL 40 MG IVP (09:42)
[2024-07-23] MEDS: SUCRALFATE SUSP 1 GM/10 ML UDC NG ×2 (09:42→21:15)
[2024-07-23] MEDS: PANTOPRAZOLE INJ 40 MG VIAL IVP (09:45)
[2024-07-23] MEDS: AZITHROMYCIN INJ 250 MG in SODIUM CHLORIDE 0.9% 250 ML 250 ML IV (10:09)
[2024-07-23] MEDS: ROCURONIUM INJ 10 MG/ML VIAL 10 ML 100 MG IVP (12:15)
--- NOTE | 2024-07-23 12:34 | PC.DIETICIAN ---
Nutrition Prescription: If EN is initiated, consider:? Trophic feeds of Vital 1.2 at 20 ml/hr via OG tube. Water flushes of 30 ml every 4 hrs (or per MD). Once more stable, advance 10 ml every 8 hrs to goal rate of 40 ml/hr x? 24 hrs. *EN goal rate to be adjusted as needed while pt is on propofol.
--- NOTE | 2024-07-23 12:51 | XR_ITS ---
Examination: AP chest single view TECHNIQUE: AP portable upright chest single view Exam date and time: July 23, 2024 1314 hours Comparison July 23, 2024 0010 hours INDICATIONS: Hypoxia today. FINDINGS: Extensive bilateral lung opacity, edema and/or pneumonia Mild enlargement cardiac contour, prominent vascular congestion Right internal jugular central line tip SVC satisfactory position, no pneumothorax Endotracheal tube tip 4.3 cm above darling Orogastric tube in the stomach tip is below the level of the film IMPRESSION: Bilateral significant pneumonia Mild associated heart failure
[2024-07-23] MEDS: PROPOFOL 1,000 MG IVPB 1,000 MG/100 ML VIAL 20.003 MG IV ×2 (12:54→19:00)
[2024-07-23] MEDS: fentaNYL 2,500 MCG/250 ML BAG 2,500 MCG/250 ML BAG 25 MCG IV ×2 (12:55→23:54)
[2024-07-23] MEDS: LEVALBUTEROL RT 1.25 MG/0.5 ML NEBU INH (13:10)
[2024-07-23] MEDS: ALBUTEROL RT 2.5 MG/0.5 ML NEBU 15 MG INH (13:28)
[2024-07-23] MEDS: Magnesium Sulfate 2 GM Ivpb 2 GM/50 ML BAG IV (13:41)
--- NOTE | 2024-07-23 14:40 | XR_ITS ---
Examination: CT chest, without intravenous contrast. Sagittal and coronal 2-D reconstructions. Exam date and time: July 23, 2024 at 1535 hours Comparison June 11, 2024 INDICATIONS: Hypoxic respiratory failure, postintubation CTDI:vol (mGy) 16.9 DLP: (mGycm) 634 Technique: Multiple 3.0 mm axial sections of the chest to been obtained. Bone and lung density settings are obtained. Sagittal and coronal 2-D reconstructions have been obtained. Low dose protocols were performed. One or more of the following dose reduction techniques were used; automated exposure control, adjustment of the mA and/or KV according to patient size, use of iterative reconstruction technique. Findings: Tracheal tube tip 2.8 cm above darling Extensive bilateral lung opacity again noted Main pulmonary artery segment measures 35 mm No mediastinal lymphadenopathy Prominent vascular congestion Mild to moderate enlargement cardiac contour with aortic valve replacement Mild bilateral pleural effusions No visualized liver or splenic lesion Absent gallbladder No pancreatic mass IMPRESSION: Extensive bilateral pneumonia again noted Mild associated heart failure
--- NOTE | 2024-07-23 14:44 | PC.SS ---
Update: Patient remains intubated/sedated. No feedings at current time. Patient receiving IV antibiotics. Pressor support in place. Patient is afrebile.
[2024-07-23] MEDS: ROCURONIUM INJ 10 MG/ML VIAL 10 ML 50 MG IVP (15:25)
--- NOTE | 2024-07-23 17:05 | PD.RESPRO ---
Documentation for date of: 07/23/24 Exam Vital Signs Temp Pulse Resp BP Pulse Ox O2 Del Method O2 Flow Rate 97.9 F 98 10 L 112/79 100 Mechanical Ventilation 5 07/23/24 12:00 07/23/24 14:32 07/23/24 13:29 07/23/24 14:32 07/23/24 14:32 07/23/24 04:00 07/22/24 16:00 FiO2 100 07/23/24 14:32 Objective Labs 07/23/24 04:35 07/23/24 04:35 Labs: Laboratory Results - last 24 hr 07/22/24 07/22/24 07/22/24 16:25 16:28 19:33 WBC RBC Hgb Hct MCV MCH MCHC RDW Std Deviation Plt Count Neut % (Auto) Lymph % (Auto) Woods % (Auto) Eos % (Auto) Baso % (Auto) Neut # (Auto) Lymph # (Auto) Woods # (Auto) Eos # (Auto) Baso # (Auto) Immature Gran # (Auto) Absolute Nucleated RBC Immature Gran % Nucleated RBC % Puncture Site Cancelled Left Radial ABG pH Cancelled 7.18 L* ABG pCO2 Cancelled 115 H* D ABG pO2 Cancelled 376 H D ABG HCO3 Cancelled 43 H ABG O2 Saturation Cancelled 101 H ABG Base Excess Cancelled 13 H Oxygen Liter Flow Cancelled FiO2 Cancelled 100 Sodium 134 L Potassium 4.7 Chloride 92 L Carbon Dioxide 39.2 H Anion Gap 3 L BUN 26 H Creatinine 1.2 Estim Creat Clear Calc 50.5 L eGFR 46 L BUN/Creatinine Ratio 22 H Glucose 186 H Calculated Osmolality 277 Calcium 9.1 Corrected Calcium 9.3 Magnesium 2.4 Total Bilirubin 1.5 H AST 34 ALT 32 Alkaline Phosphatase 58 Troponin I < 0.020 Total Protein 6.8 Albumin 3.8 Globulin 3.0 Albumin/Globulin Ratio 1.3 07/22/24 07/23/24 07/23/24 22:17 04:35 08:00 WBC 17.5 H RBC 2.31 L Hgb 7.1 L Hct 23.8 L MCV 103 H MCH 30.7 MCHC 29.8 L RDW Std Deviation 60.0 H Plt Count 231 D Neut % (Auto) 90 H Lymph % (Auto) 2 L Woods % (Auto) 8 Eos % (Auto) 0 Baso % (Auto) 0 Neut # (Auto) 15.6 H Lymph # (Auto) 0.3 L Woods # (Auto) 1.3 H Eos # (Auto) 0.0 Baso # (Auto) 0.0 Immature Gran # (Auto) 0.19 H Absolute Nucleated RBC 0.02 H Immature Gran % 1 H Nucleated RBC % 0 Puncture Site Left Radial Left Radial ABG pH 7.31 L D 7.37 ABG pCO2 84 H* D 74 H* D ABG pO2 170 H D 143 H D ABG HCO3 42 H 43 H ABG O2 Saturation 101 H 101 H ABG Base Excess 14 H 16 H Oxygen Liter Flow FiO2 70 50 Sodium 136 Potassium 4.6 Chloride 92 L Carbon Dioxide > 40.0 H Anion Gap 4 L BUN 30 H Creatinine 1.2 Estim Creat Clear Calc 50.5 L eGFR 46 L BUN/Creatinine Ratio 25 H Glucose 147 H Calculated Osmolality 281 Calcium 8.9 Corrected Calcium 9.5 Magnesium Total Bilirubin 1.6 H AST 53 H ALT 43 Alkaline Phosphatase 55 Troponin I Total Protein 6.1 Albumin 3.3 L D Globulin 2.8 Albumin/Globulin Ratio 1.2 ABG Interpretation ABG results: 07/21/24 07/21/24 07/21/24 15:47 18:41 21:07 ABG pH 7.22 L 7.19 L* 7.29 L D ABG pCO2 102 H* 106 H* 85 H* D ABG pO2 66 L 63 L 80 L ABG HCO3 42 H 41 H 40 H ABG O2 Saturation 91 89 L 97 ABG Base Excess 12 H 10 H 12 H 07/22/24 07/22/24 07/22/24 05:17 15:30 16:25 ABG pH 7.28 L 7.23 L Cancelled ABG pCO2 90 H* 102 H* D Cancelled ABG pO2 70 L 53 L* Cancelled ABG HCO3 42 H 43 H Cancelled ABG O2 Saturation 94 84 L Cancelled ABG Base Excess 13 H 14 H Cancelled 07/22/24 07/22/24 07/23/24 19:33 22:17 08:00 ABG pH 7.18 L* 7.31 L D 7.37 ABG pCO2 115 H* D 84 H* D 74 H* D ABG pO2 376 H D 170 H D 143 H D ABG HCO3 43 H 42 H 43 H ABG O2 Saturation 101 H 101 H 101 H ABG Base Excess 13 H 14 H 16 H Quality Measures Quality Measures VTE prophylaxis Assessment & Plan Assessment Current Active Medications: Generic Name Dose Route Start Last Admin Trade Name Freq PRN Reason Stop Dose Admin Acetaminophen 650 mg 07/23/24 08:08 Acetaminophen Eva 325 Mg/10 Ml Udc NG 08/19/24 11:57 Q6H PRN Pain 1-3 and/or Fever >100.1 Apixaban 5 mg 07/22/24 21:00 07/23/24 09:41 Apixaban 2.5 Mg Tablet NG 08/21/24 20:59 5 mg BID MONA Administration Benzonatate 100 mg 07/23/24 08:08 Benzonatate 100 Mg Capsule NG 08/19/24 20:59 BID PRN COUGH Protocol Furosemide 40 mg 07/22/24 10:45 07/23/24 09:42 Furosemide Inj 10 Mg/Ml 4ml Vial IVP 08/21/24 10:44 40 mg QDAY MONA Administration Cefepime HCl 2 gm/ Sodium 50 mls @ 100 mls/hr 07/20/24 21:00 07/23/24 09:41 Chloride IV 07/27/24 20:59 100 mls/hr Q12HR MONA Administration Norepinephrine/Dextrose 8 mg in 250 mls @ 10.418 mls/hr 07/22/24 16:56 07/23/24 16:00 Levophed In D5w 8mg/250ml IV 08/21/24 16:55 0.15 mcg/kg/min .Q24H PRN 31.255 mls/hr PER PROTOCOL Titration Protocol 0.05 MCG/KG/MIN Fentanyl Citrate 2,500 mcg in 250 mls @ 2.5 mls/hr 07/22/24 16:56 07/23/24 16:00 Sublimaze Inj 2,500 Mcg/250 Ml Bag IV 07/27/24 16:55 250 mcg/hr .Q24H PRN 25 mls/hr PER PROTOCOL Titration Protocol 25 MCG/HR Propofol 1,000 mg in 100 mls @ 3.334 mls/hr 07/22/24 18:15 07/23/24 16:00 Diprivan Ivpb IV 08/21/24 18:14 30 mcg/kg/min .Q24H PRN 20.003 mls/hr PER PROTOCOL Titration Protocol 5 MCG/KG/MIN Azithromycin 500 mg/ Sodium 250 mls @ 250 mls/hr 07/24/24 09:00 Chloride IV 07/31/24 08:59 QDAY MONA Ipratropium [place] 0.5 mg 07/21/24 10:43 07/23/24 13:10 Ipratropium Rt 0.5 Mg/ 2.5 Ml Nebu INH 08/20/24 18:59 0.5 mg BIDRT PRN Administration Shortness of breath and wheezing Protocol Ipratropium [place] 0.5 mg 07/21/24 15:00 07/23/24 14:40 Ipratropium Rt 0.5 Mg/ 2.5 Ml Nebu INH 08/20/24 14:59 Not Given Q4HRRT MONA Levalbuterol HCl 1.25 mg 07/21/24 10:39 07/23/24 13:10 Levalbuterol Rt 1.25 Mg/0.5 Ml Nebu INH 08/20/24 18:59 1.25 mg BIDRT PRN Administration Shortness of breath or wheezing Protocol Levalbuterol HCl 0.63 mg 07/21/24 15:00 07/23/24 14:27 Levalbuterol Rt 0.63 Mg/3 Ml Nebu INH 08/20/24 14:59 Not Given Q4HRRT MONA Ondansetron HCl 4 mg 07/20/24 11:58 Ondansetron Inj 2 Mg/Ml Inj 2 Ml IV 08/19/24 11:57 Q6H PRN NAUSEA OR VOMITING Protocol Pantoprazole Sodium 40 mg 07/23/24 09:45 07/23/24 09:45 Pantoprazole Inj 40 Mg Vial IVP 08/22/24 09:44 40 mg QDAY MONA Administration Fluticasone/Salmeterol 1 puff 07/22/24 21:00 07/23/24 09:49 Fluticasone/Salmeterol 100/50 14 Dose Inh INH 08/21/24 20:59 Not Given BID MONA Sennosides 1 tab 07/21/24 09:00 07/23/24 09:42 Senna Tablet PO 08/20/24 08:59 1 tab QDAY MONA Administration Protocol Sodium Chloride 5 ml 07/20/24 12:03 Sodium Chloride Rt 10% 15 Ml Nebu INH 08/19/24 12:02 PRN PRN sputum Sodium Chloride 3 ml 07/23/24 13:11 Sodium Chloride Rt Eva 0.9% 3 Ml Nebu INH 08/22/24 13:10 PRN PRN SOLN Sucralfate 1 gm 07/23/24 09:00 07/23/24 09:42 Sucralfate Susp 1 Gm/10 Ml Udc NG 08/19/24 20:59 1 gm BID MONA Administration
--- NOTE | 2024-07-23 17:11 | ESPR_ITS ---
<Statement entered by Chip Seymour MD - 07/23/24 17:44> patient gonzález examined bedside this morning. she had an episode of hypoxia while putting art line , she was bagged and her saturation improve, new art line was placed. will monitor her alkolosis and plan diamox accordingly.we will follow up ct scan of chest. she is on propofol and fentanyl. I discussed with and supervised my co-resident involved in the care of this patient. I agree with the assessment and plan as documented above. Chip Seymour,PGY-3 Disclaimer: Despite multiple revisions, due to the dictation software being used, the document below may not be free of grammatical errors including phonetic/typographic errors. However, this does not deter from our commitment to providing health care in the patient's best interest in mind. Documentation for date of: 07/23/24 Subjective Subjective Interval history: Patient seen and examined at bedside. Overnight was said to have been agitated intermittently. Also, notices that she had episodes of desaturation when she was laid flat, ABG done during the night showed a pH of 7.18 with pCO2 of 115. Vent settings adjusted and repeat ABG this morning as pH of 7.37 with pCO2 of 74. Urine output overnight-457 mL. At bedside today, patient is intubated on mechanical ventilation, sedated on propofol and fentanyl, arousable to painful stimuli. Labs reviewed, slight increase in WBC. Alkalosis seen on CMP-contraction versus compensation to respiratory acidosis. Will continue breathing treatments, antibiotics and consult dietary for trophic feeds to be started via OG tube. Will continue to monitor for alkalosis especially once feeds are started and gave Diamox as needed. Patient did drop in saturations intermittently today, possibly due to air trapping, will continue to adjust ventilator settings. Exam Vital Signs Temp Pulse Resp BP Pulse Ox O2 Del Method O2 Flow Rate 97.9 F 98 10 L 112/79 100 Mechanical Ventilation 5 07/23/24 12:00 07/23/24 14:32 07/23/24 13:29 07/23/24 14:32 07/23/24 14:32 07/23/24 04:00 07/22/24 16:00 FiO2 100 07/23/24 14:32 Narrative Exam GENERAL: GCS-3, sedated and intubated, mechanical ventilation NEURO: GCS-3, intubated HEENT: Dry mucosa. Pupils equal bilaterally CARDIO: Heart RRR, no obvious murmurs PULM: Crackles and rhonchi heard bilaterally. Intubated and sedated, mechanical ventilation GI: Abdomen soft, nondistended. BSx4 URO/WATER POLLUTION CONTROL TECHNICIAN:: No further abnormalities noted. SKIN/MSK/EXT: No wounds/rashes/edema/amputations, no pain on palpation. Pedal pulses present B/L Objective Labs 07/29/24 04:29 07/29/24 04:29 Labs: Laboratory Results - last 24 hr 07/22/24 07/22/24 07/22/24 16:25 19:33 22:17 WBC RBC Hgb Hct MCV MCH MCHC RDW Std Deviation Plt Count Neut % (Auto) Lymph % (Auto) [place] % (Auto) Eos % (Auto) Baso % (Auto) Neut # (Auto) Lymph # (Auto) [place] # (Auto) Eos # (Auto) Baso # (Auto) Immature Gran # (Auto) Absolute Nucleated RBC Immature Gran % Nucleated RBC % Puncture Site Cancelled Left Radial Left Radial ABG pH Cancelled 7.18 L* 7.31 L D ABG pCO2 Cancelled 115 H* D 84 H* D ABG pO2 Cancelled 376 H D 170 H D ABG HCO3 Cancelled 43 H 42 H ABG O2 Saturation Cancelled 101 H 101 H ABG Base Excess Cancelled 13 H 14 H Oxygen Liter Flow Cancelled FiO2 Cancelled 100 70 Sodium Potassium Chloride Carbon Dioxide Anion Gap BUN Creatinine Estim Creat Clear Calc eGFR BUN/Creatinine Ratio Glucose Calculated Osmolality Calcium Corrected Calcium Total Bilirubin AST ALT Alkaline Phosphatase Total Protein Albumin Globulin Albumin/Globulin Ratio 07/23/24 07/23/24 04:35 08:00 WBC 17.5 H RBC 2.31 L Hgb 7.1 L Hct 23.8 L MCV 103 H MCH 30.7 MCHC 29.8 L RDW Std Deviation 60.0 H Plt Count 231 D Neut % (Auto) 90 H Lymph % (Auto) 2 L Norman % (Auto) 8 Eos % (Auto) 0 Baso % (Auto) 0 Neut # (Auto) 15.6 H Lymph # (Auto) 0.3 L Norman # (Auto) 1.3 H Eos # (Auto) 0.0 Baso # (Auto) 0.0 Immature Gran # (Auto) 0.19 H Absolute Nucleated RBC 0.02 H Immature Gran % 1 H Nucleated RBC % 0 Puncture Site Left Radial ABG pH 7.37 ABG pCO2 74 H* D ABG pO2 143 H D ABG HCO3 43 H ABG O2 Saturation 101 H ABG Base Excess 16 H Oxygen Liter Flow FiO2 50 Sodium 136 Potassium 4.6 Chloride 92 L Carbon Dioxide > 40.0 H Anion Gap 4 L BUN 30 H Creatinine 1.2 Estim Creat Clear Calc 50.5 L eGFR 46 L BUN/Creatinine Ratio 25 H Glucose 147 H Calculated Osmolality 281 Calcium 8.9 Corrected Calcium 9.5 Total Bilirubin 1.6 H AST 53 H ALT 43 Alkaline Phosphatase 55 Total Protein 6.1 Albumin 3.3 L D Globulin 2.8 Albumin/Globulin Ratio 1.2 ABG Interpretation ABG results: 07/21/24 07/21/24 07/21/24 15:47 18:41 21:07 ABG pH 7.22 L 7.19 L* 7.29 L D ABG pCO2 102 H* 106 H* 85 H* D ABG pO2 66 L 63 L 80 L ABG HCO3 42 H 41 H 40 H ABG O2 Saturation 91 89 L 97 ABG Base Excess 12 H 10 H 12 H 07/22/24 07/22/24 07/22/24 05:17 15:30 16:25 ABG pH 7.28 L 7.23 L Cancelled ABG pCO2 90 H* 102 H* D Cancelled ABG pO2 70 L 53 L* Cancelled ABG HCO3 42 H 43 H Cancelled ABG O2 Saturation 94 84 L Cancelled ABG Base Excess 13 H 14 H Cancelled 07/22/24 07/22/24 07/23/24 19:33 22:17 08:00 ABG pH 7.18 L* 7.31 L D 7.37 ABG pCO2 115 H* D 84 H* D 74 H* D ABG pO2 376 H D 170 H D 143 H D ABG HCO3 43 H 42 H 43 H ABG O2 Saturation 101 H 101 H 101 H ABG Base Excess 13 H 14 H 16 H Quality Measures Quality Measures VTE prophylaxis Advance care planning discussed with:: other Assessment & Plan Assessment Current Active Medications: Generic Name Dose Route Start Last Admin Trade Name Freq PRN Reason Stop Dose Admin Acetaminophen 650 mg 07/23/24 08:08 Acetaminophen Eva 325 Mg/10 Ml Udc NG 08/19/24 11:57 Q6H PRN Pain 1-3 and/or Fever >100.1 Apixaban 5 mg 07/22/24 21:00 07/23/24 09:41 Apixaban 2.5 Mg Tablet NG 08/21/24 20:59 5 mg BID MONA Administration Benzonatate 100 mg 07/23/24 08:08 Benzonatate 100 Mg Capsule NG 08/19/24 20:59 BID PRN COUGH Protocol Furosemide 40 mg 07/22/24 10:45 07/23/24 09:42 Furosemide Inj 10 Mg/Ml 4ml Vial IVP 08/21/24 10:44 40 mg QDAY MONA Administration Cefepime HCl 2 gm/ Sodium 50 mls @ 100 mls/hr 07/20/24 21:00 07/23/24 09:41 Chloride IV 07/27/24 20:59 100 mls/hr Q12HR MONA Administration Norepinephrine/Dextrose 8 mg in 250 mls @ 10.418 mls/hr 07/22/24 16:56 07/23/24 16:00 Levophed In D5w 8mg/250ml IV 08/21/24 16:55 0.15 mcg/kg/min .Q24H PRN 31.255 mls/hr PER PROTOCOL Titration Protocol 0.05 MCG/KG/MIN Fentanyl Citrate 2,500 mcg in 250 mls @ 2.5 mls/hr 07/22/24 16:56 07/23/24 16:00 Sublimaze Inj 2,500 Mcg/250 Ml Bag IV 07/27/24 16:55 250 mcg/hr .Q24H PRN 25 mls/hr PER PROTOCOL Titration Protocol 25 MCG/HR Propofol 1,000 mg in 100 mls @ 3.334 mls/hr 07/22/24 18:15 07/23/24 16:00 Diprivan Ivpb IV 08/21/24 18:14 30 mcg/kg/min .Q24H PRN 20.003 mls/hr PER PROTOCOL Titration Protocol 5 MCG/KG/MIN Azithromycin 500 mg/ Sodium 250 mls @ 250 mls/hr 07/24/24 09:00 Chloride IV 07/31/24 08:59 QDAY MONA Ipratropium [place] 0.5 mg 07/21/24 10:43 07/23/24 13:10 Ipratropium Rt 0.5 Mg/ 2.5 Ml Nebu INH 08/20/24 18:59 0.5 mg BIDRT PRN Administration Shortness of breath and wheezing Protocol Ipratropium [place] 0.5 mg 07/21/24 15:00 07/23/24 14:40 Ipratropium Rt 0.5 Mg/ 2.5 Ml Nebu INH 08/20/24 14:59 Not Given Q4HRRT MONA Levalbuterol HCl 1.25 mg 07/21/24 10:39 07/23/24 13:10 Levalbuterol Rt 1.25 Mg/0.5 Ml Nebu INH 08/20/24 18:59 1.25 mg BIDRT PRN Administration Shortness of breath or wheezing Protocol Levalbuterol HCl 0.63 mg 07/21/24 15:00 07/23/24 14:27 Levalbuterol Rt 0.63 Mg/3 Ml Nebu INH 08/20/24 14:59 Not Given Q4HRRT [facility] Ondansetron HCl 4 mg 07/20/24 11:58 Ondansetron Inj 2 Mg/Ml Inj 2 Ml IV 08/19/24 11:57 Q6H PRN NAUSEA OR VOMITING Protocol Pantoprazole Sodium 40 mg 07/23/24 09:45 07/23/24 09:45 Pantoprazole Inj 40 Mg Vial IVP 08/22/24 09:44 40 mg QDAY MONA Administration Fluticasone/Salmeterol 1 puff 07/22/24 21:00 07/23/24 09:49 Fluticasone/Salmeterol 100/50 14 Dose Inh INH 08/21/24 20:59 Not Given BID MONA Sennosides 1 tab 07/21/24 09:00 07/23/24 09:42 Senna Tablet PO 08/20/24 08:59 1 tab QDAY MONA Administration Protocol Sodium Chloride 5 ml 07/20/24 12:03 Sodium Chloride Rt 10% 15 Ml Nebu INH 08/19/24 12:02 PRN PRN sputum Sodium Chloride 3 ml 07/23/24 13:11 Sodium Chloride Rt Eva 0.9% 3 Ml Nebu INH 08/22/24 13:10 PRN PRN SOLN Sucralfate 1 gm 07/23/24 09:00 07/23/24 09:42 Sucralfate Susp 1 Gm/10 Ml Udc NG 08/19/24 20:59 1 gm BID MONA Administration Plan Summary: The patient is a 79-year-old female with a past medical history of asthma on 3 L of oxygen at baseline, 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 Neuro No active conditions #History of CVA Patient has a history of CVA, the last time being in September 2023 with bilateral cerebellar infarcts. Supposedly, patient has left-sided deficits (weakness) Cardiovascular #History of HFpEF The patient has a history of HFpEF with ejection fraction 60 to 65% on echocardiogram done about a week ago also showing diastolic dysfunction. On admission, patient presented with hypoxia She was started on Lasix 40 mg daily. Cardiology was curb sided on this admission, believes that hypoxia is more pulmonary than cardiac cause. Plan: -Continue IV furosemide 40 mg -Strict I&O's #History of aortic stenosis status post TAVR The patient has a history of aortic stenosis which she had a TAVR done about 4 years ago. She has been followed by silverware washer Dr. Arita. #History of A-fib She has a history of A-fib and is on Eliquis 5 mg twice daily. EKG on admission showed A-fib, rate controlled Plan: -Continue Eliquis #History of hypertension Patient has a history of hypertension and is on lisinopril. Admission, blood pressures have been soft. Will hold off on antihypertensives for now. Resp #Acute on chronic hypoxic respiratory failure #Possible excessive dynamic airway collapse #?Tracheomalacia #CAP versus HAP The patient presented with shortness of breath and was admitted for acute hypoxic respiratory failure. Allegedly, she had been previously diagnosed with asthma and has had recurrent pulmonary infections. On initial admission, she had significant wheezing consistent with airway disease. Chest x-ray showed bilateral opacities consistent with multifocal pneumonia/fluid overload. She is a chronic CO2 retainer based on bicarb levels and history. On 07/22/2024, rapid response was called as patient was desaturating in the 50s. The RN went to the room and found out that the BiPAP tubing has been dislodged from the mask, patient was awake and alert at the time and oriented. ICU was consulted for further evaluation and recommendations, BiPAP settings were adjusted and patient is saturating 98% on 55% FiO2. She was upgraded to the ICU for intubation and further management. ABG during rapid response and a pH of 7.23 with pCO2 of 102. However, bronchoscopy was done on admission to the ICU, does not appear patient has airway disease as she has patent airways. MRSA nares negative Plan: -Continue IV cefepime -Commence IV azithromycin -ET secretions for culture and stain, AFB, fungal pending -Pending initial cultures -Chest CT GI #Hyperbilirubinemia The patient has isolated hyperbilirubinemia with T. bili of 1.5. AST and ALT within normal limits. Patient has not complained of abdominal pain. This is likely a consequence of congestive hepatitis from heart failure. Renal #CKD stage III Patient has a history of CKD stage III with creatinine baseline of about 1. BUN and creatinine normal this admission. Will continue to monitor renal panel. #Isotonic hyponatremia Sodium on admission, 137. Today, sodium is 134. Osmolality normal Albumin and protein within normal limits. Will continue to monitor sodium levels Health maintenance: Dispo: ICU, sedated and intubated on mechanical ventilation (goal pH-7.25) Diet: N.p.o. GI: Pantoprazole DVT: Eliquis Silver: None Lines: Peripheral Med Rec: Pending, f/u Code: Full Case was discussed with Dr Seymour PGY-3 and attending physician, Dr Bree Shaw MD PGY-1 Disclaimer: This note was dictated by speech recognition. Minor errors in finished cigar maker may be present due to voice recognition software. Attending Provider Attestation/Addendum Patient seen and examined with the above resident, Chi Shaw MD. I agree with the findings, assessment, and plan of care as documented except for any differences below. Patient with continued significant air trapping. Attempts to lower PEEP with prominent component of air trapping. Continue on antibiotics to treat underlying parenchymal process though long standing airway disease complicating course. Optimized with sedation, BD, magnesium and adjustments in ventilator settings to avoid excessive deadspace fraction and tolerate higher peak pressures with appropriate PPlat maintained <30. Patient with long expiratory time for now until FRC optimized in coming days. Patient with guarded prognosis but we are continuing to make progress slowly. Patient's friend, Elsy, updated at the bedside. Awaiting BAL data still. On Eliquis for atrial fibrillation. Optimizing fluid status as well. Total critical care time; I personally spent 35 minutes for review of physiologic parameters, directing plan of care throughout the day, and counseling patient's surrogate at the bedside. This is exclusive of time spent teaching housestaff or performing any seperate billable procedures. Patient continues to require critical care services for acute on chronic hypercapnic respiraotry failure with chronic obstructive lung disease/ EDAC and superimposed bacterial pneumonia. She continue sto be at risk for frurther morbidity and mortality warranting close monitoring and care only available in the ICU.
--- NOTE | 2024-07-23 17:54 | PD.RESPROC ---
Procedures Procedure Date / Time 07/23/24 9705 Procedure Narrative Procedure Narrative: Attending Attestation: I was present for entire procedure. Patient tolerated procedure well with no immediate complications. Patient had minimal blood loss. Arterial Line Indication(s): frequent arterial line sampling Informed consent obtained: obtained from surrogate decision maker Time out done, and the following verified: correct patient, side and site, procedure, patient position and implants and/or equipment Size (Gauge): 20 Technique used: guide wire technique Post-Procedure: line sutured into place and dry sterile dressing placed Patient tolerated procedure: well EBL(ml): 10 Complications: none Site: left
[2024-07-23] MEDS: Norepinephrine/D5W 8mg/250ml 8 MG/250 ML BAG 31.255 MG IV (19:15)
[2024-07-23 19:31] LABS: Base Excess 13 (-3-3); HCO3 42 mEq/L (20-26); Inspired Oxygen, FIO2 60 %; O2 Saturation 100 % (91-98); PCO2 100 mmHg (32.0-48.0); PO2 173 mmHg (83-108); pH, Arterial 7.23 (7.35-7.45)
[2024-07-23 19:46] LABS: Allen Test Not Performed; Puncture Site Arterial Line
[2024-07-23 22:40] LABS: Base Excess 13 (-3-3); HCO3 41 mEq/L (20-26); Inspired Oxygen, FIO2 50 %; O2 Saturation 100 % (91-98); PCO2 82 mmHg (32.0-48.0); PO2 123 mmHg (83-108); pH, Arterial 7.31 (7.35-7.45)
[2024-07-23 22:42] LABS: Puncture Site Arterial Line
[2024-07-23 22:43] LABS: Allen Test Not Performed
[2024-07-24] VITALS (104 sets, daily range): BP systolic 74–183; BP diastolic 40–106; PULSE 71–93; RESP 14–17; TEMP 36.3–37; O2SAT 98–100; BMI 37.1
[2024-07-24] MEDS: PROPOFOL 1,000 MG IVPB 1,000 MG/100 ML VIAL 13.336 MG IV (01:00)
[2024-07-24] MEDS: IPRATROPIUM RT 0.5 MG/ 2.5 ML NEBU INH ×6 (03:30→22:50)
[2024-07-24] MEDS: LEVALBUTEROL RT 0.63 MG/3 ML NEBU INH ×6 (03:30→22:50)
[2024-07-24] MEDS: Norepinephrine/D5W 8mg/250ml 8 MG/250 ML BAG 27.088 MG IV (04:00)
[2024-07-24 04:35] LABS: Base Excess 14 (-3-3); HCO3 42 mEq/L (20-26); Inspired Oxygen, FIO2 50 %; O2 Saturation 100 % (91-98); PCO2 80 mmHg (32.0-48.0); PO2 133 mmHg (83-108); pH, Arterial 7.33 (7.35-7.45)
[2024-07-24 04:38] LABS: Allen Test Not Performed; Puncture Site Arterial Line
[2024-07-24 05:20] LABS: Basophils % (Auto) 0 % (0-2.5); Eosinophils # (Auto) 0.1 Thou/mm3 (0.0-0.5); Eosinophils % (Auto) 1 % (0-10); Immature Granulocytes % (Auto) 1 % (0-0); Immature Granulocytes Auto 0.12 Thou/mm3 (0.00-0.00); Lymphocytes # (Auto) 0.4 Thou/mm3 (1.0-4.8); Lymphocytes % (Auto) 2 % (10-50); Mean Corpuscular HGB Conc 30.4 g/dl (31.0-37.0); Mean Corpuscular Hemoglobin 30.3 pg (25.0-35.0); Mean Corpuscular Volume 100 fL (80-100); Monocytes # (Auto) 0.8 Thou/mm3 (0.0-0.8); Monocytes % (Auto) 4 % (0-12); Neutrophils # (Auto) 17.3 Thou/mm3 (1.8-7.7); Neutrophils % (Auto) 93 % (37-80); Nucleated Red Blood Cell % 0 /100 WBC (0); Platelet Count 189 Thou/mm3 (140-440); RDW Standard Deviation 59.8 fL (36.4-46.3); Red Blood Count 2.51 Miln/mm3 (4.00-5.20); White Blood Count 18.7 Thou/mm3 (3.6-11.0)
[2024-07-24 05:32] LABS: Hemoglobin 7.6 g/dL (12.0-16.0)
[2024-07-24 05:40] LABS: Alanine Aminotransferase 40 U/L (10-49); Albumin, Serum 3.1 gm/dL (3.4-4.8); Albumin/Globulin Ratio 1.1 (1.2-2.2); Alkaline Phosphatase 54 U/L (46-116); Anion Gap 5 (7-16); Aspartate Amino Transferase 36 U/L (0-34); BUN/Creatinine Ratio 22 Ratio (12-20); Bilirubin,Total 1.3 mg/dL (0.3-1.2); Blood Urea Nitrogen 35 mg/dL (9-23); Calcium 8.5 mg/dL (8.3-10.6); Calcium (Corrected) 9.2 mg/dL (8.5-10.1); Carbon Dioxide 39.2 mMol/L (20.0-31.0); Chloride 92 mMol/L (98-107); Creatinine (Component) 1.6 mg/dL (0.6-1.3); Estimated Creatinine Clearance 37.7 mL/min (>60); Globulin 2.8 gm/dL (2.3-3.5); Glucose 189 mg/dL (74-106); Magnesium 2.5 mg/dL (1.6-2.6); Osmolality,Calculated 284 (275-295); Phosphorous 3.5 mg/dL (2.4-5.1); Potassium 3.6 mMol/L (3.4-5.1); Sodium 136 mMol/L (136-145); Total Protein 5.9 gm/dL (5.7-8.2); eGFR 33 See Note
[2024-07-24] MEDS: PROPOFOL 1,000 MG IVPB 1,000 MG/100 ML VIAL 20.003 MG IV ×3 (08:44→18:37)
[2024-07-24] MEDS: AZITHROMYCIN INJ 500 MG in SODIUM CHLORIDE 0.9% 250 ML 250 ML 250 MG IV (09:01)
[2024-07-24] MEDS: VASOPRESSIN IN NS IVPB 20 UNIT/100 ML BAG 9 UNIT IV ×2 (09:20→18:36)
[2024-07-24] MEDS: APIXABAN 2.5 MG TABLET 5 MG NG ×2 (09:20→21:23)
[2024-07-24] MEDS: PANTOPRAZOLE INJ 40 MG VIAL IVP (09:20)
[2024-07-24] MEDS: CEFEPIME INJ 2 GM in SODIUM CHLORIDE 0.9% (Popper) 50 ML IV ×2 (09:20→21:22)
[2024-07-24] MEDS: SUCRALFATE SUSP 1 GM/10 ML UDC NG ×2 (09:37→21:23)
[2024-07-24] MEDS: INSULIN GLARGINE (Lantus) 5 UNIT/0.05 ML (PER 5 UNITS) SC ×2 (09:41→21:30)
[2024-07-24] MEDS: SENNA TABLET 1 TAB PO (09:53)
[2024-07-24] MEDS: Norepinephrine/D5W 8mg/250ml 8 MG/250 ML BAG 31.255 MG IV (10:37)
[2024-07-24] MEDS: INSULIN LISPRO (AdmeLOG) 1 UNIT/0.01 ML UNIT SC ×2 (12:32→17:38)
[2024-07-24] MEDS: fentaNYL 2,500 MCG/250 ML BAG 2,500 MCG/250 ML BAG 25 MCG IV ×2 (12:43→22:50)
--- NOTE | 2024-07-24 16:02 | PC.SS ---
Update: Patient remains intubated/sedated. NG tube feedings. Patient on pressor support. No cultures are pending. Silver catheter in place.
--- NOTE | 2024-07-24 17:08 | PD.RESPRO ---
Documentation for date of: 07/24/24 Subjective Subjective Interval history: Patient seen and examined at bedside. No acute overnight events. Had a bladder scan done yesterday which showed about 900 cc of urine, straight in and out cath and urine output of about 1.1 L. pH this morning-7.3 with pCO2 of 80.. Patient continues to be intubated and sedated. End-tidal CO2 and intrinsic PEEP matched to meet demands. Labs reviewed-slight uptrending WBC, otherwise stable. Blood glucose elevated, insulin regimen started with a sliding scale. Trophic feeds started, will continue to monitor. Pending BM. Creatinine bumped up to 1.6 today, likely due to retention holding Lasix in the interim. Exam Vital Signs Temp Pulse Resp BP Pulse Ox O2 Del Method O2 Flow Rate 98.6 F 78 14 78/55 L 100 Mechanical Ventilation 5 07/24/24 12:00 07/24/24 15:16 07/24/24 15:07 07/24/24 15:16 07/24/24 15:16 07/23/24 20:00 07/22/24 16:00 FiO2 50 07/24/24 15:07 Narrative Exam GENERAL: GCS-3, sedated and intubated, mechanical ventilation NEURO: GCS-3, intubated HEENT: Dry mucosa. Pupils equal bilaterally CARDIO: Heart RRR, no obvious murmurs PULM: Crackles and rhonchi heard bilaterally. Intubated and sedated, mechanical ventilation GI: Abdomen soft, nondistended. BSx4 URO/AGRICULTURAL ECONOMIST:: No further abnormalities noted. SKIN/MSK/EXT: No wounds/rashes/edema/amputations, no pain on palpation. Pedal pulses present B/L Objective Labs 07/25/24 05:00 07/25/24 05:00 Labs: Laboratory Results - last 24 hr 07/23/24 07/23/24 07/24/24 19:19 22:30 04:18 WBC RBC Hgb Hct MCV MCH MCHC RDW Std Deviation Plt Count Neut % (Auto) Lymph % (Auto) Rice % (Auto) Eos % (Auto) Baso % (Auto) Neut # (Auto) Lymph # (Auto) Rice # (Auto) Eos # (Auto) Baso # (Auto) Immature Gran # (Auto) Absolute Nucleated RBC Immature Gran % Nucleated RBC % Puncture Site Arterial Line Arterial Line Arterial Line ABG pH 7.23 L D 7.31 L 7.33 L ABG pCO2 100 H* D 82 H* D 80 H* ABG pO2 173 H D 123 H D 133 H ABG HCO3 42 H 41 H 42 H ABG O2 Saturation 100 H 100 H 100 H ABG Base Excess 13 H 13 H 14 H FiO2 60 50 50 Sodium Potassium Chloride Carbon Dioxide Anion Gap BUN Creatinine Estim Creat Clear Calc eGFR BUN/Creatinine Ratio Glucose Calculated Osmolality Calcium Corrected Calcium Phosphorus Magnesium Total Bilirubin AST ALT Alkaline Phosphatase Total Protein Albumin Globulin Albumin/Globulin Ratio 07/24/24 04:37 WBC 18.7 H RBC 2.51 L Hgb 7.6 L Hct 25.0 L MCV 100 MCH 30.3 MCHC 30.4 L RDW Std Deviation 59.8 H Plt Count 189 D Neut % (Auto) 93 H Lymph % (Auto) 2 L Rice % (Auto) 4 Eos % (Auto) 1 Baso % (Auto) 0 Neut # (Auto) 17.3 H Lymph # (Auto) 0.4 L Rice # (Auto) 0.8 Eos # (Auto) 0.1 Baso # (Auto) 0.0 Immature Gran # (Auto) 0.12 H Absolute Nucleated RBC 0.00 Immature Gran % 1 H Nucleated RBC % 0 Puncture Site ABG pH ABG pCO2 ABG pO2 ABG HCO3 ABG O2 Saturation ABG Base Excess FiO2 Sodium 136 Potassium 3.6 D Chloride 92 L Carbon Dioxide 39.2 H Anion Gap 5 L BUN 35 H Creatinine 1.6 H Estim Creat Clear Calc 37.7 L eGFR 33 L BUN/Creatinine Ratio 22 H Glucose 189 H Calculated Osmolality 284 Calcium 8.5 Corrected Calcium 9.2 Phosphorus 3.5 Magnesium 2.5 Total Bilirubin 1.3 H AST 36 H ALT 40 Alkaline Phosphatase 54 Total Protein 5.9 Albumin 3.1 L Globulin 2.8 Albumin/Globulin Ratio 1.1 L ABG Interpretation ABG results: 07/21/24 07/21/24 07/21/24 15:47 18:41 21:07 ABG pH 7.22 L 7.19 L* 7.29 L D ABG pCO2 102 H* 106 H* 85 H* D ABG pO2 66 L 63 L 80 L ABG HCO3 42 H 41 H 40 H ABG O2 Saturation 91 89 L 97 ABG Base Excess 12 H 10 H 12 H 07/22/24 07/22/24 07/22/24 05:17 15:30 16:25 ABG pH 7.28 L 7.23 L Cancelled ABG pCO2 90 H* 102 H* D Cancelled ABG pO2 70 L 53 L* Cancelled ABG HCO3 42 H 43 H Cancelled ABG O2 Saturation 94 84 L Cancelled ABG Base Excess 13 H 14 H Cancelled 07/22/24 07/22/24 07/23/24 19:33 22:17 08:00 ABG pH 7.18 L* 7.31 L D 7.37 ABG pCO2 115 H* D 84 H* D 74 H* D ABG pO2 376 H D 170 H D 143 H D ABG HCO3 43 H 42 H 43 H ABG O2 Saturation 101 H 101 H 101 H ABG Base Excess 13 H 14 H 16 H 07/23/24 07/23/24 07/24/24 19:19 22:30 04:18 ABG pH 7.23 L D 7.31 L 7.33 L ABG pCO2 100 H* D 82 H* D 80 H* ABG pO2 173 H D 123 H D 133 H ABG HCO3 42 H 41 H 42 H ABG O2 Saturation 100 H 100 H 100 H ABG Base Excess 13 H 13 H 14 H Quality Measures Quality Measures VTE prophylaxis Advance care planning discussed with:: other Assessment & Plan Assessment Current Active Medications: Generic Name Dose Route Start Last Admin Trade Name Freq PRN Reason Stop Dose Admin Acetaminophen 650 mg 07/23/24 08:08 Acetaminophen Eva 325 Mg/10 Ml Udc NG 08/19/24 11:57 Q6H PRN Pain 1-3 and/or Fever >100.1 Apixaban 5 mg 07/22/24 21:00 07/24/24 09:20 Apixaban 2.5 Mg Tablet NG 08/21/24 20:59 5 mg BID MONA Administration Benzonatate 100 mg 07/23/24 08:08 Benzonatate 100 Mg Capsule NG 08/19/24 20:59 BID PRN COUGH Protocol Dextrose 25 ml 07/24/24 09:03 Dextrose 50%-Water Inj 50 Ml Syringe IV 08/23/24 09:02 Q15MIN PRN BG 50-70 responsive npo pt Dextrose 50 ml 07/24/24 09:03 Dextrose 50%-Water Inj 50 Ml Syringe IV 08/23/24 09:02 Q15MIN PRN BG <50 OR BG <70 & pt unresponsive Furosemide 40 mg 07/22/24 10:45 07/23/24 09:42 Furosemide Inj 10 Mg/Ml 4ml Vial IVP 08/21/24 10:44 40 mg QDAY MONA Administration Glucagon 1 mg 07/24/24 09:03 Glucagon Inj 1 Mg Vial IM Q15MIN PRN BG <70, and no IV access Cefepime HCl 2 gm/ Sodium 50 mls @ 100 mls/hr 07/20/24 21:00 07/24/24 09:20 Chloride IV 07/27/24 20:59 100 mls/hr Q12HR MONA Administration Norepinephrine/Dextrose 8 mg in 250 mls @ 10.418 mls/hr 07/22/24 16:56 07/24/24 15:00 Levophed In D5w 8mg/250ml IV 08/21/24 16:55 0.09 mcg/kg/min .Q24H PRN 18.753 mls/hr PER PROTOCOL Titration Protocol 0.05 MCG/KG/MIN Fentanyl Citrate 2,500 mcg in 250 mls @ 2.5 mls/hr 07/22/24 16:56 07/24/24 15:00 Sublimaze Inj 2,500 Mcg/250 Ml Bag IV 07/27/24 16:55 250 mcg/hr .Q24H PRN 25 mls/hr PER PROTOCOL Titration Protocol 25 MCG/HR Propofol 1,000 mg in 100 mls @ 3.334 mls/hr 07/22/24 18:15 07/24/24 15:00 Diprivan Ivpb IV 08/21/24 18:14 30 mcg/kg/min .Q24H PRN 20.003 mls/hr PER PROTOCOL Titration Protocol 5 MCG/KG/MIN Azithromycin 500 mg/ Sodium 250 mls @ 250 mls/hr 07/24/24 09:00 07/24/24 09:01 Chloride IV 07/31/24 08:59 250 mls/hr QDAY MONA Administration Vasopressin/Sodium Chloride 20 unit in 100 mls @ 9 mls/hr 07/24/24 09:05 07/24/24 09:20 Vasostrict/Ns Ivpb IV 08/23/24 09:04 0.03 unit/min .Q11H7M PRN 9 mls/hr PER PROTOCOL Administration Protocol 0.03 UNIT/MIN Insulin Glargine 5 unit 07/24/24 21:00 Insulin Glargine (Lantus) 5 Unit/0.05 Ml (Per 5 Units) SC 08/23/24 20:59 HS MONA Insulin Human Lispro 0 unit 07/24/24 12:00 07/24/24 12:32 Insulin Lispro (Admelog) 1 Unit/0.01 Ml Unit SC 08/23/24 11:59 1 unit Q6HR MONA Administration Protocol Ipratropium [place] 0.5 mg 07/21/24 10:43 07/23/24 13:10 Ipratropium Rt 0.5 Mg/ 2.5 Ml Nebu INH 08/20/24 18:59 0.5 mg BIDRT PRN Administration Shortness of breath and wheezing Protocol Ipratropium [place] 0.5 mg 07/21/24 15:00 07/24/24 15:06 Ipratropium Rt 0.5 Mg/ 2.5 Ml Nebu INH 08/20/24 14:59 0.5 mg Q4HRRT MONA Administration Levalbuterol HCl 1.25 mg 07/21/24 10:39 07/23/24 13:10 Levalbuterol Rt 1.25 Mg/0.5 Ml Nebu INH 08/20/24 18:59 1.25 mg BIDRT PRN Administration Shortness of breath or wheezing Protocol Levalbuterol HCl 0.63 mg 07/21/24 15:00 07/24/24 15:06 Levalbuterol Rt 0.63 Mg/3 Ml Nebu INH 08/20/24 14:59 0.63 mg Q4HRRT MONA Administration Ondansetron HCl 4 mg 07/20/24 11:58 Ondansetron Inj 2 Mg/Ml Inj 2 Ml IV 08/19/24 11:57 Q6H PRN NAUSEA OR VOMITING Protocol Pantoprazole Sodium 40 mg 07/23/24 09:45 07/24/24 09:20 Pantoprazole Inj 40 Mg Vial IVP 08/22/24 09:44 40 mg QDAY MONA Administration Sennosides 1 tab 07/21/24 09:00 07/24/24 09:53 Senna Tablet PO 08/20/24 08:59 1 tab QDAY MONA Administration Protocol Sodium Chloride 5 ml 07/20/24 12:03 Sodium Chloride Rt 10% 15 Ml Nebu INH 08/19/24 12:02 PRN PRN sputum Sodium Chloride 3 ml 07/23/24 13:11 Sodium Chloride Rt Eva 0.9% 3 Ml Nebu INH 08/22/24 13:10 PRN PRN SOLN Sucralfate 1 gm 07/23/24 09:00 07/24/24 09:37 Sucralfate Susp 1 Gm/10 Ml Udc NG 08/19/24 20:59 1 gm BID MONA Administration Plan Summary: The patient is a 79-year-old female with a past medical history of asthma on 3 L of oxygen at baseline, 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 Neuro No active conditions #History of CVA Patient has a history of CVA, the last time being in September 2023 with bilateral cerebellar infarcts. Supposedly, patient has left-sided deficits (weakness) Cardiovascular #History of HFpEF The patient has a history of HFpEF with ejection fraction 60 to 65% on echocardiogram done about a week ago also showing diastolic dysfunction. On admission, patient presented with hypoxia She was started on Lasix 40 mg daily. Cardiology was curb sided on this admission, believes that hypoxia is more pulmonary than cardiac cause. Plan: -Holding IV furosemide 40 mg for now -Strict I&O's #History of aortic stenosis status post TAVR The patient has a history of aortic stenosis which she had a TAVR done about 4 years ago. She has been followed by yarn spinner Dr. Arita. #History of A-fib She has a history of A-fib and is on Eliquis 5 mg twice daily. EKG on admission showed A-fib, rate controlled Plan: -Continue Eliquis #History of hypertension Patient has a history of hypertension and is on lisinopril. Admission, blood pressures have been soft. Will hold off on antihypertensives for now. Resp #Acute on chronic hypoxic respiratory failure #Possible excessive dynamic airway collapse #?Tracheomalacia #CAP versus HAP The patient presented with shortness of breath and was admitted for acute hypoxic respiratory failure. Allegedly, she had been previously diagnosed with asthma and has had recurrent pulmonary infections. On initial admission, she had significant wheezing consistent with airway disease. Chest x-ray showed bilateral opacities consistent with multifocal pneumonia/fluid overload. She is a chronic CO2 retainer based on bicarb levels and history. On 07/22/2024, rapid response was called as patient was desaturating in the 50s. The RN went to the room and found out that the BiPAP tubing has been dislodged from the mask, patient was awake and alert at the time and oriented. ICU was consulted for further evaluation and recommendations, BiPAP settings were adjusted and patient is saturating 98% on 55% FiO2. She was upgraded to the ICU for intubation and further management. ABG during rapid response and a pH of 7.23 with pCO2 of 102. However, bronchoscopy was done on admission to the ICU, does not appear patient has airway disease as she has patent airways. MRSA nares negative Chest CT showed extensive bilateral pneumonia Plan: -Continue IV cefepime -Commence IV azithromycin -ET secretions for culture and stain, AFB, fungal pending -Pending initial cultures GI #Hyperbilirubinemia, improving The patient has isolated hyperbilirubinemia with T. bili of 1.5. AST and ALT within normal limits. Patient has not complained of abdominal pain. This is likely a consequence of congestive hepatitis from heart failure. Renal #CKD stage III Patient has a history of CKD stage III with creatinine baseline of about 1. BUN and creatinine normal this admission. Will continue to monitor renal panel. #Isotonic hyponatremia-resolved Sodium on admission, 137. Today, sodium is 134. Osmolality normal Albumin and protein within normal limits. Will continue to monitor sodium levels Health maintenance: Dispo: ICU, sedated and intubated on mechanical ventilation (goal pH-7.25) Diet: N.p.o. GI: Pantoprazole DVT: Eliquis Jones: None Lines: Peripheral Med Rec: Pending, f/u Code: Full Case was discussed with and attending physician, Dr Bree Shaw MD PGY-1 Disclaimer: This note was dictated by speech recognition. Minor errors in packaging materials inspector may be present due to voice recognition software. Attending Provider Attestation/Addendum Patient seen and examined with the above resident, Chi Shaw MD. I agree with the findings, assessment, and plan of care as documented except for any differences below. Patient with continued significant airway obstruction/ air trapping though improving with optimized I:E as well as low rate. Tolerate high PCO2. Continue treatment of underlying infection as precipitant with significant airway disease that is non-responsive to BD therapy, no effect of hour long albuterol nebulized yesterday. Patient with high pCO2 and compensatory HCO3 elevation. Lasix ongoing but hold for now with rise in Cr, likely obstructive and jones to be placed for ongoing monitoring/ relief of retention. Patient's surrogate, Elsy, updated on plan of care at bedside. Will not wean ventilation today but hopeful tomorrow can start weaning heavy sedation. Paralytics can be used as needed for synchrony to avoid air trapping and elevation in intrinsic PEEP up to 15 after intubation yesterday. Patient continued to require critical care services for acute on chronic respiratory failure with hypercapnia and multifocal healthcare associated pneumonia. She is at risk for further morbidity and mortality warranting ongoing monitoring and care only available in the ICU. Total critical care time: I personally spent 50 minutes for review of physiologic parameters, directing plan of care, and counseling patient;s family at bedside. This is exclusive of time spent teaching housestaff or performing any separate billable procedures.
[2024-07-24] MEDS: Norepinephrine/D5W 8mg/250ml 8 MG/250 ML BAG 22.921 MG IV (18:35)
[2024-07-25] VITALS (117 sets, daily range): BP systolic 64–163; BP diastolic 35–86; PULSE 72–134; RESP 3–19; TEMP 36.1–36.6; O2SAT 83–100; BMI 37.4
[2024-07-25] MEDS: PROPOFOL 1,000 MG IVPB 1,000 MG/100 ML VIAL 20.003 MG IV ×2 (00:09→05:24)
[2024-07-25 04:30] LABS: Base Excess 14 (-3-3); HCO3 42 mEq/L (20-26); Inspired Oxygen, FIO2 50 %; O2 Saturation 100 % (91-98); PCO2 80 mmHg (32.0-48.0); PO2 158 mmHg (83-108); pH, Arterial 7.33 (7.35-7.45)
[2024-07-25 04:31] LABS: Allen Test Not Performed; Puncture Site Arterial Line
[2024-07-25] MEDS: VASOPRESSIN IN NS IVPB 20 UNIT/100 ML BAG 9 UNIT IV ×2 (05:50→17:50)
[2024-07-25 05:51] LABS: Basophils % (Auto) 0 % (0-2.5); Eosinophils % (Auto) 0 % (0-10); Hematocrit 24.2 % (36.0-46.0); Immature Granulocytes % (Auto) 1 % (0-0); Immature Granulocytes Auto 0.16 Thou/mm3 (0.00-0.00); Lymphocytes # (Auto) 0.3 Thou/mm3 (1.0-4.8); Lymphocytes % (Auto) 1 % (10-50); Mean Corpuscular Hemoglobin 30.7 pg (25.0-35.0); Mean Corpuscular Volume 99 fL (80-100); Monocytes # (Auto) 0.7 Thou/mm3 (0.0-0.8); Monocytes % (Auto) 3 % (0-12); Neutrophils # (Auto) 21.1 Thou/mm3 (1.8-7.7); Neutrophils % (Auto) 95 % (37-80); Nucleated Red Blood Cell % 0 /100 WBC (0); Platelet Count 99 Thou/mm3 (140-440); RDW Standard Deviation 59.1 fL (36.4-46.3); Red Blood Count 2.44 Miln/mm3 (4.00-5.20); White Blood Count 22.3 Thou/mm3 (3.6-11.0)
[2024-07-25 05:52] LABS: Hemoglobin 7.5 g/dL (12.0-16.0)
[2024-07-25] MEDS: IPRATROPIUM RT 0.5 MG/ 2.5 ML NEBU INH ×5 (06:26→22:15)
[2024-07-25] MEDS: LEVALBUTEROL RT 0.63 MG/3 ML NEBU INH ×5 (06:27→22:15)
[2024-07-25 06:38] LABS: Albumin, Serum 2.9 gm/dL (3.4-4.8); Anion Gap 4 (7-16); BUN/Creatinine Ratio 31 Ratio (12-20); Blood Urea Nitrogen 34 mg/dL (9-23); Calcium 8.2 mg/dL (8.3-10.6); Calcium (Corrected) 9.1 mg/dL (8.5-10.1); Carbon Dioxide 38.9 mMol/L (20.0-31.0); Chloride 91 mMol/L (98-107); Creatinine (Component) 1.1 mg/dL (0.6-1.3); Estimated Creatinine Clearance 55.4 mL/min (>60); Glucose 189 mg/dL (74-106); Magnesium 2.2 mg/dL (1.6-2.6); Osmolality,Calculated 280 (275-295); Phosphorous 2.8 mg/dL (2.4-5.1); Potassium 3.9 mMol/L (3.4-5.1); Sodium 134 mMol/L (136-145); eGFR 51 See Note
--- NOTE | 2024-07-25 06:51 | PC.NURSE ---
Dr Chavez notified of pt feeding residual of 650ml at 2000-orders received to hold feed at this time-give residuals back to patient then recheck in 2 hours 2200 residuals 625ml- orders received to return to patient then recheck in 4 hours 0200 residuals 600ml- orders received to continue to hold feed and discard residuals
[2024-07-25] MEDS: Norepinephrine/D5W 8mg/250ml 8 MG/250 ML BAG 18.753 MG IV (06:58)
[2024-07-25] MEDS: SENNA TABLET 1 TAB PO (08:46)
[2024-07-25] MEDS: APIXABAN 2.5 MG TABLET 5 MG NG ×2 (08:46→21:30)
[2024-07-25] MEDS: PANTOPRAZOLE INJ 40 MG VIAL IVP (08:46)
[2024-07-25] MEDS: SUCRALFATE SUSP 1 GM/10 ML UDC NG ×2 (08:46→21:30)
[2024-07-25] MEDS: CEFEPIME INJ 2 GM in SODIUM CHLORIDE 0.9% (Popper) 50 ML IV ×2 (08:46→21:30)
[2024-07-25] MEDS: fentaNYL 2,500 MCG/250 ML BAG 2,500 MCG/250 ML BAG 25 MCG IV (08:58)
[2024-07-25] MEDS: AZITHROMYCIN INJ 500 MG in SODIUM CHLORIDE 0.9% 250 ML 250 ML 250 MG IV (10:21)
[2024-07-25] MEDS: DEXMEDETOMIDINE 200 MCG IVPB 200 MCG/50 ML BOTTLE 11.213 MCG IV ×2 (11:54→14:28)
[2024-07-25] MEDS: ACETAzolaMIDE SOD 500 MG in SODIUM CHLORIDE 0.9% (Popper) 50 ML 100 MG IV ×2 (13:04→18:14)
[2024-07-25 14:28] LABS: Base Excess 10 (-3-3); HCO3 40 mEq/L (20-26); Inspired Oxygen, FIO2 60 %; O2 Saturation 99 % (91-98); PCO2 110 mmHg (32.0-48.0); PO2 116 mmHg (83-108)
[2024-07-25 14:29] LABS: Allen Test Not Performed; Puncture Site Arterial Line
[2024-07-25 14:31] LABS: pH, Arterial 7.17 (7.35-7.45)
--- NOTE | 2024-07-25 14:48 | PC.NURSE ---
Late entry: @0800 pt had about 60cc of red/brown gastric contents. MD Giron made aware, per MD patient was placed on low continuous suction.
--- NOTE | 2024-07-25 16:46 | ESPR_ITS ---
Documentation for date of: 07/25/24 Subjective Subjective Interval history: Patient seen and examined at bedside. No acute overnight events. Respiratory status improved, per vent settings, no intrinsic PEEP. ABG this morning, pH-7.3, CO2-80, bicarb at 38.9. Sedation was turned off for possible extubation, however patient was agitated, precedex drip was started and vent settings adjusted. Decision was made to postpone extubation until tomorrow and give it one more day. In ther interim, will keep vent settings, precedex drio overnight and repreat ABG. Will also give Diamox x 2. Exam Vital Signs Temp Pulse Resp BP Pulse Ox O2 Del Method O2 Flow Rate 97.4 F 104 H 10 L 111/82 100 Mechanical Ventilation 5 07/25/24 07:00 07/25/24 15:05 07/25/24 14:36 07/25/24 14:45 07/25/24 15:05 07/23/24 20:00 07/22/24 16:00 FiO2 60 07/25/24 14:36 Narrative Exam GENERAL: GCS-3, sedated and intubated, mechanical ventilation NEURO: GCS-3, intubated HEENT: Dry mucosa. Pupils equal bilaterally CARDIO: Heart RRR, no obvious murmurs PULM: Crackles and rhonchi heard bilaterally. Intubated and sedated, mechanical ventilation GI: Abdomen soft, nondistended. BSx4 URO/FRENCH WEAVER:: No further abnormalities noted. SKIN/MSK/EXT: No wounds/rashes/edema/amputations, no pain on palpation. Pedal pulses present B/L Objective Labs 07/25/24 05:00 07/25/24 05:00 Labs: Laboratory Results - last 24 hr 07/25/24 07/25/24 07/25/24 04:15 05:00 14:21 WBC 22.3 H RBC 2.44 L Hgb 7.5 L Hct 24.2 L MCV 99 MCH 30.7 MCHC 31.0 RDW Std Deviation 59.1 H Plt Count 99 L D Neut % (Auto) 95 H Lymph % (Auto) 1 L Turner % (Auto) 3 Eos % (Auto) 0 Baso % (Auto) 0 Neut # (Auto) 21.1 H Lymph # (Auto) 0.3 L Turner # (Auto) 0.7 Eos # (Auto) 0.0 Baso # (Auto) 0.0 Immature Gran # (Auto) 0.16 H Absolute Nucleated RBC 0.00 Immature Gran % 1 H Nucleated RBC % 0 Puncture Site Arterial Line Arterial Line ABG pH 7.33 L 7.17 L* D ABG pCO2 80 H* 110 H* D ABG pO2 158 H D 116 H D ABG HCO3 42 H 40 H ABG O2 Saturation 100 H 99 H ABG Base Excess 14 H 10 H FiO2 50 60 Sodium 134 L Potassium 3.9 Chloride 91 L Carbon Dioxide 38.9 H Anion Gap 4 L BUN 34 H Creatinine 1.1 D Estim Creat Clear Calc 55.4 L eGFR 51 L BUN/Creatinine Ratio 31 H Glucose 189 H Calculated Osmolality 280 Calcium 8.2 L Corrected Calcium 9.1 Phosphorus 2.8 Magnesium 2.2 Albumin 2.9 L ABG Interpretation ABG results: 07/21/24 07/21/24 07/21/24 15:47 18:41 21:07 ABG pH 7.22 L 7.19 L* 7.29 L D ABG pCO2 102 H* 106 H* 85 H* D ABG pO2 66 L 63 L 80 L ABG HCO3 42 H 41 H 40 H ABG O2 Saturation 91 89 L 97 ABG Base Excess 12 H 10 H 12 H 07/22/24 07/22/24 07/22/24 05:17 15:30 16:25 ABG pH 7.28 L 7.23 L Cancelled ABG pCO2 90 H* 102 H* D Cancelled ABG pO2 70 L 53 L* Cancelled ABG HCO3 42 H 43 H Cancelled ABG O2 Saturation 94 84 L Cancelled ABG Base Excess 13 H 14 H Cancelled 07/22/24 07/22/24 07/23/24 19:33 22:17 08:00 ABG pH 7.18 L* 7.31 L D 7.37 ABG pCO2 115 H* D 84 H* D 74 H* D ABG pO2 376 H D 170 H D 143 H D ABG HCO3 43 H 42 H 43 H ABG O2 Saturation 101 H 101 H 101 H ABG Base Excess 13 H 14 H 16 H 07/23/24 07/23/24 07/24/24 19:19 22:30 04:18 ABG pH 7.23 L D 7.31 L 7.33 L ABG pCO2 100 H* D 82 H* D 80 H* ABG pO2 173 H D 123 H D 133 H ABG HCO3 42 H 41 H 42 H ABG O2 Saturation 100 H 100 H 100 H ABG Base Excess 13 H 13 H 14 H 07/25/24 07/25/24 04:15 14:21 ABG pH 7.33 L 7.17 L* D ABG pCO2 80 H* 110 H* D ABG pO2 158 H D 116 H D ABG HCO3 42 H 40 H ABG O2 Saturation 100 H 99 H ABG Base Excess 14 H 10 H Quality Measures Quality Measures VTE prophylaxis Advance care planning discussed with:: other Assessment & Plan Assessment Current Active Medications: Generic Name Dose Route Start Last Admin Trade Name Freq PRN Reason Stop Dose Admin Acetaminophen 650 mg 07/23/24 08:08 Acetaminophen Eva 325 Mg/10 Ml Udc NG 08/19/24 11:57 Q6H PRN Pain 1-3 and/or Fever >100.1 Apixaban 5 mg 07/22/24 21:00 07/25/24 08:46 Apixaban 2.5 Mg Tablet NG 08/21/24 20:59 5 mg BID MONA Administration Benzonatate 100 mg 07/23/24 08:08 Benzonatate 100 Mg Capsule NG 08/19/24 20:59 BID PRN COUGH Protocol Dextrose 25 ml 07/24/24 09:03 Dextrose 50%-Water Inj 50 Ml Syringe IV 08/23/24 09:02 Q15MIN PRN BG 50-70 responsive npo pt Dextrose 50 ml 07/24/24 09:03 Dextrose 50%-Water Inj 50 Ml Syringe IV 08/23/24 09:02 Q15MIN PRN BG <50 OR BG <70 & pt unresponsive Furosemide 40 mg 07/22/24 10:45 07/23/24 09:42 Furosemide Inj 10 Mg/Ml 4ml Vial IVP 08/21/24 10:44 40 mg QDAY MONA Administration Glucagon 1 mg 07/24/24 09:03 Glucagon Inj 1 Mg Vial IM Q15MIN PRN BG <70, and no IV access Cefepime HCl 2 gm/ Sodium 50 mls @ 100 mls/hr 07/20/24 21:00 07/25/24 08:46 Chloride IV 07/27/24 20:59 100 mls/hr Q12HR MONA Administration Norepinephrine/Dextrose 8 mg in 250 mls @ 10.418 mls/hr 07/22/24 16:56 07/25/24 14:00 Levophed In D5w 8mg/250ml IV 08/21/24 16:55 0.15 mcg/kg/min .Q24H PRN 31.255 mls/hr PER PROTOCOL Titration Protocol 0.05 MCG/KG/MIN Fentanyl Citrate 2,500 mcg in 250 mls @ 2.5 mls/hr 07/22/24 16:56 07/25/24 11:40 Sublimaze Inj 2,500 Mcg/250 Ml Bag IV 07/27/24 16:55 0 mcg/hr .Q24H PRN 0 mls/hr PER PROTOCOL Titration Protocol 25 MCG/HR Propofol 1,000 mg in 100 mls @ 3.334 mls/hr 07/22/24 18:15 07/25/24 11:40 Diprivan Ivpb IV 08/21/24 18:14 Infused .Q24H PRN Titration PER PROTOCOL Protocol 5 MCG/KG/MIN Azithromycin 500 mg/ Sodium 250 mls @ 250 mls/hr 07/24/24 09:00 07/25/24 10:21 Chloride IV 07/31/24 08:59 250 mls/hr QDAY MONA Administration Vasopressin/Sodium Chloride 20 unit in 100 mls @ 9 mls/hr 07/24/24 09:05 07/25/24 05:50 Vasostrict/Ns Ivpb IV 08/23/24 09:04 0.03 unit/min .Q11H7M PRN 9 mls/hr PER PROTOCOL Administration Protocol 0.03 UNIT/MIN Dexmedetomidine/Sodium Chloride 200 mcg in 50 mls @ 11.213 mls/hr 07/25/24 11:55 07/25/24 15:40 Precedex Ivpb IV 08/24/24 11:54 0 mcg/kg/hr .Q4H28M PRN 0 mls/hr Per PROTOCOL Titration Protocol 0.4 MCG/KG/HR Acetazolamide Sodium 500 mg/ 50 mls @ 100 mls/hr 07/25/24 20:00 Sodium Chloride IV 07/25/24 20:29 X1 ONE Insulin Glargine 5 unit 07/24/24 21:00 07/24/24 21:30 Insulin Glargine (Lantus) 5 Unit/0.05 Ml (Per 5 Units) SC 08/23/24 20:59 5 unit HS MONA Administration Insulin Human Lispro 0 unit 07/24/24 12:00 07/25/24 12:56 Insulin Lispro (Admelog) 1 Unit/0.01 Ml Unit SC 08/23/24 11:59 Not Given Q6HR MONA Protocol Ipratropium [place] 0.5 mg 07/21/24 10:43 07/23/24 13:10 Ipratropium Rt 0.5 Mg/ 2.5 Ml Nebu INH 08/20/24 18:59 0.5 mg BIDRT PRN Administration Shortness of breath and wheezing Protocol Ipratropium [place] 0.5 mg 07/21/24 15:00 07/25/24 14:36 Ipratropium Rt 0.5 Mg/ 2.5 Ml [facility] 08/20/24 14:59 0.5 mg Q4HRRT MONA Administration Levalbuterol HCl 1.25 mg 07/21/24 10:39 07/23/24 13:10 Levalbuterol Rt 1.25 Mg/0.5 Ml [facility] 08/20/24 18:59 1.25 mg BIDRT PRN Administration Shortness of breath or wheezing Protocol Levalbuterol HCl 0.63 mg 07/21/24 15:00 07/25/24 14:36 Levalbuterol Rt 0.63 Mg/3 Ml [facility] 08/20/24 14:59 0.63 mg Q4HRRT MONA Administration Ondansetron HCl 4 mg 07/20/24 11:58 Ondansetron Inj 2 Mg/Ml Inj 2 Ml IV 08/19/24 11:57 Q6H PRN NAUSEA OR VOMITING Protocol Pantoprazole Sodium 40 mg 07/23/24 09:45 07/25/24 08:46 Pantoprazole Inj 40 Mg Vial IVP 08/22/24 09:44 40 mg QDAY MONA Administration Sennosides 1 tab 07/21/24 09:00 07/25/24 08:46 Senna Tablet PO 08/20/24 08:59 1 tab QDAY MONA Administration Protocol Sodium Chloride 5 ml 07/20/24 12:03 Sodium Chloride Rt 10% 15 Ml Nebu INH 08/19/24 12:02 PRN PRN sputum Sodium Chloride 3 ml 07/23/24 13:11 Sodium Chloride Rt Eva 0.9% 3 Ml Nebu INH 08/22/24 13:10 PRN PRN SOLN Sucralfate 1 gm 07/23/24 09:00 07/25/24 08:46 Sucralfate Susp 1 Gm/10 Ml Udc NG 08/19/24 20:59 1 gm BID MONA Administration Plan Summary: The patient is a 79-year-old female with a past medical history of asthma on 3 L of oxygen at baseline, 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 Neuro No active conditions Sedated, intubated on MV #History of CVA Patient has a history of CVA, the last time being in September 2023 with bilateral cerebellar infarcts. Supposedly, patient has left-sided deficits (weakness) Cardiovascular #History of HFpEF The patient has a history of HFpEF with ejection fraction 60 to 65% on echocardiogram done about a week ago also showing diastolic dysfunction. On admission, patient presented with hypoxia She was started on Lasix 40 mg daily. Cardiology was curb sided on this admission, believes that hypoxia is more pulmonary than cardiac cause. Plan: -IV Lasix 40mg Qday -Strict I&O's #History of aortic stenosis status post TAVR The patient has a history of aortic stenosis which she had a TAVR done about 4 years ago. She has been followed by letter of credit clerk Dr. Arita. #History of A-fib She has a history of A-fib and is on Eliquis 5 mg twice daily. EKG on admission showed A-fib, rate controlled Plan: -Continue Eliquis #History of hypertension Patient has a history of hypertension and is on lisinopril. Admission, blood pressures have been soft. Will hold off on antihypertensives for now. Resp #Acute on chronic hypoxic respiratory failure #Possible excessive dynamic airway collapse #?Tracheomalacia #CAP versus HAP The patient presented with shortness of breath and was admitted for acute hypoxic respiratory failure. Allegedly, she had been previously diagnosed with asthma and has had recurrent pulmonary infections. On initial admission, she had significant wheezing consistent with airway disease. Chest x-ray showed bilateral opacities consistent with multifocal pneumonia/fluid overload. She is a chronic CO2 retainer based on bicarb levels and history. On 07/22/2024, rapid response was called as patient was desaturating in the 50s. The RN went to the room and found out that the BiPAP tubing has been dislodged from the mask, patient was awake and alert at the time and oriented. ICU was consulted for further evaluation and recommendations, BiPAP settings were adjusted and patient is saturating 98% on 55% FiO2. She was upgraded to the ICU for intubation and further management. ABG during rapid response and a pH of 7.23 with pCO2 of 102. However, bronchoscopy was done on admission to the ICU, does not appear patient has airway disease as she has patent airways. MRSA nares negative Chest CT showed extensive bilateral pneumonia Plan: -Continue IV cefepime -Commence IV azithromycin -ET secretions for culture and stain, AFB, fungal pending -Pending initial cultures GI #Hyperbilirubinemia, improving The patient has isolated hyperbilirubinemia with T. bili of 1.5. AST and ALT within normal limits. Patient has not complained of abdominal pain. This is likely a consequence of congestive hepatitis from heart failure. #DIet- Tube feeds Had high residuals overnight and this morning, tube feeds held. Renal #CKD stage III Patient has a history of CKD stage III with creatinine baseline of about 1. BUN and creatinine normal this admission. Will continue to monitor renal panel. #Isotonic hyponatremia-resolved Sodium on admission, 137. Today, sodium is 134. Osmolality normal Albumin and protein within normal limits. Will continue to monitor sodium levels Health maintenance: Dispo: ICU, sedated and intubated on mechanical ventilation (goal pH-7.25) Diet: N.p.o. GI: Pantoprazole DVT: Eliquis Silver: None Lines: Peripheral Med Rec: Pending, f/u Code: Full Case was discussed with attending physician, Dr Bree Shaw MD PGY-1 Disclaimer: This note was dictated by speech recognition. Minor errors in lever operator may be present due to voice recognition software. Attending Provider Attestation/Addendum Patient seen and examined with the above resident, Chi Shaw MD. I agree with the findings, assessment, and plan of care as documented except for any differences below. Patient with significant improvement in air trapping and reduction in PPeak and PPlat with improving compliance. Significant airway resistance still. She is further complicated by CO2 narcosis. This may be related to her underlying pathophysiology including prior history of stroke. However she had significant parenchynmal disease that complicated her airway disease. Sedation transitioned to precedex alone now. Okay to use fentanyl overnight for compliance with vent. Patient will need pCO2 down trended to 70s to improve mentation and pH. Will optimize her HCO3 as well to ensure adequate respiratory drive once sedation has worn off as well. Surrogate decision maker updated at bedside and attempted much of the day to help stimulate patient to tolerate breathing trial which she did with high PS given limited effort due to CO2 narcosis form sedation. Aim to reset CO2 sensors to return her to 60s-70s to optimize in coming days for weaning. Patient on adequate coverage with antibiotics. Total critical care time: I personally spent 50 minutes for review of physiologic changes, directing plan of care throughout the day, and counseling patient's friend/ decision maker at bedside. This is exclusive of time spent teaching housestaff or performing any separate billable procedures. She remains at risk for further morbidity and mortality warranting ongoing care and management only available in the ICU. Patient continues to require critical care services for acute on chronic hypercapnic respiratory failure and acute metabolic encephalopathy with healthcare associated pneumonia.
[2024-07-25 17:20] LABS: Base Excess 9 (-3-3); HCO3 40 mEq/L (20-26); Inspired Oxygen, FIO2 60 %; O2 Saturation 99 % (91-98); PCO2 108 mmHg (32.0-48.0); PO2 116 mmHg (83-108)
[2024-07-25 17:28] LABS: Allen Test Not Performed; Puncture Site Arterial Line; pH, Arterial 7.17 (7.35-7.45)
[2024-07-25] MEDS: Norepinephrine/D5W 8mg/250ml 8 MG/250 ML BAG 27.088 MG IV (17:50)
[2024-07-25] MEDS: INSULIN LISPRO (AdmeLOG) 1 UNIT/0.01 ML UNIT SC (18:13)
[2024-07-25] MEDS: DEXMEDETOMIDINE 200 MCG IVPB 200 MCG/50 ML BOTTLE 16.82 MCG IV ×2 (21:05→23:34)
[2024-07-25] MEDS: INSULIN GLARGINE (Lantus) 5 UNIT/0.05 ML (PER 5 UNITS) SC (21:30)
[2024-07-26] VITALS (103 sets, daily range): BP systolic 57–171; BP diastolic 39–93; PULSE 94–133; RESP 8–36; TEMP 36.3–36.6; O2SAT 92–100; BMI 37.5
[2024-07-26] MEDS: DEXMEDETOMIDINE 200 MCG IVPB 200 MCG/50 ML BOTTLE 16.82 MCG IV (03:15)
[2024-07-26] MEDS: LEVALBUTEROL RT 0.63 MG/3 ML NEBU INH ×6 (03:18→22:54)
[2024-07-26] MEDS: IPRATROPIUM RT 0.5 MG/ 2.5 ML NEBU INH ×6 (03:18→22:55)
[2024-07-26] MEDS: Norepinephrine/D5W 8mg/250ml 8 MG/250 ML BAG 22.921 MG IV ×2 (03:29→23:36)
[2024-07-26 05:05] LABS: Base Excess 11 (-3-3); HCO3 38 mEq/L (20-26); Inspired Oxygen, FIO2 40 %; O2 Saturation 94 % (91-98); PCO2 74 mmHg (32.0-48.0); PO2 66 mmHg (83-108); pH, Arterial 7.32 (7.35-7.45)
[2024-07-26 05:09] LABS: Allen Test Not Performed; Puncture Site Arterial Line
[2024-07-26] MEDS: DEXMEDETOMIDINE 200 MCG IVPB 200 MCG/50 ML BOTTLE 22.426 MCG IV (05:34)
--- NOTE | 2024-07-26 06:00 | XR_ITS ---
Examination: AP chest single view Technique: AP portable semiupright chest single view Exam date and time: July 26, 2024 0425 hrs. Comparison July 23, 2024 Indications: Hypoxic respiratory failure, pneumonia ARDS heart failure pattern on earlier chest imaging Findings: [id number] heart failure with cardiomegaly vascular congestion no pulmonary edema Significant pneumonia right base Endotracheal tube tip 5 cm above darling Right internal jugular central line tip SVC satisfactory position The orogastric tube is in the stomach, the tip is below the level film Impression: [id number] heart failure Significant pneumonia right base
[2024-07-26 06:10] LABS: Basophils % (Auto) 0 % (0-2.5); Eosinophils % (Auto) 0 % (0-10); Hematocrit 23.8 % (36.0-46.0); Immature Granulocytes % (Auto) 1 % (0-0); Lymphocytes # (Auto) 0.4 Thou/mm3 (1.0-4.8); Lymphocytes % (Auto) 2 % (10-50); Mean Corpuscular HGB Conc 29.8 g/dl (31.0-37.0); Mean Corpuscular Hemoglobin 30.6 pg (25.0-35.0); Mean Corpuscular Volume 103 fL (80-100); Monocytes # (Auto) 0.8 Thou/mm3 (0.0-0.8); Monocytes % (Auto) 4 % (0-12); Neutrophils # (Auto) 19.2 Thou/mm3 (1.8-7.7); Neutrophils % (Auto) 94 % (37-80); Nucleated Red Blood Cell % 0 /100 WBC (0); Platelet Count 100 Thou/mm3 (140-440); RDW Standard Deviation 59.8 fL (36.4-46.3); Red Blood Count 2.32 Miln/mm3 (4.00-5.20); White Blood Count 20.5 Thou/mm3 (3.6-11.0)
[2024-07-26 06:17] LABS: Hemoglobin 7.1 g/dL (12.0-16.0)
[2024-07-26 06:26] LABS: Anion Gap 3 (7-16); BUN/Creatinine Ratio 29 Ratio (12-20); Blood Urea Nitrogen 40 mg/dL (9-23); Calcium 8.2 mg/dL (8.3-10.6); Carbon Dioxide 37.9 mMol/L (20.0-31.0); Chloride 93 mMol/L (98-107); Creatinine (Component) 1.4 mg/dL (0.6-1.3); Estimated Creatinine Clearance 43.5 mL/min (>60); Glucose 143 mg/dL (74-106); Magnesium 2.3 mg/dL (1.6-2.6); Osmolality,Calculated 279 (275-295); Phosphorous 3.1 mg/dL (2.4-5.1); Potassium 3.7 mMol/L (3.4-5.1); Sodium 134 mMol/L (136-145); eGFR 39 See Note
[2024-07-26] MEDS: VASOPRESSIN IN NS IVPB 20 UNIT/100 ML BAG 9 UNIT IV (06:33)
[2024-07-26] MEDS: DEXMEDETOMIDINE 200 MCG IVPB 200 MCG/50 ML BOTTLE 11.213 MCG IV (08:30)
[2024-07-26] MEDS: PANTOPRAZOLE INJ 40 MG VIAL IVP (09:52)
[2024-07-26] MEDS: SENNA TABLET 1 TAB PO (09:52)
[2024-07-26] MEDS: SUCRALFATE SUSP 1 GM/10 ML UDC NG ×2 (09:52→20:13)
[2024-07-26] MEDS: CEFEPIME INJ 2 GM in SODIUM CHLORIDE 0.9% (Popper) 50 ML IV ×2 (09:52→20:13)
[2024-07-26] MEDS: AZITHROMYCIN INJ 500 MG in SODIUM CHLORIDE 0.9% 250 ML 250 ML 250 MG IV (09:52)
[2024-07-26 10:22] LABS: Base Excess 10 (-3-3); HCO3 38 mEq/L (20-26); Inspired Oxygen, FIO2 40 %; O2 Saturation 97 % (91-98); PCO2 75 mmHg (32.0-48.0); PO2 76 mmHg (83-108); pH, Arterial 7.31 (7.35-7.45)
[2024-07-26 10:23] LABS: Puncture Site Arterial Line
[2024-07-26 12:38] LABS: Base Excess 10 (-3-3); HCO3 38 mEq/L (20-26); Inspired Oxygen, FIO2 40 %; O2 Saturation 96 % (91-98); PCO2 85 mmHg (32.0-48.0); PO2 78 mmHg (83-108); Puncture Site Arterial Line; pH, Arterial 7.26 (7.35-7.45)
--- NOTE | 2024-07-26 13:57 | ESPR_ITS ---
Documentation for date of: 07/26/24 Subjective Subjective Interval history: Patient seen and examined at bedside. Overnight, ABG was done and CO2 was elevated at 108. Vent settings were changed, with increased RR. ABG this morning, shows a pH of 7.32 and CO2 of 74. Patient was off of sedation overnight, Precedex drip was on as well as pressors. Again attempted extubation today, patient was put on pressure support for SBT, was intermittently able to follow very simple commands but mentation in general was not enough for extubation, also patient does not seem to have enough strength. Repeat ABG had a CO2 of 85 and the decision was made to adjust settings, get a CO2 of about 65 either by adjusting RR or tidal volume, exercise to get the patient stronger and attempt extubation again tomorrow. In the interim, tube feeds are still being held due to residuals and gastric contents still being suction we will continue to hold tube feeds. Labs reviewed, WBC downtrending, creatinine did go up slightly. Hemoglobin also dropped slightly, will hold Eliquis. Exam Vital Signs Temp Pulse Resp BP Pulse Ox O2 Del Method O2 Flow Rate 97.4 F 123 H 15 115/72 97 Mechanical Ventilation 5 07/26/24 12:01 07/26/24 12:30 07/26/24 10:07 07/26/24 12:30 07/26/24 12:30 07/23/24 20:00 07/22/24 16:00 FiO2 40 07/26/24 12:00 Narrative Exam GENERAL: GCS-3, not sedated and intubated, mechanical ventilation NEURO: GCS-3, intubated HEENT: Dry mucosa. Pupils equal bilaterally CARDIO: Heart RRR, no obvious murmurs PULM: Crackles and rhonchi heard bilaterally. Intubated but not sedated, mechanical ventilation GI: Abdomen soft, nondistended. 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 SKIN/MSK/EXT: Trace pitting edema bilaterally Objective Labs 07/26/24 05:20 07/26/24 05:20 Labs: Laboratory Results - last 24 hr 07/25/24 07/25/24 07/26/24 14:21 17:15 04:52 WBC RBC Hgb Hct MCV MCH MCHC RDW Std Deviation Plt Count Neut % (Auto) Lymph % (Auto) [place] % (Auto) Eos % (Auto) Baso % (Auto) Neut # (Auto) Lymph # (Auto) [place] # (Auto) Eos # (Auto) Baso # (Auto) Immature Gran # (Auto) Absolute Nucleated RBC Immature Gran % Nucleated RBC % Puncture Site Arterial Line Arterial Line Arterial Line ABG pH 7.17 L* D 7.17 L* 7.32 L D ABG pCO2 110 H* D 108 H* 74 H* D ABG pO2 116 H D 116 H 66 L D ABG HCO3 40 H 40 H 38 H ABG O2 Saturation 99 H 99 H 94 ABG Base Excess 10 H 9 H 11 H FiO2 60 60 40 Sodium Potassium Chloride Carbon Dioxide Anion Gap BUN Creatinine Estim Creat Clear Calc eGFR BUN/Creatinine Ratio Glucose Calculated Osmolality Calcium Corrected Calcium Phosphorus Magnesium Albumin 07/26/24 07/26/24 07/26/24 05:20 10:12 12:30 WBC 20.5 H RBC 2.32 L Hgb 7.1 L Hct 23.8 L MCV 103 H MCH 30.6 MCHC 29.8 L RDW Std Deviation 59.8 H Plt Count 100 L Neut % (Auto) 94 H Lymph % (Auto) 2 L [place] % (Auto) 4 Eos % (Auto) 0 Baso % (Auto) 0 Neut # (Auto) 19.2 H Lymph # (Auto) 0.4 L [place] # (Auto) 0.8 Eos # (Auto) 0.0 Baso # (Auto) 0.0 Immature Gran # (Auto) 0.10 H Absolute Nucleated RBC 0.00 Immature Gran % 1 H Nucleated RBC % 0 Puncture Site Arterial Line Arterial Line ABG pH 7.31 L 7.26 L ABG pCO2 75 H* 85 H* D ABG pO2 76 L 78 L ABG HCO3 38 H 38 H ABG O2 Saturation 97 96 ABG Base Excess 10 H 10 H FiO2 40 40 Sodium 134 L Potassium 3.7 Chloride 93 L Carbon Dioxide 37.9 H Anion Gap 3 L BUN 40 H Creatinine 1.4 H Estim Creat Clear Calc 43.5 L eGFR 39 L BUN/Creatinine Ratio 29 H Glucose 143 H Calculated Osmolality 279 Calcium 8.2 L Corrected Calcium 9.0 Phosphorus 3.1 Magnesium 2.3 Albumin 3.0 L ABG Interpretation ABG results: 07/21/24 07/21/24 07/21/24 15:47 18:41 21:07 ABG pH 7.22 L 7.19 L* 7.29 L D ABG pCO2 102 H* 106 H* 85 H* D ABG pO2 66 L 63 L 80 L ABG HCO3 42 H 41 H 40 H ABG O2 Saturation 91 89 L 97 ABG Base Excess 12 H 10 H 12 H 07/22/24 07/22/24 07/22/24 05:17 15:30 16:25 ABG pH 7.28 L 7.23 L Cancelled ABG pCO2 90 H* 102 H* D Cancelled ABG pO2 70 L 53 L* Cancelled ABG HCO3 42 H 43 H Cancelled ABG O2 Saturation 94 84 L Cancelled ABG Base Excess 13 H 14 H Cancelled 07/22/24 07/22/24 07/23/24 19:33 22:17 08:00 ABG pH 7.18 L* 7.31 L D 7.37 ABG pCO2 115 H* D 84 H* D 74 H* D ABG pO2 376 H D 170 H D 143 H D ABG HCO3 43 H 42 H 43 H ABG O2 Saturation 101 H 101 H 101 H ABG Base Excess 13 H 14 H 16 H 07/23/24 07/23/24 07/24/24 19:19 22:30 04:18 ABG pH 7.23 L D 7.31 L 7.33 L ABG pCO2 100 H* D 82 H* D 80 H* ABG pO2 173 H D 123 H D 133 H ABG HCO3 42 H 41 H 42 H ABG O2 Saturation 100 H 100 H 100 H ABG Base Excess 13 H 13 H 14 H 07/25/24 07/25/24 07/25/24 04:15 14:21 17:15 ABG pH 7.33 L 7.17 L* D 7.17 L* ABG pCO2 80 H* 110 H* D 108 H* ABG pO2 158 H D 116 H D 116 H ABG HCO3 42 H 40 H 40 H ABG O2 Saturation 100 H 99 H 99 H ABG Base Excess 14 H 10 H 9 H 07/26/24 07/26/24 07/26/24 04:52 10:12 12:30 ABG pH 7.32 L D 7.31 L 7.26 L ABG pCO2 74 H* D 75 H* 85 H* D ABG pO2 66 L D 76 L 78 L ABG HCO3 38 H 38 H 38 H ABG O2 Saturation 94 97 96 ABG Base Excess 11 H 10 H 10 H Quality Measures Quality Measures VTE prophylaxis Advance care planning discussed with:: other Assessment & Plan Assessment Current Active Medications: Generic Name Dose Route Start Last Admin Trade Name Freq PRN Reason Stop Dose Admin Acetaminophen 650 mg 07/23/24 08:08 Acetaminophen Eva 325 Mg/10 Ml Udc NG 08/19/24 11:57 Q6H PRN Pain 1-3 and/or Fever >100.1 Apixaban 5 mg 07/22/24 21:00 07/26/24 09:34 Apixaban 2.5 Mg Tablet NG 08/21/24 20:59 Not Given BID MONA Benzonatate 100 mg 07/23/24 08:08 Benzonatate 100 Mg Capsule NG 08/19/24 20:59 BID PRN COUGH Protocol Dextrose 25 ml 07/24/24 09:03 Dextrose 50%-Water Inj 50 Ml Syringe IV 08/23/24 09:02 Q15MIN PRN BG 50-70 responsive npo pt Dextrose 50 ml 07/24/24 09:03 Dextrose 50%-Water Inj 50 Ml Syringe IV 08/23/24 09:02 Q15MIN PRN BG <50 OR BG <70 & pt unresponsive Glucagon 1 mg 07/24/24 09:03 Glucagon Inj 1 Mg Vial IM Q15MIN PRN BG <70, and no IV access Cefepime HCl 2 gm/ Sodium 50 mls @ 100 mls/hr 07/20/24 21:00 07/26/24 09:52 Chloride IV 07/27/24 20:59 100 mls/hr Q12HR MONA Administration Norepinephrine/Dextrose 8 mg in 250 mls @ 10.418 mls/hr 07/22/24 16:56 07/26/24 07:00 Levophed In D5w 8mg/250ml IV 08/21/24 16:55 0.09 mcg/kg/min .Q24H PRN 18.753 mls/hr PER PROTOCOL Titration Protocol 0.05 MCG/KG/MIN Fentanyl Citrate 2,500 mcg in 250 mls @ 2.5 mls/hr 07/22/24 16:56 07/25/24 11:40 Sublimaze Inj 2,500 Mcg/250 Ml Bag IV 07/27/24 16:55 0 mcg/hr .Q24H PRN 0 mls/hr PER PROTOCOL Titration Protocol 25 MCG/HR Propofol 1,000 mg in 100 mls @ 3.334 mls/hr 07/22/24 18:15 07/25/24 11:40 Diprivan Ivpb IV 08/21/24 18:14 Infused .Q24H PRN Titration PER PROTOCOL Protocol 5 MCG/KG/MIN Azithromycin 500 mg/ Sodium 250 mls @ 250 mls/hr 07/24/24 09:00 07/26/24 09:52 Chloride IV 07/31/24 08:59 250 mls/hr QDAY MONA Administration Vasopressin/Sodium Chloride 20 unit in 100 mls @ 9 mls/hr 07/24/24 09:05 07/26/24 06:33 Vasostrict/Ns Ivpb IV 08/23/24 09:04 0.03 unit/min .Q11H7M PRN 9 mls/hr PER PROTOCOL Administration Protocol 0.03 UNIT/MIN Dexmedetomidine/Sodium Chloride 200 mcg in 50 mls @ 11.213 mls/hr 07/25/24 11:55 07/26/24 10:00 Precedex Ivpb IV 08/24/24 11:54 0 mcg/kg/hr .Q4H28M PRN 0 mls/hr Per PROTOCOL Titration Protocol 0.4 MCG/KG/HR Insulin Glargine 5 unit 07/24/24 21:00 07/25/24 21:30 Insulin Glargine (Lantus) 5 Unit/0.05 Ml (Per 5 Units) SC 08/23/24 20:59 5 unit HS MONA Administration Insulin Human Lispro 0 unit 07/24/24 12:00 07/26/24 11:55 Insulin Lispro (Admelog) 1 Unit/0.01 Ml Unit SC 08/23/24 11:59 Not Given Q6HR [facility] Protocol Ipratropium Ethel 0.5 mg 07/21/24 10:43 07/23/24 13:10 Ipratropium Rt 0.5 Mg/ 2.5 Ml Nebu INH 08/20/24 18:59 0.5 mg BIDRT PRN Administration Shortness of breath and wheezing Protocol Ipratropium Ethel 0.5 mg 07/21/24 15:00 07/26/24 10:07 Ipratropium Rt 0.5 Mg/ 2.5 Ml Nebu INH 08/20/24 14:59 0.5 mg Q4HRRT MONA Administration Levalbuterol HCl 1.25 mg 07/21/24 10:39 07/23/24 13:10 Levalbuterol Rt 1.25 Mg/0.5 Ml Nebu INH 08/20/24 18:59 1.25 mg BIDRT PRN Administration Shortness of breath or wheezing Protocol Levalbuterol HCl 0.63 mg 07/21/24 15:00 07/26/24 10:06 [facility] 0.63 Mg[facility] 14:59 0.63 mg Q4HRRT MONA Administration Ondansetron HCl 4 mg 07/20/24 11:58 Ondansetron Inj 2 Mg/Ml Inj 2 Ml IV 08/19/24 11:57 Q6H PRN NAUSEA OR VOMITING Protocol Pantoprazole Sodium 40 mg 07/23/24 09:45 07/26/24 09:52 Pantoprazole Inj 40 Mg Vial IVP 08/22/24 09:44 40 mg QDAY MONA Administration Sennosides 1 tab 07/21/24 09:00 07/26/24 09:52 Senna Tablet PO 08/20/24 08:59 1 tab QDAY MONA Administration Protocol Sodium Chloride 5 ml 07/20/24 12:03 Sodium Chloride Rt 10% 15 Ml [facility] INH 08/19/24 12:02 PRN PRN sputum Sodium Chloride 3 ml 07/23/24 13:11 Sodium Chloride Rt Eva 0.9% 3 Ml [facility] INH 08/22/24 13:10 PRN PRN SOLN Sucralfate 1 gm 07/23/24 09:00 07/26/24 09:52 Sucralfate Susp 1 Gm/10 Ml Udc NG 08/19/24 20:59 1 gm BID MONA Administration Plan Summary: The patient is a 79-year-old female with a past medical history of asthma on 3 L of oxygen at baseline, 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 Neuro No active conditions Off sedation, intubated on MV #History of CVA Patient has a history of CVA, the last time being in September 2023 with bilateral cerebellar infarcts. Supposedly, patient has left-sided deficits (weakness) Cardiovascular #History of HFpEF The patient has a history of HFpEF with ejection fraction 60 to 65% on echocardiogram done about a week ago also showing diastolic dysfunction. On admission, patient presented with hypoxia She was started on Lasix 40 mg daily. Cardiology was curb sided on this admission, believes that hypoxia is more pulmonary than cardiac cause. Plan: -Hold IV Lasix 40mg Qday -Strict I&O's #History of aortic stenosis status post TAVR The patient has a history of aortic stenosis which she had a TAVR done about 4 years ago. She has been followed by coke worker Dr. Arita. #History of A-fib She has a history of A-fib and is on Eliquis 5 mg twice daily. EKG on admission showed A-fib, rate controlled Plan: -Hold Eliquis #History of hypertension Patient has a history of hypertension and is on lisinopril. Admission, blood pressures have been soft. Will hold off on antihypertensives for now. Resp #Acute on chronic hypoxic respiratory failure #Possible excessive dynamic airway collapse #?Tracheomalacia #CAP versus HAP The patient presented with shortness of breath and was admitted for acute hypoxic respiratory failure. Allegedly, she had been previously diagnosed with asthma and has had recurrent pulmonary infections. On initial admission, she had significant wheezing consistent with airway disease. Chest x-ray showed bilateral opacities consistent with multifocal pneumonia/fluid overload. She is a chronic CO2 retainer based on bicarb levels and history. On 07/22/2024, rapid response was called as patient was desaturating in the 50s. The RN went to the room and found out that the BiPAP tubing has been dislodged from the mask, patient was awake and alert at the time and oriented. ICU was consulted for further evaluation and recommendations, BiPAP settings were adjusted and patient is saturating 98% on 55% FiO2. She was upgraded to the ICU for intubation and further management. ABG during rapid response and a pH of 7.23 with pCO2 of 102. However, bronchoscopy was done on admission to the ICU, does not appear patient has airway disease as she has patent airways. MRSA nares negative Chest CT showed extensive bilateral pneumonia 07/26/2024- Again attempted extubation today, patient was put on pressure support for SBT, was intermittently able to follow very simple commands but mentation in general was not enough for extubation, also patient does not seem to have enough strength. Plan: -Continue IV cefepime -Commence IV azithromycin -ET secretions, fungal pending GI #Hyperbilirubinemia, improving The patient has isolated hyperbilirubinemia with T. bili of 1.5. AST and ALT within normal limits. Patient has not complained of abdominal pain. This is likely a consequence of congestive hepatitis from heart failure. #Diet- Tube feeds Had high residuals overnight and this morning, tube feeds held. Renal #CKD stage III Patient has a history of CKD stage III with creatinine baseline of about 1. BUN and creatinine normal this admission. 07/26/2024- Creatinine at 1.4 Will continue to monitor renal panel. #Isotonic hyponatremia-resolved Sodium on admission, 137. Today, sodium is 134. Osmolality normal Albumin and protein within normal limits. Will continue to monitor sodium levels Health maintenance: Dispo: ICU, not sedated, intubated on mechanical ventilation (goal pH-7.25) Diet: N.p.o, tube feeds held GI: Pantoprazole DVT: Eliquis (held) Silver: None Lines: Peripheral Code: Full Case was discussed with attending physician, Dr Bree Shaw MD PGY-1 Disclaimer: This note was dictated by speech recognition. Minor errors in skin diver may be present due to voice recognition software. Attending Provider Attestation/Addendum Patient seen and examined with the above resident, Chi Shaw MD. I agree with the findings, assessment, and plan of care as documented except for any differences below. Patient with significant improvement. Precedex paused this morning, following commands. Gas exchange improved suggesting improving respiratory drive. We did challenge with gradual weaning of pressure support but pCO2 did rise. Optimize both HCO3 with diamoxx and diuretics as well as pCO2 with SIMV. She may ultimately benefit from a slow wean given she is quite deconditioned, tracheostomy to be considered if unable to wean in coming days. NIPPV as bridge to NC would also be meaningful. Minimize sedation through the day to optimize work of breathing. Sit upright as well to help core strengthening and OOB to chair if feasible with staffing. Elsy, significant other, updated at the bedside and encouraged patient to actively workout. She is triggering vent well but need to optimize her central drive with clearance of medications and optimization of acid-base balance as well. Hold off steroids. Complete antibiotic course. Still have suspicion for airway disease- non-asthma/ COPD. Total critical care time: I personally spent 45 minutes for review of physiologic parameters, frequent ventilator changes, serial assessment of gas exchange, and counseling of patient's family at bedside. This is exclusive of time spent teaching housestaff or performing any separate billable procedures. Patient continues to require critical care services for acute on chronic hypercapnic resiratory failure. She remains at risk for further morbidity and mortality warranting ongoing care and management in the ICU.
[2024-07-26 14:55] LABS: Base Excess 9 (-3-3); HCO3 37 mEq/L (20-26); Inspired Oxygen, FIO2 40 %; O2 Saturation 99 % (91-98); PCO2 78 mmHg (32.0-48.0); PO2 106 mmHg (83-108); Puncture Site Arterial Line; pH, Arterial 7.29 (7.35-7.45)
[2024-07-26 17:24] LABS: Base Excess 10 (-3-3); HCO3 37 mEq/L (20-26); Inspired Oxygen, FIO2 100 %; O2 Saturation 99 % (91-98); PCO2 69 mmHg (32.0-48.0); PO2 99 mmHg (83-108); pH, Arterial 7.34 (7.35-7.45)
[2024-07-26 17:43] LABS: Allen Test Not Performed; Puncture Site Arterial Line
[2024-07-26] MEDS: INSULIN GLARGINE (Lantus) 5 UNIT/0.05 ML (PER 5 UNITS) SC (20:14)
[2024-07-26] MEDS: DEXMEDETOMIDINE 200 MCG IVPB 200 MCG/50 ML BOTTLE 5.607 MCG IV (21:33)
[2024-07-26 22:17] LABS: Base Excess 10 (-3-3); HCO3 37 mEq/L (20-26); Inspired Oxygen, FIO2 40 %; O2 Saturation 97 % (91-98); PCO2 68 mmHg (32.0-48.0); PO2 76 mmHg (83-108); pH, Arterial 7.35 (7.35-7.45)
[2024-07-26 22:20] LABS: Allen Test Not Performed; Puncture Site Arterial Line
[2024-07-27] VITALS (105 sets, daily range): BP systolic 65–169; BP diastolic 39–70; PULSE 99–137; RESP 7–18; TEMP 36.6–37.1; O2SAT 87–100; BMI 37.2
[2024-07-27] MEDS: DEXMEDETOMIDINE 200 MCG IVPB 200 MCG/50 ML BOTTLE 5.607 MCG IV (02:29)
[2024-07-27] MEDS: LEVALBUTEROL RT 0.63 MG/3 ML NEBU INH ×6 (02:41→22:36)
[2024-07-27] MEDS: IPRATROPIUM RT 0.5 MG/ 2.5 ML NEBU INH ×6 (02:41→22:36)
[2024-07-27 05:07] LABS: Base Excess 12 (-3-3); HCO3 38 mEq/L (20-26); Inspired Oxygen, FIO2 40 %; O2 Saturation 100 % (91-98); PCO2 60 mmHg (32.0-48.0); PO2 114 mmHg (83-108)
[2024-07-27 05:08] LABS: Allen Test Not Performed; Puncture Site Arterial Line
[2024-07-27 06:37] LABS: Albumin, Serum 2.8 gm/dL (3.4-4.8); Anion Gap 5 (7-16); BUN/Creatinine Ratio 35 Ratio (12-20); Blood Urea Nitrogen 46 mg/dL (9-23); Calcium 8.3 mg/dL (8.3-10.6); Calcium (Corrected) 9.3 mg/dL (8.5-10.1); Carbon Dioxide 38.1 mMol/L (20.0-31.0); Chloride 94 mMol/L (98-107); Creatinine (Component) 1.3 mg/dL (0.6-1.3); Estimated Creatinine Clearance 46.9 mL/min (>60); Glucose 96 mg/dL (74-106); Magnesium 2.2 mg/dL (1.6-2.6); Osmolality,Calculated 285 (275-295); Phosphorous 2.2 mg/dL (2.4-5.1); Potassium 3.1 mMol/L (3.4-5.1); Sodium 137 mMol/L (136-145); eGFR 42 See Note
[2024-07-27 06:44] LABS: Basophils % (Auto) 0 % (0-2.5); Eosinophils % (Auto) 0 % (0-10); Immature Granulocytes % (Auto) 0 % (0-0); Immature Granulocytes Auto 0.05 Thou/mm3 (0.00-0.00); Lymphocytes # (Auto) 0.6 Thou/mm3 (1.0-4.8); Lymphocytes % (Auto) 4 % (10-50); Mean Corpuscular Volume 100 fL (80-100); Monocytes % (Auto) 7 % (0-12); Neutrophils # (Auto) 13.9 Thou/mm3 (1.8-7.7); Neutrophils % (Auto) 89 % (37-80); Nucleated Red Blood Cell % 0 /100 WBC (0); Platelet Count 115 Thou/mm3 (140-440); RDW Standard Deviation 59.4 fL (36.4-46.3); White Blood Count 15.6 Thou/mm3 (3.6-11.0)
[2024-07-27 06:53] LABS: Hemoglobin 6.6 g/dL (12.0-16.0)
--- NOTE | 2024-07-27 08:27 | ESPR_ITS ---
Documentation for date of: 07/27/24 Subjective Subjective Interval history: Patient was examined bedside this morning, no acute overnight events. Urine output overnight was 650, she was on levo at the dose of 0.0 9 in the morning. Mornig ABG showed Ph-4.40, Pco2-60,po2-81,hco3-37 .She was changed to pressor support. and repeat ABG was taken which showed 7.30,pco2-77,po2-81, Hco3-97 . So decision was made not to extubate the patient and her significant other Elsy was updated about it, she was given an option that patient might need trach because she is getting very week and its been difficult to extubate her. we will keep her in Alternate SIMV and PS mode and continue to monitor . As per significant other patient would not wanted to be trached . her Hb in the morning was 6.6 , 1 unit of prbc given Exam Vital Signs Temp Pulse Resp BP Pulse Ox O2 Del Method O2 Flow Rate 98.8 F 115 H 15 92/59 L 99 Mechanical Ventilation 5 07/27/24 07:00 07/27/24 07:00 07/27/24 06:23 07/27/24 07:00 07/27/24 07:00 07/27/24 04:15 07/22/24 16:00 FiO2 40 07/27/24 06:23 Narrative Exam GENERAL: GCS-3, not sedated and intubated, mechanical ventilation NEURO: GCS-3, intubated HEENT: Dry mucosa. Pupils equal bilaterally CARDIO: Heart RRR, no obvious murmurs PULM: Crackles and rhonchi heard bilaterally. Intubated but not sedated, mechanical ventilation GI: Abdomen soft, nondistended. BSx4 URO/STARTER CUP POWDER MIXER:: No further abnormalities noted. SKIN/MSK/EXT: Trace pitting edema bilaterally Objective Labs 07/27/24 05:00 07/27/24 05:00 Labs: Laboratory Results - last 24 hr 07/22/24 07/26/24 07/26/24 18:00 10:12 12:30 WBC RBC Hgb Hct MCV MCH MCHC RDW Std Deviation Plt Count Neut % (Auto) Lymph % (Auto) Brooke % (Auto) Eos % (Auto) Baso % (Auto) Neut # (Auto) Lymph # (Auto) Brooke # (Auto) Eos # (Auto) Baso # (Auto) Immature Gran # (Auto) Absolute Nucleated RBC Immature Gran % Nucleated RBC % Puncture Site Arterial Line Arterial Line ABG pH 7.31 L 7.26 L ABG pCO2 75 H* 85 H* D ABG pO2 76 L 78 L ABG HCO3 38 H 38 H ABG O2 Saturation 97 96 ABG Base Excess 10 H 10 H FiO2 40 40 Sodium Potassium Chloride Carbon Dioxide Anion Gap BUN Creatinine Estim Creat Clear Calc eGFR BUN/Creatinine Ratio Glucose Calculated Osmolality Calcium Corrected Calcium Phosphorus Magnesium Albumin Mycobacterial Culture See Sep Rpt Crossmatch 07/26/24 07/26/24 07/26/24 14:40 17:10 22:03 WBC RBC Hgb Hct MCV MCH MCHC RDW Std Deviation Plt Count Neut % (Auto) Lymph % (Auto) Brooke % (Auto) Eos % (Auto) Baso % (Auto) Neut # (Auto) Lymph # (Auto) Brooke # (Auto) Eos # (Auto) Baso # (Auto) Immature Gran # (Auto) Absolute Nucleated RBC Immature Gran % Nucleated RBC % Puncture Site Arterial Line Arterial Line Arterial Line ABG pH 7.29 L 7.34 L 7.35 ABG pCO2 78 H* 69 H 68 H ABG pO2 106 D 99 76 L D ABG HCO3 37 H 37 H 37 H ABG O2 Saturation 99 H 99 H 97 ABG Base Excess 9 H 10 H 10 H FiO2 40 100 40 Sodium Potassium Chloride Carbon Dioxide Anion Gap BUN Creatinine Estim Creat Clear Calc eGFR BUN/Creatinine Ratio Glucose Calculated Osmolality Calcium Corrected Calcium Phosphorus Magnesium Albumin Mycobacterial Culture Crossmatch 07/27/24 07/27/24 07/27/24 04:55 05:00 07:53 WBC 15.6 H RBC 2.20 L Hgb 6.6 L* Hct 22.0 L MCV 100 MCH 30.0 MCHC 30.0 L RDW Std Deviation 59.4 H Plt Count 115 L Neut % (Auto) 89 H Lymph % (Auto) 4 L Brooke % (Auto) 7 Eos % (Auto) 0 Baso % (Auto) 0 Neut # (Auto) 13.9 H Lymph # (Auto) 0.6 L Brooke # (Auto) 1.0 H Eos # (Auto) 0.0 Baso # (Auto) 0.0 Immature Gran # (Auto) 0.05 H Absolute Nucleated RBC 0.00 Immature Gran % 0 Nucleated RBC % 0 Puncture Site Arterial Line ABG pH 7.40 ABG pCO2 60 H ABG pO2 114 H D ABG HCO3 38 H ABG O2 Saturation 100 H ABG Base Excess 12 H FiO2 40 Sodium 137 Potassium 3.1 L D Chloride 94 L Carbon Dioxide 38.1 H Anion Gap 5 L BUN 46 H Creatinine 1.3 Estim Creat Clear Calc 46.9 L eGFR 42 L BUN/Creatinine Ratio 35 H Glucose 96 Calculated Osmolality 285 Calcium 8.3 Corrected Calcium 9.3 Phosphorus 2.2 L Magnesium 2.2 Albumin 2.8 L Mycobacterial Culture Crossmatch See Detail ABG Interpretation ABG results: 07/21/24 07/21/24 07/21/24 15:47 18:41 21:07 ABG pH 7.22 L 7.19 L* 7.29 L D ABG pCO2 102 H* 106 H* 85 H* D ABG pO2 66 L 63 L 80 L ABG HCO3 42 H 41 H 40 H ABG O2 Saturation 91 89 L 97 ABG Base Excess 12 H 10 H 12 H 07/22/24 07/22/24 07/22/24 05:17 15:30 16:25 ABG pH 7.28 L 7.23 L Cancelled ABG pCO2 90 H* 102 H* D Cancelled ABG pO2 70 L 53 L* Cancelled ABG HCO3 42 H 43 H Cancelled ABG O2 Saturation 94 84 L Cancelled ABG Base Excess 13 H 14 H Cancelled 07/22/24 07/22/24 07/23/24 19:33 22:17 08:00 ABG pH 7.18 L* 7.31 L D 7.37 ABG pCO2 115 H* D 84 H* D 74 H* D ABG pO2 376 H D 170 H D 143 H D ABG HCO3 43 H 42 H 43 H ABG O2 Saturation 101 H 101 H 101 H ABG Base Excess 13 H 14 H 16 H 07/23/24 07/23/24 07/24/24 19:19 22:30 04:18 ABG pH 7.23 L D 7.31 L 7.33 L ABG pCO2 100 H* D 82 H* D 80 H* ABG pO2 173 H D 123 H D 133 H ABG HCO3 42 H 41 H 42 H ABG O2 Saturation 100 H 100 H 100 H ABG Base Excess 13 H 13 H 14 H 07/25/24 07/25/24 07/25/24 04:15 14:21 17:15 ABG pH 7.33 L 7.17 L* D 7.17 L* ABG pCO2 80 H* 110 H* D 108 H* ABG pO2 158 H D 116 H D 116 H ABG HCO3 42 H 40 H 40 H ABG O2 Saturation 100 H 99 H 99 H ABG Base Excess 14 H 10 H 9 H 07/26/24 07/26/24 07/26/24 04:52 10:12 12:30 ABG pH 7.32 L D 7.31 L 7.26 L ABG pCO2 74 H* D 75 H* 85 H* D ABG pO2 66 L D 76 L 78 L ABG HCO3 38 H 38 H 38 H ABG O2 Saturation 94 97 96 ABG Base Excess 11 H 10 H 10 H 07/26/24 07/26/24 07/26/24 14:40 17:10 22:03 ABG pH 7.29 L 7.34 L 7.35 ABG pCO2 78 H* 69 H 68 H ABG pO2 106 D 99 76 L D ABG HCO3 37 H 37 H 37 H ABG O2 Saturation 99 H 99 H 97 ABG Base Excess 9 H 10 H 10 H 07/27/24 04:55 ABG pH 7.40 ABG pCO2 60 H ABG pO2 114 H D ABG HCO3 38 H ABG O2 Saturation 100 H ABG Base Excess 12 H Quality Measures Quality Measures VTE prophylaxis Advance care planning discussed with:: significant other Assessment & Plan Assessment Current Active Medications: Generic Name Dose Route Start Last Admin Trade Name Freq PRN Reason Stop Dose Admin Acetaminophen 650 mg 07/23/24 08:08 Acetaminophen Eva 325 Mg/10 Ml Udc NG 08/19/24 11:57 Q6H PRN Pain 1-3 and/or Fever >100.1 Apixaban 5 mg 07/22/24 21:00 07/26/24 09:34 Apixaban 2.5 Mg Tablet NG 08/21/24 20:59 Not Given BID MONA Benzonatate 100 mg 07/23/24 08:08 Benzonatate 100 Mg Capsule NG 08/19/24 20:59 BID PRN COUGH Protocol Dextrose 25 ml 07/24/24 09:03 Dextrose 50%-Water Inj 50 Ml Syringe IV 08/23/24 09:02 Q15MIN PRN BG 50-70 responsive npo pt Dextrose 50 ml 07/24/24 09:03 Dextrose 50%-Water Inj 50 Ml Syringe IV 08/23/24 09:02 Q15MIN PRN BG <50 OR BG <70 & pt unresponsive Glucagon 1 mg 07/24/24 09:03 Glucagon Inj 1 Mg Vial IM Q15MIN PRN BG <70, and no IV access Norepinephrine/Dextrose 8 mg in 250 mls @ 10.418 mls/hr 07/22/24 16:56 07/27/24 06:00 Levophed In D5w 8mg/250ml IV 08/21/24 16:55 0.09 mcg/kg/min .Q24H PRN 18.753 mls/hr PER PROTOCOL Titration Protocol 0.05 MCG/KG/MIN Fentanyl Citrate 2,500 mcg in 250 mls @ 2.5 mls/hr 07/22/24 16:56 07/25/24 11:40 Sublimaze Inj 2,500 Mcg/250 Ml Bag IV 07/27/24 16:55 0 mcg/hr .Q24H PRN 0 mls/hr PER PROTOCOL Titration Protocol 25 MCG/HR Propofol 1,000 mg in 100 mls @ 3.334 mls/hr 07/22/24 18:15 07/25/24 11:40 Diprivan Ivpb IV 08/21/24 18:14 Infused .Q24H PRN Titration PER PROTOCOL Protocol 5 MCG/KG/MIN Azithromycin 500 mg/ Sodium 250 mls @ 250 mls/hr 07/24/24 09:00 07/26/24 09:52 Chloride IV 07/31/24 08:59 250 mls/hr QDAY MONA Administration Vasopressin/Sodium Chloride 20 unit in 100 mls @ 9 mls/hr 07/24/24 09:05 07/26/24 18:00 Vasostrict/Ns Ivpb IV 08/23/24 09:04 Infused .Q11H7M PRN Titration PER PROTOCOL Protocol 0.03 UNIT/MIN Dexmedetomidine/Sodium Chloride 200 mcg in 50 mls @ 11.213 mls/hr 07/25/24 11:55 07/27/24 05:00 Precedex Ivpb IV 08/24/24 11:54 0 mcg/kg/hr .Q4H28M PRN 0 mls/hr Per PROTOCOL Titration Protocol 0.4 MCG/KG/HR Insulin Glargine 5 unit 07/24/24 21:00 07/26/24 20:14 Insulin Glargine (Lantus) 5 Unit/0.05 Ml (Per 5 Units) SC 08/23/24 20:59 5 unit HS MONA Administration Insulin Human Lispro 0 unit 07/24/24 12:00 07/27/24 06:29 Insulin Lispro (Admelog) 1 Unit/0.01 Ml Unit SC 08/23/24 11:59 Not Given Q6HR MONA Protocol Ipratropium Lando 0.5 mg 07/21/24 10:43 07/23/24 13:10 Ipratropium Rt 0.5 Mg/ 2.5 Ml Nebu INH 08/20/24 18:59 0.5 mg BIDRT PRN Administration Shortness of breath and wheezing Protocol Ipratropium Lando 0.5 mg 07/21/24 15:00 07/27/24 06:23 Ipratropium Rt 0.5 Mg/ 2.5 Ml Nebu INH 08/20/24 14:59 0.5 mg Q4HRRT MONA Administration Levalbuterol HCl 1.25 mg 07/21/24 10:39 07/23/24 13:10 Levalbuterol Rt 1.25 Mg/0.5 Ml Nebu INH 08/20/24 18:59 1.25 mg BIDRT PRN Administration Shortness of breath or wheezing Protocol Levalbuterol HCl 0.63 mg 07/21/24 15:00 07/27/24 06:23 Levalbuterol Rt 0.63 Mg/3 Ml Nebu INH 08/20/24 14:59 0.63 mg Q4HRRT MONA Administration Ondansetron HCl 4 mg 07/20/24 11:58 Ondansetron Inj 2 Mg/Ml Inj 2 Ml IV 08/19/24 11:57 Q6H PRN NAUSEA OR VOMITING Protocol Pantoprazole Sodium 40 mg 07/23/24 09:45 07/26/24 09:52 Pantoprazole Inj 40 Mg Vial IVP 08/22/24 09:44 40 mg QDAY MONA Administration Potassium Chloride 20 meq 07/27/24 09:45 Potassium Chloride 10% 20 Meq/15 Ml Udc GT 07/27/24 09:46 X1 ONE Sennosides 1 tab 07/21/24 09:00 07/26/24 09:52 Senna Tablet PO 08/20/24 08:59 1 tab QDAY MONA Administration Protocol Sodium Chloride 5 ml 07/20/24 12:03 Sodium Chloride Rt 10% 15 Ml Nebu INH 08/19/24 12:02 PRN PRN sputum Sodium Chloride 3 ml 07/23/24 13:11 Sodium Chloride Rt Eva 0.9% 3 Ml Nebu INH 08/22/24 13:10 PRN PRN SOLN Sucralfate 1 gm 07/23/24 09:00 07/26/24 20:13 Sucralfate Susp 1 Gm/10 Ml Udc NG 08/19/24 20:59 1 gm BID MONA Administration Plan The patient is a 79-year-old female with a past medical history of asthma on 3 L of oxygen at baseline, 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 Neuro No active conditions Off sedation, intubated on MV, precedex off #History of CVA Patient has a history of CVA, the last time being in September 2023 with bilateral cerebellar infarcts. Supposedly, patient has left-sided deficits (weakness) Cardiovascular #History of HFpEF The patient has a history of HFpEF with ejection fraction 60 to 65% on echocardiogram done about a week ago also showing diastolic dysfunction. On admission, patient presented with hypoxia She was started on Lasix 40 mg daily. Cardiology was curb sided on this admission, believes that hypoxia is more pulmonary than cardiac cause. Plan: -Hold IV Lasix 40mg Qday -Strict I&O's #History of aortic stenosis status post TAVR The patient has a history of aortic stenosis which she had a TAVR done about 4 years ago. She has been followed by foaming machine operator Dr. Arita. #History of A-fib She has a history of A-fib and is on Eliquis 5 mg twice daily. EKG on admission showed A-fib, rate controlled Plan: -Hold Eliquis #History of hypertension Patient has a history of hypertension and is on lisinopril. Admission, blood pressures have been soft. Will hold off on antihypertensives for now. Resp #Acute on chronic hypoxic respiratory failure #Possible excessive dynamic airway collapse #?Tracheomalacia #CAP versus HAP The patient presented with shortness of breath and was admitted for acute hypoxic respiratory failure. Allegedly, she had been previously diagnosed with asthma and has had recurrent pulmonary infections. On initial admission, she had significant wheezing consistent with airway disease. Chest x-ray showed bilateral opacities consistent with multifocal pneumonia/fluid overload. She is a chronic CO2 retainer based on bicarb levels and history. On 07/22/2024, rapid response was called as patient was desaturating in the 50s. The RN went to the room and found out that the BiPAP tubing has been dislodged from the mask, patient was awake and alert at the time and oriented. ICU was consulted for further evaluation and recommendations, BiPAP settings were adjusted and patient is saturating 98% on 55% FiO2. She was upgraded to the ICU for intubation and further management. ABG during rapid response and a pH of 7.23 with pCO2 of 102. However, bronchoscopy was done on admission to the ICU, does not appear patient has airway disease as she has patent airways. MRSA nares negative Chest CT showed extensive bilateral pneumonia 07/26/2024- Again attempted extubation today, patient was put on pressure support for SBT, was intermittently able to follow very simple commands but mentation in general was not enough for extubation, also patient does not seem to have enough strength. 07/27/24: -Completed IV cefepime and IV azithromycin ,ET secretions, fungal pending.she was on levo at the dose of 0.0 9 in the morning. Mornig ABG showed Ph-4.40, Pco2-60,po2-81,hco3-37 .She was changed to pressor support. and repeat ABG was taken which showed 7.30,pco2-77,po2-81, Hco3-97 . So decision was made not to extubate the patient and her significant other Elsy was updated about it, she was given an option that patient might need trach because she is getting very week and its been difficult to extubate her. we will keep her in Alternate SIMV and PS mode and continue to monitor . As per significant other patient would not wanted to be trached . GI #Normocytic anemia - most likely sec to chronic disease, or sec to phlebotomy - her Hb in the morning was 6.6 , 1 unit of prbc given -will continue to monitoe #Hyperbilirubinemia, improving The patient has isolated hyperbilirubinemia with T. bili of 1.5. AST and ALT within normal limits. Patient has not complained of abdominal pain. This is likely a consequence of congestive hepatitis from heart failure. #Diet- Tube feeds Had high residuals overnight and this morning, tube feeds held. Renal #CKD stage III Patient has a history of CKD stage III with creatinine baseline of about 1. BUN and creatinine normal this admission. 07/27/2024- Creatinine at 1.3 Will continue to monitor renal panel. #Isotonic hyponatremia-resolved Sodium on admission, 137. Today, sodium is 137. Osmolality normal Albumin and protein within normal limits. Will continue to monitor sodium levels Health maintenance: Dispo: ICU, not sedated, intubated on mechanical ventilation Diet: N.p.o, tube feeds held GI: Pantoprazole DVT: Eliquis (held) Silver: None Lines: Peripheral Code: Full Case was discussed with attending physician, Dr Bree Seymour MD, PGY-3 Attending Provider Attestation/Addendum Patient seen and examined with the above resident, Chip Seymour MD. I agree with the findings, assessment, and plan of care as documented except for any differences below. Patient continues to slowly progress. Tolerated PS trial today, mentation improved but remains lethargic. Following commands. Tolerated transfer for multiple hours to cardiac chair. However, tired out on PS after multiple hours and in short interval pCO2 did rise again with abnormal pH. Plan initially to extubate to NIPPV but will hold off at this point given her lethargy. Patient may require additional time for metabolization of sedation, stopped precedex too now. Overnight consider melatonin or seroquel for sleep. Patient with tachycardia after exertion on PS and will rest on SIMV overnight. Reattempt tomorrow. Patient's significant other and POA updated and they will both be present tomorrow afternoon to assess the patient. Patient may benefit from tracheostomy for prolonged wean but this may ultimately not be congruent with the goals of care for patient/ her family. Patient will complete course of antibiotics. No steroids. Maintain on BD therapy for now. Maintain HCO3 in 35-38 range. Hold diuretics for now. Restart on TF today. Transfuse as needed to kepe hemoglobin >7. I remain available by telephone as I am signing off service and will update oncoming auto tech in AM. Total critical care time: I personally spent 60 minutes for review of physiologic parameters, directing plan of care, counseling patient, rehab MD, and POA via telephone. This is exclusive of time spent teaching housestaff or performing any separate billable procedure. Patient continues to require critical care services for acute on chronic hypercapnic respiratory failure with healthcare associated pneumonia. Patient remains at high risk for further morbidity and mortality warranting ongoing monitorng and care only available in the intensive care unit.
[2024-07-27 08:52] LABS: Path Review Blood Smear Sent to Pathologist
[2024-07-27] MEDS: SUCRALFATE SUSP 1 GM/10 ML UDC NG ×2 (08:57→20:05)
[2024-07-27] MEDS: PANTOPRAZOLE INJ 40 MG VIAL IVP (08:57)
[2024-07-27] MEDS: POTASSIUM CHLORIDE 10% 20 MEQ/15 ML UDC 40 MEQ GT (08:57)
[2024-07-27] MEDS: SENNA TABLET 1 TAB PO (08:57)
[2024-07-27] MEDS: AZITHROMYCIN INJ 500 MG in SODIUM CHLORIDE 0.9% 250 ML 250 ML 250 MG IV (08:58)
[2024-07-27] MEDS: POT PHOS 15 mMol in NS 250 ML 15 MMOL/250 ML BAG 62.5 MMOL IV (09:59)
[2024-07-27] MEDS: POTASSIUM CHLORIDE 10% 20 MEQ/15 ML UDC GT (09:59)
[2024-07-27 10:22] LABS: Base Excess 10 (-3-3); HCO3 37 mEq/L (20-26); Inspired Oxygen, FIO2 40 %; O2 Saturation 97 % (91-98); PCO2 77 mmHg (32.0-48.0); PO2 81 mmHg (83-108)
[2024-07-27 10:44] LABS: Allen Test Performed/OK; Puncture Site Right Radial
--- NOTE | 2024-07-27 12:57 | PC.SS ---
ERECTOR OPERATOR informed by charge nurse medical POA for patient is Jamar Torre . POA documentation present in patient's physical chart. ERECTOR OPERATOR attempted phone contact with patient's partner, Elsy Lewis; to provide update no response. ERECTOR OPERATOR conducted phone contact with patient's POA, Jamar Torre; to provide update. ERECTOR OPERATOR updated ICU intesivist, bedside nurse and charge nurse. Warehouse Foreman to contact POA and provide update on patient's medical condition.
[2024-07-27] MEDS: Norepinephrine/D5W 8mg/250ml 8 MG/250 ML BAG 14.586 MG IV (14:02)
--- NOTE | 2024-07-27 15:45 | PC.SS ---
Update: Patient remains intubated. Off sedation. Patient receiving pressor support. Feeds on hold.
[2024-07-27] MEDS: INSULIN GLARGINE (Lantus) 5 UNIT/0.05 ML (PER 5 UNITS) SC (20:10)
[2024-07-27 21:47] LABS: Base Excess 9 (-3-3); HCO3 36 mEq/L (20-26); Inspired Oxygen, FIO2 40 %; O2 Saturation 100 % (91-98); PCO2 64 mmHg (32.0-48.0); PO2 125 mmHg (83-108); pH, Arterial 7.36 (7.35-7.45)
[2024-07-27 21:52] LABS: Allen Test Not Performed; Puncture Site Arterial Line
[2024-07-28] VITALS (68 sets, daily range): BP systolic 67–153; BP diastolic 36–73; PULSE 101–149; RESP 0–20; TEMP 36.6–36.9; O2SAT 91–100; BMI 36.6
[2024-07-28] MEDS: LEVALBUTEROL RT 0.63 MG/3 ML NEBU INH ×6 (02:25→23:01)
[2024-07-28] MEDS: IPRATROPIUM RT 0.5 MG/ 2.5 ML NEBU INH ×6 (02:26→23:01)
[2024-07-28 04:45] LABS: Base Excess 10 (-3-3); HCO3 36 mEq/L (20-26); Inspired Oxygen, FIO2 40 %; O2 Saturation 100 % (91-98); PCO2 61 mmHg (32.0-48.0); PO2 113 mmHg (83-108); pH, Arterial 7.38 (7.35-7.45)
[2024-07-28 04:48] LABS: Allen Test Not Performed; Puncture Site Arterial Line
--- NOTE | 2024-07-28 05:00 | XR_ITS ---
Examination: AP chest single view Technique one AP portable semiupright chest single view Exam date and time: July 28, 2024 at 0218 hrs. Comparison July 26, 2024 Indications: Hypoxic respiratory failure, heart failure, pneumonia right base on earlier chest imaging Findings: [id number] heart failure Mild enlargement cardiac contour with prominent vascular congestion central vascular Right internal jugular central line tip satisfactory position Endotracheal tube tip 4.5 cm above darling Orogastric tube is in the stomach, the tip is below the level film impression: [id number] heart failure Bibasilar pneumonia
[2024-07-28 05:33] LABS: Basophils % (Auto) 0 % (0-2.5); Eosinophils % (Auto) 0 % (0-10); Immature Granulocytes % (Auto) 1 % (0-0); Immature Granulocytes Auto 0.04 Thou/mm3 (0.00-0.00); Lymphocytes # (Auto) 0.5 Thou/mm3 (1.0-4.8); Lymphocytes % (Auto) 6 % (10-50); Mean Corpuscular HGB Conc 30.4 g/dl (31.0-37.0); Mean Corpuscular Hemoglobin 29.3 pg (25.0-35.0); Mean Corpuscular Volume 96 fL (80-100); Monocytes # (Auto) 0.7 Thou/mm3 (0.0-0.8); Monocytes % (Auto) 9 % (0-12); Neutrophils # (Auto) 7.2 Thou/mm3 (1.8-7.7); Neutrophils % (Auto) 85 % (37-80); Nucleated Red Blood Cell % 0 /100 WBC (0); Platelet Count 112 Thou/mm3 (140-440); RDW Standard Deviation 58.8 fL (36.4-46.3); Red Blood Count 2.39 Miln/mm3 (4.00-5.20); White Blood Count 8.5 Thou/mm3 (3.6-11.0)
[2024-07-28 06:52] LABS: Alanine Aminotransferase 43 U/L (10-49); Albumin, Serum 2.6 gm/dL (3.4-4.8); Alkaline Phosphatase 50 U/L (46-116); Anion Gap 3 (7-16); Aspartate Amino Transferase 37 U/L (0-34); BUN/Creatinine Ratio 31 Ratio (12-20); Bilirubin,Total 1.2 mg/dL (0.3-1.2); Blood Urea Nitrogen 50 mg/dL (9-23); Calcium 8.3 mg/dL (8.3-10.6); Calcium (Corrected) 9.4 mg/dL (8.5-10.1); Carbon Dioxide 37.3 mMol/L (20.0-31.0); Chloride 98 mMol/L (98-107); Creatinine (Component) 1.6 mg/dL (0.6-1.3); Estimated Creatinine Clearance 37.6 mL/min (>60); Globulin 2.5 gm/dL (2.3-3.5); Glucose 117 mg/dL (74-106); Magnesium 2.1 mg/dL (1.6-2.6); Osmolality,Calculated 289 (275-295); Phosphorous 2.6 mg/dL (2.4-5.1); Potassium 3.7 mMol/L (3.4-5.1); Sodium 138 mMol/L (136-145); Total Protein 5.1 gm/dL (5.7-8.2); eGFR 33 See Note
[2024-07-28] MEDS: SUCRALFATE SUSP 1 GM/10 ML UDC NG ×2 (08:52→20:57)
[2024-07-28] MEDS: SENNA TABLET 1 TAB PO (08:52)
[2024-07-28] MEDS: FUROSEMIDE INJ 10 MG/ML 4ML VIAL 80 MG IVP (08:53)
[2024-07-28] MEDS: PANTOPRAZOLE INJ 40 MG VIAL IVP (08:53)
[2024-07-28 10:49] LABS: Base Excess 10 (-3-3); HCO3 38 mEq/L (20-26); Inspired Oxygen, FIO2 30 %; PO2 74 mmHg (83-108); pH, Arterial 7.29 (7.35-7.45)
[2024-07-28 11:08] LABS: PCO2 79 mmHg (32.0-48.0)
[2024-07-28 11:09] LABS: Allen Test Not Performed; O2 Saturation 99 % (91-98); Puncture Site Arterial Line
--- NOTE | 2024-07-28 13:14 | XR_ITS ---
Examination: CT brain head without contrast. 2-D sagittal coronal reconstructions Date and time of exam:July 28, 2024 1617 hrs. Indications: Altered mental status beginning 2 days ago CTDI: vol (mGy):52.3 DLP: (mGycm):1090 Technique: Multiple CT axial sections of the brain have been obtained, 5 mm slice thickness. Contrast has not been administered. 2-D sagittal, coronal reconstructions have been obtained Low dose protocols were performed. One or more of the following dose reduction techniques were used; automated exposure control, adjustment of the mA and/or KV according to patient size, use of iterative reconstruction technique. Findings: No significant ventricular enlargement. Old infarct left cerebellar hemisphere Intra-axial or extra-axial hemorrhage density is not seen. No mass effect or midline shift Basal cisterns are not remarkable. Fourth ventricle is midline. Cranial vault intact. Impression: Negative for acute hemorrhage, mass effect or midline shift Advise clinical correlation and follow-up accordingly
--- NOTE | 2024-07-28 15:59 | ESPR_ITS ---
Documentation for date of: 07/28/24 Subjective Subjective Interval history: This is a 79-year-old female admitted to the ICU for acute hypoxic respiratory failure who is currently intubated and on mechanical ventilation. Weaning was attempted over the last 48 hours however she was unable to tolerate and developed CO2 retention requiring reinstatement of prior vent settings. Today the patient is awake and able to follow commands though very weak. She has been off of all sedation for the last 24 hours. She was switched to spontaneous and eventually brought to PSV 5/5/30%. It was noted on her end-tidal capnography waveform a slow and gradual increase in her CO2. She started off in the mid 50s and after 2 hours was noted to be in the mid 70s. I repeat ABG showed worsening of her respiratory acidosis and therefore she was switched back to mechanical ventilation. There were no other acute overnight events. Critical Care Note Critical care time (min.): 45 Exam Vital Signs Temp Pulse Resp BP Pulse Ox O2 Del Method O2 Flow Rate 98.3 F 122 H 15 100/63 100 Mechanical Ventilation 5 07/28/24 12:00 07/28/24 14:32 07/28/24 14:32 07/28/24 14:32 07/28/24 14:32 07/28/24 04:00 07/22/24 16:00 FiO2 40 07/28/24 14:32 Narrative Exam General-no acute distress, awake but lethargic, obese HEENT-normocephalic, atraumatic, sclera icteric, pupils equal and reactive, ET tube and OG tube in place Chest-lungs clear to auscultation, diminished, minimal crackles auscultated, heart regular rhythmic, no bruits murmurs, no increased work of breathing Abdomen-soft, nontender, bowel sounds present, no rebound or guarding Extremities-pulses palpable, no clubbing or cyanosis, no mottling Vent SIMV Physical Exam Completion Physical Exam Complete?: Yes Objective - Poultry Veterinarian Labs 07/29/24 04:29 07/29/24 04:29 Labs: Laboratory Results - last 24 hr 07/27/24 07/27/24 07/28/24 07:53 21:38 04:37 WBC RBC Hgb Hct MCV MCH MCHC RDW Std Deviation Plt Count Neut % (Auto) Lymph % (Auto) [place] % (Auto) Eos % (Auto) Baso % (Auto) Neut # (Auto) Lymph # (Auto) [place] # (Auto) Eos # (Auto) Baso # (Auto) Immature Gran # (Auto) Absolute Nucleated RBC Immature Gran % Nucleated RBC % Puncture Site Arterial Line Arterial Line ABG pH 7.36 7.38 ABG pCO2 64 H D 61 H ABG pO2 125 H D 113 H ABG HCO3 36 H 36 H ABG O2 Saturation 100 H 100 H ABG Base Excess 9 H 10 H FiO2 40 40 Sodium Potassium Chloride Carbon Dioxide Anion Gap BUN Creatinine Estim Creat Clear Calc eGFR BUN/Creatinine Ratio Glucose Calculated Osmolality Calcium Corrected Calcium Phosphorus Magnesium Total Bilirubin AST ALT Alkaline Phosphatase Total Protein Albumin Globulin Albumin/Globulin Ratio Blood Type A Positive Antibody Screen POSITIVE Antibody Identification Anti-E Crossmatch See Detail Blood Bank Wristband ID Yes 07/28/24 07/28/24 05:00 10:39 WBC 8.5 D RBC 2.39 L Hgb 7.0 L Hct 23.0 L MCV 96 MCH 29.3 MCHC 30.4 L RDW Std Deviation 58.8 H Plt Count 112 L Neut % (Auto) 85 H Lymph % (Auto) 6 L [place] % (Auto) 9 Eos % (Auto) 0 Baso % (Auto) 0 Neut # (Auto) 7.2 Lymph # (Auto) 0.5 L [place] # (Auto) 0.7 Eos # (Auto) 0.0 Baso # (Auto) 0.0 Immature Gran # (Auto) 0.04 H Absolute Nucleated RBC 0.00 Immature Gran % 1 H Nucleated RBC % 0 Puncture Site Arterial Line ABG pH 7.29 L ABG pCO2 79 H* D ABG pO2 74 L D ABG HCO3 38 H ABG O2 Saturation 99 H ABG Base Excess 10 H FiO2 30 Sodium 138 Potassium 3.7 D Chloride 98 Carbon Dioxide 37.3 H Anion Gap 3 L BUN 50 H Creatinine 1.6 H Estim Creat Clear Calc 37.6 L eGFR 33 L BUN/Creatinine Ratio 31 H Glucose 117 H Calculated Osmolality 289 Calcium 8.3 Corrected Calcium 9.4 Phosphorus 2.6 Magnesium 2.1 Total Bilirubin 1.2 AST 37 H ALT 43 Alkaline Phosphatase 50 Total Protein 5.1 L Albumin 2.6 L Globulin 2.5 Albumin/Globulin Ratio 1.0 L Blood Type Antibody Screen Antibody Identification Crossmatch Blood Bank Wristband ID Assessment & Plan Additional Assessment Additional Assessment: In brief this is 79-year-old female admitted to the ICU with acute hypoxic respiratory failure currently intubated and on mechanical ventilation a/p [employer] Lethargy- pt is not on sedating meds. ? Hypoactive delerium vs additional pathology. HCT if no improvement with ? of new CVA h/o CVA CV Afib- today developed RVR with rate in the 140s -> given metoprolol 5mg HFpEF- given 80mg of lasix today with good UOP, pt is net pos with fluid balance of ~3.8lts h/o s/p TAVR Resp Acute hypoxic/hypercapneic resp failure- SBT attempted today. pts CO2 increased and she was unable to tolerate - switched back to SIMV - will cont with diuresis and trial again tmw CAP- on abx, sputum cx showed oral alek Renal MITESH- slight bump up in creatinine today - monitor i/os - avoid nephrotoxins GI Hypoalbuminemia- on tube feeds - UA shows 1+ prot Endo DM- on SSI and lantus Heme Anemia- s/p PRBC yesterday, no active bleeding noted Leukocytosis- resolved today Thrombocytopenia- stable over the last few days but drop from arrival ID PNA- on abx case d/w ICU team labs, imaging, records reviewed ~45ccmin required for eval, exam, review, intervention, discussion and formulation of POC for this critically ill pt with resp failure on MV at high risk for further and ongoing decompensation Provider Notation Provider Notation: Although this document has been carefully reviewed, there may still be some phonetic and other typographical errors. These errors are purely grammatical due to imperfections in the software program and should not be construed in any way to compromise the substance of the patient's medical care during this visit. Thank you for the opportunity and privilege in assisting you with this patient's care and management.
--- NOTE | 2024-07-28 16:03 | ESPR_ITS ---
<Statement entered by Chip Seymour MD - 07/28/24 17:06> patient was examined bedside this morning ,her mentation has declined and seems very lethergic .Sedation is turned off since more than 24 hr ,we will follow up with head CT .IF head Ct is normal we will assess for CAM-icu score. A dose of metoprolol 5 mgx1 was given for RVR . lasix 80x1 was given with good urine output. her ABG after keeping her on pressure support worsened with Ph-7.29,pco2-79,po2-74 . her NIF was -17,-19,-21 and the decision to extubation was held . she completed the course of antibiotics. I discussed with and supervised my co-resident involved in the care of this patient. I agree with the assessment and plan as documented above. Chip Seymour,PGY-3 Disclaimer: Despite multiple revisions, due to the dictation software being used, the document below may not be free of grammatical errors including phonetic/typographic errors. However, this does not deter from our commitment to providing health care in the patient's best interest in mind. Documentation for date of: 07/28/24 Subjective Subjective Interval history: Patient seen and examined at bedside. No acute overnight events. Patient has been off of sedation and Precedex, attempted to extubate yesterday, but worsening blood gases. At bedside this morning, patient is awake and oriented, following commands. GCS-10T, she still very lethargic which does not seem to be her baseline. Will do a head CT to rule out any acute processes and a CAM-ICU to rule out ICU delirium. Weaning parameters for extubation this morning, NIF about -20. ABG initially pH-7.38 with CO2 of 61, repeat ABG on spontaneous breathing trial pH of 7.29 with pCO2 of 79. IV Lasix 80 mg given. Patient off of pressors. Decision made not to extubate this patient did poorly, will consider another goals of care conversation with family tomorrow. Tube feeds restarted In the interim, keep patient off of all sedatives Exam Vital Signs Temp Pulse Resp BP Pulse Ox O2 Del Method O2 Flow Rate 98.3 F 122 H 15 100/63 100 Mechanical Ventilation 5 07/28/24 12:00 07/28/24 14:32 07/28/24 14:32 07/28/24 14:32 07/28/24 14:32 07/28/24 04:00 07/22/24 16:00 FiO2 40 07/28/24 14:32 Narrative Exam GENERAL: GCS-10T, not sedated and intubated, mechanical ventilation NEURO: GCS-10T, intubated HEENT: Dry mucosa. Pupils equal bilaterally CARDIO: Heart RRR, no obvious murmurs PULM: Crackles and rhonchi heard bilaterally. Intubated but not sedated, mechanical ventilation GI: Abdomen soft, nondistended. 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 SKIN/MSK/EXT: Trace pitting edema bilaterally Objective Labs 07/28/24 05:00 07/28/24 05:00 Labs: Laboratory Results - last 24 hr 07/27/24 07/27/24 07/28/24 07:53 21:38 04:37 WBC RBC Hgb Hct MCV MCH MCHC RDW Std Deviation Plt Count Neut % (Auto) Lymph % (Auto) [place] % (Auto) Eos % (Auto) Baso % (Auto) Neut # (Auto) Lymph # (Auto) [place] # (Auto) Eos # (Auto) Baso # (Auto) Immature Gran # (Auto) Absolute Nucleated RBC Immature Gran % Nucleated RBC % Puncture Site Arterial Line Arterial Line ABG pH 7.36 7.38 ABG pCO2 64 H D 61 H ABG pO2 125 H D 113 H ABG HCO3 36 H 36 H ABG O2 Saturation 100 H 100 H ABG Base Excess 9 H 10 H FiO2 40 40 Sodium Potassium Chloride Carbon Dioxide Anion Gap BUN Creatinine Estim Creat Clear Calc eGFR BUN/Creatinine Ratio Glucose Calculated Osmolality Calcium Corrected Calcium Phosphorus Magnesium Total Bilirubin AST ALT Alkaline Phosphatase Total Protein Albumin Globulin Albumin/Globulin Ratio Blood Type A Positive Antibody Screen POSITIVE Antibody Identification Anti-E Crossmatch See Detail Blood Bank Wristband ID Yes 07/28/24 07/28/24 05:00 10:39 WBC 8.5 D RBC 2.39 L Hgb 7.0 L Hct 23.0 L MCV 96 MCH 29.3 MCHC 30.4 L RDW Std Deviation 58.8 H Plt Count 112 L Neut % (Auto) 85 H Lymph % (Auto) 6 L [place] % (Auto) 9 Eos % (Auto) 0 Baso % (Auto) 0 Neut # (Auto) 7.2 Lymph # (Auto) 0.5 L [place] # (Auto) 0.7 Eos # (Auto) 0.0 Baso # (Auto) 0.0 Immature Gran # (Auto) 0.04 H Absolute Nucleated RBC 0.00 Immature Gran % 1 H Nucleated RBC % 0 Puncture Site Arterial Line ABG pH 7.29 L ABG pCO2 79 H* D ABG pO2 74 L D ABG HCO3 38 H ABG O2 Saturation 99 H ABG Base Excess 10 H FiO2 30 Sodium 138 Potassium 3.7 D Chloride 98 Carbon Dioxide 37.3 H Anion Gap 3 L BUN 50 H Creatinine 1.6 H Estim Creat Clear Calc 37.6 L eGFR 33 L BUN/Creatinine Ratio 31 H Glucose 117 H Calculated Osmolality 289 Calcium 8.3 Corrected Calcium 9.4 Phosphorus 2.6 Magnesium 2.1 Total Bilirubin 1.2 AST 37 H ALT 43 Alkaline Phosphatase 50 Total Protein 5.1 L Albumin 2.6 L Globulin 2.5 Albumin/Globulin Ratio 1.0 L Blood Type Antibody Screen Antibody Identification Crossmatch Blood Bank Wristband ID ABG Interpretation ABG results: 07/21/24 07/21/24 07/21/24 15:47 18:41 21:07 ABG pH 7.22 L 7.19 L* 7.29 L D ABG pCO2 102 H* 106 H* 85 H* D ABG pO2 66 L 63 L 80 L ABG HCO3 42 H 41 H 40 H ABG O2 Saturation 91 89 L 97 ABG Base Excess 12 H 10 H 12 H 07/22/24 07/22/24 07/22/24 05:17 15:30 16:25 ABG pH 7.28 L 7.23 L Cancelled ABG pCO2 90 H* 102 H* D Cancelled ABG pO2 70 L 53 L* Cancelled ABG HCO3 42 H 43 H Cancelled ABG O2 Saturation 94 84 L Cancelled ABG Base Excess 13 H 14 H Cancelled 07/22/24 07/22/24 07/23/24 19:33 22:17 08:00 ABG pH 7.18 L* 7.31 L D 7.37 ABG pCO2 115 H* D 84 H* D 74 H* D ABG pO2 376 H D 170 H D 143 H D ABG HCO3 43 H 42 H 43 H ABG O2 Saturation 101 H 101 H 101 H ABG Base Excess 13 H 14 H 16 H 07/23/24 07/23/24 07/24/24 19:19 22:30 04:18 ABG pH 7.23 L D 7.31 L 7.33 L ABG pCO2 100 H* D 82 H* D 80 H* ABG pO2 173 H D 123 H D 133 H ABG HCO3 42 H 41 H 42 H ABG O2 Saturation 100 H 100 H 100 H ABG Base Excess 13 H 13 H 14 H 07/25/24 07/25/24 07/25/24 04:15 14:21 17:15 ABG pH 7.33 L 7.17 L* D 7.17 L* ABG pCO2 80 H* 110 H* D 108 H* ABG pO2 158 H D 116 H D 116 H ABG HCO3 42 H 40 H 40 H ABG O2 Saturation 100 H 99 H 99 H ABG Base Excess 14 H 10 H 9 H 07/26/24 07/26/24 07/26/24 04:52 10:12 12:30 ABG pH 7.32 L D 7.31 L 7.26 L ABG pCO2 74 H* D 75 H* 85 H* D ABG pO2 66 L D 76 L 78 L ABG HCO3 38 H 38 H 38 H ABG O2 Saturation 94 97 96 ABG Base Excess 11 H 10 H 10 H 07/26/24 07/26/24 07/26/24 14:40 17:10 22:03 ABG pH 7.29 L 7.34 L 7.35 ABG pCO2 78 H* 69 H 68 H ABG pO2 106 D 99 76 L D ABG HCO3 37 H 37 H 37 H ABG O2 Saturation 99 H 99 H 97 ABG Base Excess 9 H 10 H 10 H 07/27/24 07/27/24 07/27/24 04:55 10:10 21:38 ABG pH 7.40 7.30 L D 7.36 ABG pCO2 60 H 77 H* D 64 H D ABG pO2 114 H D 81 L D 125 H D ABG HCO3 38 H 37 H 36 H ABG O2 Saturation 100 H 97 100 H ABG Base Excess 12 H 10 H 9 H 07/28/24 07/28/24 04:37 10:39 ABG pH 7.38 7.29 L ABG pCO2 61 H 79 H* D ABG pO2 113 H 74 L D ABG HCO3 36 H 38 H ABG O2 Saturation 100 H 99 H ABG Base Excess 10 H 10 H Quality Measures Quality Measures VTE prophylaxis Advance care planning discussed with:: other Assessment & Plan Assessment Current Active Medications: Generic Name Dose Route Start Last Admin Trade Name Freq PRN Reason Stop Dose Admin Acetaminophen 650 mg 07/23/24 08:08 Acetaminophen Eva 325 Mg/10 Ml Udc NG 08/19/24 11:57 Q6H PRN Pain 1-3 and/or Fever >100.1 Apixaban 5 mg 07/22/24 21:00 07/26/24 09:34 Apixaban 2.5 Mg Tablet NG 08/21/24 20:59 Not Given BID MONA Benzonatate 100 mg 07/23/24 08:08 Benzonatate 100 Mg Capsule NG 08/19/24 20:59 BID PRN COUGH Protocol Dextrose 25 ml 07/24/24 09:03 Dextrose 50%-Water Inj 50 Ml Syringe IV 08/23/24 09:02 Q15MIN PRN BG 50-70 responsive npo pt Dextrose 50 ml 07/24/24 09:03 Dextrose 50%-Water Inj 50 Ml Syringe IV 08/23/24 09:02 Q15MIN PRN BG <50 OR BG <70 & pt unresponsive Glucagon 1 mg 07/24/24 09:03 Glucagon Inj 1 Mg Vial IM Q15MIN PRN BG <70, and no IV access Norepinephrine/Dextrose 8 mg in 250 mls @ 10.418 mls/hr 07/22/24 16:56 07/28/24 07:00 Levophed In D5w 8mg/250ml IV 08/21/24 16:55 0 mcg/kg/min .Q24H PRN 0 mls/hr PER PROTOCOL Titration Protocol 0.05 MCG/KG/MIN Propofol 1,000 mg in 100 mls @ 3.334 mls/hr 07/22/24 18:15 07/25/24 11:40 Diprivan Ivpb IV 08/21/24 18:14 Infused .Q24H PRN Titration PER PROTOCOL Protocol 5 MCG/KG/MIN Vasopressin/Sodium Chloride 20 unit in 100 mls @ 9 mls/hr 07/24/24 09:05 07/26/24 18:00 Vasostrict/Ns Ivpb IV 08/23/24 09:04 Infused .Q11H7M PRN Titration PER PROTOCOL Protocol 0.03 UNIT/MIN Dexmedetomidine/Sodium Chloride 200 mcg in 50 mls @ 11.213 mls/hr 07/25/24 11:55 07/27/24 05:00 Precedex Ivpb IV 08/24/24 11:54 0 mcg/kg/hr .Q4H28M PRN 0 mls/hr Per PROTOCOL Titration Protocol 0.4 MCG/KG/HR Insulin Glargine 5 unit 07/24/24 21:00 07/27/24 20:10 Insulin Glargine (Lantus) 5 Unit/0.05 Ml (Per 5 Units) SC 08/23/24 20:59 5 unit HS MONA Administration Insulin Human Lispro 0 unit 07/24/24 12:00 07/28/24 12:08 Insulin Lispro (Admelog) 1 Unit/0.01 Ml Unit SC 08/23/24 11:59 Not Given Q6HR MONA Protocol Ipratropium [place] 0.5 mg 07/21/24 10:43 07/23/24 13:10 Ipratropium Rt 0.5 Mg/ 2.5 Ml Nebu INH 08/20/24 18:59 0.5 mg BIDRT PRN Administration Shortness of breath and wheezing Protocol Ipratropium [place] 0.5 mg 07/21/24 15:00 07/28/24 14:27 Ipratropium Rt 0.5 Mg/ 2.5 Ml Nebu INH 08/20/24 14:59 0.5 mg Q4HRRT MONA Administration Levalbuterol HCl 1.25 mg 07/21/24 10:39 07/23/24 13:10 Levalbuterol Rt 1.25 Mg/0.5 Ml Nebu INH 08/20/24 18:59 1.25 mg BIDRT PRN Administration Shortness of breath or wheezing Protocol Levalbuterol HCl 0.63 mg 07/21/24 15:00 07/28/24 14:26 Levalbuterol Rt 0.63 Mg/3 Ml Nebu INH 08/20/24 14:59 0.63 mg Q4HRRT MONA Administration Ondansetron HCl 4 mg 07/20/24 11:58 Ondansetron Inj 2 Mg/Ml Inj 2 Ml IV 08/19/24 11:57 Q6H PRN NAUSEA OR VOMITING Protocol Pantoprazole Sodium 40 mg 07/23/24 09:45 07/28/24 08:53 Pantoprazole Inj 40 Mg Vial IVP 08/22/24 09:44 40 mg QDAY MONA Administration Sennosides 1 tab 07/21/24 09:00 07/28/24 08:52 Senna Tablet PO 08/20/24 08:59 1 tab QDAY MONA Administration Protocol Sodium Chloride 5 ml 07/20/24 12:03 Sodium Chloride Rt 10% 15 Ml Nebu INH 08/19/24 12:02 PRN PRN sputum Sodium Chloride 3 ml 07/23/24 13:11 Sodium Chloride Rt Eva 0.9% 3 Ml Nebu INH 08/22/24 13:10 PRN PRN SOLN Sucralfate 1 gm 07/23/24 09:00 07/28/24 08:52 Sucralfate Susp 1 Gm/10 Ml Udc NG 08/19/24 20:59 1 gm BID MONA Administration Plan Summary: The patient is a 79-year-old female with a past medical history of asthma on 3 L of oxygen at baseline, 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 Neuro #Lethargy Patient noted to be more lethargic than she is at baseline. Head CT done to rule out any active processes versus hyperactive delirium, ICU related delirium. Will follow-up with imaging. Off sedation, intubated on MV, precedex off #History of CVA Patient has a history of CVA, the last time being in September 2023 with bilateral cerebellar infarcts. Supposedly, patient has left-sided deficits (weakness) Cardiovascular #History of HFpEF The patient has a history of HFpEF with ejection fraction 60 to 65% on echocardiogram done about a week ago also showing diastolic dysfunction. On admission, patient presented with hypoxia She was started on Lasix 40 mg daily. Cardiology was curb sided on this admission, believes that hypoxia is more pulmonary than cardiac cause. Initially was holding Lasix. Today, received IV Lasix 40 mg daily Plan: -IV least 40 mg today -Strict I&O's #History of aortic stenosis status post TAVR The patient has a history of aortic stenosis which she had a TAVR done about 4 years ago. She has been followed by roofing layer Dr. Arita. #History of A-fib She has a history of A-fib and is on Eliquis 5 mg twice daily. EKG on admission showed A-fib, rate controlled Plan: -Hold Eliquis #History of hypertension Patient has a history of hypertension and is on lisinopril. Admission, blood pressures have been soft. Will hold off on antihypertensives for now. Resp #Acute on chronic hypoxic respiratory failure #Possible excessive dynamic airway collapse #?Tracheomalacia #CAP versus HAP The patient presented with shortness of breath and was admitted for acute hypoxic respiratory failure. Allegedly, she had been previously diagnosed with asthma and has had recurrent pulmonary infections. On initial admission, she had significant wheezing consistent with airway disease. Chest x-ray showed bilateral opacities consistent with multifocal pneumonia/fluid overload. She is a chronic CO2 retainer based on bicarb levels and history. On 07/22/2024, rapid response was called as patient was desaturating in the 50s. The RN went to the room and found out that the BiPAP tubing has been dislodged from the mask, patient was awake and alert at the time and oriented. ICU was consulted for further evaluation and recommendations, BiPAP settings were adjusted and patient is saturating 98% on 55% FiO2. She was upgraded to the ICU for intubation and further management. ABG during rapid response and a pH of 7.23 with pCO2 of 102. However, bronchoscopy was done on admission to the ICU, does not appear patient has airway disease as she has patent airways. MRSA nares negative Chest CT showed extensive bilateral pneumonia 07/26/2024- Again attempted extubation today, patient was put on pressure support for SBT, was intermittently able to follow very simple commands but mentation in general was not enough for extubation, also patient does not seem to have enough strength. 07/27/24: -Completed IV cefepime and IV azithromycin ,ET secretions, fungal pending.she was on levo at the dose of 0.0 9 in the morning. Mornig ABG showed Ph-4.40, Pco2-60,po2-81,hco3-37 .She was changed to pressor support. and repeat ABG was taken which showed 7.30,pco2-77,po2-81, Hco3-97 . So decision was made not to extubate the patient and her significant other Elsy was updated about it, she was given an option that patient might need trach because she is getting very week and its been difficult to extubate her. we will keep her in Alternate SIMV and PS mode and continue to monitor . As per significant other patient would not wanted to be trached 07/28/2024: Weaning parameters for extubation this morning, NIF about -20. ABG initially pH-7.38 with CO2 of 61, repeat ABG on spontaneous breathing trial pH of 7.29 with pCO2 of 79. IV Lasix 80 mg given. Patient off of pressors. Decision made not to extubate this patient did poorly, will consider another goals of care conversation with family tomorrow. In the interim, keep patient off of all sedatives GI #Hyperbilirubinemia, improving The patient has isolated hyperbilirubinemia with T. bili of 1.5. AST and ALT within normal limits. Patient has not complained of abdominal pain. This is likely a consequence of congestive hepatitis from heart failure. #Diet- Tube feeds Had high residuals overnight and this morning, tube feeds held. Renal #CKD stage III Patient has a history of CKD stage III with creatinine baseline of about 1. BUN and creatinine normal this admission. 07/27/2024- Creatinine at 1.3 Will continue to monitor renal panel. #Isotonic hyponatremia-resolved Sodium on admission, 137. Today, sodium is 137. Osmolality normal Albumin and protein within normal limits. Will continue to monitor sodium levels Heme/Onc #Normocytic anemia - most likely sec to chronic disease, or sec to phlebotomy - her Hb in the morning was 6.6 , 1 unit of prbc given -will continue to monitor Health maintenance: Dispo: ICU, not sedated, intubated on mechanical ventilation Diet: Tube feeds GI: Pantoprazole DVT: Eliquis (held) Silver: None Lines: Peripheral Code: Full Case was discussed with Dr Seymour PGY-3 and attending physician, Dr Evaristo Shaw MD PGY-1 Disclaimer: This note was dictated by speech recognition. Minor errors in final cigar and box examiner may be present due to voice recognition software.
[2024-07-28] MEDS: INSULIN GLARGINE (Lantus) 5 UNIT/0.05 ML (PER 5 UNITS) SC (20:57)
[2024-07-29] VITALS (107 sets, daily range): BP systolic 68–159; BP diastolic 38–132; PULSE 19–130; RESP 0–122; TEMP 35.7–36.7; O2SAT 90–100; BMI 36.3; BMI 37.1
[2024-07-29] MEDS: LEVALBUTEROL RT 0.63 MG/3 ML NEBU INH ×6 (02:48→22:58)
[2024-07-29] MEDS: IPRATROPIUM RT 0.5 MG/ 2.5 ML NEBU INH ×6 (02:48→22:58)
[2024-07-29 04:54] LABS: Base Excess 12 (-3-3); HCO3 39 mEq/L (20-26); Inspired Oxygen, FIO2 30 %; O2 Saturation 95 % (91-98); PCO2 63 mmHg (32.0-48.0); PO2 68 mmHg (83-108); pH, Arterial 7.39 (7.35-7.45)
[2024-07-29 04:56] LABS: Allen Test Not Performed; Puncture Site Arterial Line
--- NOTE | 2024-07-29 05:00 | XR_ITS ---
Examination: AP chest single view Technique one AP portable semiupright chest single view Exam date and time: 2024 at 0216 hrs. Comparison July 28, 2024 Indications: Hypoxic respiratory failure, heart failure pneumonia on earlier chest imaging this week Findings: Tracheal tube tip 3.6 cm above darling Moderate CHF Right base pneumonia Right internal jugular central line tip SVC Orogastric tube is in the stomach Impression: Moderate CHF Significant right base pneumonia
[2024-07-29 05:16] LABS: Basophils % (Auto) 0 % (0-2.5); Eosinophils % (Auto) 0 % (0-10); Hematocrit 24.1 % (36.0-46.0); Immature Granulocytes % (Auto) 1 % (0-0); Immature Granulocytes Auto 0.09 Thou/mm3 (0.00-0.00); Lymphocytes # (Auto) 0.6 Thou/mm3 (1.0-4.8); Lymphocytes % (Auto) 5 % (10-50); Mean Corpuscular HGB Conc 30.7 g/dl (31.0-37.0); Mean Corpuscular Hemoglobin 29.8 pg (25.0-35.0); Mean Corpuscular Volume 97 fL (80-100); Monocytes # (Auto) 1.3 Thou/mm3 (0.0-0.8); Monocytes % (Auto) 11 % (0-12); Neutrophils # (Auto) 9.8 Thou/mm3 (1.8-7.7); Neutrophils % (Auto) 83 % (37-80); Nucleated Red Blood Cell # 0.02 Thou/mm3 (0.00-0.00); Nucleated Red Blood Cell % 0 /100 WBC (0); Platelet Count 133 Thou/mm3 (140-440); Red Blood Count 2.48 Miln/mm3 (4.00-5.20); White Blood Count 11.8 Thou/mm3 (3.6-11.0)
[2024-07-29 05:17] LABS: Hemoglobin 7.4 g/dL (12.0-16.0)
[2024-07-29 05:51] LABS: Alanine Aminotransferase 36 U/L (10-49); Albumin, Serum 2.8 gm/dL (3.4-4.8); Albumin/Globulin Ratio 1.1 (1.2-2.2); Alkaline Phosphatase 56 U/L (46-116); Anion Gap 6 (7-16); Aspartate Amino Transferase 31 U/L (0-34); BUN/Creatinine Ratio 30 Ratio (12-20); Bilirubin,Total 1.1 mg/dL (0.3-1.2); Blood Urea Nitrogen 54 mg/dL (9-23); Calcium 8.5 mg/dL (8.3-10.6); Calcium (Corrected) 9.5 mg/dL (8.5-10.1); Carbon Dioxide 37.7 mMol/L (20.0-31.0); Chloride 94 mMol/L (98-107); Creatinine (Component) 1.8 mg/dL (0.6-1.3); Estimated Creatinine Clearance 33.4 mL/min (>60); Globulin 2.6 gm/dL (2.3-3.5); Glucose 158 mg/dL (74-106); Osmolality,Calculated 293 (275-295); Phosphorous 2.3 mg/dL (2.4-5.1); Potassium 3.1 mMol/L (3.4-5.1); Sodium 138 mMol/L (136-145); Total Protein 5.4 gm/dL (5.7-8.2); eGFR 28 See Note
[2024-07-29] MEDS: INSULIN LISPRO (AdmeLOG) 1 UNIT/0.01 ML UNIT SC (05:52)
[2024-07-29] MEDS: SUCRALFATE SUSP 1 GM/10 ML UDC NG (09:51)
[2024-07-29] MEDS: POTASSIUM PHOS 22.5 MMOL in SODIUM CHLORIDE 0.9% 500 ML 500 ML 82.778 MMOL IV (09:51)
[2024-07-29] MEDS: PANTOPRAZOLE INJ 40 MG VIAL IVP (09:52)
[2024-07-29] MEDS: SENNA TABLET 1 TAB PO (09:52)
[2024-07-29] MEDS: Milk Of Magnesia Susp 30 ML UDC PO (09:55)
[2024-07-29] MEDS: FUROSEMIDE INJ 10 MG/ML 4ML VIAL 80 MG IVP (09:55)
[2024-07-29] MEDS: ALBUMIN HUMAN 25% IVPB 12.5 GM/50 ML BTL IV (09:55)
[2024-07-29] MEDS: POTASSIUM CHL 20 mEq IVPB 20 MEQ/100 ML BAG 50 MEQ IV ×2 (09:56→12:15)
[2024-07-29 10:11] LABS: Base Excess 13 (-3-3); HCO3 40 mEq/L (20-26); Inspired O2, VO2 Liters 30 L/min; Inspired Oxygen, FIO2 21 %; O2 Saturation 90 % (91-98); PCO2 68 mmHg (32.0-48.0); pH, Arterial 7.37 (7.35-7.45)
[2024-07-29 10:13] LABS: Allen Test Not Performed; Puncture Site Arterial Line
[2024-07-29 10:14] LABS: PO2 56 mmHg (83-108)
--- NOTE | 2024-07-29 11:45 | PD.RESPRO ---
Documentation for date of: 07/29/24 Subjective Subjective Interval history: Patient seen and examined at bedside. Overnight, had a run of A-fib, rate controlled. At bedside today, patient is awake and oriented, GCS-11T. Urine output overnight-900 cc. ABG this morning, pH-7.39, CO2-63 and bicarb of 39. The patient was on VC through the night, changed to pressure support this morning for spontaneous breathing trials. Weaning parameters done, negative -31 with RSBI 51, present cuff leak. The patient was extubated to BiPAP 02/21. Labs reviewed, leukocytosis of 11.8, uptrending from the day before. Hypokalemia and hypophosphatemia, adequately repleted. Creatinine bumped up from 1.6-1.8. Will continue to monitor patient while on BiPAP today, repeat ABG, received another 80 mg of Lasix as well as albumin, monitor urine output. Exam Vital Signs Temp Pulse Resp BP Pulse Ox O2 Del Method O2 Flow Rate 98.1 F 100 10 L 106/60 98 Mechanical Ventilation 5 07/29/24 08:00 07/29/24 10:46 07/29/24 10:46 07/29/24 10:46 07/29/24 10:46 07/29/24 08:00 07/22/24 16:00 FiO2 30 07/29/24 10:46 Narrative Exam GENERAL: s/p intubation, still lethargic, follows commands NEURO: s/p intubation, lethargic HEENT: Dry mucosa. Pupils equal bilaterally CARDIO: Heart RRR, no obvious murmurs PULM: Crackles and rhonchi heard bilaterally. Intubated but not sedated, mechanical ventilation GI: Abdomen soft, nondistended. BSx4 URO/STERILIZER OPERATOR:: No further abnormalities noted. SKIN/MSK/EXT: Trace pitting edema bilaterally Objective Labs 07/29/24 04:29 07/29/24 04:29 Labs: Laboratory Results - last 24 hr 07/29/24 07/29/24 07/29/24 04:20 04:29 10:04 WBC 11.8 H RBC 2.48 L Hgb 7.4 L Hct 24.1 L MCV 97 MCH 29.8 MCHC 30.7 L RDW Std Deviation 59.0 H Plt Count 133 L Neut % (Auto) 83 H Lymph % (Auto) 5 L [place] % (Auto) 11 Eos % (Auto) 0 Baso % (Auto) 0 Neut # (Auto) 9.8 H Lymph # (Auto) 0.6 L [place] # (Auto) 1.3 H Eos # (Auto) 0.0 Baso # (Auto) 0.0 Immature Gran # (Auto) 0.09 H Absolute Nucleated RBC 0.02 H Immature Gran % 1 H Nucleated RBC % 0 Puncture Site Arterial Line Arterial Line ABG pH 7.39 D 7.37 ABG pCO2 63 H D 68 H ABG pO2 68 L 56 L* ABG HCO3 39 H 40 H ABG O2 Saturation 95 90 L ABG Base Excess 12 H 13 H Oxygen Liter Flow 30 FiO2 30 21 Sodium 138 Potassium 3.1 L D Chloride 94 L Carbon Dioxide 37.7 H Anion Gap 6 L BUN 54 H Creatinine 1.8 H Estim Creat Clear Calc 33.4 L eGFR 28 L BUN/Creatinine Ratio 30 H Glucose 158 H Calculated Osmolality 293 Calcium 8.5 Corrected Calcium 9.5 Phosphorus 2.3 L Magnesium 2.0 Total Bilirubin 1.1 AST 31 ALT 36 Alkaline Phosphatase 56 Total Protein 5.4 L Albumin 2.8 L Globulin 2.6 Albumin/Globulin Ratio 1.1 L ABG Interpretation ABG results: 07/21/24 07/21/24 07/21/24 15:47 18:41 21:07 ABG pH 7.22 L 7.19 L* 7.29 L D ABG pCO2 102 H* 106 H* 85 H* D ABG pO2 66 L 63 L 80 L ABG HCO3 42 H 41 H 40 H ABG O2 Saturation 91 89 L 97 ABG Base Excess 12 H 10 H 12 H 07/22/24 07/22/24 07/22/24 05:17 15:30 16:25 ABG pH 7.28 L 7.23 L Cancelled ABG pCO2 90 H* 102 H* D Cancelled ABG pO2 70 L 53 L* Cancelled ABG HCO3 42 H 43 H Cancelled ABG O2 Saturation 94 84 L Cancelled ABG Base Excess 13 H 14 H Cancelled 07/22/24 07/22/24 07/23/24 19:33 22:17 08:00 ABG pH 7.18 L* 7.31 L D 7.37 ABG pCO2 115 H* D 84 H* D 74 H* D ABG pO2 376 H D 170 H D 143 H D ABG HCO3 43 H 42 H 43 H ABG O2 Saturation 101 H 101 H 101 H ABG Base Excess 13 H 14 H 16 H 07/23/24 07/23/24 07/24/24 19:19 22:30 04:18 ABG pH 7.23 L D 7.31 L 7.33 L ABG pCO2 100 H* D 82 H* D 80 H* ABG pO2 173 H D 123 H D 133 H ABG HCO3 42 H 41 H 42 H ABG O2 Saturation 100 H 100 H 100 H ABG Base Excess 13 H 13 H 14 H 07/25/24 07/25/24 07/25/24 04:15 14:21 17:15 ABG pH 7.33 L 7.17 L* D 7.17 L* ABG pCO2 80 H* 110 H* D 108 H* ABG pO2 158 H D 116 H D 116 H ABG HCO3 42 H 40 H 40 H ABG O2 Saturation 100 H 99 H 99 H ABG Base Excess 14 H 10 H 9 H 07/26/24 07/26/24 07/26/24 04:52 10:12 12:30 ABG pH 7.32 L D 7.31 L 7.26 L ABG pCO2 74 H* D 75 H* 85 H* D ABG pO2 66 L D 76 L 78 L ABG HCO3 38 H 38 H 38 H ABG O2 Saturation 94 97 96 ABG Base Excess 11 H 10 H 10 H 07/26/24 07/26/24 07/26/24 14:40 17:10 22:03 ABG pH 7.29 L 7.34 L 7.35 ABG pCO2 78 H* 69 H 68 H ABG pO2 106 D 99 76 L D ABG HCO3 37 H 37 H 37 H ABG O2 Saturation 99 H 99 H 97 ABG Base Excess 9 H 10 H 10 H 07/27/24 07/27/24 07/27/24 04:55 10:10 21:38 ABG pH 7.40 7.30 L D 7.36 ABG pCO2 60 H 77 H* D 64 H D ABG pO2 114 H D 81 L D 125 H D ABG HCO3 38 H 37 H 36 H ABG O2 Saturation 100 H 97 100 H ABG Base Excess 12 H 10 H 9 H 07/28/24 07/28/24 07/29/24 04:37 10:39 04:20 ABG pH 7.38 7.29 L 7.39 D ABG pCO2 61 H 79 H* D 63 H D ABG pO2 113 H 74 L D 68 L ABG HCO3 36 H 38 H 39 H ABG O2 Saturation 100 H 99 H 95 ABG Base Excess 10 H 10 H 12 H 07/29/24 10:04 ABG pH 7.37 ABG pCO2 68 H ABG pO2 56 L* ABG HCO3 40 H ABG O2 Saturation 90 L ABG Base Excess 13 H Quality Measures Quality Measures VTE prophylaxis Advance care planning discussed with:: other Assessment & Plan Assessment Current Active Medications: Generic Name Dose Route Start Last Admin Trade Name Freq PRN Reason Stop Dose Admin Acetaminophen 650 mg 07/23/24 08:08 Acetaminophen Eva 325 Mg/10 Ml Udc NG 08/19/24 11:57 Q6H PRN Pain 1-3 and/or Fever >100.1 Apixaban 5 mg 07/22/24 21:00 07/26/24 09:34 Apixaban 2.5 Mg Tablet NG 08/21/24 20:59 Not Given BID MONA Benzonatate 100 mg 07/23/24 08:08 Benzonatate 100 Mg Capsule NG 08/19/24 20:59 BID PRN COUGH Protocol Dextrose 25 ml 07/24/24 09:03 Dextrose 50%-Water Inj 50 Ml Syringe IV 08/23/24 09:02 Q15MIN PRN BG 50-70 responsive npo pt Dextrose 50 ml 07/24/24 09:03 Dextrose 50%-Water Inj 50 Ml Syringe IV 08/23/24 09:02 Q15MIN PRN BG <50 OR BG <70 & pt unresponsive Glucagon 1 mg 07/24/24 09:03 Glucagon Inj 1 Mg Vial IM Q15MIN PRN BG <70, and no IV access Norepinephrine/Dextrose 8 mg in 250 mls @ 10.418 mls/hr 07/22/24 16:56 07/29/24 06:00 Levophed In D5w 8mg/250ml IV 08/21/24 16:55 0.05 mcg/kg/min .Q24H PRN 10.418 mls/hr PER PROTOCOL Titration Protocol 0.05 MCG/KG/MIN Propofol 1,000 mg in 100 mls @ 3.334 mls/hr 07/22/24 18:15 07/25/24 11:40 Diprivan Ivpb IV 08/21/24 18:14 Infused .Q24H PRN Titration PER PROTOCOL Protocol 5 MCG/KG/MIN Vasopressin/Sodium Chloride 20 unit in 100 mls @ 9 mls/hr 07/24/24 09:05 07/26/24 18:00 Vasostrict/Ns Ivpb IV 08/23/24 09:04 Infused .Q11H7M PRN Titration PER PROTOCOL Protocol 0.03 UNIT/MIN Dexmedetomidine/Sodium Chloride 200 mcg in 50 mls @ 11.213 mls/hr 07/25/24 11:55 07/27/24 05:00 Precedex Ivpb IV 08/24/24 11:54 0 mcg/kg/hr .Q4H28M PRN 0 mls/hr Per PROTOCOL Titration Protocol 0.4 MCG/KG/HR Potassium Phosphate 22.5 mmol/ 507.5 mls @ 82.778 mls/hr 07/29/24 09:00 07/29/24 09:51 Sodium Chloride IV 07/29/24 15:07 82.778 mls/hr X1 ONE Administration Potassium Chloride 20 meq in 100 mls @ 50 mls/hr 07/29/24 09:36 07/29/24 09:56 Kcl Ivpb IV 07/29/24 13:35 50 mls/hr Q2H MONA Administration Insulin Glargine 5 unit 07/24/24 21:00 07/28/24 20:57 Insulin Glargine (Lantus) 5 Unit/0.05 Ml (Per 5 Units) SC 08/23/24 20:59 5 unit HS MONA Administration Insulin Human Lispro 0 unit 07/24/24 12:00 07/29/24 05:52 Insulin Lispro (Admelog) 1 Unit/0.01 Ml Unit SC 08/23/24 11:59 1 unit Q6HR MONA Administration Protocol Ipratropium [place] 0.5 mg 07/21/24 10:43 07/23/24 13:10 Ipratropium Rt 0.5 Mg/ 2.5 Ml Nebu INH 08/20/24 18:59 0.5 mg BIDRT PRN Administration Shortness of breath and wheezing Protocol Ipratropium [place] 0.5 mg 07/21/24 15:00 07/29/24 10:44 Ipratropium Rt 0.5 Mg/ 2.5 Ml Nebu INH 08/20/24 14:59 0.5 mg Q4HRRT MONA Administration Levalbuterol HCl 1.25 mg 07/21/24 10:39 07/23/24 13:10 Levalbuterol Rt 1.25 Mg/0.5 Ml Nebu INH 08/20/24 18:59 1.25 mg BIDRT PRN Administration Shortness of breath or wheezing Protocol Levalbuterol HCl 0.63 mg 07/21/24 15:00 07/29/24 10:44 Levalbuterol Rt 0.63 Mg/3 Ml Nebu INH 08/20/24 14:59 0.63 mg Q4HRRT MONA Administration Ondansetron HCl 4 mg 07/20/24 11:58 Ondansetron Inj 2 Mg/Ml Inj 2 Ml IV 08/19/24 11:57 Q6H PRN NAUSEA OR VOMITING Protocol Pantoprazole Sodium 40 mg 07/23/24 09:45 07/29/24 09:52 Pantoprazole Inj 40 Mg Vial IVP 08/22/24 09:44 40 mg QDAY MONA Administration Sennosides 1 tab 07/21/24 09:00 07/29/24 09:52 Senna Tablet PO 08/20/24 08:59 1 tab QDAY MONA Administration Protocol Sodium Chloride 5 ml 07/20/24 12:03 Sodium Chloride Rt 10% 15 Ml Nebu INH 08/19/24 12:02 PRN PRN sputum Sodium Chloride 3 ml 07/23/24 13:11 Sodium Chloride Rt Eva 0.9% 3 Ml Nebu INH 08/22/24 13:10 PRN PRN SOLN Sucralfate 1 gm 07/23/24 09:00 07/29/24 09:51 Sucralfate Susp 1 Gm/10 Ml Udc NG 08/19/24 20:59 1 gm BID MONA Administration Plan Summary: The patient is a 79-year-old female with a past medical history of asthma on 3 L of oxygen at baseline, 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 Neuro #Lethargy Patient noted to be more lethargic than she is at baseline. Head CT done to rule out any active processes versus hyperactive delirium, ICU related delirium. Will follow-up with imaging. 07/29/2024- Head CT negative. CAM-ICU positive for delirium. S/P extubation #History of CVA Patient has a history of CVA, the last time being in September 2023 with bilateral cerebellar infarcts. Supposedly, patient has left-sided deficits (weakness) Cardiovascular #History of HFpEF The patient has a history of HFpEF with ejection fraction 60 to 65% on echocardiogram done about a week ago also showing diastolic dysfunction. On admission, patient presented with hypoxia She was started on Lasix 40 mg daily. Cardiology was curb sided on this admission, believes that hypoxia is more pulmonary than cardiac cause. Initially was holding Lasix. Today, received IV Lasix 40 mg daily Plan: -IV Lasix 80mg x 1 -Strict I&O's #History of aortic stenosis status post TAVR The patient has a history of aortic stenosis which she had a TAVR done about 4 years ago. She has been followed by assistant vice president Dr. Arita. #History of A-fib She has a history of A-fib and is on Eliquis 5 mg twice daily. EKG on admission showed A-fib, rate controlled Eliquis initially held for concern of bleeding. Prior to extubation, OG suction had some blood in it, no active source of bleeding and n blood suctioned. Plan: -Hold Eliquis #History of hypertension Patient has a history of hypertension and is on lisinopril. Admission, blood pressures have been soft. Will hold off on antihypertensives for now. Resp #Acute on chronic hypoxic respiratory failure #Possible excessive dynamic airway collapse #?Tracheomalacia #CAP versus HAP The patient presented with shortness of breath and was admitted for acute hypoxic respiratory failure. Allegedly, she had been previously diagnosed with asthma and has had recurrent pulmonary infections. On initial admission, she had significant wheezing consistent with airway disease. Chest x-ray showed bilateral opacities consistent with multifocal pneumonia/fluid overload. She is a chronic CO2 retainer based on bicarb levels and history. On 07/22/2024, rapid response was called as patient was desaturating in the 50s. The RN went to the room and found out that the BiPAP tubing has been dislodged from the mask, patient was awake and alert at the time and oriented. ICU was consulted for further evaluation and recommendations, BiPAP settings were adjusted and patient is saturating 98% on 55% FiO2. She was upgraded to the ICU for intubation and further management. ABG during rapid response and a pH of 7.23 with pCO2 of 102. However, bronchoscopy was done on admission to the ICU, does not appear patient has airway disease as she has patent airways. MRSA nares negative Chest CT showed extensive bilateral pneumonia 07/26/2024- Again attempted extubation today, patient was put on pressure support for SBT, was intermittently able to follow very simple commands but mentation in general was not enough for extubation, also patient does not seem to have enough strength. 07/27/24: -Completed IV cefepime and IV azithromycin ,ET secretions, fungal pending.she was on levo at the dose of 0.0 9 in the morning. Mornig ABG showed Ph-4.40, Pco2-60,po2-81,hco3-37 .She was changed to pressor support. and repeat ABG was taken which showed 7.30,pco2-77,po2-81, Hco3-97 . So decision was made not to extubate the patient and her significant other Elsy was updated about it, she was given an option that patient might need trach because she is getting very week and its been difficult to extubate her. we will keep her in Alternate SIMV and PS mode and continue to monitor . As per significant other patient would not wanted to be trached 07/28/2024: Weaning parameters for extubation this morning, NIF about -20. ABG initially pH-7.38 with CO2 of 61, repeat ABG on spontaneous breathing trial pH of 7.29 with pCO2 of 79. IV Lasix 80 mg given. Patient off of pressors. Decision made not to extubate this patient did poorly, will consider another goals of care conversation with family tomorrow. In the interim, keep patient off of all sedatives 07/29/2024- Patient extubated to BIPAP 10/. Repeat ABG in about an hour. GI #Hyperbilirubinemia, resolved The patient has isolated hyperbilirubinemia with T. bili of 1.5. AST and ALT within normal limits. Patient has not complained of abdominal pain. This is likely a consequence of congestive hepatitis from heart failure. #Diet- Tube feeds- discontinued Had high residuals overnight and this morning, tube feeds held. OG tube DC'd. Now NPO untl swallow eval Renal #CKD stage III Patient has a history of CKD stage III with creatinine baseline of about 1. BUN and creatinine normal this admission. 07/29/2024- Creatinine at 1.8 today. Received 80mg of Lasix the day before with output of -1.7 Will continue to monitor renal panel. #Isotonic hyponatremia-resolved Sodium on admission, 137. Today, sodium is 137. Osmolality normal Albumin and protein within normal limits. Will continue to monitor sodium levels #Hypokalemia #Hypophosphatemia Potassium is 3.1 today with phosphorus of 2.3 Plan: Repleted with Kphos 22.5 and K+ 40meq Repeat renal function panel Heme/Onc #Normocytic anemia - most likely sec to chronic disease, or sec to phlebotomy - her Hb in the morning was 6.6 , 1 unit of prbc given -will continue to monitor Health maintenance: Dispo: S/p extubation, repeat ABG and possible downgrade to telemetry Diet: NPO GI: Pantoprazole DVT: Eliquis (held) Silver: None Lines: Peripheral Code: Full Case was discussed with attending physician, Dr Evaristo Shaw MD PGY-1 Disclaimer: This note was dictated by speech recognition. Minor errors in it field technician may be present due to voice recognition software.
--- NOTE | 2024-07-29 12:09 | PC.SS ---
Update: Plan is to extubate patient today. Tube feedings are paused. Patient on pressor support. No skin issues present. CT today for the patient.
--- NOTE | 2024-07-29 13:19 | PD.INTPROG ---
Documentation for date of: 07/29/24 Subjective Subjective Interval history: This is a 79-year-old female admitted to the ICU for acute hypoxic respiratory failure who is currently intubated and on mechanical ventilation. Weaning was attempted over the last 48 hours however she was unable to tolerate and developed CO2 retention requiring reinstatement of prior vent settings. Today the patient is awake and able to follow commands though very weak. She has been off of all sedation for the last 24 hours. She was switched to spontaneous and eventually brought to PSV 5/5/30%. It was noted on her end-tidal capnography waveform a slow and gradual increase in her CO2. She started off in the mid 50s and after 2 hours was noted to be in the mid 70s. I repeat ABG showed worsening of her respiratory acidosis and therefore she was switched back to mechanical ventilation. There were no other acute overnight events. 07/29- no acute overnight events, trialled on PSV again today, given lasix yesterday with good UOP, afebrile, failed SBT yesterday with increasing CO2 noted on ETCO2 as well as ABG Critical Care Note Critical care time (min.): 40 Exam Vital Signs Temp Pulse Resp BP Pulse Ox O2 Del Method O2 Flow Rate 98.1 F 100 10 L 106/60 98 Mechanical Ventilation 5 07/29/24 08:00 07/29/24 10:46 07/29/24 10:46 07/29/24 10:46 07/29/24 10:46 07/29/24 08:00 07/22/24 16:00 FiO2 30 07/29/24 10:46 Narrative Exam Gen- NAD, awake and able to follow commands however can be intermittently lethargic, obese body habitus HEENT- NC/AT, mucosa hydrated, sclera anicteric, PERRL, ETT/OGTin place Chest- few scattered expiratory wheeze, no crackles, HRIR, no increase in WOB Abd- s/nt/bs+ Ext- edema 2-3+, no clubbing, no mottling, Vent PSV 5/5/30% Physical Exam Completion Physical Exam Complete?: Yes Objective - Regulatory Associate Labs 07/29/24 04:29 07/29/24 04:29 Labs: Laboratory Results - last 24 hr 07/29/24 07/29/24 07/29/24 04:20 04:29 10:04 WBC 11.8 H RBC 2.48 L Hgb 7.4 L Hct 24.1 L MCV 97 MCH 29.8 MCHC 30.7 L RDW Std Deviation 59.0 H Plt Count 133 L Neut % (Auto) 83 H Lymph % (Auto) 5 L [place] % (Auto) 11 Eos % (Auto) 0 Baso % (Auto) 0 Neut # (Auto) 9.8 H Lymph # (Auto) 0.6 L [place] # (Auto) 1.3 H Eos # (Auto) 0.0 Baso # (Auto) 0.0 Immature Gran # (Auto) 0.09 H Absolute Nucleated RBC 0.02 H Immature Gran % 1 H Nucleated RBC % 0 Puncture Site Arterial Line Arterial Line ABG pH 7.39 D 7.37 ABG pCO2 63 H D 68 H ABG pO2 68 L 56 L* ABG HCO3 39 H 40 H ABG O2 Saturation 95 90 L ABG Base Excess 12 H 13 H Oxygen Liter Flow 30 FiO2 30 21 Sodium 138 Potassium 3.1 L D Chloride 94 L Carbon Dioxide 37.7 H Anion Gap 6 L BUN 54 H Creatinine 1.8 H Estim Creat Clear Calc 33.4 L eGFR 28 L BUN/Creatinine Ratio 30 H Glucose 158 H Calculated Osmolality 293 Calcium 8.5 Corrected Calcium 9.5 Phosphorus 2.3 L Magnesium 2.0 Total Bilirubin 1.1 AST 31 ALT 36 Alkaline Phosphatase 56 Total Protein 5.4 L Albumin 2.8 L Globulin 2.6 Albumin/Globulin Ratio 1.1 L Assessment & Plan Additional Assessment Additional Assessment: In brief this is 79-year-old female admitted to the ICU with acute hypoxic respiratory failure currently intubated and on mechanical ventilation 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 ? Hypoactive delerium vs additional pathology. HCT if no improvement with ? of new CVA - HCT neg for any acute changes - CAM ICU pos h/o CVA CV Afib- today developed RVR with rate in the 140s -> given metoprolol 5mg - goes in and out of afib however rate mostly controlled - on eliquis at home, will restart after passes swallow eval HFpEF- given additional lasix today with albumin - good UOP yesterday with diuretic - cont with diuresis h/o s/p TAVR Resp Acute hypoxic/hypercapneic resp failure- placed on PSV and did well - weening parameters obtained and met criteria - will extubate to bipap CAP- on abx, sputum cx showed oral alek Renal MITESH- slight bump up in creatinine today - monitor i/os - avoid nephrotoxins - ? ATN , small increase in #s today HypoK- replete IV GI Hypoalbuminemia- on tube feeds - UA shows 1+ prot Endo DM- on SSI and lantus Heme Anemia- s/p PRBC yesterday, no active bleeding noted Leukocytosis- slight bump up however question if yesterdays was a false nl read - overall a trend down Thrombocytopenia- stable over the last few days but drop from arrival - cont to improve ID PNA- on abx case d/w ICU team labs, imaging, records reviewed ~40ccmin required for eval, exam, review, intervention, discussion and formulation of POC for this critically ill pt with resp failure on MV at high risk for further and ongoing decompensation Additional Plan Additional Plan: Patient is a 79 year old female with significant history of cardiovascular disease including CVA, atrial fibrillation, and TAVR. She has had course further complicated by diagnosis of asthma and recurrent pulmonary infection requiring ED visit or hospitalization. Now with chest xray consistent with multifocal pneumonia or fluid overload. She has significant wheezing with airway disease. This could be related to asthma but need for chronic oxygen seems very unlikely. COPD also possible given smoking history but no exacerbation history and infiltrate son CT not consistent with this. Favor combination of diastolic heart failure and potential excessive dynamic airway collapse. Would also exclude presence of vocal cord dysfunction as alternate etiology. She bush shave an enlarged PA on CT but no evidence of of RV dysfunction on most recent Echo. ABG done today shows significant acute on chronic C2 retention, HCO3 on admission significantly elevated to 38.2, consistent with pCO2 in mid 70s. Also unlikely to occur in asthma. We should try to obtain prior PFT results. Patient with obesity and this could present with the mosaicism seen on her CT, notably the PM of trachea is bowing in suggesting air trapping with expiration. This an be seen as well with tracheomalacia/ excessive dynamic airway collapse though this will need to be diagnosed by bronchoscpy with >50% collapse during spontaneous ventilation. She is not a candidate for bronchoscopy at this time given superimposed acute process such as infection. Treatment course with antibiotics and optimize fluid status. I will continue to follow along with you. Provider Notation Provider Notation: Although this document has been carefully reviewed, there may still be some phonetic and other typographical errors. These errors are purely grammatical due to imperfections in the software program and should not be construed in any way to compromise the substance of the patient's medical care during this visit. Thank you for the opportunity and privilege in assisting you with this patient's care and management.
[2024-07-29] MEDS: Norepinephrine/D5W 8mg/250ml 8 MG/250 ML BAG 10.418 MG IV (15:10)
[2024-07-29 16:25] LABS: Base Excess 14 (-3-3); HCO3 40 mEq/L (20-26); Inspired Oxygen, FIO2 30 %; O2 Saturation 96 % (91-98); PCO2 64 mmHg (32.0-48.0); PO2 72 mmHg (83-108); pH, Arterial 7.41 (7.35-7.45)
--- NOTE | 2024-07-29 16:25 | PC.SS ---
Update: Patient extubated today, transitioned to BI-PAP.
[2024-07-29 16:27] LABS: Allen Test Not Performed; Puncture Site Arterial Line
[2024-07-29 18:45] LABS: Base Excess 15 (-3-3); HCO3 41 mEq/L (20-26); Inspired Oxygen, FIO2 30 %; O2 Saturation 96 % (91-98); PCO2 64 mmHg (32.0-48.0); PO2 72 mmHg (83-108); pH, Arterial 7.42 (7.35-7.45)
[2024-07-29 18:47] LABS: Puncture Site Arterial Line
[2024-07-29] MEDS: INSULIN GLARGINE (Lantus) 5 UNIT/0.05 ML (PER 5 UNITS) SC (21:45)
[2024-07-30] VITALS (87 sets, daily range): BP systolic 50–231; BP diastolic 26–230; PULSE 94–140; RESP 0–29; TEMP 36.8–36.9; O2SAT 47–100; BMI 35.7
[2024-07-30] MEDS: IPRATROPIUM RT 0.5 MG/ 2.5 ML NEBU INH ×3 (02:33→10:55)
[2024-07-30] MEDS: LEVALBUTEROL RT 0.63 MG/3 ML NEBU INH ×3 (02:33→10:55)
[2024-07-30] MEDS: ONDANSETRON INJ 2 MG/ML INJ 2 ML 4 MG IV ×2 (03:58→10:58)
[2024-07-30 05:41] LABS: Basophils % (Auto) 0 % (0-2.5); Eosinophils # (Auto) 0.1 Thou/mm3 (0.0-0.5); Eosinophils % (Auto) 1 % (0-10); Immature Granulocytes % (Auto) 1 % (0-0); Lymphocytes # (Auto) 0.7 Thou/mm3 (1.0-4.8); Lymphocytes % (Auto) 6 % (10-50); Mean Corpuscular HGB Conc 30.8 g/dl (31.0-37.0); Mean Corpuscular Hemoglobin 30.2 pg (25.0-35.0); Mean Corpuscular Volume 98 fL (80-100); Monocytes # (Auto) 1.3 Thou/mm3 (0.0-0.8); Monocytes % (Auto) 11 % (0-12); Neutrophils # (Auto) 9.3 Thou/mm3 (1.8-7.7); Neutrophils % (Auto) 81 % (37-80); Nucleated Red Blood Cell # 0.02 Thou/mm3 (0.00-0.00); Nucleated Red Blood Cell % 0 /100 WBC (0); Platelet Count 119 Thou/mm3 (140-440); RDW Standard Deviation 57.2 fL (36.4-46.3); Red Blood Count 2.45 Miln/mm3 (4.00-5.20); White Blood Count 11.5 Thou/mm3 (3.6-11.0)
[2024-07-30 05:43] LABS: Hemoglobin 7.4 g/dL (12.0-16.0)
[2024-07-30 06:51] LABS: Alanine Aminotransferase 31 U/L (10-49); Albumin, Serum 2.9 gm/dL (3.4-4.8); Albumin/Globulin Ratio 1.1 (1.2-2.2); Alkaline Phosphatase 49 U/L (46-116); Anion Gap 7 (7-16); Aspartate Amino Transferase 30 U/L (0-34); BUN/Creatinine Ratio 31 Ratio (12-20); Bilirubin,Total 1.2 mg/dL (0.3-1.2); Blood Urea Nitrogen 50 mg/dL (9-23); Calcium 8.6 mg/dL (8.3-10.6); Calcium (Corrected) 9.5 mg/dL (8.5-10.1); Carbon Dioxide > 40.0 mMol/L (20.0-31.0); Chloride 94 mMol/L (98-107); Creatinine (Component) 1.6 mg/dL (0.6-1.3); Estimated Creatinine Clearance 37.9 mL/min (>60); Globulin 2.6 gm/dL (2.3-3.5); Glucose 103 mg/dL (74-106); Magnesium 1.9 mg/dL (1.6-2.6); Osmolality,Calculated 294 (275-295); Phosphorous 3.3 mg/dL (2.4-5.1); Potassium 3.6 mMol/L (3.4-5.1); Sodium 141 mMol/L (136-145); Total Protein 5.5 gm/dL (5.7-8.2); eGFR 33 See Note
[2024-07-30 08:01] LABS: Base Excess 12 (-3-3); HCO3 41 mEq/L (20-26); Inspired O2, VO2 Liters 5 L/min; O2 Saturation 99 % (91-98); PCO2 86 mmHg (32.0-48.0); PO2 105 mmHg (83-108); pH, Arterial 7.29 (7.35-7.45)
[2024-07-30 08:07] LABS: Allen Test Performed/OK; Puncture Site Right Radial
[2024-07-30] MEDS: PANTOPRAZOLE INJ 40 MG VIAL IVP (08:43)
--- NOTE | 2024-07-30 09:35 | PCS.ST ---
Swallowing evaluation deferred for tomorrow. DANNY Ahumada reported pt on Bi-PaP and unstable.
[2024-07-30] MEDS: ALBUMIN HUMAN 25% IVPB 12.5 GM/50 ML BTL IV (10:10)
[2024-07-30] MEDS: ACETAzolaMIDE SOD 500 MG in SODIUM CHLORIDE 0.9% (Popper) 50 ML 100 MG IV (10:11)
[2024-07-30] MEDS: METOPROLOL TARTRATE INJ 1 MG/ML AMP 5 ML 5 MG IVP (10:20)
[2024-07-30] MEDS: FUROSEMIDE INJ 10 MG/ML 4ML VIAL 80 MG IVP (10:22)
[2024-07-30] MEDS: Norepinephrine/D5W 8mg/250ml 8 MG/250 ML BAG 35.423 MG IV (11:02)
[2024-07-30 12:58] LABS: Base Excess 14 (-3-3); HCO3 42 mEq/L (20-26); Inspired Oxygen, FIO2 35 %; O2 Saturation 97 % (91-98); PCO2 79 mmHg (32.0-48.0); PO2 80 mmHg (83-108); pH, Arterial 7.33 (7.35-7.45)
--- NOTE | 2024-07-30 13:03 | ESPR_ITS ---
<Statement entered by Chip Seymour MD - 07/30/24 14:56> Family decided to proceed to comfort care , comfort care measure started. I discussed with and supervised my co-resident involved in the care of this patient. I agree with the assessment and plan as documented above. Chip Seymour,[id number] Disclaimer: Despite multiple revisions, due to the dictation software being used, the document below may not be free of grammatical errors including phonetic/typographic errors. However, this does not deter from our commitment to providing health care in the patient's best interest in mind. Documentation for date of: 07/30/24 Subjective Subjective Interval history: Patient seen and examined at bedside. Overnight, patient was placed on BiPAP, said to have been gagging at about 3 AM and nauseous. BiPAP was removed and patient was given Zofran. ABG this morning on 15 L of oxygen mask pH 7.29, CO2 of 86 and bicarb of 41. At bedside this morning, patient is awake but unable to answer questions, nurse mentions that earlier in the night, she had been able to answer her name and knows that she is in the hospital. Patient looks very lethargic however this morning. Vital signs read, sinus tachycardia, going in and out of A-fib with heart rate of 120s, will give Toprol tartrate 5 mg. After IV Lasix if 80 mg yesterday, patient had a urine output of [phone] mL, will give an additional dose of Lasix with albumin today. Diamox also given for metabolic alkalosis. Goals of care conversation had with family, will follow-up on plans. Otherwise, patient is still currently n.p.o. as she is still lethargic so cannot complete swallow evaluation. Exam Vital Signs Temp Pulse Resp BP Pulse Ox O2 Del Method O2 Flow Rate 98.2 F 103 H 21 H 100/72 100 BiPAP 6 07/30/24 04:00 07/30/24 11:02 07/30/24 10:55 07/30/24 11:02 07/30/24 10:55 07/29/24 18:30 07/30/24 06:44 FiO2 35 07/30/24 10:55 Narrative Exam GENERAL: s/p intubation, still lethargic, follows commands NEURO: GCS-10, lethargic, unable to answer questions, normal reflexes HEENT: Dry mucosa. Pupils equal bilaterally CARDIO: Heart RRR, no obvious murmurs PULM: Normal crackles bilaterally. On BiPAP GI: Abdomen soft, nondistended. BSx4 URO/POURING CRANE OPERATOR:: No further abnormalities noted. SKIN/MSK/EXT: Bilateral pitting edema up to knees Objective Labs 07/30/24 04:50 07/30/24 04:50 Labs: Laboratory Results - last 24 hr 07/29/24 07/29/24 07/30/24 16:14 18:30 04:50 WBC 11.5 H RBC 2.45 L Hgb 7.4 L Hct 24.0 L MCV 98 MCH 30.2 MCHC 30.8 L RDW Std Deviation 57.2 H Plt Count 119 L Neut % (Auto) 81 H Lymph % (Auto) 6 L [place] % (Auto) 11 Eos % (Auto) 1 Baso % (Auto) 0 Neut # (Auto) 9.3 H Lymph # (Auto) 0.7 L [place] # (Auto) 1.3 H Eos # (Auto) 0.1 Baso # (Auto) 0.0 Immature Gran # (Auto) 0.10 H Absolute Nucleated RBC 0.02 H Immature Gran % 1 H Nucleated RBC % 0 Puncture Site Arterial Line Arterial Line ABG pH 7.41 7.42 ABG pCO2 64 H 64 H ABG pO2 72 L 72 L ABG HCO3 40 H 41 H ABG O2 Saturation 96 96 ABG Base Excess 14 H 15 H Oxygen Liter Flow FiO2 30 30 Sodium 141 Potassium 3.6 D Chloride 94 L Carbon Dioxide > 40.0 H Anion Gap 7 BUN 50 H Creatinine 1.6 H Estim Creat Clear Calc 37.9 L eGFR 33 L BUN/Creatinine Ratio 31 H Glucose 103 D Calculated Osmolality 294 Calcium 8.6 Corrected Calcium 9.5 Phosphorus 3.3 Magnesium 1.9 Total Bilirubin 1.2 AST 30 ALT 31 Alkaline Phosphatase 49 Total Protein 5.5 L Albumin 2.9 L Globulin 2.6 Albumin/Globulin Ratio 1.1 L 07/30/24 07:53 WBC RBC Hgb Hct MCV MCH MCHC RDW Std Deviation Plt Count Neut % (Auto) Lymph % (Auto) [place] % (Auto) Eos % (Auto) Baso % (Auto) Neut # (Auto) Lymph # (Auto) [place] # (Auto) Eos # (Auto) Baso # (Auto) Immature Gran # (Auto) Absolute Nucleated RBC Immature Gran % Nucleated RBC % Puncture Site Right Radial ABG pH 7.29 L D ABG pCO2 86 H* D ABG pO2 105 D ABG HCO3 41 H ABG O2 Saturation 99 H ABG Base Excess 12 H Oxygen Liter Flow 5 FiO2 Sodium Potassium Chloride Carbon Dioxide Anion Gap BUN Creatinine Estim Creat Clear Calc eGFR BUN/Creatinine Ratio Glucose Calculated Osmolality Calcium Corrected Calcium Phosphorus Magnesium Total Bilirubin AST ALT Alkaline Phosphatase Total Protein Albumin Globulin Albumin/Globulin Ratio ABG Interpretation ABG results: 07/21/24 07/21/24 07/21/24 15:47 18:41 21:07 ABG pH 7.22 L 7.19 L* 7.29 L D ABG pCO2 102 H* 106 H* 85 H* D ABG pO2 66 L 63 L 80 L ABG HCO3 42 H 41 H 40 H ABG O2 Saturation 91 89 L 97 ABG Base Excess 12 H 10 H 12 H 07/22/24 07/22/24 07/22/24 05:17 15:30 16:25 ABG pH 7.28 L 7.23 L Cancelled ABG pCO2 90 H* 102 H* D Cancelled ABG pO2 70 L 53 L* Cancelled ABG HCO3 42 H 43 H Cancelled ABG O2 Saturation 94 84 L Cancelled ABG Base Excess 13 H 14 H Cancelled 07/22/24 07/22/24 07/23/24 19:33 22:17 08:00 ABG pH 7.18 L* 7.31 L D 7.37 ABG pCO2 115 H* D 84 H* D 74 H* D ABG pO2 376 H D 170 H D 143 H D ABG HCO3 43 H 42 H 43 H ABG O2 Saturation 101 H 101 H 101 H ABG Base Excess 13 H 14 H 16 H 07/23/24 07/23/24 07/24/24 19:19 22:30 04:18 ABG pH 7.23 L D 7.31 L 7.33 L ABG pCO2 100 H* D 82 H* D 80 H* ABG pO2 173 H D 123 H D 133 H ABG HCO3 42 H 41 H 42 H ABG O2 Saturation 100 H 100 H 100 H ABG Base Excess 13 H 13 H 14 H 07/25/24 07/25/24 07/25/24 04:15 14:21 17:15 ABG pH 7.33 L 7.17 L* D 7.17 L* ABG pCO2 80 H* 110 H* D 108 H* ABG pO2 158 H D 116 H D 116 H ABG HCO3 42 H 40 H 40 H ABG O2 Saturation 100 H 99 H 99 H ABG Base Excess 14 H 10 H 9 H 07/26/24 07/26/24 07/26/24 04:52 10:12 12:30 ABG pH 7.32 L D 7.31 L 7.26 L ABG pCO2 74 H* D 75 H* 85 H* D ABG pO2 66 L D 76 L 78 L ABG HCO3 38 H 38 H 38 H ABG O2 Saturation 94 97 96 ABG Base Excess 11 H 10 H 10 H 07/26/24 07/26/24 07/26/24 14:40 17:10 22:03 ABG pH 7.29 L 7.34 L 7.35 ABG pCO2 78 H* 69 H 68 H ABG pO2 106 D 99 76 L D ABG HCO3 37 H 37 H 37 H ABG O2 Saturation 99 H 99 H 97 ABG Base Excess 9 H 10 H 10 H 07/27/24 07/27/24 07/27/24 04:55 10:10 21:38 ABG pH 7.40 7.30 L D 7.36 ABG pCO2 60 H 77 H* D 64 H D ABG pO2 114 H D 81 L D 125 H D ABG HCO3 38 H 37 H 36 H ABG O2 Saturation 100 H 97 100 H ABG Base Excess 12 H 10 H 9 H 07/28/24 07/28/24 07/29/24 04:37 10:39 04:20 ABG pH 7.38 7.29 L 7.39 D ABG pCO2 61 H 79 H* D 63 H D ABG pO2 113 H 74 L D 68 L ABG HCO3 36 H 38 H 39 H ABG O2 Saturation 100 H 99 H 95 ABG Base Excess 10 H 10 H 12 H 07/29/24 07/29/24 07/29/24 10:04 16:14 18:30 ABG pH 7.37 7.41 7.42 ABG pCO2 68 H 64 H 64 H ABG pO2 56 L* 72 L 72 L ABG HCO3 40 H 40 H 41 H ABG O2 Saturation 90 L 96 96 ABG Base Excess 13 H 14 H 15 H 07/30/24 07:53 ABG pH 7.29 L D ABG pCO2 86 H* D ABG pO2 105 D ABG HCO3 41 H ABG O2 Saturation 99 H ABG Base Excess 12 H Quality Measures Quality Measures VTE prophylaxis Advance care planning discussed with:: other Assessment & Plan Assessment Current Active Medications: Generic Name Dose Route Start Last Admin Trade Name Freq PRN Reason Stop Dose Admin Acetaminophen 650 mg 07/23/24 08:08 Acetaminophen Eva 325 Mg/10 Ml Udc NG 08/19/24 11:57 Q6H PRN Pain 1-3 and/or Fever >100.1 Apixaban 5 mg 07/22/24 21:00 07/26/24 09:34 Apixaban 2.5 Mg Tablet NG 08/21/24 20:59 Not Given BID MONA Benzonatate 100 mg 07/23/24 08:08 Benzonatate 100 Mg Capsule NG 08/19/24 20:59 BID PRN COUGH Protocol Dextrose 25 ml 07/24/24 09:03 Dextrose 50%-Water Inj 50 Ml Syringe IV 08/23/24 09:02 Q15MIN PRN BG 50-70 responsive npo pt Dextrose 50 ml 07/24/24 09:03 Dextrose 50%-Water Inj 50 Ml Syringe IV 08/23/24 09:02 Q15MIN PRN BG <50 OR BG <70 & pt unresponsive Glucagon 1 mg 07/24/24 09:03 Glucagon Inj 1 Mg Vial IM Q15MIN PRN BG <70, and no IV access Norepinephrine/Dextrose 8 mg in 250 mls @ 10.418 mls/hr 07/22/24 16:56 07/30/24 11:02 Levophed In D5w 8mg/250ml IV 08/21/24 16:55 0.17 mcg/kg/min .Q24H PRN 35.423 mls/hr PER PROTOCOL Administration Protocol 0.05 MCG/KG/MIN Vasopressin/Sodium Chloride 20 unit in 100 mls @ 9 mls/hr 07/24/24 09:05 07/26/24 18:00 Vasostrict/Ns Ivpb IV 08/23/24 09:04 Infused .Q11H7M PRN Titration PER PROTOCOL Protocol 0.03 UNIT/MIN Dexmedetomidine/Sodium Chloride 200 mcg in 50 mls @ 11.213 mls/hr 07/25/24 11:55 07/27/24 05:00 Precedex Ivpb IV 08/24/24 11:54 0 mcg/kg/hr .Q4H28M PRN 0 mls/hr Per PROTOCOL Titration Protocol 0.4 MCG/KG/HR Insulin Glargine 5 unit 07/24/24 21:00 07/29/24 21:45 Insulin Glargine (Lantus) 5 Unit/0.05 Ml (Per 5 Units) SC 08/23/24 20:59 5 unit HS MONA Administration Insulin Human Lispro 0 unit 07/24/24 12:00 07/30/24 05:59 Insulin Lispro (Admelog) 1 Unit/0.01 Ml Unit SC 08/23/24 11:59 Not Given Q6HR MONA Protocol Ipratropium Avinger 0.5 mg 07/21/24 10:43 07/23/24 13:10 Ipratropium Rt 0.5 Mg/ 2.5 Ml Nebu INH 08/20/24 18:59 0.5 mg BIDRT PRN Administration Shortness of breath and wheezing Protocol Ipratropium Avinger 0.5 mg 07/21/24 15:00 07/30/24 10:55 Ipratropium Rt 0.5 Mg/ 2.5 Ml Nebu INH 08/20/24 14:59 0.5 mg Q4HRRT MONA Administration Levalbuterol HCl 1.25 mg 07/21/24 10:39 07/23/24 13:10 Levalbuterol Rt 1.25 Mg/0.5 Ml Nebu INH 08/20/24 18:59 1.25 mg BIDRT PRN Administration Shortness of breath or wheezing Protocol Levalbuterol HCl 0.63 mg 07/21/24 15:00 07/30/24 10:55 Levalbuterol Rt 0.63 Mg/3 Ml Nebu INH 08/20/24 14:59 0.63 mg Q4HRRT MONA Administration Ondansetron HCl 4 mg 07/20/24 11:58 07/30/24 10:58 Ondansetron Inj 2 Mg/Ml Inj 2 Ml IV 08/19/24 11:57 4 mg Q6H PRN Administration NAUSEA OR VOMITING Protocol Sennosides 1 tab 07/21/24 09:00 07/30/24 09:44 Senna Tablet PO 08/20/24 08:59 Not Given QDAY MONA Protocol Sodium Chloride 5 ml 07/20/24 12:03 Sodium Chloride Rt 10% 15 Ml Nebu INH 08/19/24 12:02 PRN PRN sputum Sodium Chloride 3 ml 07/23/24 13:11 Sodium Chloride Rt Eva 0.9% 3 Ml Nebu INH 08/22/24 13:10 PRN PRN SOLN Sucralfate 1 gm 07/23/24 09:00 07/30/24 09:44 Sucralfate Susp 1 Gm/10 Ml Udc NG 08/19/24 20:59 Not Given BID MONA Plan Summary: The patient is a 79-year-old female with a past medical history of asthma on 3 L of oxygen at baseline, 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 Neuro #Acute encephalopathy Patient noted to be more lethargic than she is at baseline. Head CT done to rule out any active processes versus hyperactive delirium, ICU related delirium. Will follow-up with imaging. 07/30/2024- Head CT negative. CAM-ICU positive for delirium. Very lethargic this morning, unable to answer questions S/P extubation #History of CVA Patient has a history of CVA, the last time being in September 2023 with bilateral cerebellar infarcts. Supposedly, patient has left-sided deficits (weakness) Cardiovascular #History of HFpEF The patient has a history of HFpEF with ejection fraction 60 to 65% on echocardiogram done about a week ago also showing diastolic dysfunction. On admission, patient presented with hypoxia She was started on Lasix 40 mg daily. Cardiology was curb sided on this admission, believes that hypoxia is more pulmonary than cardiac cause. Initially was holding Lasix. Today, received IV Lasix 40 mg daily 07/30/2024: Patient received IV Lasix 80 mg yesterday with albumin, urine outputs were -2131. Will give another 80 mg of Lasix and albumin today. Plan: -IV Lasix 80mg x 1 -12.5% albumin -Strict I&O's #History of aortic stenosis status post TAVR The patient has a history of aortic stenosis which she had a TAVR done about 4 years ago. She has been followed by construction recruiter Dr. Arita. #History of A-fib She has a history of A-fib and is on Eliquis 5 mg twice daily. EKG on admission showed A-fib, rate controlled Eliquis initially held for concern of bleeding. Prior to extubation, OG suction had some blood in it, no active source of bleeding and n blood suctioned. Plan: -Hold Eliquis #History of hypertension Patient has a history of hypertension and is on lisinopril. Admission, blood pressures have been soft. Will hold off on antihypertensives for now. Resp #Acute on chronic hypoxic respiratory failure #Possible excessive dynamic airway collapse #?Tracheomalacia #CAP versus HAP The patient presented with shortness of breath and was admitted for acute hypoxic respiratory failure. Allegedly, she had been previously diagnosed with asthma and has had recurrent pulmonary infections. On initial admission, she had significant wheezing consistent with airway disease. Chest x-ray showed bilateral opacities consistent with multifocal pneumonia/fluid overload. She is a chronic CO2 retainer based on bicarb levels and history. On 07/22/2024, rapid response was called as patient was desaturating in the 50s. The RN went to the room and found out that the BiPAP tubing has been dislodged from the mask, patient was awake and alert at the time and oriented. ICU was consulted for further evaluation and recommendations, BiPAP settings were adjusted and patient is saturating 98% on 55% FiO2. She was upgraded to the ICU for intubation and further management. ABG during rapid response and a pH of 7.23 with pCO2 of 102. However, bronchoscopy was done on admission to the ICU, does not appear patient has airway disease as she has patent airways. MRSA nares negative Chest CT showed extensive bilateral pneumonia 07/26/2024- Again attempted extubation today, patient was put on pressure support for SBT, was intermittently able to follow very simple commands but mentation in general was not enough for extubation, also patient does not seem to have enough strength. 07/27/24: -Completed IV cefepime and IV azithromycin ,ET secretions, fungal pending.she was on levo at the dose of 0.0 9 in the morning. Mornig ABG showed Ph-4.40, Pco2-60,po2-81,hco3-37 .She was changed to pressor support. and repeat ABG was taken which showed 7.30,pco2-77,po2-81, Hco3-97 . So decision was made not to extubate the patient and her significant other Elsy was updated about it, she was given an option that patient might need trach because she is getting very week and its been difficult to extubate her. we will keep her in Alternate SIMV and PS mode and continue to monitor . As per significant other patient would not wanted to be trached 07/28/2024: Weaning parameters for extubation this morning, NIF about -20. ABG initially pH-7.38 with CO2 of 61, repeat ABG on spontaneous breathing trial pH of 7.29 with pCO2 of 79. IV Lasix 80 mg given. Patient off of pressors. Decision made not to extubate this patient did poorly, will consider another goals of care conversation with family tomorrow. In the interim, keep patient off of all sedatives 07/29/2024- Patient extubated to BIPAP 02/21. Repeat ABG in about an hour. 07/30/2024-s/p extubation, patient is currently on BiPAP. ABG was worsened when patient was on oxygen mask, returned to BiPAP, will follow-up new ABG. GI #Hyperbilirubinemia, resolved The patient has isolated hyperbilirubinemia with T. bili of 1.5. AST and ALT within normal limits. Patient has not complained of abdominal pain. This is likely a consequence of congestive hepatitis from heart failure. #Diet- Tube feeds- discontinued Had high residuals overnight and this morning, tube feeds held. OG tube DC'd. Now NPO untl swallow eval Renal #CKD stage III Patient has a history of CKD stage III with creatinine baseline of about 1. BUN and creatinine normal this admission. 07/29/2024- Creatinine at 1.8 today. Received 80mg of Lasix the day before with output of -1.7 Will continue to monitor renal panel. 07/30/2024: Creatinine improved today at 1.6 #Isotonic hyponatremia-resolved Sodium on admission, 137. Today, sodium is 137. Osmolality normal Albumin and protein within normal limits. Will continue to monitor sodium levels #Hypokalemia-resolved #Hypophosphatemia -resolved Potassium is 3.1 today with phosphorus of 2.3 Plan: Repleted with Kphos 22.5 and K+ 40meq Repeat renal function panel Heme/Onc #Normocytic anemia - most likely sec to chronic disease, or sec to phlebotomy - her Hb in the morning was 6.6 , 1 unit of prbc given -will continue to monitor Health maintenance: Dispo: S/p extubation, repeat ABG and possible downgrade to telemetry Diet: NPO DVT: Eliquis (held) Silver: None Lines: Peripheral Code: Full Case was discussed with attending physician, Dr Evaristo Shaw MD PGY-1 Disclaimer: This note was dictated by speech recognition. Minor errors in substation operator conversion may be present due to voice recognition software. Attending Provider Attestation/Addendum pt seen and examined, agree with above. In brief this is a 79yo F extubated yesterday to bipap. Overnight her bipap was stopped at 3 am for nausea. This AM she was noted to have developed resp acidosis once more and bipap was replaced. Her levo needs have gone down. d/w family at bedside reintubation and trach/peg vs comfort. Family decided that pt would have a poor quality of life and would not want a trach. they have decided to proceed with comfort care at this time. pt was started on morphine and ativan. case d/w ICU team, d/w family labs, imaging, records reviewed ~45cc min required for eval, exam, review, intervention, discussion and formulation of POC for this critically ill pt
[2024-07-30 13:33] LABS: Allen Test Not Performed; Puncture Site Left Radial
--- NOTE | 2024-07-30 14:50 | PC.NURSE ---
Per MD hidalgo start comfort measures now. Spoke with SANDY Peralta and KAREN Truly at bedside and no Home Builder requested at this time. Per KAREN and SANDY ok to start comfort measures now.
[2024-07-30] MEDS: Morphine IV Drip 100mg/100ml 100 ML IV (14:59)
[2024-07-30] MEDS: SCOPOLAMINE 1 MG TDSY TOP (14:59)
[2024-07-30] MEDS: MORPHINE SULF INJ 10 MG/ML VIAL 4 MG IVP ×3 (14:59→15:37)
[2024-07-30] MEDS: LORazepam 2 MG/ML VIAL IVP (15:08)
--- NOTE | 2024-07-30 16:20 | PC.SS ---
Update: Patient has been transitioned to comfort care.
--- NOTE | 2024-07-30 16:43 | PC.NURSE ---
Per MD hidalgo Start Comfort Measures now. Spoke with KAREN Chin and SANDY Flores at bedside. No general freight agent per SANDY and POC at bedside. Ok to start comfort measures now.
--- NOTE | 2024-07-30 17:09 | PC.NURSE ---
Spoke with Brianna from donor [employer] and reported deceasd to be potential candidate for donation and will call back in one hour to verify mortuary released to. [facility] [phone]
--- NOTE | 2024-07-30 17:52 | PC.NURSE ---
Spoke with Lori from [facility]. ready for orange picking supervisor. Will call back with
--- NOTE | 2024-07-30 17:57 | PD.DPN ---
Documentation for date of: 07/30/24 Pronouncement Note Date and Time of Date of : 07/30/24 Time of : 16:34 PCOD Preliminary cause of : Cardiorespiratory arrest Summary Additional details: I was called to see for asystole. On exam the patient was unresponsive, no spontaneous movement was observed, patient did not respond to verbal or noxious stimuli. Auscultated absent heart and breath sounds for more than 2 minutes. Peripheral pulses are absent. B/L Pupils are fixed, dilated, and corneal reflex was absent. Patient pronounced at 16:34. Attending Dr. Loera notified. Family was at bedside. Admitted on 07/20/24 on 07/30/2024 16:34 CODE STATUS: DNR/DNI Causes of : 1.Cardiopulmonary arrest Case was discussed with attending physician, Dr Evarsito Shaw MD PGY-1 Disclaimer: This note was dictated by speech recognition. Minor errors in conditioner tumbler may be present due to voice recognition software. Additional Data Confirmation of : no pulse, no respirations, no heart sounds and pupils fixed and dilated Family: at bedside Attending/PCP notified?: Yes Attending physician: Patricia Loera MD Was code activated?: No Autopsy requested?: No cigarette package examiner notified?: Yes Organ bank notified?: No
--- NOTE | 2024-07-30 18:13 | DES_ITS ---
Documentation for date of: 07/30/24 Summary Date and Time Date of admission: 07/20/24 11:58 Date of : 07/30/24 Time of : 16:34 Summary Hospital Course: The patient is a 79-year-old female with a past medical history of obstructive airway disease, CVA with residual left-sided deficits, A-fib on Eliquis, CKD stage IIIa and aortic stenosis status post TAVR who presented to the ED on 08/16/2024 from [facility] with difficulty breathing that has started about 3 days prior to presentation. Patient had allegedly reported that she did a pulmonary testing a couple years ago and was told she had asthma but has no official diagnosis of COPD. On admission, show he denied chest pain, cough or any swelling in bilateral lower extremities. According to the facility, she had also been requiring more oxygen than her baseline and her oxygenation requirements have been increasing especially during the day. ED course: In the ED, the patient was noted to be hypoxic and was requiring about 15 L of oxygen via oxymask, she was also tachycardic but otherwise stable. Significant labs initially showed a WBC of 15.7, hemoglobin of 7.5. COVID, influenza and RSV were negative. Chest x-ray showed mild heart failure pattern with extensive bilateral lung opacities suggestive of pneumonia. EKG showed A-fib. The patient was admitted for management of acute on chronic hypoxic respiratory failure secondary to community-acquired pneumonia and started on IV cefepime, breathing treatments and Solu-Medrol. On 07/22/2024, rapid response was called as patient was desaturating in the 50s. ICU was consulted for further evaluation and recommendations, BiPAP settings were adjusted and patient is saturating 98% on 55% FiO2. She was upgraded to t ICU for intubation and further management. Postintubation, the patient was noted to have an intrinsic PEEP, suggestive of obstructive airway disease, she completed antibiotic course for pneumonia. First 3 trials for extubation reflective of poor outcome but on 07/29/2024, patient was extubated to BiPAP. She continued to be lethargic and goals of care conversation was had with family who affirmed that she would not want to live with a trach tube or PEG tube or any further interventions. Close status was changed to DNR and subsequently patient was put on comfort measures. All medications were stopped and patient passed comfortably by 16:34. Family was at bedside and consoled. #Acute encephalopathy #History of CVA #History of HFpEF #History of aortic stenosis status post TAVR #History of A-fib #Acute on chronic hypoxic respiratory failure #Obstructive airway disease #Community-acquired pneumonia #Hyperbilirubinemia #CKD stage III #Electrolyte imbalances Case was discussed with attending physician, Dr Evaristo Shaw MD PGY-1 Disclaimer: This note was dictated by speech recognition. Minor errors in patient accounts manager may be present due to voice recognition software. Additional Data Confirmation of as documented by pronouncing clinician: no pulse, no respirations, no heart sounds and pupils fixed and dilated Family: at bedside Attending/PCP notified?: Yes Attending physician: Patricia Loera MD Was code activated?: No Autopsy requested?: No train examiner notified?: Yes Organ bank notified?: No Advance directives: No Hospice patient?: No Visit Providers Provider Primary care physician: Shalom Sheikh MD Consults: 07/20/24 12:01 Referral Physical Therapy Routine Comment: Physician Instructions: 07/21/24 22:44 Consult to Pulmonology Stat Comment: Possible interstitial lung disease Consulting Provider: Franky Giron I 07/23/24 10:58 Referral Registered Dietitian Routine Comment: Start feeds- trickle. Thank you 07/30/24 02:39 Referral Speech Therapy Urgent Comment: Discharge Plan Prescriptions/Referrals Prescriptions/Med Rec: No Action lisinopril 10 MG tablet 20 mg PO QDAY Qty: 0 Rx Instructions: HOLD IF SBP<100 OR DBP<60 metoprolol succinate 50 mg Capsule,Sprinkle,Er 24hr 25 mg PO QDAY Rx Instructions: HOLD IF SBP<100 OR DBP<60 sucralfate 1 gram Tablet 1 g PO BID midodrine 10 mg tablet 10 mg PO BID Patient Comments: HOLD SBP>130 ipratropium-albuterol 0.5 mg-3 mg(2.5 mg base)/3 mL solution for nebulization 3 ml INHALATION TID melatonin 3 mg tablet 3 mg PO HS PRN (Reason: insomnia) tramadol 50 mg tablet 50 mg PO Q6H PRN (Reason: pain) fexofenadine 180 mg tablet 180 mg PO Q24H PRN (Reason: allergies) magnesium hydroxide [Milk of Magnesia] 400 mg/5 mL suspension 30 ml PO .Every 72 Hrs PRN (Reason: constipation) Patient Comments: 1st Line bisacodyl [Laxative (bisacodyl)] 10 mg suppository 10 mg MA .Every 72 hrs PRN (Reason: constipation) Patient Comments: Line 2, if MOM is ineffective Fleet Enema 19-7 gram/118 mL enema 118 ml MA .Every 72 HRS PRN (Reason: constipation) Patient Comments: Line 3 if MOM/Dulcolax ineffective acetaminophen 325 mg tablet 650 mg PO Q6H PRN (Reason: mild pain (scale score 1-4)) calcium carbonate 500 mg calcium (1,250 mg) tablet,chewable 1,000 mg PO QID PRN (Reason: Acid Reflux) coQ10 (ubiquinol) 200 mg Capsule 400 mg PO QDAY pantoprazole [Protonix] 40 mg tablet,delayed release (DR/EC) 40 mg PO QDAY ferrous sulfate 325 mg (65 mg iron) Tablet 325 mg PO BID furosemide 20 mg tablet 20 mg PO QDAY 30 Days Qty: 30 3RF apixaban 5 mg tablet 5 mg PO BID 30 Days Qty: 60 0RF Referrals: Shalom Sheikh MD [Primary Care Provider] - Patient/Caregiver Discharge Instructions Print Language: Egyptian
== END 2024-07-30 16:34 | disposition expired | DRG 208 ==
LOC: SERX 08:31 → SERHOLD 12:15 → S2NX 14:26 → S2SX 07-24 08:42
PROVIDERS: Internal Medicine Critical Care Medicine; Student in an Organized Health Care Education/Training Program; Admitting Provider Student in an Organized Health Care Education/Training Program; Emergency Provider Emergency Medicine; PCP Family Medicine; Visit Provider Internal Medicine
DX: J15.9 Unspecified bacterial pneumonia (principal); J96.21 Acute and chronic respiratory failure with hypoxia; J96.22 Acute and chronic respiratory failure with hypercapnia; I69.354 Hemiplegia and hemiparesis following cerebral infarction affecting left non-dominant side; I13.0 Hypertensive heart and chronic kidney disease with heart failure and stage 1 through stage 4 chronic kidney disease, or unspecified chronic kidney disease; I50.32 Chronic diastolic (congestive) heart failure; J44.1 Chronic obstructive pulmonary disease with (acute) exacerbation; J44.0 Chronic obstructive pulmonary disease with (acute) lower respiratory infection; I48.20 Chronic atrial fibrillation, unspecified; G93.40 Encephalopathy, unspecified; E87.1 Hypo-osmolality and hyponatremia; N17.9 Acute kidney failure, unspecified; K21.9 Gastro-esophageal reflux disease without esophagitis; K29.70 Gastritis, unspecified, without bleeding; I25.10 Atherosclerotic heart disease of native coronary artery without angina pectoris; I46.9 Cardiac arrest, cause unspecified; N18.31 Chronic kidney disease, stage 3a; E87.5 Hyperkalemia; D53.9 Nutritional anemia, unspecified; E66.9 Obesity, unspecified; J39.8 Other specified diseases of upper respiratory tract; E83.39 Other disorders of phosphorus metabolism; D69.6 Thrombocytopenia, unspecified; I35.0 Nonrheumatic aortic (valve) stenosis; Y95 Nosocomial condition; E88.09 Other disorders of plasma-protein metabolism, not elsewhere classified; E87.6 Hypokalemia; Z95.2 Presence of prosthetic heart valve; Z66 Do not resuscitate; Z51.5 Encounter for palliative care; Z79.01 Long term (current) use of anticoagulants; Z95.3 Presence of xenogenic heart valve; Z96.651 Presence of right artificial knee joint; Z87.01 Personal history of pneumonia (recurrent); Z87.891 Personal history of nicotine dependence; Z79.899 Other long term (current) drug therapy; Z90.710 Acquired absence of both cervix and uterus; Z88.1 Allergy status to other antibiotic agents; Z88.5 Allergy status to narcotic agent
CPT/HCPCS: 36415; 36600; 70450; 71045; 71250; 74018; 80053; 80069; 81001; 82803; 83605; 83735; 83880; 84100; 84132; 84145; 84484; 85025; 86331; 86635; 86850; 86870; 86900; 86901; 86902; 86921; 86922; 87015; 87040; 87081; 87102; 87116; 87205; 87206; 87400; 87502; 87634; 87811; 93005; 94002; 94003; 94640; 94644; 94660; 96361; 96365; 97161; 99285; J0456; J0692; J1120; J1815; J1940; J2060; J2250; J2270; J2405; J2470; J2598; J2704; J2919; J3010; J3475; J3480; J3490; J7040; J7050; J7512; J7999; P9016; P9047; A9270